=== PATIENT | female | born 1950 | race Caucasian/White ===

== ENCOUNTER → 2023-05-31 13:42 | Outpatient (REF) | payer MEDICARE, OTHER, SELFPAY ==
[2023-05-31 14:02] LABS: % Basophils 0.4 % (0-2); % Eosinophils 3.9 % (0-6); % Immature Granulocytes 0.4 % (0-0.5); % Lymphocytes 4.5 % (20.5-51.1); % Monocytes 12.6 % (1.7-9.3); % Neutrophils 78.2 % (42.2-75.2); Absolute Eosinophils 0.2 10^3/uL (0-0.7); Absolute Lymphocytes 0.2 10^3/uL (1.2-3.4); Absolute Monocytes 0.6 10^3/uL (0.1-0.6); Absolute Neutrophils 3.8 10^3/uL (1.4-6.5); Hematocrit 27.6 % (37.0-47.0); Mean Corp Hgb Conc. 32.6 g/dL (33.0-37.0); Mean Corpuscular Hgb 34.6 pg (27.0-31.0); Mean Corpuscular Volume 106.2 fL (81.0-99.0); Mean Platelet Volume 8.9 fL (7.4-10.4); Nucleated Red Blood Cells % 0 %; Platelet Count 140 10^3/uL (130-400); Red Cell Dist. Width 17.6 % (11.5-14.5); White Blood Cell Count 4.9 10^3/uL (4.8-10.8)
[2023-05-31 14:38] LABS: ALT (SGPT) 21 U/L (0-35); AST (SGOT) 30 U/L (14-36); Albumin 3.8 g/dl (3.5-5.0); Alkaline Phosphatase 79 U/L (38-126); Blood Urea Nitrogen 32 mg/dl (7-17); Calcium 8.9 mg/dl (8.4-10.2); Carbon Dioxide 21 mmol/L (22-30); Chloride 106 mmol/L (98-107); Glucose 125 mg/dl (70-99); Potassium 3.6 mmol/L (3.5-5.1); Sodium 135 mmol/L (135-145); Total Bilirubin 0.7 mg/dl (0.2-1.3); Total Protein 6.5 g/dl (6.3-8.2); eGFR > 60.00
[2023-05-31 15:02] LABS: Erythrocyte Sed Rate 84 mm/hour (0-20)
== END ==
LOC: REG 13:42
PROVIDERS: ATTENDING PHYSICIAN Physician Assistant Surgical; FAMILY PHYSICIAN Internal Medicine
DX: Z47.89 Encounter for other orthopedic aftercare (principal); E46 Unspecified protein-calorie malnutrition
CPT/HCPCS: 36415; 80053; 85025; 85652; 86140

== ENCOUNTER 2023-09-07 05:57 | Inpatient (IN) | payer MEDICARE, OTHER, SELFPAY ==
[2023-09-07] VITALS (15 sets, daily range): BP systolic 70–132; BP diastolic 65–88; BMI 18.9
--- NOTE | 2023-09-07 01:56 | ED.GENMED ---
History of Present Illness
General
Chief Complaint: Musculo-Skeletal Complaint
Source: patient and family (Daughter)
Exam Limitations: none
Time Seen by Provider: 09/07/23 01:06
Travel History
Have you had any contact with someone who has COVID-19?: No
Do you have any symptoms of coronavirus? Fever > 100 degrees, chills, cough, shortness of breath, sore throat, loss of taste or smell, muscle aches, or headache?: No
History of Present Illness
History of Present Illness:
This is a 73 year old female that is brought in by her daughter with multiple complaints. Patient daughter states that the patient had her right hip replaced in May 15. States that she left for [place] in May. States that about 4 weeks
ago she fell and dislocated the right hip. States that this was reduced and since that time she has had pain. States that she had 2 X-rays of the right hip and she was told that they were normal. Patient has not been eating or drinking. States that
she was walking with a walker but as of a week ago she is unable to walk. States that they drove up from [place] today and left there at 6:30am and came here. States that she feels she is dehydrated. State that the patient had a fever on Saturday and
diarrhea last week. Denies any chills, chest pain, SOB, abd pain, nausea, vomiting, headache, dizziness, urinary burning.
Past History
Past History
ED Past Medical History: Asthma, Cancer (Ovarian with mets to Lung) and Other (Neuropathy)
ED Past Surgical History: Appendectomy, Gynecological (Hysterectomy) and Orthopedic (Right total knee replacement, Right total hip replacement)
Social History
Tobacco: Non-smoker
Alcohol: Occasional
Drug: None
Personal:
Living: with family
Review of Systems
Review of Systems
All Other Systems: ROS reviewed and negative except as documented in HPI and ROS
Constitutional: Reports no symptoms; Denies fever (Had a fever on Saturday but not since) or chills
EENT: Reports no symptoms
Respiratory: Reports no symptoms; Denies cough or trouble breathing
Cardiac: Reports no symptoms; Denies chest pain
ABD/GI: Denies abdominal pain, nausea, vomiting or diarrhea (Diarrhea last week)
: Reports no symptoms; Denies dysuria, frequency or urgency
Musculoskeletal: Reports joint pain (Right hip pain)
Skin: Reports no symptoms
Neurological: Reports no symptoms; Denies dizzy or headache
Psychiatric: Reports no symptoms
Phy Exam
General Physical Exam
General Presentation: no apparent distress
General age: appears older than age
General Skin: warm and dry
General Habitus: debilitated and failure to thrive
General Mental: alert
General Hydration: dry mucous membranes
ENT Exam
ENT Exam: TM's normal, pharynx normal and neck supple
Eye Exam
Eye Exam: EOMI
Cardiovascular Exam
Cardiovascular Exam: regular rate/rhythm and normal peripheral pulses
Pulmonary Exam
Pulmonary Exam: lungs clear, no respiratory distress, no rales, chest non tender, no crackles, no rhonchi, no wheezing and no cough
Gastrointestinal Exam
Gastrointestinal Exam: normal bowel sounds, non tender, soft, no organomegaly, no pulsatile mass and non distended
Musculoskeletal Exam
Musculoskeletal Exam: edema (Right >Left. Pitting +2 ) and other (Right hip tenderness with palpation. Unable to bend knee or move leg due to pain)
Skin Exam
Skin Exam: normal color, warm/dry, no rash and no petechia
Psychiatric Exam
Psychiatric Exam: normal mood/affect
Course
Orders/Labs/Results
Orders:
Orders
09/07/23 01:39
CT Lower Ext W/o Iv Cont Rt Urgent
Comment: 2 X-rays negative.
Reason For Exam: Right hip pain. Unable to walk
09/07/23 01:46
Complete Blood Count/With Diff Urgent
Comprehensive Metabolic Panel Urgent
09/07/23 01:55
0.9% Sodium Chloride 1000 ml [Nss] 1,000 ml IV BOLUS
09/07/23 02:57
Urinalysis Reflex To Culture Urgent
Date Specimen was Collected: 09/07/23
Time Specimen was Collected: 03:04
Abnormal Lab Results
09/07/23
01:46
WBC 15.7 H 10^3/uL
(4.8-10.8)
RBC 3.15 L 10^6/uL
(4.20-5.40)
Hgb 9.1 L g/dL
(12.0-16.0)
Hct 27.4 L %
(37.0-47.0)
RDW 25.4 H %
(11.5-14.5)
Abs Immat Gran (auto) 0.2 H 10^3/uL
(0-0.05)
Absolute Neuts (auto) 13.8 H 10^3/uL
(1.4-6.5)
Absolute Lymphs (auto) 0.1 L 10^3/uL
(1.2-3.4)
Absolute Monos (auto) 1.5 H 10^3/uL
(0.1-0.6)
Immature Gran % 1.4 H %
(0-0.5)
Neutrophils % 87.7 H %
(42.2-75.2)
Lymphocytes % 0.7 L %
(20.5-51.1)
Monocytes % 9.8 H %
(1.7-9.3)
Sodium 128 L mmol/L
(135-145)
BUN 32 H mg/dl
(7-17)
Glucose 118 H mg/dl
(70-99)
AST 38 H U/L
(14-36)
Alkaline Phosphatase 147 H U/L
(38-126)
Total Protein 5.4 L g/dl
(6.3-8.2)
Albumin 2.7 L g/dl
(3.5-5.0)
09/07/23 01:46
09/07/23 01:46
Leukocytosis, H/H low but consistent with prior labs, Hyponatremia, Glucose nonfasting. AST very slightly elevated. Alk phos elevation. Total protein low. Albumin low.
Vital Signs
Initial and Last Documented VS:
Initial Vital Signs
Pulse Resp BP Pulse Ox
124 24 132/88 96
09/07/23 00:08 09/07/23 00:08 09/07/23 00:08 09/07/23 00:08
Last Documented Vital Signs
Temp Pulse Resp BP Pulse Ox
98.2 F 95 19 112/70 97
09/07/23 02:09 09/07/23 03:00 09/07/23 03:00 09/07/23 03:00 09/07/23 03:00
MDM/Problems Addressed
Differential Diagnosis Includes:
Hip dislocation. Pelvic Fracture,
MDM/Problems Addressed:
This is a 73 year old female that is brought in by daughter with c/o dehydrated and hip pain. Daughter states that she fell a month ago and dislocated her right hip. Patient had the hip replaced on April. States that this was put back into place
and at first was able to use a walker but in the past week is unable to walk. Patient is also not eating or drinking.
Will check labs, give IV fluids and get CT of hip.
Back into see patient and daughter. Explained that her blood work shows dehydration. Patient is unable to walk and CT was pending. Will admit patient.
Hospitalist given CT report. Explained that no antibiotics were ordered as this may need to be aspirated so can be treated with appropriate antibiotics if needed.
Chronic conditions affecting care: Cancer
Acute Exacerbation and/or Progression of Chronic Illness:
NA
*Radiology
Radiology exam reviewed: radiology read reviewed (Right hip night hawk- Approximately 11.5 X 8.9 X 17.6cm right thigh loculated fluid collecion witih internal foci of gas along the posteriolateral aspect of the proximal right femur and hip. This may
represent a Postoperative Seroma, hematoma, or abscess. cannot Exclude a metal-on metal pseudotumor,), all reviewed NAD by ED Provider (CT cont- although there are no definite erosions visualized consider further evaluation with fluid sampling.
Otherwise, intact right total hip arthropolasty. No acute fracture or malalignment. Partially visualized mildly distended gallbladder and gallbladder wall thickening, which is nonspecific.) and other (CT cont- Correlate with any signs of
Cholecystitis. NO acute intrapelvic abnormalities. Moderate anasarca. )
*Pulse Oximetry
Patient hypoxic: no
*EKG
Interpreted by ED Provider?: NA
Rate: EKG- N/A
*[place] T[place] Line Interpretation
Rate: tachycardiac
Heart Rate: 102
*Critical Care Note
Total Time (30-74mins, 75-104mins- exclusive of procedures): Not Applicable
ED Attending Note
-
Portions of this chart may have been created with voice recognition software.� Occasional wrong word or��sound alike� substitutions may have occurred due to the inherent limitations of voice recognition software.
Discharge Plan
Departure
Patient Disposition: Admit
Date of Disposition: 09/07/23
Time of Disposition: 03:54
Admit to: Med/Surg
Presentation/result/management discussed w/ accepting MD/DO: Hospitalist
Patient with high blood pressure during this ER visit?: No
Condition: Good
Covid-19: Not Applicable
Discharge Problem:
Acute dehydration, Acute pain of right hip, Ambulatory dysfunction
Prescriptions:
No Action
albuterol sulfate 1 PUFF HFA aerosol inhaler
2 puff inhalation R Q4HPRN PRN (Reason: SOB)
cholecalciferol (vitamin D3) [Vitamin D3] 25 mcg (1,000 unit) Tablet
25 mcg PO DAILY
mupirocin 2 % ointment
1 applic topical BID Qty: 1 0RF
Patient Comments:
started treatment on saturday05/11/23 and wa staking BID, last took at home 05/14/23 in am
aspirin 325 mg tablet
325 mg PO DAILY Qty: 1 0RF
Rx Instructions:
Take with food
cefadroxil 500 mg capsule
500 mg PO BID Qty: 14 0RF
Rx Instructions:
*Take w/ food
*Take w/ probiotic
*POST-OP USE
docusate sodium [Colace] 100 mg capsule
100 mg PO BID Qty: 1 0RF
famotidine 20 mg tablet
20 mg PO HS Qty: 30 0RF
Rx Instructions:
post-op
Saccharomyces boulardii [Florastor] 250 mg capsule
250 mg PO BID Qty: 1 0RF
magnesium hydroxide [Milk of Magnesia] 400 mg/5 mL suspension
30 ml PO HS PRN (Reason: Constipation) Qty: 1 0RF
sennosides [Senokot] 8.6 mg tablet
17.2 mg PO BID Qty: 2 0RF
meloxicam 15 mg tablet
15 mg PO DAILY Qty: 14 0RF
Rx Instructions:
take with food
post-op
oxycodone 5 mg tablet
5 - 10 mg PO Q6HPRN PRN (Reason: 1 tab moderate-2 tabs severe pain) Qty: 30 0RF
Rx Instructions:
Dx surgery
ongoing therapy
Post-op use
acetaminophen [Tylenol] 325 mg capsule
650 mg PO QID Qty: 2 0RF
prednisone 10 mg tablet
40 mg PO TAPER Qty: 20 0RF
Rx Instructions:
4 TABS X 2 DAYS, 3 TABS X 2 DAYS, 2 TABS X 2 DAYS, 1 TAB X 2 DAYS, THEN STOP
cyanocobalamin (vitamin B-12) [Vitamin B-12] 1,000 mcg Tablet
1,000 mcg PO DAILY
ascorbic acid (vitamin C) [Vitamin C] 500 mg Tablet
500 mg PO DAILY
gabapentin 300 mg capsule
600 mg PO DAILY
Referrals:
William Ochoa DO [Family Provider] -
Interventions
Interventions:
*Risk Screen - Suicide Last Done: 09/07/23 00:08
*General Assessment Last Done: 09/07/23 01:50
*Neglect/Abuse Screening Last Done: 09/07/23 00:08
ED- Fall Risk Assessment Last Done: 09/07/23 01:50
*ED COVID-19 Vaccine History Last Done: 09/07/23 02:13
ED-Musculoskeletal Assessment Last Done: 09/07/23 01:50
Discharge Date and Time
Print Language: WOLOF
[2023-09-07 02:00] LABS: % Basophils 0.4 % (0-2); % Immature Granulocytes 1.4 % (0-0.5); % Lymphocytes 0.7 % (20.5-51.1); % Monocytes 9.8 % (1.7-9.3); % Neutrophils 87.7 % (42.2-75.2); Absolute Basophils 0.1 10^3/uL (0-0.2); Absolute Immature Granulocytes 0.2 10^3/uL (0-0.05); Absolute Lymphocytes 0.1 10^3/uL (1.2-3.4); Absolute Monocytes 1.5 10^3/uL (0.1-0.6); Absolute Neutrophils 13.8 10^3/uL (1.4-6.5); Hematocrit 27.4 % (37.0-47.0); Hemoglobin 9.1 g/dL (12.0-16.0); Mean Corp Hgb Conc. 33.2 g/dL (33.0-37.0); Mean Corpuscular Hgb 28.9 pg (27.0-31.0); Mean Platelet Volume 9.6 fL (7.4-10.4); Nucleated Red Blood Cells % 0.3 %; Platelet Count 180 10^3/uL (130-400); Red Blood Cell Count 3.15 10^6/uL (4.20-5.40); Red Cell Dist. Width 25.4 % (11.5-14.5); White Blood Cell Count 15.7 10^3/uL (4.8-10.8)
[2023-09-07] MEDS: NSS 1000 IV ×2 (02:03→12:27)
[2023-09-07 02:19] LABS: ALT (SGPT) 16 U/L (0-35); AST (SGOT) 38 U/L (14-36); Albumin 2.7 g/dl (3.5-5.0); Alkaline Phosphatase 147 U/L (38-126); Blood Urea Nitrogen 32 mg/dl (7-17); Calcium 8.4 mg/dl (8.4-10.2); Carbon Dioxide 22 mmol/L (22-30); Chloride 100 mmol/L (98-107); Estimated Creatinine Clearance 44 ml/min; Glucose 118 mg/dl (70-99); Potassium 4.2 mmol/L (3.5-5.1); Sodium 128 mmol/L (135-145); Total Bilirubin 0.8 mg/dl (0.2-1.3); Total Protein 5.4 g/dl (6.3-8.2); eGFR > 60.00
[2023-09-07 02:51] LABS: Anisocytosis 2+; Normal RBC Morphology No
[2023-09-07 02:54] LABS: Polychromasia Occasional; Target Cells Occasional
[2023-09-07 02:55] LABS: Basophilic Stippling Occasional; Ovalocytes Occasional; Tear Drop Red Blood Cells Occasional
[2023-09-07 04:24] LABS: Urine Albumin Trace (Neg - Trace); Urine Bilirubin 1+ (Negative); Urine Character Slightly Cloudy (Clear); Urine Color Amber; Urine Glucose Negative (Negative); Urine Ketone Trace (Negative); Urine Leukocyte Trace (Negative); Urine Nitrite Negative (Negative); Urine Occult Blood Negative (Negative); Urine Specific Gravity 1.025 (<1.030); Urine Urobilinogen 2+ (Neg - 1+)
--- NOTE | 2023-09-07 04:43 | HPS.HSE ---
Family Physician
-
Family Physician: William Ochoa
Chief Complaint
-
Right hip pain mobility dysfunction
History of Present Illness
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
malnutrition, presenting to ED following progressive worsening of right hip pain with family dysfunction.
Patient had total hip arthroplasty in April. About a month ago she suffered a dislocation of the right femur and had a reduction. Since that reduction with the patient has had continued pain and is now unable to walk. She was a child walking
independently obtained with a cane and then ultimately with a walker. I have over the last few days she has not been able to walk. She stated that in the last month she had 1 or 2 days of subjective fevers but not persistent. She denied any
erythema. Patient has a chronic swelling of the right lower extremity and she is unable to tell whether it is worse than baseline. She denied any recent falls. She denies any numbness or tingling. Patient denies any new urinary or fecal
incontinence. She continues to endorse decreased appetite and limited po intake. No nausea, vomiting or diarrhea.
In the ED she was afebrile, she was hemodynamically stable with a blood pressure of 118/75, normal pulse rate of 88. She was satting at 95% on room air. She had leukocytosis of 15,000, hemoglobin 9.1 and platelet of 180. Chemistries are notable
for sodium of 128 but otherwise no change from prior. Albumin was 2.7. LFTs unremarkable. UA is pending. She had a CT of the pelvis without contrast showing a 11.5 x 8.9 x 17.6 centimeter loculated fluid collection in the right thigh with
internal foci of gas along the posterolateral aspect of the proximal right femoral and hip. This may represent postoperative seroma or hematoma or an abscess. There was no dislocation. There was no fracture. Incidental note is made of a
partially visualized mildly distended gallbladder and gallbladder wall thickening.
Medical History
Past Medical History
Past Medical History: Reports Asthma and Cancer
Additional Past Medical History:
h/o ovarian cancer s/p resection and chemotherapy.
Past Surgical History: Reports Gynocological
Additional Past Surgical History:
Right FREDIS
Social History
Tobacco: Non-smoker
Alcohol: None
Drug: None
Personal:
Living: With Family
Employment: Retired
Family History
Family History: Not pertinent
Allergies / Home Medications
Allergies reflects when Allergies were last updated in [facility].
Home Medications with original date entered in [facility]
Allergy/Medication List:
Allergies
Allergy/AdvReac Type Severity Reaction Status Date / Time
No Known Allergies Allergy Verified 09/07/23 00:11
Home Medications
albuterol sulfate 90 mcg/actuation aerosol inhaler 2 puff inhalation R Q4HPRN PRN SOB 06/02/19
cholecalciferol (vitamin D3) 25 mcg (1,000 unit) tablet (Vitamin D3) 25 mcg PO DAILY Supplement 06/02/19
ascorbic acid (vitamin C) 500 mg tablet (Vitamin C) 500 mg PO DAILY Supplement 04/08/23
cyanocobalamin (vitamin B-12) 1,000 mcg tablet (Vitamin B-12) 1,000 mcg PO DAILY Supplement 04/08/23
gabapentin 300 mg capsule 600 mg PO DAILY Pain 04/08/23
mupirocin 2 % topical ointment 1 applic topical BID infection prevention #1 tube 04/26/23
Saccharomyces boulardii 250 mg capsule (Florastor) 250 mg PO BID #1 cap 05/16/23
acetaminophen 325 mg capsule (Tylenol) 650 mg (2 x 325 mg) PO QID #2 caps 05/16/23
aspirin 325 mg tablet 325 mg PO DAILY blood clot prevention #1 tab 05/16/23
cefadroxil 500 mg capsule 500 mg PO BID infection prevention #14 caps 05/16/23
docusate sodium 100 mg capsule (Colace) 100 mg PO BID stool softner #1 cap 05/16/23
famotidine 20 mg tablet 20 mg PO HS GI prophylaxis #30 tabs 05/16/23
magnesium hydroxide 400 mg/5 mL oral suspension (Milk of Magnesia) 30 ml PO HS PRN Constipation #1 mL 05/16/23
meloxicam 15 mg tablet 15 mg PO DAILY anti-inflammatory #14 tabs 05/16/23
oxycodone 5 mg tablet 5 - 10 mg (1 - 2 x 5 mg) PO Q6HPRN PRN 1 tab moderate-2 tabs severe pain #30 tabs 05/16/23
prednisone 10 mg tablet 40 mg (4 x 10 mg) PO TAPER inflammation #20 tabs 05/16/23
sennosides 8.6 mg tablet (Senokot) 17.2 mg (2 x 8.6 mg) PO BID laxative #2 tabs 05/16/23
Review of Systems
-
History Source: Patient
Constitutional: Reports No Symptoms
EENT: Reports No Symptoms
Respiratory: Reports No Symptoms
Cardiac: Reports No Symptoms
Abdomen/GI: Reports No Symptoms
: Reports No Symptoms
Musculoskeletal: Reports Joint Pain and Edema
Skin: Reports No Symptoms
Neurological: Reports No Symptoms
Endocrine: Reports No Symptoms
Hematologic/Lymphatic: Reports No Symptoms
Psych: Reports No Symptoms
Physical Exam
Vital Signs
Vital Signs
Temp Pulse Resp BP Pulse Ox
98.2 F 88 14 118/73 95
09/07/23 02:09 09/07/23 04:00 09/07/23 04:00 09/07/23 04:00 09/07/23 04:00
Physical Exam
General: Appears in Distress, Poor Appetite and Appears Chronically Ill
HEENT: NormoCephalic, Anicteric, Moist mucous membranes, Atraumatic and PERRLA
Respiratory: Clear
Cardiac: S1/S2 and Regular Rhythm
Breast: Deferred by me
GI: Soft, Non Tender, Non Distended and Normal Bowel Sounds
Rectal: Deferred by Provider
Genito-urinary: Deferred by me
Musculoskeletal: No Clubbing, No Cyanosis and Edema, Right Lower Extremity
Skin: Warm
Neuro: AO x 3
Hematologic/Lymphatic: No Lymphadenopathy
Psych: Calm
Laboratory Results
-
09/07/23 01:46
09/07/23 01:46
Laboratory Results
Total Bilirubin 0.8 mg/dl (0.2-1.3) 09/07/23:46
AST 38 U/L (14-36) H 09/07/23:46
ALT 16 U/L (0-35) 09/07/23:46
Alkaline Phosphatase 147 U/L (38-126) H 09/07/23:46
Data Reviewed
-
CT Scan: Report Reviewed by me
Lab Data: Labs Reviewed by me
Old Records: Reviewed
Impression/Plan
-
IMPRESSION:
PLAN:
1. Right Hip pain - Right hip pain s/p R FREDIS in april complicated by dislocation 1 month ago s/p reduction. Patient with persistent pain and ambulatory dysfunction since. She is non-toxic appearing and right hip with edema to the legs but no
erythema or warmth. Tender to palpation. Leukocytosis noted. CT of the pelvis with a loculated fluid collection iwth internal foic of gas along the posterolateral aspect of the proximal right femur and hip representing possible seroma, hematoma
or abscess.
- admit to med/surg
- surgery consult (patient of Dr. Hill), likely needs drainage and fluid analysis
- holding abx for now, start abx if febrile
- pain control
- PT evaluation
2. Right leg edema - Appears chronic with some degree of anasarca. Patient reports long standing swelling in that leg. Anasarca may be secondary to malnutrition and hypoalbuminemia. Given surgery possibly swelling due to lymphatic compromise
- check R LE DVT study
3. Hyponatremia - Na 128, appears to be hypovolemic.
- gentle hydration with NS at 75 ml/hr for now
- check urine lytes and osmolality
4. Asthma - No acute symptoms
- continue nebs prn
DVT PPX - lovenox sq
Code Status - DNR
[2023-09-07 05:27] LABS: Urine Amorphous Seen; Urine Mucus Moderate; Urine Squamous Cell >30 /LPF (Few); Urine Urothelial Cell >30 /LPF (FEW)
[2023-09-07 05:28] LABS: Urine Bacteria Many (Negative)
[2023-09-07 05:29] LABS: Urine White Cell 70-80 /HPF (0-5)
--- NOTE | 2023-09-07 08:05 | W.PN.UPDATE ---
Addendum entered and electronically signed by Gianfranco Lizarraga MD 09/07/23 10:29:
Notified by IR the patient has acute nonocclusive thrombus of the right femoral, popliteal, and posterior tibial veins.
Patient for drainage of right hip fluid collection by IR, and also surgery on Saturday. Unable to anticoagulate at this point.
Can consider therapeutic Lovenox after drainage.
Original Note:
Update Note
Progress Note Update
Patient seen and examined.
73 yo female who has a history of ovarian cancer receiving treatments underwent R THR in April.
Right lower extremity CT shows large complex loculated fluid, which may be a seroma, hematoma, or abscess.
Appreciate orthopedic surgery input, IR consulted for drainage, follow-up on right hip ultrasound, ESR, CRP, blood cultures.
Likely would start antibiotics after drainage.
Start Tylenol 1 g 3 times daily, continue oxycodone and IV Dilaudid as needed.
Sodium 128, likely from excess ADH release from pain.
Start fluid restriction, trend sodium, check TSH/free T4, a.m. cortisol.
Patient constipated, start aggressive bowel regimen.
--- NOTE | 2023-09-07 08:28 | W.PN.UPDATE ---
Addendum entered and electronically signed by Colin Augustin MD 09/07/23 09:11:
Recommend no antibiotics until aspiration.
Original Note:
Update Note
Progress Note Update
Full consult dictated. 73 yo female who has a history of ovarian cancer receiving treatments underwent R THR in April. Patient states that she was doing well intially following surgery and left with her to [place] at the beginning of
May. She reports being placed on antibiotics in May for bronchitis but has not been on any antibiotics for the past few months. She reports falling and sustaining a hip dislocation in early June and was reduced in an ER in [place]. She
went back to using a walker and notes progressive pain since her dislocation. She has been unable to WB over the last week. Her daughter drove her mother home from [place] over 18 hours and brought her to [facility]. She reports a possible fever but
undocumented. Notes not to have fevers or chills. PE: Answers questions appropriately. Thin and cachetic. VSS. Pulm: nonlabored. RLE swollen compared to the left. Left leg with healing wounds. Right hip incision clean, dry and intact.
Swelling laterally with tenderness. Able to flex knee to 60 degrees with tenderness. Able to log roll with tenderness. Able to actively dorsiflex and plantarflex ankle. Labs: WBC 15,700. Hgb 9.1. CT scan reveals loculated fluid collection
laterally about the hip. Impression: Immunocompromised patient s/p right THR with history of hip dislocation 2 months ago and worsening pain over the past 1-2 weeks. Recommend: Right hip xrays, ESR, CRP, blood cultures and urine culture. Will
review CT scan with radiology and consider IR aspiration of collection. NPO after MN. Have discussed treatment with the patient and have also left a voicemail for the patient's daughter.
[2023-09-07] MEDS: ProAIR HFA INHALER 2 PUFF INH (09:15)
--- NOTE | 2023-09-07 09:57 | W.PN.UPDATE ---
Update Note
Progress Note Update
Have discussed case with interventional radiology and Dr. Hill. Dr. Waters consulted for infectious disease input. Large collection noted on CT scan concerning for abscess. IR to aspirate. Start antibiotics after aspirate. Have spoken to the
patient regarding current plan. Patient has been posted for surgery with Dr. Hill for I&D and revision for Saturday. Medical optimization in the interim.
[2023-09-07 11:30] LABS: Erythrocyte Sed Rate 81 mm/hour (0-20)
[2023-09-07] MEDS: NEURONTIN 600 MG PO (12:25)
[2023-09-07] MEDS: DULCOLAX 10 MG RECTAL (12:26)
[2023-09-07] MEDS: VITAMIN B-12 1000 MCG PO (12:26)
[2023-09-07] MEDS: TYLENOL 1000 MG PO ×3 (12:26→21:43)
--- NOTE | 2023-09-07 13:01 | CON.ID ---
Consultation
-
Date/Time Consultation Requested: 09/07/2023 1005
Date/Time Consultation Performed: 09/07/2023 1300
Requesting Provider: Dr. Augustin
Performing Provider: Dr. Waters
Reason for Consultation: Suspected right hip PJI
Chief Complaint / Past History
History of Present Illness
Katiuska Mckeon is a 73-year-old female being evaluated for possible right hip septic arthritis. History is obtained from chart review, along with patient interview.
The patient has a significant past medical history of metastatic ovarian cancer (to lungs) s/p resection and ongoing chemotherapy. She also has a history of right hip arthroplasty, performed on 05/15/2023 here at [facility]. She reports
that she did well in the postop period, and went to [place] in May. She reports that she still had some pain in the area of the right hip at that time. In mid July she sustained a fall (described as a slip off of her bed), that resulted in a
dislocation. She was taken to the hospital, where the dislocation was reduced. She reports being in the hospital for approximately 2 days. Following that she has had ongoing edema and pain in the leg. Yesterday she arrived back in the area from
[place], and her daughter brought her right to the hospital.
She admits to occasional fevers, but she also attributes intermittent chills that she has to being on chemo, which she receives 2 weeks on, 1 week off. She is under the care of [facility].
She reports ongoing swelling in the right leg, and notes tenderness in the right hip area. In the ER she was found to have an elevated white count. CT of the right hip area has revealed loculated collection. IR has been consulted for aspiration.
Past History
Additional Past Medical History:
Ovarian cancer (Hx surgical resection/ on chemotherapy)
Arthritis
Asthma
Chronic hyponatremia
Additional Past Surgical History:
Right FREDIS (April 2023)
Right knee replacement
Allergy History:
No Known Allergies Allergy (Verified 09/07/23 00:11)
Medications Reviewed: Yes
Current Antibiotics:
None
Social History
Tobacco: Non-Smoker
Alcohol: None
Drug: None
Living: With Family
Employment: Retired
Family History
Family History: Not Pertinent
Review of Systems
Vital Signs
Temp Pulse Resp BP Pulse Ox
97.9 F 93 14 124/80 98
09/07/23 10:49 09/07/23 10:49 09/07/23 10:49 09/07/23 10:49 09/07/23 10:49
Physical Exam
Physical Exam
Constitutional: No Acute Distress, Comfortable, Chronically Ill, Non-toxic and Cachetic
Eyes: Pupils Equal, Pupils Round, No Conjunctival Hemorrhage and Sclera Anicteric
Oral: No Thrush and No Ulcers
Cardiovascular: S1/S2; Negative S3/S4 or Murmur
Pulmonary: Non Labored
Gastrointestinal: Soft, Non Tender, Non Distended and Normal Bowel Sounds
Extremities: Edema (Right hip area; right leg), Erythema (Right hip area) and Pulses
Musculoskeletal: Joint Swelling (right hip)
Neurological: Awake and Alert
Psychological: Calm
Lab / Diagnostic Study Results
09/07/23 01:46
09/07/23 01:46
Abs Immat Gran (auto) 0.2 10^3/uL (0-0.05) H 09/07/23 01:46
Absolute Neuts (auto) 13.8 10^3/uL (1.4-6.5) H 09/07/23 01:46
Absolute Lymphs (auto) 0.1 10^3/uL (1.2-3.4) L 09/07/23 01:46
Absolute Monos (auto) 1.5 10^3/uL (0.1-0.6) H 09/07/23 01:46
Absolute Basos (auto) 0.1 10^3/uL (0-0.2) 09/07/23 01:46
Immature Gran % 1.4 % (0-0.5) H 09/07/23 01:46
Neutrophils % 87.7 % (42.2-75.2) H 09/07/23 01:46
Lymphocytes % 0.7 % (20.5-51.1) L 09/07/23 01:46
Monocytes % 9.8 % (1.7-9.3) H 09/07/23 01:46
Eosinophils % 0.0 % (0-6) 09/07/23 01:46
Basophils % 0.4 % (0-2) 09/07/23 01:46
ESR 81 mm/hour (0-20) H 09/07/23 08:31
C-Reactive Protein 226.90 mg/L (0.0-10.00) H 09/07/23 08:31
Ur Squamous Epith Cells >30 /LPF (Few) 09/07/23 03:47
Microbiology Results
Micro:
09/07/23 12:33 MRSA Screen - Pending
Nose
09/07/23 08:31 Blood Culture - Pending
Blood/Venous
09/07/23 03:47 Urine Culture - Pending
Urine
Imaging:
09/07/2023 CT right lower extremity: Large complex loculated fluid collection in the right posterolateral hip soft tissues, which may represent a postoperative seroma, hematoma, or abscess.
Assessment / Plan
Suspected right hip PJI
Right hip collection (abscess vs seroma vs hematoma)
Ovarian cancer (Hx surgical resection/chemotherapy)
Arthritis
Asthma
Chronic hyponatremia
Recommendations:
Patient for aspiration of the area via Interventional Radiology
--> Please send samples for both aerobic and anaerobic cultures.
Once appropriate samples collected for culture, will begin empiric antibiotics with vancomycin and Zosyn.
Await culture data to guide further antimicrobial selection and de-escalation.
Monitor white count and temperature curve.
--- NOTE | 2023-09-07 14:09 | W.PN.UPDATE ---
Update Note
Progress Note Update
- 10F drain placed to large R hip collection
- 500 mL purulent fluid aspirated. Samples sent.
- Pt tolerated well.
[2023-09-07] MEDS: DILAUDID 0.5 MG IV (15:25)
[2023-09-07] MEDS: FLUSH (NSS) 2 FLUSH IV (15:25)
[2023-09-07] MEDS: MYCOSTATIN ORAL SUSPENSION 5 ML PO ×3 (15:29→21:44)
[2023-09-07 15:43] LABS: Body Fluid Mononuclear 67.1 %; Body Fluid Polymorphonuclear 32.9 %; Body Fluid WBC 240400 /CUMM
[2023-09-07 15:46] LABS: Body Fluid Second Tech JKH
[2023-09-07] MEDS: LOVENOX 40 MG SC (17:17)
[2023-09-07] MEDS: SENOKOT-S 2 TABLET PO (20:00)
[2023-09-07] MEDS: MIRALAX PO (20:00)
[2023-09-07] MEDS: PEPCID 20 MG PO (21:44)
[2023-09-08 01:28] LABS: Osmolality Urine 362 mOsm/kg (300-900)
[2023-09-08 01:34] LABS: Urine Sodium 28 mmol/L (30-90)
[2023-09-08] MEDS: NSS 1000 IV ×2 (01:35→14:55)
[2023-09-08 07:10] VITALS: BP 117/77
[2023-09-08] MEDS: NEURONTIN 600 MG PO (08:31)
[2023-09-08] MEDS: MYCOSTATIN ORAL SUSPENSION 5 ML PO ×3 (08:31→21:24)
[2023-09-08] MEDS: SENOKOT-S 2 TABLET PO (08:32)
[2023-09-08] MEDS: VITAMIN B-12 1000 MCG PO (08:32)
[2023-09-08] MEDS: TYLENOL 1000 MG PO ×3 (08:32→21:24)
[2023-09-08] MEDS: MIRALAX PO ×2 (08:33→19:25)
--- NOTE | 2023-09-08 09:04 | W.PN.HOSP.TC ---
Today's Communication/Plan
-
see bold
Assessment / Plan
Assessment / Plan
1. Right Hip pain - Right hip pain s/p R FREDIS in april complicated by dislocation 1 month ago s/p reduction
Appreciate orthopedic surgery, ID, IR input
Status post drainage on 09/06, plan for I&D with possible implant exchange on
Continue IV antibiotics as per ID, follow-up on cultures
Trend fever and white count
2. Acute right lower extremity DVT
Treat with therapeutic Lovenox, last dose will be Saturday night for her surgery on
3. Acute hyponatremia
Likely from excess ADH release from pain
Sodium 130 today, improved from 128 upon admission
TSH/a.m. cortisol normal, continue fluid restriction, trend sodium
4. Asthma - No acute symptoms
- continue nebs prn
5. Chronic normocytic anemia, likely from chronic disease
Monitor hemoglobin
DVT PPX -therapeutic Lovenox for DVT
Code Status - DNR
Updated daughter on phone 09/07
Total time spent to see the patient on the floor, examine the patient, review data and lab results, discuss treatment plan with patient, nursing staff around 50 minutes.
Physical Exam
General: Thin, frail, appears debilitated, no acute distress
HEENT: Normocephalic, Atraumatic, EOMI, MMM
Respiratory: Clear to Auscultation bilaterally
Cardiac: Normal S1/S2, Regular Rate and Rhythm
GI: Soft, Nontender, Nondistended, Normal Bowel Sounds
Extremities: No Clubbing, Cyanosis
Right lower extremity edema noted
Musculoskeletal: Right hip dressed
Anticipated Discharge: > 48 hours
Subjective/Interval History
-
Date of Service: September 08, 2023
Patient reports her pain is 3 out of 10 in intensity. No chest pain, no shortness of breath. No bowel movement yet. No fever, no vomiting.
Objective Data
-
Labs:
Laboratory Results
09/08/23
06:00
WBC Pending
Hgb Pending
Hct Pending
Plt Count Pending
Sodium Pending
Potassium Pending
Chloride Pending
Carbon Dioxide Pending
BUN Pending
Creatinine Pending
Glucose Pending
Calcium Pending
Vital Signs:
Vital Signs
Temp Pulse Resp BP Pulse Ox
97.4 F 81 12 117/77 97
09/08/23 07:10 09/08/23 07:10 09/08/23 07:10 09/08/23 07:10 09/08/23 07:10
I&O
09/07/23 09/08/23 09/09/23
06:59 06:59 06:59
Intake Total 2640 / 2640
Output Total 170 / 170
Balance 2470 / 2470
[2023-09-08] MEDS: LOVENOX 50 MG SC ×2 (10:31→21:24)
--- NOTE | 2023-09-08 10:46 | W.PN.UPDATE ---
Update Note
Progress Note Update
Patient seen and evaluated with friend at bedside. IR drainage yesterday. US with nonocclusive DVT RLE.
VSS. Pulm: nonlabored. CV: regular. RLE: drain in place right hip with small amount of bloody purulent drainage. NVI distally. Less swollen over lateral hip with mild tenderness. Calf soft.
WBC pending today. Elevated ESR and CRP. Cultures from aspirate suggest E. coli. Blood cultures negative thus far.
Appreciate hospitalists assistance as well as infectous disease input. Patient scheduled for I&D with possible implant exchange for . Patient aware of the plan. Stop Lovenox Saturday.
[2023-09-08 11:51] LABS: Hematocrit 26.4 % (37.0-47.0); Hemoglobin 8.2 g/dL (12.0-16.0); Mean Corp Hgb Conc. 31.1 g/dL (33.0-37.0); Mean Corpuscular Hgb 28.5 pg (27.0-31.0); Mean Corpuscular Volume 91.7 fL (81.0-99.0); Mean Platelet Volume 9.5 fL (7.4-10.4); Platelet Count 180 10^3/uL (130-400); Red Blood Cell Count 2.88 10^6/uL (4.20-5.40); White Blood Cell Count 11.1 10^3/uL (4.8-10.8)
[2023-09-08 12:04] LABS: Blood Urea Nitrogen 27 mg/dl (7-17); Calcium 7.8 mg/dl (8.4-10.2); Carbon Dioxide 21 mmol/L (22-30); Chloride 106 mmol/L (98-107); Estimated Creatinine Clearance 66 ml/min; Glucose 101 mg/dl (70-99); Potassium 3.9 mmol/L (3.5-5.1); Sodium 130 mmol/L (135-145); eGFR > 60.00
--- NOTE | 2023-09-08 13:03 | W.PN.ID1 ---
Date of Service
Date of Service: September 08, 2023
Today's Communication
Continue antibiotics.
Assessment / Plan
Suspected right hip PJI
Right hip collection (abscess vs seroma vs hematoma)
- s/p IR drainage of ~500 cc purulent fluid.
Ovarian cancer (Hx surgical resection/chemotherapy)
Arthritis
Asthma
Chronic hyponatremia
Recommendations:
Aspirate reveals presence of E. coli.
Will broaden to cefepime 2 g IV every 12 hours. Await final culture sensitivities.
Monitor white count and temperature curve.
Per reviewed notes, patient for tentative I&D and implant exchange later this week.
����������������������������������������������������������
Subjective / Review of Systems
Review of Systems: No Fever
Vital Signs / Physical Exam
Vital Signs
Vital Signs
Temp Pulse Resp BP Pulse Ox
97.4 F 81 12 117/77 97
09/08/23 07:10 09/08/23 07:10 09/08/23 07:10 09/08/23 07:10 09/08/23 08:00
Physical Exam
Constitutional: Comfortable, Chronically Ill, Non-toxic and Cachetic
Cardiovascular: S1/S2; Negative S3/S4
Pulmonary: Non Labored
Gastrointestinal: Soft and Non Distended
Musculoskeletal: Other (CAROL in place right hip.)
Skin: Negative Rash or Jaundice
Psychological: Calm
Objective Data
Lab Data
Lab Results
09/08/23 11:34
09/08/23 11:34
ESR 81 mm/hour (0-20) H 09/07/23 08:31
Estimated Creat Clear 66 ml/min 09/08/23 11:34
Total Bilirubin 0.8 mg/dl (0.2-1.3) 09/07/23 01:46
AST 38 U/L (14-36) H 09/07/23 01:46
ALT 16 U/L (0-35) 09/07/23 01:46
Alkaline Phosphatase 147 U/L (38-126) H 09/07/23 01:46
C-Reactive Protein 226.90 mg/L (0.0-10.00) H 09/07/23 08:31
Most recent labs reviewed.
Micro Results:
09/07/23 03:47 Urine Culture - Preliminary
Urine
09/07/23 14:03 Body Fluid Culture - Preliminary
Joint Fluid Escherichia coli
Gram Stain - Preliminary
09/07/23 08:31 Blood Culture - Preliminary
Blood/Venous No Growth in 24 hours- Final report to follow
09/08/23 00:40 Urine Culture - Pending
Urine
09/07/23 12:33 MRSA Screen - Pending
Nose
Imaging:
09/07/2023 CT right lower extremity: Large complex loculated fluid collection in the right posterolateral hip soft tissues, which may represent a postoperative seroma, hematoma, or abscess.
[2023-09-08] MEDS: MYCOSTATIN ORAL SUSPENSION PO (13:15)
[2023-09-08 14:07] LABS: Cortisol, Random 39.2 ug/dl; TSH Reflex To Free T4 4.52 uIU/ml (0.47-4.68)
[2023-09-08] MEDS: MAXIPIME 2000 MG IV (14:56)
[2023-09-08] MEDS: STERILE WATER FOR INJECTION 10 ML IV (14:56)
[2023-09-08] MEDS: FLUSH (NSS) 2 FLUSH IV (14:58)
[2023-09-08 15:05] VITALS: BP 122/74
--- NOTE | 2023-09-08 15:39 | CM ---
Reviewed the chart notes. Patient resides with spouse in a one story home with one step to enter. The patient has a rolling walker and cane. The patient has had [facility] in the past. CM continues to be available to patient/family and is monitoring
medical plan for needs at discharge.
Plan: Discharge plans will depend on the patient's progress.
[2023-09-08] MEDS: ProAIR HFA INHALER 2 PUFF INH (16:18)
[2023-09-08] MEDS: SENOKOT-S PO (19:25)
[2023-09-08] MEDS: PEPCID 20 MG PO (21:24)
[2023-09-08 23:00] VITALS: BP 138/84
[2023-09-09] MEDS: MAXIPIME 2000 MG IV ×2 (02:02→13:53)
[2023-09-09] MEDS: STERILE WATER FOR INJECTION 10 ML IV ×2 (02:03→13:53)
[2023-09-09 06:26] LABS: Hematocrit 25.5 % (37.0-47.0); Mean Corp Hgb Conc. 31.4 g/dL (33.0-37.0); Mean Corpuscular Hgb 28.7 pg (27.0-31.0); Mean Corpuscular Volume 91.4 fL (81.0-99.0); Mean Platelet Volume 9.8 fL (7.4-10.4); Platelet Count 222 10^3/uL (130-400); Red Blood Cell Count 2.79 10^6/uL (4.20-5.40); Red Cell Dist. Width 24.9 % (11.5-14.5); White Blood Cell Count 9.6 10^3/uL (4.8-10.8)
[2023-09-09 06:44] LABS: Blood Urea Nitrogen 23 mg/dl (7-17); Calcium 7.8 mg/dl (8.4-10.2); Carbon Dioxide 21 mmol/L (22-30); Chloride 107 mmol/L (98-107); Estimated Creatinine Clearance 66 ml/min; Glucose 86 mg/dl (70-99); Potassium 3.8 mmol/L (3.5-5.1); Sodium 134 mmol/L (135-145); eGFR > 60.00
--- NOTE | 2023-09-09 07:29 | W.PN.HOSP.TC ---
Today's Communication/Plan
-
Continue to monitor chemistries and H&H
ID following and now on cefepime for E. coli
Plan for Ortho intervention and implant exchange on
Hold Lovenox Saturday
Assessment / Plan
Assessment / Plan
1. Right Hip pain - Right hip pain s/p R FREDIS in april complicated by dislocation 1 month ago s/p reduction
Appreciate orthopedic surgery, ID, IR input
Status post drainage on 09/06, plan for I&D with possible implant exchange on
Continue IV antibiotics as per ID(cefepime), follow-up on cultures
Trend fever and white count
2. Acute right lower extremity DVT
Treat with therapeutic Lovenox, last dose will be Saturday for her surgery on
3. Acute hyponatremia
Likely from excess ADH release from pain
Sodium 130 today, improved from 128 upon admission and now 134
TSH/a.m abnormal limits. cortisol normal, continue fluid restriction, trend sodium
4. Asthma - No acute symptoms
- continue nebs prn
5. Chronic normocytic anemia, likely from chronic disease
Monitor hemoglobin
DVT PPX -therapeutic Lovenox for DVT
Code Status - DNR
Updated daughter on phone 09/07
Total time spent to see the patient on the floor, examine the patient, review data and lab results, discuss treatment plan with patient, nursing staff around 50 minutes.
Physical Exam
General: Thin, frail, appears debilitated, no acute distress
HEENT: Normocephalic, Atraumatic, EOMI, MMM
Respiratory: Clear to Auscultation bilaterally
Cardiac: Normal S1/S2, Regular Rate and Rhythm
GI: Soft, Nontender, Nondistended, Normal Bowel Sounds
Extremities: No Clubbing, Cyanosis
Right lower extremity edema noted
Musculoskeletal: Right hip dressed
Anticipated Discharge: 24 - 48 hours
Subjective/Interval History
-
Date of Service: September 09, 2023
Had a of restless leg because of her restless legs and states that she usually takes her gabapentin at night not during the day as she has been given here/minimal drainage from the right CAROL drain of her hip
Objective Data
-
Labs:
Laboratory Results
09/09/23
05:58
WBC 9.6
Hgb 8.0 L
Hct 25.5 L
Plt Count 222 D
Sodium 134 L
Potassium 3.8
Chloride 107
Carbon Dioxide 21 L
BUN 23 H
Creatinine 0.6
Glucose 86
Calcium 7.8 L
Vital Signs:
Vital Signs
Temp Pulse Resp BP Pulse Ox
97.6 F 79 16 138/84 98
09/08/23 23:00 09/08/23 23:00 09/08/23 23:00 09/08/23 23:00 09/08/23 23:33
I&O
09/08/23 09/09/23 09/10/23
06:59 06:59 06:59
Intake Total 2640 / 2640 1673 / 1673
Output Total 170 / 170 50 / 50
Balance 2470 / 2470 1623 / 1623
Review of Systems
-
History Source: Patient
EENT: Reports No Symptoms Reported
Musculoskeletal: Reports Joint Pain and Joint Swelling
Physical Exam
-
General: Well Developed
HEENT: Normocephalic
Respiratory: Clear to Auscultation
Cardiac: Regular Rhythm
GI: Soft and Nontender
Skin: Warm
Neuro: Awake
Psych: Calm
Data Reviewed
-
Total Time Spent with Patient (in minutes): 45
Labs: Labs Reviewed by me (Hemoglobin 8.0 trending down/sodium 134 improved BUN 23 creatinine 0.6)
[2023-09-09 08:37] VITALS: BP 153/87
[2023-09-09] MEDS: LOVENOX 50 MG SC ×2 (09:10→21:04)
[2023-09-09] MEDS: VITAMIN B-12 1000 MCG PO (09:11)
[2023-09-09] MEDS: ROXICODONE 5 MG PO ×3 (09:11→18:10)
[2023-09-09] MEDS: SENOKOT-S 2 TABLET PO (09:11)
[2023-09-09] MEDS: TYLENOL 1000 MG PO ×3 (09:12→21:05)
[2023-09-09] MEDS: MIRALAX PO ×2 (09:12→20:03)
[2023-09-09] MEDS: NSS 1000 IV (09:13)
[2023-09-09] MEDS: MYCOSTATIN ORAL SUSPENSION 5 ML PO ×4 (09:14→21:05)
--- NOTE | 2023-09-09 09:41 | W.PN.UPDATE ---
Update Note
Progress Note Update
Patient resting comfortably in bed. Minimal serous output in CAROL. Fluid Cx right hip suggests E-coli. Appreciate ID. Continue IV ABX. Patient is tentatively scheduled for revision right FREDIS on Saturday, [address] Hill. surgical and
blood consents have been signed and placed on the patient's chart. Patient will be NPO pMN on Sat AM. Updated T&S requested for Saturday. Crossed for 2 units- will be hazard mitigation officer to OR Saturday. Spoke to Concepcion Corona in pharmacy. Orders have been
placed for 12 vials 1 g Vanco powder and 12 vials of 1.2 g Tobra powder- to be agitated prior to the OR. Also 12L of iodine irrigation and 2 bags of TXA irrigation will be prepared. APPRECIATE Dr. Lizarraag holding Lovenox after Saturday's PM dose
(order has already been placed). Will follow
--- NOTE | 2023-09-09 14:29 | W.PN.ID1 ---
Date of Service
Date of Service: September 09, 2023
Today's Communication
Continue antibiotics.
Assessment / Plan
Right hip PJI
Right hip collection (abscess vs seroma vs hematoma)
- s/p IR drainage of ~500 cc purulent fluid.
Ovarian cancer (Hx surgical resection/chemotherapy)
Arthritis
Asthma
Chronic hyponatremia
Recommendations:
Aspirate reveals presence of E. coli.
Cultures with pansensitive E. coli.
Transition back to cefazolin.
Await tentative hardware explantation later this week.
Monitor white count and temperature curve.
����������������������������������������������������������
Chief Complaint
-: Other (right hip infection)
Subjective / Review of Systems
Patient seen and examined. Reports no significant issues at present.
Vital Signs / Physical Exam
Vital Signs
Vital Signs
Temp Pulse Resp BP Pulse Ox
98.7 F 83 18 153/87 98
09/09/23 08:37 09/09/23 08:37 09/09/23 08:37 09/09/23 08:37 09/09/23 11:03
Physical Exam
Constitutional: No Acute Distress, Chronically Ill and Non-toxic
Eyes: Sclera Anicteric
Pulmonary: Non Labored
Extremities: Edema and Erythema (right hip)
Skin: Warm and Dry; Negative Rash or Jaundice
Neurological: Awake and Alert
Psychological: Calm
Objective Data
Lab Data
Lab Results
09/09/23 05:58
09/09/23 05:58
ESR 81 mm/hour (0-20) H 09/07/23 08:31
Estimated Creat Clear 66 ml/min 09/09/23 05:58
Total Bilirubin 0.8 mg/dl (0.2-1.3) 09/07/23 01:46
AST 38 U/L (14-36) H 09/07/23 01:46
ALT 16 U/L (0-35) 09/07/23 01:46
Alkaline Phosphatase 147 U/L (38-126) H 09/07/23 01:46
C-Reactive Protein 226.90 mg/L (0.0-10.00) H 09/07/23 08:31
Most recent labs reviewed.
Micro Results:
09/07/23 03:47 Urine Culture - Preliminary
Urine Enterococcus species
Lactobacillus species
09/08/23 00:40 Urine Culture - Final
Urine
09/07/23 08:31 Blood Culture - Preliminary
Blood/Venous No Growth in 48 hours- Final report to follow
09/07/23 14:03 Body Fluid Culture - Final
Joint Fluid Escherichia coli
Gram Stain - Final
09/07/23 12:33 MRSA Screen - Final
Nose No Methicillin Resistant Staphylococcus aureus isolated.
Imaging:
09/07/2023 CT right lower extremity: Large complex loculated fluid collection in the right posterolateral hip soft tissues, which may represent a postoperative seroma, hematoma, or abscess.
--- NOTE | 2023-09-09 14:55 | CM ---
S/P drainage of R hip fluid on 09/06. Plan I&D with possible implant exchange. IV/AB. Will need therapy evaluation to determine discharge plan of care. Will follow medical and surgical progression.
[2023-09-09 16:16] VITALS: BMI 18.9
[2023-09-09 16:32] LABS: Lyme Antibody Screen, EIA Negative (Negative)
[2023-09-09 16:38] VITALS: BP 132/86
[2023-09-09] MEDS: ANCEF 10 IV ×2 (17:32→23:54)
[2023-09-09] MEDS: SENOKOT-S PO (20:03)
[2023-09-09] MEDS: PEPCID 20 MG PO (21:05)
[2023-09-09] MEDS: NEURONTIN 600 MG PO (21:05)
[2023-09-09 23:19] VITALS: BP 114/65
[2023-09-10] MEDS: ProAIR HFA INHALER 2 PUFF INH ×2 (00:11→22:22)
[2023-09-10 04:50] LABS: Hematocrit 24.6 % (37.0-47.0); Hemoglobin 7.8 g/dL (12.0-16.0); Mean Corp Hgb Conc. 31.7 g/dL (33.0-37.0); Mean Corpuscular Hgb 28.7 pg (27.0-31.0); Mean Corpuscular Volume 90.4 fL (81.0-99.0); Mean Platelet Volume 9.6 fL (7.4-10.4); Platelet Count 250 10^3/uL (130-400); Red Blood Cell Count 2.72 10^6/uL (4.20-5.40); Red Cell Dist. Width 25.6 % (11.5-14.5); White Blood Cell Count 8.2 10^3/uL (4.8-10.8)
[2023-09-10 05:19] LABS: Blood Urea Nitrogen 20 mg/dl (7-17); Calcium 7.8 mg/dl (8.4-10.2); Carbon Dioxide 19 mmol/L (22-30); Chloride 108 mmol/L (98-107); Estimated Creatinine Clearance 66 ml/min; Glucose 80 mg/dl (70-99); Potassium 3.8 mmol/L (3.5-5.1); Sodium 135 mmol/L (135-145); eGFR > 60.00
--- NOTE | 2023-09-10 06:51 | W.PN.UPDATE ---
Update Note
Progress Note Update
Patient on schedule for revision right total hip arthroplasty September 11, [address] Hill. Surgical location marked and consent for surgery/blood signed. NPO after midnight. Vancomycin and tobramycin powder ordered along with TXA/antibiotic
irrigation which will be sent to the OR. Please hold Lovenox prior to surgery.
[2023-09-10 07:10] VITALS: BP 130/72
--- NOTE | 2023-09-10 07:20 | W.PN.HOSP.TC ---
Today's Communication/Plan
-
No medical contraindication for scheduled right total hip arthroplasty September 10
Lovenox dosing will be held after today will need clearance for DVT management minus orthopedic surgery.
Assessment / Plan
Assessment / Plan
1. Right Hip pain - Right hip pain s/p R FREDIS in april complicated by dislocation 1 month ago s/p reduction
Appreciate orthopedic surgery, ID, IR input
Status post drainage on 09/06, plan for I&D with possible implant exchange on
Continue IV antibiotics as per ID(cefazolin), follow-up on cultures/pansensitive E. coli
Trend fever and white count
2. Acute right lower extremity DVT
Treat with therapeutic Lovenox, last dose will be Saturday night for her surgery on
3. Acute hyponatremia
Likely from excess ADH release from pain
Sodium 130 today, improved from 128 upon admission and now 134
TSH/a.m abnormal limits. cortisol normal, continue fluid restriction, trend sodium
4. Asthma - No acute symptoms
- continue nebs prn
5. Chronic normocytic anemia, likely from chronic disease
Monitor hemoglobin
DVT PPX -therapeutic Lovenox for DVT
Code Status - DNR
Updated daughter on phone 09/07
Total time spent to see the patient on the floor, examine the patient, review data and lab results, discuss treatment plan with patient, nursing staff around 50 minutes.
Physical Exam
General: Thin, frail, appears debilitated, no acute distress
HEENT: Normocephalic, Atraumatic, EOMI, MMM
Respiratory: Clear to Auscultation bilaterally
Cardiac: Normal S1/S2, Regular Rate and Rhythm
GI: Soft, Nontender, Nondistended, Normal Bowel Sounds
Extremities: No Clubbing, Cyanosis
Right lower extremity edema noted
Musculoskeletal: Right hip dressed
Anticipated Discharge: 24 - 48 hours
Subjective/Interval History
-
Date of Service: September 10, 2023
No new complaints doing well no issues overnight
Objective Data
-
Labs:
Laboratory Results
09/10/23
04:36
WBC 8.2
Hgb 7.8 L
Hct 24.6 L
Plt Count 250
Sodium 135
Potassium 3.8
Chloride 108 H
Carbon Dioxide 19 L
BUN 20 H
Creatinine 0.6
Glucose 80
Calcium 7.8 L
Vital Signs:
Vital Signs
Temp Pulse Resp BP Pulse Ox
98.3 F 75 16 114/65 96
09/09/23 23:19 09/10/23 00:16 09/10/23 00:16 09/09/23 23:19 09/10/23 00:16
I&O
09/09/23 09/10/23 09/11/23
06:59 06:59 06:59
Intake Total 1673 / 1673 950 / 950
Output Total 50 / 50 29 / 29
Balance 1623 / 1623 921 / 921
Review of Systems
-
All other systems: Not reviewed unless documented
Physical Exam
-
General: Well Developed
HEENT: Normocephalic
Respiratory: Clear to Auscultation
Cardiac: Regular Rhythm
GI: Soft
Musculoskeletal: Edema, Right Lower Extrem (CAROL drain with serous)
Neuro: Awake, Alert, Oriented and AO x 3
Psych: Calm
Data Reviewed
-
Total Time Spent with Patient (in minutes): 56
Labs: Labs Reviewed by me (Hemoglobin 7.8/white count 8.2/chemistries and electrolytes stable)
[2023-09-10] MEDS: VITAMIN B-12 1000 MCG PO (08:47)
[2023-09-10] MEDS: ANCEF 10 IV ×3 (08:47→23:41)
[2023-09-10] MEDS: MIRALAX PO ×2 (08:47→19:54)
[2023-09-10] MEDS: TYLENOL 1000 MG PO ×3 (08:47→21:07)
[2023-09-10] MEDS: SENOKOT-S PO ×3 (08:47→19:54)
[2023-09-10] MEDS: MYCOSTATIN ORAL SUSPENSION 5 ML PO ×3 (08:47→21:06)
[2023-09-10] MEDS: LOVENOX 50 MG SC (08:52)
[2023-09-10] MEDS: MYCOSTATIN ORAL SUSPENSION PO (13:49)
[2023-09-10] MEDS: ZOFRAN 4 MG IV ×2 (14:24→20:53)
--- NOTE | 2023-09-10 14:32 | W.PN.ID1 ---
Date of Service
Date of Service: September 10, 2023
Today's Communication
Continue antibiotics.
Assessment / Plan
Right hip PJI
Right hip abscess
- s/p IR drainage of ~500 cc purulent fluid.
Ovarian cancer (Hx surgical resection/chemotherapy)
Arthritis
Asthma
Chronic hyponatremia
Recommendations:
Cultures with pansensitive E. coli.
Continue with cefazolin.
Await tentative hardware explantation tomorrow.
Monitor white count and temperature curve.
����������������������������������������������������������
Chief Complaint
-: Other (right hip prosthetic joint infection)
Subjective / Review of Systems
Review of Systems: No Fever and No Chills
Vital Signs / Physical Exam
Vital Signs
Vital Signs
Temp Pulse Resp BP Pulse Ox
97.6 F 70 18 130/72 96
09/10/23 07:10 09/10/23 07:10 09/10/23 07:10 09/10/23 07:10 09/10/23 10:45
Physical Exam
Constitutional: No Acute Distress, Comfortable and Non-toxic
Eyes: Sclera Anicteric
Cardiovascular: S1/S2
Pulmonary: Non Labored
Neurological: Awake and Alert
Psychological: Calm
Objective Data
Lab Data
Lab Results
09/10/23 04:36
09/10/23 04:36
ESR 81 mm/hour (0-20) H 09/07/23 08:31
Estimated Creat Clear 66 ml/min 09/10/23 04:36
Total Bilirubin 0.8 mg/dl (0.2-1.3) 09/07/23 01:46
AST 38 U/L (14-36) H 09/07/23 01:46
ALT 16 U/L (0-35) 09/07/23 01:46
Alkaline Phosphatase 147 U/L (38-126) H 09/07/23 01:46
C-Reactive Protein 226.90 mg/L (0.0-10.00) H 09/07/23 08:31
Most recent labs reviewed.
Micro Results:
09/07/23 03:47 Urine Culture - Final
Urine Enterococcus faecalis
Lactobacillus species
09/07/23 08:31 Blood Culture - Preliminary
Blood/Venous No Growth in 72 hours- Final report to follow
09/08/23 00:40 Urine Culture - Final
Urine
09/07/23 14:03 Body Fluid Culture - Final
Joint Fluid Escherichia coli
Gram Stain - Final
09/07/23 12:33 MRSA Screen - Final
Nose No Methicillin Resistant Staphylococcus aureus isolated.
Imaging:
09/07/2023 CT right lower extremity: Large complex loculated fluid collection in the right posterolateral hip soft tissues, which may represent a postoperative seroma, hematoma, or abscess.
[2023-09-10 15:05] VITALS: BP 126/71
--- NOTE | 2023-09-10 15:43 | CM ---
IV/AB for positive blood cultures. Anticipate hardware explantation on 09/11/23. Discharge Plan of Care TBD after therapy evaluations and recommendations.
--- NOTE | 2023-09-10 16:14 | PN.CDI ---
CDI
- -
CDI:
Physician Documentation Request
Admit Date: 09/07/23 05:57
Dear Doctor Katy,
Clinical Indicators:
Height: 5 ft 4 inches
Weight: 110
BMI: 18.9
If possible, please provide an associated diagnosis related to the abnormal BMI, such as:
BMI < or = to 19
Underweight
Weight Loss
Cachectic
Anorexia
- BMI is not significant
- Other
Use of terms such as suspected, likely, concern for, or probable (associated with a specific diagnosis that is being evaluated, monitored, or treated as if it exists) are acceptable and can be coded in the inpatient setting, when documented at the
time of discharge.
Thank you,
Obdulia Cartagena RN, BSN
CDI Specialist
tiger text
Please use your independent medical judgment in providing your response.
--- NOTE | 2023-09-10 17:19 | PTCARENOTE ---
pt verbalized nausea this afternoon for this nurse. prn zofran was given through the R SQ port. pt noted that nausea was relieved after medication administration. See MAR for proper documentation
--- NOTE | 2023-09-10 20:44 | W.PN.UPDATE ---
Update Note
Progress Note Update
It looks like there;'s still misunderstanding on surgery time.
Surgery is TOMORROW, not .
I put in an order to DC lovenox now. No dose should be given tonight.
[2023-09-10] MEDS: NEURONTIN 600 MG PO (21:07)
[2023-09-10] MEDS: PEPCID 20 MG PO (21:07)
[2023-09-10 23:05] VITALS: BP 113/60
[2023-09-10] MEDS: ROXICODONE 5 MG PO (23:51)
[2023-09-11] VITALS (15 sets, daily range): BP systolic 0–113; BP diastolic 52–87
--- NOTE | 2023-09-11 03:15 | DOWNTIME ---
There was a [employer] Downtime on 09/10/2023 from 0100 to 09/11/2023 at 0300. Downtime documentation of patient's care, including medication administrations, has been reconciled in the electronic record per guidelines. Refer to the
patient's paper chart under the miscellaneous tab to see printed paper medication records and downtime forms.
[2023-09-11 06:03] LABS: Hematocrit 25.2 % (37.0-47.0); Hemoglobin 7.8 g/dL (12.0-16.0); Mean Corpuscular Hgb 28.6 pg (27.0-31.0); Mean Corpuscular Volume 92.3 fL (81.0-99.0); Mean Platelet Volume 9.6 fL (7.4-10.4); Platelet Count 294 10^3/uL (130-400); Red Blood Cell Count 2.73 10^6/uL (4.20-5.40); Red Cell Dist. Width 25.7 % (11.5-14.5); White Blood Cell Count 7.7 10^3/uL (4.8-10.8)
[2023-09-11 06:22] LABS: Blood Urea Nitrogen 18 mg/dl (7-17); Calcium 8.2 mg/dl (8.4-10.2); Carbon Dioxide 20 mmol/L (22-30); Chloride 109 mmol/L (98-107); Estimated Creatinine Clearance 66 ml/min; Glucose 81 mg/dl (70-99); Potassium 3.9 mmol/L (3.5-5.1); Sodium 135 mmol/L (135-145); eGFR > 60.00
--- NOTE | 2023-09-11 07:00 | W.PN.HOSP.TC ---
Addendum entered and electronically signed by Uzair Burns MD 09/11/23 11:58:
BMI 19 consistent with underweight
Original Note:
Today's Communication/Plan
-
For right total hip arthroplasty today/hardware explantation
Monitor H&H closely as already anemic/type and screen in place
Will need to monitor right leg and DVT status in the postop setting and clearance by orthopedics for therapeutic management of DVT
Continue on cefazolin ID following
Assessment / Plan
Assessment / Plan
1. Right Hip pain - Right hip pain s/p R FREDIS in april complicated by dislocation 1 month ago s/p reduction
Appreciate orthopedic surgery, ID, IR input
Status post drainage on 09/06, plan for I&D with possible implant exchange September 10
Continue IV antibiotics as per ID(cefazolin), follow-up on cultures/pansensitive E. coli
Trend fever and white count
2. Acute right lower extremity DVT
Treat with therapeutic Lovenox, last dose will be Saturday AM for her surgery on Saturday
-Will need to address DVT management in the postop setting after clearance by orthopedic surgery
-May have had nonocclusive DVT for some time but not treated after evaluated in [facility] in June
3. Acute hyponatremia
Likely from excess ADH release from pain
Sodium 130 today, improved from 128 upon admission and now 134
TSH/a.m abnormal limits. cortisol normal, continue fluid restriction, trend sodium
4. Asthma - No acute symptoms
- continue nebs prn
5. Chronic normocytic anemia, likely from chronic disease
Monitor hemoglobin
DVT PPX -therapeutic Lovenox for DVT
Code Status - DNR
Updated daughter on phone 09/07
Total time spent to see the patient on the floor, examine the patient, review data and lab results, discuss treatment plan with patient, nursing staff around 50 minutes.
Physical Exam
General: Thin, frail, appears debilitated, no acute distress
HEENT: Normocephalic, Atraumatic, EOMI, MMM
Respiratory: Clear to Auscultation bilaterally
Cardiac: Normal S1/S2, Regular Rate and Rhythm
GI: Soft, Nontender, Nondistended, Normal Bowel Sounds
Extremities: No Clubbing, Cyanosis
Right lower extremity edema noted
Musculoskeletal: Right hip dressed
Anticipated Discharge: 24 - 48 hours
Subjective/Interval History
-
Date of Service: September 11, 2023
. She was to proceed with surgery later today
Objective Data
-
Labs:
Laboratory Results
09/11/23
05:30
WBC 7.7
Hgb 7.8 L
Hct 25.2 L
Plt Count 294
Sodium 135
Potassium 3.9
Chloride 109 H
Carbon Dioxide 20 L
BUN 18 H
Creatinine 0.6
Glucose 81
Calcium 8.2 L
Vital Signs:
Vital Signs
Temp Pulse Resp BP Pulse Ox
98.0 F 84 16 113/60 94
09/10/23 23:05 09/10/23 23:05 09/10/23 23:05 09/10/23 23:05 09/10/23 23:05
I&O
09/10/23 09/11/23 09/12/23
06:59 06:59 06:59
Intake Total 950 / 950 1320 / 1320
Output Total 29 / 29
Balance 921 / 921 1320 / 1320
Review of Systems
-
History Source: Patient
EENT: Reports No Symptoms Reported
Respiratory: Reports No Symptoms
Cardiac: Reports No Symptoms
Musculoskeletal: Reports Joint Swelling
Physical Exam
-
General: Well Developed
HEENT: Normocephalic
Respiratory: Clear to Auscultation
Cardiac: Regular Rhythm
Musculoskeletal: Edema, Right Lower Extrem (With CAROL drain for right hip)
Neuro: Awake
Psych: Calm
Data Reviewed
-
Total Time Spent with Patient (in minutes): 56
Labs: Labs Reviewed by me (Hemoglobin 7.8 preop)
--- NOTE | 2023-09-11 07:36 | W.PN.UPDATE ---
Update Note
Progress Note Update
OR today for revision right total hip arthroplasty September 11, [address] Hill.
Surgical location marked and consent for surgery/blood signed.
Hgb 7.8; type and screen on file. Monitor closely postop
NPO
Vancomycin and tobramycin powder ordered along with TXA/antibiotic irrigation which will be sent to the OR.
[facility] on hold.
[2023-09-11] MEDS: ANCEF 10 IV ×2 (08:18→23:19)
[2023-09-11] MEDS: MYCOSTATIN ORAL SUSPENSION 5 ML PO ×2 (08:19→21:13)
[2023-09-11] MEDS: TYLENOL 1000 MG PO ×2 (08:19→21:13)
[2023-09-11] MEDS: VITAMIN B-12 1000 MCG PO (08:19)
[2023-09-11] MEDS: SENOKOT-S PO ×3 (08:19→20:37)
[2023-09-11] MEDS: MIRALAX PO ×2 (08:20→20:37)
[2023-09-11] MEDS: FLUSH (NSS) 2 FLUSH IV (08:28)
--- NOTE | 2023-09-11 11:31 | W.PN.ID1 ---
Date of Service
Date of Service: September 11, 2023
Today's Communication
Continue antibiotics.
Assessment / Plan
Right hip PJI
Right hip abscess
- s/p IR drainage of ~500 cc purulent fluid.
Ovarian cancer (Hx surgical resection/chemotherapy)
Arthritis
Asthma
Chronic hyponatremia
Recommendations:
Cultures with pansensitive E. coli.
Continue with cefazolin.
Await tentative hardware explantation today.
Monitor white count and temperature curve.
����������������������������������������������������������
Chief Complaint
-: Other (right hip prosthetic joint infection)
Subjective / Review of Systems
Review of Systems: No Fever and No Chills
Vital Signs / Physical Exam
Vital Signs
Vital Signs
Temp Pulse Resp BP Pulse Ox
97.8 F 77 16 107/58 96
09/11/23 07:10 09/11/23 07:10 09/11/23 07:10 09/11/23 07:10 09/11/23 07:10
Physical Exam
Physical Exam:
Constitutional: No Acute Distress, Comfortable and Non-toxic
Eyes: Sclera Anicteric
Cardiovascular: S1/S2
Pulmonary: Non Labored. No wheeze
Neurological: Awake and Alert
Psychological: Calm
Objective Data
Lab Data
Lab Results
09/11/23 05:30
09/11/23 05:30
ESR 81 mm/hour (0-20) H 09/07/23 08:31
Estimated Creat Clear 66 ml/min 09/11/23 05:30
Total Bilirubin 0.8 mg/dl (0.2-1.3) 09/07/23 01:46
AST 38 U/L (14-36) H 09/07/23 01:46
ALT 16 U/L (0-35) 09/07/23 01:46
Alkaline Phosphatase 147 U/L (38-126) H 09/07/23 01:46
C-Reactive Protein 226.90 mg/L (0.0-10.00) H 09/07/23 08:31
Most recent labs reviewed.
Micro Results:
09/07/23 08:31 Blood Culture - Preliminary
Blood/Venous No Growth in 4 days- Final report to follow
09/07/23 03:47 Urine Culture - Final
Urine Enterococcus faecalis
Lactobacillus species
09/08/23 00:40 Urine Culture - Final
Urine
09/07/23 14:03 Body Fluid Culture - Final
Joint Fluid Escherichia coli
Gram Stain - Final
09/07/23 12:33 MRSA Screen - Final
Nose No Methicillin Resistant Staphylococcus aureus isolated.
Fluid Cult/not urine Final 09/09/23-834
Many Escherichia coli
Organism 1 Escherichia coli
1. Escherichia coli
M.I.C. RX
--------- ---
Amoxicillin/Potas. Clavulanate <=8/4 S
Ampicillin <=8 S
Ampicillin/Sulbactam <=8/4 S
Cefazolin <=2 S
Ertapenem <=0.5 S
Ciprofloxacin <=0.25 S
Gentamicin <=4 S
Levofloxacin <=0.5 S
Meropenem <=1 S
Piperacillin/Tazobactam <=16 S
Tobramycin <=4 S
Trimethoprim/Sulfamethoxazole <=2/38 S
Imaging:
09/07/2023 CT right lower extremity: Large complex loculated fluid collection in the right posterolateral hip soft tissues, which may represent a postoperative seroma, hematoma, or abscess.
--- NOTE | 2023-09-11 12:09 | PTCARENOTE ---
pt transferred to OR for Right hip revision.
[2023-09-11] MEDS: ANCEF IV (12:51)
--- NOTE | 2023-09-11 14:21 | CM ---
OR today for revision R total hip arthroplasty. On IV/AB. Discharge Plan of Care: TBD after therapy evaluation and recommendations. Will need to determine if home IV/AB.
[2023-09-11] MEDS: DILAUDID 0.5 MG IV ×3 (14:45→21:38)
[2023-09-11] MEDS: MYCOSTATIN ORAL SUSPENSION PO ×2 (15:06→18:24)
--- NOTE | 2023-09-11 15:41 | PTCARENOTE ---
pt going to @ [facility] after surgery, report given to 2 [facility] nurse.
[2023-09-11] MEDS: TYLENOL PO (16:00)
--- NOTE | 2023-09-11 17:12 | PTCARENOTE ---
1645: Patient arrived to 2S. Full head to toe assessment completed. B/L LE neurovascular check completed. Wound vac to R hip. Call cortez within reach and bed in lowest position. Family at bedside.
[2023-09-11] MEDS: TOBRAMYCIN 1.2 GM 14.4000000000000004 GRAMS TOPICAL (17:15)
[2023-09-11] MEDS: VANCOCIN 12000 MG TOPICAL (17:15)
[2023-09-11] MEDS: ASPIRIN 325 MG PO (18:23)
[2023-09-11] MEDS: ROXICODONE 5 MG PO (18:23)
--- NOTE | 2023-09-11 20:44 | W.PN.UPDATE ---
Update Note
Progress Note Update
fernandez component hip revision performed by me today.
new acetabular and femoral components placed w. high dose abx cement securing acetabular component, containing tobra and vanco. (more tobra than vanco)
Soft tissues of the lateral hip were in more condition given pt's malnourishment so I placed an incisional wound vac to try to keep it from forming a sinus tract, a recurrent abcess and to bring blood flow to the area.
i highly recommended to her she focus on protein intake. She describes anorexia, perhaps marinol or other appetite stimulant would be helpful?
[2023-09-11] MEDS: PEPCID 20 MG PO (21:13)
[2023-09-11] MEDS: NEURONTIN 600 MG PO (21:13)
[2023-09-11] MEDS: BACTROBAN 2% OINTMENT 1 APPLIC NASAL (21:13)
[2023-09-12] VITALS (7 sets, daily range): BP systolic 92–129; BP diastolic 60–78; PULSE 88; O2SAT 96
[2023-09-12 06:20] LABS: Hematocrit 25.5 % (37.0-47.0); Hemoglobin 8.4 g/dL (12.0-16.0); Mean Corp Hgb Conc. 32.9 g/dL (33.0-37.0); Mean Corpuscular Volume 91.1 fL (81.0-99.0); Mean Platelet Volume 9.7 fL (7.4-10.4); Platelet Count 290 10^3/uL (130-400); Red Cell Dist. Width 22.8 % (11.5-14.5); White Blood Cell Count 12.7 10^3/uL (4.8-10.8)
[2023-09-12 06:55] LABS: Blood Urea Nitrogen 28 mg/dl (7-17); Carbon Dioxide 19 mmol/L (22-30); Chloride 107 mmol/L (98-107); Estimated Creatinine Clearance 44 ml/min; Glucose 130 mg/dl (70-99); Potassium 4.5 mmol/L (3.5-5.1); Sodium 135 mmol/L (135-145); eGFR > 60.00
[2023-09-12 07:08] LABS: Calcium 7.8 mg/dl (8.4-10.2)
--- NOTE | 2023-09-12 07:33 | W.PN.ORTHO ---
Today's Communication / Plan
-
PT/OT
Weightbearing as tolerated
Aspirin/mechanical devices for DVT prophylaxis
Wound VAC
Antibiotics per ID (cefazolin)
Skin clip removal 2 weeks postop
Assessment
.
Distal Motor Intact: Yes
Dressing:
Clean, dry and intact.
Plan
.
Surgery / Date: Explant/revision R FREDIS 09/10 Sergio
DVT Prophylaxis: Aspirin
Activity:
Out of bed.
PT/OT
Subjective
.
.:
Patient resting comfortably.
Vital Signs and Labs
.
Vital Signs and Labs:
Lab Results
09/12/23 05:50
09/12/23 05:50
Temp Pulse Resp BP Pulse Ox
97.4 F 83 16 103/60 95
09/12/23 03:40 09/12/23 03:40 09/12/23 03:40 09/12/23 03:40 09/12/23 03:40
--- NOTE | 2023-09-12 07:49 | W.PN.UPDATE ---
Update Note
Progress Note Update
Pt has an incisional wound vac. Her wound is closed but soft tissue quality was poor and I am slightly worried about dehiscence. I again encouraged protein intake.
The vac can be maintained for a week or two till during a change of the vac the wound shows healing (i.e. approximation, no drainage, no dehiscence) at which point it can be d/c
Given her immunosupressed state from cancer, malnutrition and propensity to possibly have bacteremia from recurrent UTI I would consider lifelong supression abx.
--- NOTE | 2023-09-12 08:37 | W.PN.HOSP.TC ---
Addendum entered and electronically signed by Uzair Burns MD 09/12/23 17:06:
Sepsis present on admission
Asymptomatic bacteriuria
Addendum entered and electronically signed by Uzair Burns MD 09/12/23 15:57:
Orthopedics got back to me and feel that the patient can be placed on full anticoagulation which in this case will be starting her on apixaban 5 mg twice a day by Saturday and at that time we will withhold any further aspirin therapy I have also
reviewed the infectious disease input and plan is for a course of cefazolin for the next 6 weeks and a prescription has been placed in the chart in that regard she will require a acute rehab course and case management will start to pursue that
soonest she could be discharge would be sometime this weekend after starting her anticoagulant therapy wound VAC as per the orthopedic service
Original Note:
Today's Communication/Plan
-
Will need to clarify what DVT treatment should be as she was placed on DVT prophylaxis with aspirin by orthopedics to be on therapeutic anticoagulation given her DVT
Strategies to increase appetite/
Wound VAC as per orthopedics/awaiting intraoperative tissue cultures ID following continues on cefazolin
Assessment / Plan
Assessment / Plan
1. Right Hip pain - Right hip pain s/p R FREDIS in april complicated by dislocation 1 month ago s/p reduction
Appreciate orthopedic surgery, ID, IR input
Status post drainage on 09/06, plan for I&D with possible implant exchange September 10
Now with wound VAC/intraoperative tissue cultures obtained September 10 pending
Continue IV antibiotics as per ID(cefazolin), follow-up on cultures/pansensitive E. coli
Trend fever and white count/12.7 white count postop
2. Acute right lower extremity DVT
Treat with therapeutic Lovenox, last dose will be Saturday AM for her surgery on Saturday
-Will need to address DVT management in the postop setting after clearance by orthopedic surgery
-May have had nonocclusive DVT for some time but not treated after evaluated in [facility] in June
-Will await clearance by orthopedic surgery for resumption of anticoagulation which it this point would favor apixaban was placed on full dose aspirin by orthopedics
3. Acute hyponatremia
Likely from excess ADH release from pain
Sodium 130 today, improved from 128 upon admission and now 130
TSH/a.m abnormal limits. cortisol normal, continue fluid restriction, trend sodium
4. Asthma - No acute symptoms
- continue nebs prn
5. Chronic normocytic anemia, likely from chronic disease
Monitor hemoglobin
History of myelosuppression after chemotherapy last of which was taken in February 2023
6. History of ovarian cancer with/postchemotherapy
7. Low BMI/looks cachectic
-Admits to poor appetite over years/'never had much of an appetite'
DVT PPX -therapeutic Lovenox for DVT
Code Status - DNR
Updated daughter on phone 09/07
Total time spent to see the patient on the floor, examine the patient, review data and lab results, discuss treatment plan with patient, nursing staff around 50 minutes.
Physical Exam
General: Thin, frail, appears debilitated, no acute distress
HEENT: Normocephalic, Atraumatic, EOMI, MMM
Respiratory: Clear to Auscultation bilaterally
Cardiac: Normal S1/S2, Regular Rate and Rhythm
GI: Soft, Nontender, Nondistended, Normal Bowel Sounds
Extremities: No Clubbing, Cyanosis
Right lower extremity edema noted
Musculoskeletal: Right hip dressed
Anticipated Discharge: 24 - 48 hours
Subjective/Interval History
-
Date of Service: September 12, 2023
Complaint of left-sided abdominal discomfort not had bowel movement in 2 days which may not be unusual for her she did get some relief from her pain and presentation with a Dulcolax suppository earlier.
Objective Data
-
Labs:
Laboratory Results
09/12/23
05:50
WBC 12.7 H
Hgb 8.4 L
Hct 25.5 L
Plt Count 290
Sodium 135
Potassium 4.5
Chloride 107
Carbon Dioxide 19 L
BUN 28 H
Creatinine 0.9
Glucose 130 H
Calcium 7.8 L
Vital Signs:
Vital Signs
Temp Pulse Resp BP Pulse Ox
98.1 F 80 17 106/63 97
09/12/23 07:50 09/12/23 07:50 09/12/23 07:50 09/12/23 07:50 09/12/23 07:50
I&O
09/11/23 09/12/23 09/13/23
06:59 06:59 06:59
Intake Total 1320 / 1320 250 / 250
Output Total 175 / 175
Balance 1320 / 1320 75 / 75
Review of Systems
-
History Source: Patient
Constitutional: Reports No Symptoms
EENT: Reports No Symptoms Reported
Respiratory: Reports No Symptoms
Abdomen/GI: Reports Abdominal Pain and Constipated
Physical Exam
-
General: Cachectic
HEENT: Normocephalic
Respiratory: Clear to Auscultation
Cardiac: Regular Rhythm
GI: Soft, Nondistended and Tender (Left lower quadrant tenderness/active bowel sounds heard minor distention)
Musculoskeletal: Edema, Right Lower Extrem (Wound VAC to right hip)
Neuro: Awake and Alert
Psych: Calm
Data Reviewed
-
Total Time Spent with Patient (in minutes): 56
Labs: Labs Reviewed by me
[2023-09-12] MEDS: VITAMIN B-12 1000 MCG PO (09:57)
[2023-09-12] MEDS: TYLENOL 1000 MG PO ×3 (09:57→21:43)
[2023-09-12] MEDS: SENOKOT-S 2 TABLET PO (09:57)
[2023-09-12] MEDS: ASPIRIN 325 MG PO (09:57)
[2023-09-12] MEDS: ROXICODONE 5 MG PO ×2 (09:58→21:44)
[2023-09-12] MEDS: BACTROBAN 2% OINTMENT 1 APPLIC NASAL ×2 (09:59→20:35)
[2023-09-12] MEDS: MIRALAX 17 GRAMS PO (09:59)
[2023-09-12] MEDS: MYCOSTATIN ORAL SUSPENSION 5 ML PO ×4 (09:59→21:43)
--- NOTE | 2023-09-12 10:09 | W.PN.ID1 ---
Date of Service
Date of Service: September 12, 2023
Today's Communication
Continue antibiotics. See below�
Assessment / Plan
Right hip PJI 2* E. coli
Right hip abscess
- s/p IR drainage of ~500 cc purulent fluid.
Ovarian cancer (Hx surgical resection/chemotherapy)
Arthritis
Asthma
Chronic hyponatremia
Recommendations:
Cultures with pansensitive E. coli.
Continue with cefazolin for a 6 week course.
Prescription for home infusion placed on paper chart.
Will follow-up in office in 2 weeks.
����������������������������������������������������������
Chief Complaint
-: Other (right hip prosthetic joint infection)
Subjective / Review of Systems
Review of Systems: No Fever and No Chills
Vital Signs / Physical Exam
Vital Signs
Vital Signs
Temp Pulse Resp BP Pulse Ox
98.1 F 80 17 106/63 97
09/12/23 07:50 09/12/23 07:50 09/12/23 07:50 09/12/23 07:50 09/12/23 07:50
Physical Exam
Constitutional: Comfortable, Chronically Ill and Non-toxic
Eyes: No Conjunctival Hemorrhage and Sclera Anicteric
Cardiovascular: S1/S2; Negative S3/S4
Pulmonary: Clear; Negative Wheezes, Rales or Rhonchi
Gastrointestinal: Soft, Non Tender and Non Distended
Skin: Negative Rash or Jaundice
Wound: Other (Right hip wound VAC in place.)
Neurological: Awake and Alert
Psychological: Calm
Objective Data
Lab Data
Lab Results
09/12/23 05:50
09/12/23 05:50
ESR 81 mm/hour (0-20) H 09/07/23 08:31
Estimated Creat Clear 44 ml/min 09/12/23 05:50
Total Bilirubin 0.8 mg/dl (0.2-1.3) 09/07/23 01:46
AST 38 U/L (14-36) H 09/07/23 01:46
ALT 16 U/L (0-35) 09/07/23 01:46
Alkaline Phosphatase 147 U/L (38-126) H 09/07/23 01:46
C-Reactive Protein 226.90 mg/L (0.0-10.00) H 09/07/23 08:31
Most recent labs reviewed.
Micro Results:
09/07/23 08:31 Blood Culture - Final
Blood/Venous No Growth - Final Report
09/11/23 13:32 Tissue Culture - Pending
Hip - Right Gram Stain - Preliminary
09/11/23 13:32 Tissue Culture - Pending
Hip - Right Gram Stain - Preliminary
09/11/23 13:32 Tissue Culture - Pending
Hip - Right Gram Stain - Preliminary
09/07/23 03:47 Urine Culture - Final
Urine Enterococcus faecalis
Lactobacillus species
09/08/23 00:40 Urine Culture - Final
Urine
09/07/23 14:03 Body Fluid Culture - Final
Joint Fluid Escherichia coli
Gram Stain - Final
09/07/23 12:33 MRSA Screen - Final
Nose No Methicillin Resistant Staphylococcus aureus isolated.
Fluid Cult/not urine Final 09/09/23-834
Many Escherichia coli
Organism 1 Escherichia coli
1. Escherichia coli
M.I.C. RX
--------- ---
Amoxicillin/Potas. Clavulanate <=8/4 S
Ampicillin <=8 S
Ampicillin/Sulbactam <=8/4 S
Cefazolin <=2 S
Ertapenem <=0.5 S
Ciprofloxacin <=0.25 S
Gentamicin <=4 S
Levofloxacin <=0.5 S
Meropenem <=1 S
Piperacillin/Tazobactam <=16 S
Tobramycin <=4 S
Trimethoprim/Sulfamethoxazole <=2/38 S
Imaging:
09/07/2023 CT right lower extremity: Large complex loculated fluid collection in the right posterolateral hip soft tissues, which may represent a postoperative seroma, hematoma, or abscess.
[2023-09-12] MEDS: ANCEF 10 IV ×3 (10:13→23:33)
--- NOTE | 2023-09-12 12:30 | WOUNDNOTE ---
[facility] RN note: Marty texted Ortho PA Evelia Washington to confirm if wound care nurse to change patient's hip incisional vac M-W-F's and if adaptic with black foam can be used. Evelia conferred with Dr. Wilkinson and that wound care nurse to change R hip
incisional vac MWF, can use adaptic with black foam. Ortho stated plan is incisional vac for 1-2 weeks. Notified ortho PA incisional vac is not covered in the home care setting.
--- NOTE | 2023-09-12 12:39 | CM ---
Met with patient at bedside; surgery yesterday
PT/OT evaluations pending; will continue to follow for Disposition planning
--- NOTE | 2023-09-12 14:20 | PN.CDI ---
CDI
- -
CDI:
Physician Documentation Request
Admit Date: 09/07/23 05:57
Dear Doctor Katy,
Patient underwent revision of right hip arthroplasty for right hip prosthetic joint infection.
09/06 urine culture positive for Enterococcus faecalis, lactobacillus species.
UA results:
Laboratory Tests
09/07/23
03:47
Urine Color Stella
Urine Clarity Slightly cloudy
Urine Nitrite (Reflex) Negative
Leukocyte Esterase Rfl Trace A
Urine WBC (Reflex) 70-80 A
Urine Bacteria (Reflex) Many A
Could you please provide a diagnosis that supports the above lab abnormalities and additional evaluation, monitoring and/or treatment rendered:
UTI
Asymptomatic bacteriuria
Other
Use of terms such as suspected, likely, concern for, or probable (associated with a specific diagnosis that is being evaluated, monitored, or treated as if it exists) are acceptable and can be coded in the inpatient setting, when documented at the
time of discharge.
Thank you,
Obdulia Cartagena RN, BSN
CDI Specialist
tiger text
Please use your independent medical judgment in providing your response.
--- NOTE | 2023-09-12 14:29 | PN.CDI ---
CDI
- -
CDI:
Physician Documentation Request
Admit Date: 09/07/23 05:57
Dear Doctor Katy,
09/10 patient underwent revision of right total hip arthroplasty for Right hip prosthetic joint infection.
Patient has remained afebrile per documented vital signs
09/06 patient's wbc 15.7
Presenting heart rate 101-124
Presenting respiratory rate 24
Please clarify which of the following most accurately describes the status of the patient's infection:
Sepsis
- Systemic manifestations of infection, with 2 or more SIRS criteria which include:
- Fever >100.4 degrees F or hypothermia < 96.8 degrees F
- Leukocytosis - WBC > 12,000 or leukopenia - WBC < 4,000 or > 10% bands
- Tachycardia > 90 beats per minute
- Tachypnea - RR > 20 breaths per minute or PaCO2 , 32mmHg
Source: Merck Manual 2013
Localized Infection Only, Without Systemic Illness
Other
Use of terms such as suspected, likely, concern for, or probable (associated with a specific diagnosis that is being evaluated, monitored, or treated as if it exists) are acceptable and can be coded in the inpatient setting, when documented at the
time of discharge.
Thank you,
Obdulia Cartagena RN, BSN
CDI Specialist
tiger text
Please use your independent medical judgment in providing your response.
[2023-09-12] MEDS: DULCOLAX 10 MG RECTAL (20:35)
[2023-09-12] MEDS: SENOKOT-S PO (20:36)
[2023-09-12] MEDS: MIRALAX PO (20:36)
[2023-09-12] MEDS: NEURONTIN 600 MG PO (21:43)
[2023-09-12] MEDS: PEPCID 20 MG PO (21:43)
--- NOTE | 2023-09-13 07:29 | W.PN.HOSP.TC ---
Addendum entered and electronically signed by Uzair Burns MD 09/13/23 07:46:
Tried to place consult for [facility] they are not available for consult today and through the weekend /will need to confer with case management was our options are
Original Note:
Today's Communication/Plan
-
Will start apixaban in a.m./at that time hold off any further full dose aspirin
Need to confer with case management see if candidate for [facility]
Will need 6-week course of cefazolin IV
Assessment / Plan
Assessment / Plan
1. Right Hip pain - Right hip pain s/p R FREDIS in april complicated by dislocation 1 month ago s/p reduction
Appreciate orthopedic surgery, ID, IR input
Status post drainage on 09/06, plan for I&D with possible implant exchange September 10
Now with wound VAC/intraoperative tissue cultures obtained September 10 /again as in preop cultures growing E. coli pansensitive
Continue IV antibiotics as per ID(cefazolin), follow-up on cultures/pansensitive E. coli/6-week course/written prescription in chart per ID
Trend fever and white count/12.7 white count postop
2. Acute right lower extremity DVT
Treat with therapeutic Lovenox, last dose will be Saturday AM for her surgery on Saturday
-Will need to address DVT management in the postop setting after clearance by orthopedic surgery
-May have had nonocclusive DVT for some time but not treated after evaluated in [facility] in June
-Spoke to orthopedics will discontinue full dose aspirin as of Saturday and started on apixaban 5 mg twice a day on that date
3. Acute hyponatremia
Likely from excess ADH release from pain
Sodium 130 today, improved from 128 upon admission and now 130
TSH/a.m abnormal limits. cortisol normal, continue fluid restriction, trend sodium
4. Asthma - No acute symptoms
- continue nebs prn
5. Chronic normocytic anemia, likely from chronic disease
Monitor hemoglobin
History of myelosuppression after chemotherapy last of which was taken in February 2023
6. History of ovarian cancer with/postchemotherapy
7. Low BMI/looks cachectic
-Admits to poor appetite over years/'never had much of an appetite'
DVT PPX -therapeutic Lovenox for DVT
Code Status - DNR
Updated daughter on phone 09/07
Total time spent to see the patient on the floor, examine the patient, review data and lab results, discuss treatment plan with patient, nursing staff around 50 minutes.
Physical Exam
General: Thin, frail, appears debilitated, no acute distress
HEENT: Normocephalic, Atraumatic, EOMI, MMM
Respiratory: Clear to Auscultation bilaterally
Cardiac: Normal S1/S2, Regular Rate and Rhythm
GI: Soft, Nontender, Nondistended, Normal Bowel Sounds
Extremities: No Clubbing, Cyanosis
Right lower extremity edema noted
Musculoskeletal: Right hip dressed/wound VAC
Anticipated Discharge: 24 - 48 hours
Subjective/Interval History
-
Date of Service: September 13, 2023
Her left-sided abdominal pain is gone today she had a small bowel movement yesterday/reviewed plan of continue course of antibiotics for 6 weeks as per infectious disease and continuation of wound VAC
Objective Data
-
Labs:
Laboratory Results
09/13/23
06:00
WBC Pending
Hgb Pending
Hct Pending
Plt Count Pending
Sodium Pending
Potassium Pending
Chloride Pending
Carbon Dioxide Pending
BUN Pending
Creatinine Pending
Glucose Pending
Calcium Pending
Vital Signs:
Vital Signs
Temp Pulse Resp BP Pulse Ox
98 F 82 16 123/66 95
09/12/23 23:40 09/12/23 23:40 09/12/23 23:40 09/12/23 23:40 09/12/23 23:40
I&O
09/12/23 09/13/23 09/14/23
06:59 06:59 06:59
Intake Total 250 / 250 155 / 155
Output Total 175 / 175 225 / 225
Balance 75 / 75 -70 / -70
Review of Systems
-
History Source: Patient
Constitutional: Reports No Symptoms
EENT: Reports No Symptoms Reported
Respiratory: Reports No Symptoms
Cardiac: Reports No Symptoms
Abdomen/GI: Denies Abdominal Pain (Resolved)
Physical Exam
-
General: Cachectic
HEENT: Normocephalic
Respiratory: Clear to Auscultation
Cardiac: Regular Rhythm
GI: Soft and Nontender
Musculoskeletal: Edema, Right Lower Extrem (Right hip wound VAC)
Neuro: Awake
Psych: Calm
Data Reviewed
-
Total Time Spent with Patient (in minutes): 56
Labs: Labs Reviewed by me (Today's labs pending)
--- NOTE | 2023-09-13 07:36 | W.PN.ORTHO ---
Today's Communication / Plan
-
PT/OT
Weightbearing as tolerated
Aspirin/mechanical devices for DVT prophylaxis
Wound VAC
Antibiotics per ID (cefazolin)
Skin clip removal 2 weeks postop
Assessment
.
Distal Motor Intact: Yes
Dressing:
Clean, dry and intact.
Plan
.
Surgery / Date: Explant/revision R FREDIS 09/10 Sergio
Activity:
Out of bed.
PT/OT
Subjective
.
.:
Patient resting comfortably.
Vital Signs and Labs
.
Vital Signs and Labs:
Temp Pulse Resp BP Pulse Ox
98 F 82 16 123/66 95
09/12/23 23:40 09/12/23 23:40 09/12/23 23:40 09/12/23 23:40 09/12/23 23:40
--- NOTE | 2023-09-13 07:46 | VATNOTE ---
Pt labs drawn from port. Noted that pt has ancef due at 0800, port not heparin locked at this time due to proximity of IV antibiotic administration. PCN notified.
[2023-09-13 07:50] VITALS: BP 107/65
[2023-09-13 08:07] LABS: Hematocrit 22.1 % (37.0-47.0); Mean Corp Hgb Conc. 31.7 g/dL (33.0-37.0); Mean Corpuscular Volume 91.7 fL (81.0-99.0); Mean Platelet Volume 9.2 fL (7.4-10.4); Platelet Count 288 10^3/uL (130-400); Red Blood Cell Count 2.41 10^6/uL (4.20-5.40); Red Cell Dist. Width 23.2 % (11.5-14.5); White Blood Cell Count 11.7 10^3/uL (4.8-10.8)
[2023-09-13 09:05] LABS: Blood Urea Nitrogen 32 mg/dl (7-17); Calcium 7.9 mg/dl (8.4-10.2); Carbon Dioxide 21 mmol/L (22-30); Chloride 107 mmol/L (98-107); Estimated Creatinine Clearance 49 ml/min; Glucose 84 mg/dl (70-99); Potassium 3.6 mmol/L (3.5-5.1); Sodium 133 mmol/L (135-145); eGFR > 60.00
[2023-09-13] MEDS: ANCEF 10 IV ×2 (09:26→18:35)
[2023-09-13] MEDS: TYLENOL 1000 MG PO ×3 (09:26→22:34)
[2023-09-13] MEDS: ELIQUIS 5 MG PO ×2 (09:27→20:51)
[2023-09-13] MEDS: ASPIRIN 325 MG PO (09:27)
[2023-09-13] MEDS: VITAMIN B-12 1000 MCG PO (09:27)
[2023-09-13] MEDS: MIRALAX 17 GRAMS PO (09:28)
[2023-09-13] MEDS: MYCOSTATIN ORAL SUSPENSION 5 ML PO ×4 (09:28→22:34)
[2023-09-13] MEDS: SENOKOT-S PO (09:32)
[2023-09-13 10:39] VITALS: BP 111/70; PULSE 108
[2023-09-13] MEDS: ROXICODONE 5 MG PO ×3 (10:46→20:55)
--- NOTE | 2023-09-13 11:07 | CM ---
Reviewed the chart notes. Referral sent to [facility] via [facility]. Clinicals faxed to [facility] to check coverage for after [facility] for IV abx.
[2023-09-13] MEDS: DILAUDID 0.5 MG IV (13:37)
[2023-09-13 13:56] VITALS: BP 102/61; BP 94/65; PULSE 112
[2023-09-13] MEDS: ZOFRAN 4 MG IV (14:20)
--- NOTE | 2023-09-13 15:37 | CON.MD ---
Consultation - Medical
-
Referring Provider: Dr. Uzair Burns
Chief Complaint: Hip infection
History of Present Illness: 73-year-old female with PMH (as below) presented to [facility] on 09/07/2023 with concern for right hip septic arthritis. On 09/06 she had a drain placed into the right hip collection with 500 mL of purulent fluid
aspirated and sample sent. Found to have an acute right lower extremity DVT and placed on apixaban. On 09/11/2023 she had a revision of the right total hip arthroplasty with entire femoral and entire acetabular component replacement with antibiotic
cement and incisional wound VAC placement by Dr. Lemuel Hill. Is weightbearing as tolerated with hip precautions.
Patient has not been feeling well the past few weeks. Has not been eating much, did not eat for 4 to 5 days prior to coming in the hospital. Has been having problems with thrush and taking nystatin. Has not been able to taste foods away she has
in the past. Also not feeling well and with pain further causing problems with appetite. Also getting chemotherapy.
Past Medical History: Ovarian cancer with surgical resection and chemotherapy, arthritis, asthma, chronic hyponatremia
Procedure History: Right total hip arthroplasty April 2023, right knee replacement, ovarian cancer resection
Family History: None pertinent
Social History:
Functional Level Premorbidly: Independent with all activities
Functional Level Currently:�� Supervision for transfers and ambulating 40 feet x 2 with rolling walker. Min assist toileting and lower extremity self-care.
Tobacco: Denies
Alcohol: Denies
Drug use: Denies
Lives with: Family
24-hour assistance available: No
Number of floors: 1
# steps to enter: 1
Driving: Yes
Occupation: Retired
Allergies:
Allergy/AdvReac Type Severity Reaction Status Date / Time
No Known Allergies Allergy Verified 09/07/23 00:11
Review of Systems:
Constitutional: (x) abNormal _fatigue, weight loss
Eye: (x) Normal _
Ear/Nose/Throat: (x) Normal _
Respiratory: (x) Normal _
Cardiovascular: (x) Normal _
Gastrointestinal: (x) abNormal _loss of appetite, recent thrush
Genitourinary: (x) Normal _
Musculoskeletal: (x) abNormal _hip infection with replacement
Integumentary: (x) abNormal _hip surgery
Neurologic: (x) Normal _
Psychiatric: (x) abNormal _overwhelmed with everything going on, has been sick.
Endocrine: (x) Normal _
Hematologic/Lymphatic: (x) Normal _
Allergic/Immunologic: (x) Normal _
Medications:
Active Current Visit Medication List
Category Date Time Status
Acetaminophen [Tylenol] Med 09/07/23 09:55 Active
1,000 mg PO TID
Albuterol [ProAIR HFA INHALER] Med 09/11/23 16:56 Active
2 puff INH R Q4HPRN PRN
Apixaban [Eliquis] Med 09/13/23 08:00 Active
5 mg PO BID
Aspirin Med 09/11/23 18:00 Active
325 mg PO DAILY
Bisacodyl [Dulcolax] Med 09/07/23 09:05 Active
10 mg RECTAL [id number] PRN
CeFAZolin 2 GRAM [Ancef] Med 09/09/23 16:00 Active
2 grams in 10 ml IV Q8H
Cyanocobalamin [Vitamin B-12] Med 09/07/23 09:05 Active
1,000 mcg PO DAILY
Docusate W/Senna [Senokot-S] Med 09/07/23 09:52 Active
2 tablet PO BID
Famotidine [Pepcid] Med 09/07/23 22:00 Active
20 mg PO HS
Flush (0.9% Sodium Chloride) [Flush (Nss)] Med 09/07/23 07:00 Active
See Dose Instructions IV PER PROTOCOL
Gabapentin [Neurontin] Med 09/09/23 22:00 Active
600 mg PO HS
HYDROmorphone [Dilaudid] Med 09/07/23 09:05 Active
0.5 mg IV Q4HPRN PRN
Heparin Pf [Heparin Lock Flush] Med 09/07/23 13:12 Active
500 unit IV PRN PRN
Mirtazapine [Remeron] Med 09/13/23 22:00 Active
7.5 mg PO HS
Nystatin Suspension [Mycostatin Oral Suspension] Med 09/07/23 13:00 Active
5 ml PO QID
Ondansetron Injectable [Zofran] Med 09/07/23 09:05 Active
4 mg IV Q6HPRN PRN
Oxycodone [Roxicodone] Med 09/07/23 09:05 Active
5 mg PO Q4HPRN PRN
Polyethylene Glycol Powder [Miralax] Med 09/07/23 09:52 Active
17 grams PO BID
Polyethylene Glycol Powder [Miralax] Med 09/12/23 10:00 Active
17 grams PO DAILY
Vitals:
Temp Pulse Resp BP Pulse Ox
97.7 F 87 17 107/65 95
09/13/23 07:50 09/13/23 07:50 09/13/23 07:50 09/13/23 07:50 09/13/23 07:50
Height 5 ft 4 in
Actual Weight 50 kg
Body Mass Index (BMI) 18.9
Physical Exam:
General Appearance/Observation: Cachectic appearing female with general atrophy in no apparent distress.
Pain/Comfort Assessment: Mild hip pain
Mood/Affect: Appropriate
Eyes: Conjunctiva/Lids: normal ��� Pupils: pupils equal round
Ears/Nose/Throat: oral mucosa moist,� throat clear.��No signs of thrush���������� lips/Teeth/Gums: normal
Cardiovascular: Heart: regular, no murmur
Pulses: dorsalis pedis 2+ bilaterally
Respiratory: Respiratory Effort/Chest Expansion: normal ������ Auscultation: Clear to auscultation bilaterally
Gastrointestinal: abdomen not tender, no distension, normal abdominal bowel sounds
Genitourinary: No Coelho
Extremities: Edema: Right leg nonpitting edema cyanosis: None Trophic changes: None
Neurology Exam:
Orientation: Alert, Oriented to self, Time, Place
Memory: Intact
Comprehension: Intact
Two step command: Intact
Cranial Nerves:
�� CNII: Pupillary light reflex: Intact���
�� CN VII: Facial movement: Symmetric
�� CN VIII: Hearing: Normal
�� CN IX/X: Speech & swallow: Normal, Position of Uvula: Midline
�� CN XII: Tongue protrusion: Midline
Sensory:
�� Light touch: Intact in bilateral upper and lower extremities
Reflexes:
�� Biceps: 2+ bilaterally
�� Brachioradialis: 2+ bilaterally
�� Triceps: 2+ bilaterally
�� Patellar: 0 bilaterally
�� Achilles: 0 bilaterally
�� Babinski: Down going bilaterally
�� Clonus: None
�� Josephine: Negative bilaterally
Musculoskeletal:Motor: (Manual muscle scale 0-5)
Muscle SA EF WE EE FF FA HF KE DF EHL PF
Right� 4 5 5 5 5 4 3+ 5 5 5
Left 4 5 5 5 5 4 1 3 5 5
Tone: Normal in all extremities
Range of Motion: Passively within normal limits in all extremities
Lab Results
Laboratory Data
09/13/23 07:44
09/13/23 07:44
Total Bilirubin 0.8 mg/dl (0.2-1.3) 09/07/23 01:46
AST 38 U/L (14-36) H 09/07/23 01:46
ALT 16 U/L (0-35) 09/07/23 01:46
Alkaline Phosphatase 147 U/L (38-126) H 09/07/23 01:46
Total Protein 5.4 g/dl (6.3-8.2) L 09/07/23 01:46
Albumin 2.7 g/dl (3.5-5.0) L 09/07/23 01:46
Diagnostic Results: as per HPI
Assessment
73-year-old female PMH (Ovarian cancer with surgical resection and chemotherapy, arthritis, asthma, chronic hyponatremia) with 09/07/2023 right hip septic arthritis S/P 09/11/2023 total hip replacement with antibiotic cement and incisional wound VAC
placement by Dr. Lemuel Hill with weightbearing as tolerated and hip precautions as well as a right lower extremity DVT��with ADL and ambulatory dysfunction.
Plan
PM&R PT/OT to increase independence with ADLs, improve balance, coordination, endurance, strength, mobility, community reintegration, decreased burden of care on others and family education.
Status post right hip revision secondary to septic arthritis: Has wound VAC
-6 weeks of cefazolin per ID
-Has leukocytosis
-Weightbearing as tolerated with hip precautions
Acute right lower extremity DVT: Apixaban
Anemia: Likely postoperative.� Hemoglobin at 7, monitor closely as may require transfusion if levels drop.
Cachexia/lack of appetite: Likely multifactorial
-Nutrition consult
-Consider stopping nystatin with no active thrush
-Hopefully will improve after pain improving from hip and infection being treated
-Getting chemotherapy
-Loss of taste: Trial different types of foods, needs to increase protein intake, discussed ways of doing this via bars or drinks or packets if necessary. Reviewed strategies such as small sips and small bites.
-Bring food from outside if necessary
-Taking Remeron
FEN: Regular. Is underweight and needs to increase protein intake. Taking Remeron.
Psych: Monitor mood, adjust Remeron as needed.
Skin: monitor for pressure sores/rashes/lesions.
Pain: acetaminophen or oxycodone as needed. On gabapentin. Dilaudid IV as needed as well. Will need to be controlled on oral medications prior to discharge.
Bowel: Colace and Senna, MiraLAX. PRN bisacodyl.
Bladder: Monitor urine output
DVT Prophylaxis: Mechanical and Eliquis.
Pulmonary: Incentive spirometry
Safety: Continue to reinforce assistance with all transfers.
Code Status:� DNR per chart
Dispo (date/plan/equipment needs): Home with family care.
Functional and Medical Goals: Modified Independent with ADL�s, ambulation, transfers
Discharge Destination: shelter facility after extensive discussion with patient. Reviewed pros and cons of different types of rehab and need for assistance at home.
A total of 60 minutes were spent with the patient preparing for the evaluation, obtaining history, performing examination and evaluation, counseling, data review, case management, care coordination, computerized mill mill recorder, and EMR documentation.
Summary of recommendations:
- Discharge Destination: shelter facility
Status post right hip revision secondary to septic arthritis: Has wound VAC
-6 weeks of cefazolin per ID
-Has leukocytosis
-Weightbearing as tolerated with hip precautions
Acute right lower extremity DVT: Apixaban
Anemia: Likely postoperative.� Hemoglobin at 7, monitor closely as may require transfusion if levels drop.
Cachexia/lack of appetite:
-Nutrition consult
-Consider stopping nystatin with no active thrush
-Loss of taste: Trial different types of foods, needs to increase protein intake, discussed ways of doing this via bars or drinks or packets if necessary. Reviewed strategies such as small sips and small bites.
-Bring food from outside if necessary
-Taking Remeron
Thank you for allowing me to care for your patient. Please contact me with any questions or concerns.
--- NOTE | 2023-09-13 16:12 | WOUNDNOTE ---
WON RN NOTE: R HIP wound vac dressing changed, sutures intact moderate drainage. Plan is discharge to SNF when bed available. [facility] asking for confirmation if wound vac covered in a SNF for incisional wound vac. Attempted to call [facility] rep,
no response, gave rep's phone number and [facility]/ general number to confirm.
--- NOTE | 2023-09-13 16:14 | WOUNDNOTE ---
LUIS RN NOTE ADDENDUM: Assessed Sacrum when assisting nurse getting patient back to bed before vac dressing change. Patient's sacrum is blanchable red, patient's Coccyx bony, applied silicone foam.
--- NOTE | 2023-09-13 16:18 | CM ---
RENAE spoke with [facility]missions Liaison with [facility]. Per [facility], patient does not qualify for [facility], doing to well. Discussed with the patient and spouse regarding SNF/rehabs in the area. Would agree to a referral to [facility]. Referral with [facility]
sent.
Plan: Discharge to SNF/rehab once bed found and medically stable.
[2023-09-13 16:30] VITALS: BP 112/61
[2023-09-13] MEDS: SENOKOT-S 2 TABLET PO (20:51)
[2023-09-13] MEDS: MIRALAX PO (20:52)
[2023-09-13] MEDS: NEURONTIN 600 MG PO (22:34)
[2023-09-13] MEDS: PEPCID 20 MG PO (22:34)
[2023-09-13 23:42] VITALS: BP 99/62
[2023-09-14] VITALS (7 sets, daily range): BP systolic 105–132; BP diastolic 64–83; PULSE 93
[2023-09-14] MEDS: ANCEF 10 IV ×3 (00:26→15:57)
[2023-09-14] MEDS: ROXICODONE 5 MG PO ×4 (03:02→20:27)
[2023-09-14 05:57] LABS: Erythrocyte Sed Rate 103 mm/hour (0-20)
--- NOTE | 2023-09-14 07:23 | W.PN.HOSP.TC ---
Today's Communication/Plan
-
Will transfuse 1 unit today
Change from full dose aspirin to anticoagulation to treat DVT with Eliquis today 5 mg twice a day
Not a candidate for [facility] rehab
Case management to pursue outside rehab facility hopefully early next week
Will need 6-week course of cefazolin and continued wound VAC
Assessment / Plan
Assessment / Plan
1. Right Hip pain - Right hip pain s/p R FREDIS in april complicated by dislocation 1 month ago s/p reduction
Appreciate orthopedic surgery, ID, IR input
Status post drainage on 09/06, plan for I&D with possible implant exchange September 10
Now with wound VAC/intraoperative tissue cultures obtained September 10 /again as in preop cultures growing E. coli pansensitive
Continue IV antibiotics as per ID(cefazolin), follow-up on cultures/pansensitive E. coli/6-week course/written prescription in chart per ID
Trend fever and white count/12.7 white count postop trending down daily
-PT/OT
Weightbearing as tolerated
Aspirin/mechanical devices for DVT prophylaxis will be changed to Eliquis for full anticoagulation regarding DVT in right leg
Wound VAC
Antibiotics per ID (cefazolin) as above
Skin clip removal 2 weeks postop
-She has been assessed by physiatry and not a candidate for acute rehab at [facility]/so we will start looking for a outside rehab facility
2. Acute right lower extremity DVT
Treat with therapeutic Lovenox, last dose will be Saturday AM for her surgery on Saturday
-Will need to address DVT management in the postop setting after clearance by orthopedic surgery
-May have had nonocclusive DVT for some time but not treated after evaluated in [facility] in June
-Spoke to orthopedics will discontinue full dose aspirin as of SaturdaySeptember 13 and started on apixaban 5 mg twice a day on that date
3. Acute hyponatremia
Likely from excess ADH release from pain
Sodium 130 today, improved from 128 upon admission and now 130
TSH/a.m abnormal limits. cortisol normal, continue fluid restriction, trend sodium
4. Asthma - No acute symptoms
- continue nebs prn
5. Chronic normocytic anemia, likely from chronic disease
Monitor hemoglobin
History of myelosuppression after chemotherapy last of which was taken in February 2023
6. History of ovarian cancer with/postchemotherapy
7. Low BMI/looks cachectic
-Admits to poor appetite over years/'never had much of an appetite'
DVT PPX -therapeutic Lovenox for DVT
Code Status - DNR
Updated daughter on phone 09/07
Total time spent to see the patient on the floor, examine the patient, review data and lab results, discuss treatment plan with patient, nursing staff around 50 minutes.
Physical Exam
General: Thin, frail, appears debilitated, no acute distress
HEENT: Normocephalic, Atraumatic, EOMI, MMM
Respiratory: Clear to Auscultation bilaterally
Cardiac: Normal S1/S2, Regular Rate and Rhythm
GI: Soft, Nontender, Nondistended, Normal Bowel Sounds
Extremities: No Clubbing, Cyanosis
Right lower extremity edema noted
Musculoskeletal: Right hip dressed/wound VAC
Anticipated Discharge: 24 - 48 hours
Subjective/Interval History
-
Date of Service: September 14, 2023
In good spirits in no distress denies any dizziness shortness of breath chest pain. BP a little low today.
Objective Data
-
Vital Signs:
Vital Signs
Temp Pulse Resp BP Pulse Ox
97.9 F 85 16 99/62 98
09/13/23 23:42 09/13/23 23:42 09/13/23 23:42 09/13/23 23:42 09/13/23 23:42
I&O
09/13/23 09/14/23 09/15/23
06:59 06:59 06:59
Intake Total 155 / 155 1070 / 1069
Output Total 225 / 225
Balance -70 / -70 1069 / 1069
Review of Systems
-
History Source: Patient
Constitutional: Reports Weight Loss, Fatigue and Other (Appetite she believes is improving)
Physical Exam
-
General: Cachectic
HEENT: Normocephalic
Respiratory: Clear to Auscultation
Cardiac: Regular Rhythm
Musculoskeletal: Edema, Right Lower Extrem (Wound VAC right hip)
Skin: Warm
Psych: Calm
Data Reviewed
-
Total Time Spent with Patient (in minutes): 56
Labs: Labs Reviewed by me (Hemoglobin down to 7.0/WBC 11.7)
[2023-09-14] MEDS: MIRALAX PO ×2 (08:24→20:27)
[2023-09-14] MEDS: VITAMIN B-12 1000 MCG PO (08:25)
[2023-09-14] MEDS: ELIQUIS 5 MG PO ×2 (08:25→20:28)
[2023-09-14] MEDS: TYLENOL 1000 MG PO ×3 (08:25→22:08)
[2023-09-14] MEDS: SENOKOT-S 2 TABLET PO ×2 (08:25→20:27)
[2023-09-14] MEDS: MYCOSTATIN ORAL SUSPENSION 5 ML PO ×2 (08:25→22:12)
[2023-09-14] MEDS: MYCOSTATIN ORAL SUSPENSION PO ×2 (13:38→17:50)
--- NOTE | 2023-09-14 13:54 | W.PN.ID1 ---
Date of Service
Date of Service: September 14, 2023
Today's Communication
Continue with cefazolin for a 6 week course.
Assessment / Plan
Right hip PJI 2* E. coli
Right hip abscess
- s/p IR drainage of ~500 cc purulent fluid.
Ovarian cancer (Hx surgical resection/chemotherapy)
Arthritis
Asthma
Chronic hyponatremia
Recommendations:
Cultures with pansensitive E. coli.
Continue with cefazolin for a 6 week course.
Has port - accessed
Prescription for home infusion placed on paper chart.
Will follow-up in office in 2 weeks.
����������������������������������������������������������
Chief Complaint
-: Other (right hip prosthetic joint infection)
Subjective / Review of Systems
afebrile
bp stable
inflammatory markers remain elevated
Vital Signs / Physical Exam
Vital Signs
Vital Signs
Temp Pulse Resp BP Pulse Ox
97.9 F 78 16 114/71 100
09/14/23 13:30 09/14/23 13:30 09/14/23 13:30 09/14/23 13:30 09/14/23 13:30
Physical Exam
Constitutional: No Acute Distress
Cardiovascular: Regular Rate and S1/S2; Negative Murmur or Rub
Pulmonary: Clear and Symmetric; Negative Wheezes or Rales
Gastrointestinal: Soft, Non Tender, Non Distended and Normal Bowel Sounds
Skin: Warm and Dry; Negative Rash or Jaundice
Lines: Port (accessed)
Objective Data
Lab Data
Lab Results
09/13/23 07:44
09/13/23 07:44
ESR 103 mm/hour (0-20) H 09/14/23 05:38
Estimated Creat Clear 49 ml/min 09/13/23 07:44
Total Bilirubin 0.8 mg/dl (0.2-1.3) 09/07/23 01:46
AST 38 U/L (14-36) H 09/07/23 01:46
ALT 16 U/L (0-35) 09/07/23 01:46
Alkaline Phosphatase 147 U/L (38-126) H 09/07/23 01:46
C-Reactive Protein 62.50 mg/L (0.0-10.00) H 09/14/23 05:38
Most recent labs reviewed.
Micro Results:
09/11/23 13:32 Tissue Culture - Final
Hip - Right Escherichia coli
Gram Stain - Final
09/11/23 13:32 Tissue Culture - Final
Hip - Right Escherichia coli
Gram Stain - Final
09/11/23 13:32 Tissue Culture - Final
Hip - Right Escherichia coli
Gram Stain - Final
09/07/23 14:03 Body Fluid Culture - Final
Joint Fluid Escherichia coli
Gram Stain - Final
09/07/23 08:31 Blood Culture - Final
Blood/Venous No Growth - Final Report
09/07/23 03:47 Urine Culture - Final
Urine Enterococcus faecalis
Lactobacillus species
09/08/23 00:40 Urine Culture - Final
Urine
09/07/23 12:33 MRSA Screen - Final
Nose No Methicillin Resistant Staphylococcus aureus isolated.
Fluid Cult/not urine Final 09/09/23-834
Many Escherichia coli
Organism 1 Escherichia coli
1. Escherichia coli
M.I.C. RX
--------- ---
Amoxicillin/Potas. Clavulanate <=8/4 S
Ampicillin <=8 S
Ampicillin/Sulbactam <=8/4 S
Cefazolin <=2 S
Ertapenem <=0.5 S
Ciprofloxacin <=0.25 S
Gentamicin <=4 S
Levofloxacin <=0.5 S
Meropenem <=1 S
Piperacillin/Tazobactam <=16 S
Tobramycin <=4 S
Trimethoprim/Sulfamethoxazole <=2/38 S
Imaging:
09/07/2023 CT right lower extremity: Large complex loculated fluid collection in the right posterolateral hip soft tissues, which may represent a postoperative seroma, hematoma, or abscess.
--- NOTE | 2023-09-14 14:57 | W.PN.ORTHO ---
Today's Communication / Plan
-
73-year-old female POD #3 revision of right total hip arthroplasty, entire femoral and entire acetabular component for a right hip PJI performed on 09/11/2023 under the direction of Dr. Hill.
- PT/OT
- Weightbearing as tolerated
- Patient currently on Eliquis 5 mg twice daily for DVT per medical team.
- Hgb this AM 7.0. S/p 1 unit PRBC today.
- ESR: 81 (09/06) to 103 (09/13). CRP: 226.90 (09/06) to 62.50 (09/13).
- Wound VAC. The VAC can be maintained for a week or two until during a change of the VAC the wound shows healing (i.e. approximation, no drainage, no dehiscence) at which point it can be D/C.
- Antibiotics per ID (cefazolin for a 6 week course).
- Skin clip removal 2 weeks post-op.
- Discharge planning per CM. Case management to pursue outside rehab facility hopefully early next week.
- Orthopedic surgery will continue to follow along.
Assessment
.
Distal Motor Intact: Yes
Dressing:
Clean, dry and intact.
Assessment:
Explant/revision R FREDIS 09/10 Sergio
Plan
.
Surgery / Date: Explant/revision R FREDIS 09/10 Kristin
DVT Prophylaxis: Other
Activity:
Out of bed.
PT/OT
Discharge Plan: SNF
Subjective
.
.:
Patient resting comfortably.
Vital Signs and Labs
.
Vital Signs and Labs:
Lab Results
09/13/23 07:44
09/13/23 07:44
Temp Pulse Resp BP Pulse Ox
97.9 F 78 16 114/71 100
09/14/23 13:30 09/14/23 13:30 09/14/23 13:30 09/14/23 13:30 09/14/23 13:30
[2023-09-14] MEDS: NEURONTIN 600 MG PO (22:08)
[2023-09-14] MEDS: PEPCID PO (22:16)
[2023-09-15] MEDS: ANCEF 10 IV ×4 (00:34→23:19)
[2023-09-15] MEDS: ROXICODONE 5 MG PO ×4 (00:34→20:15)
[2023-09-15] MEDS: TYLENOL 1000 MG PO ×3 (07:02→22:45)
--- NOTE | 2023-09-15 07:05 | W.PN.HOSP.TC ---
Today's Communication/Plan
-
Await repeat H&H
Continue to trend resolving leukocytosis
Will need SNF rehab early next week as available with continued need for completion of course of IV cefazolin and wound VAC care
Need to further try and optimize her nutritional status and appetite
Assessment / Plan
Assessment / Plan
1. Right Hip pain - Right hip pain s/p R FREDIS in april complicated by dislocation 1 month ago s/p reduction
Appreciate orthopedic surgery, ID, IR input
Status post drainage on 09/06, plan for I&D with possible implant exchange September 10
Now with wound VAC/intraoperative tissue cultures obtained September 10 /again as in preop cultures growing E. coli pansensitive
Continue IV antibiotics as per ID(cefazolin), follow-up on cultures/pansensitive E. coli/6-week course/written prescription in chart per ID
Trend fever and white count/12.7 white count postop trending down daily
-PT/OT
Weightbearing as tolerated
Aspirin/mechanical devices for DVT prophylaxis will be changed to Eliquis for full anticoagulation regarding DVT in right leg
Wound VAC
Antibiotics per ID (cefazolin) as above
Skin clip removal 2 weeks postop
-She has been assessed by physiatry and not a candidate for acute rehab at [facility]/so we will start looking for a outside rehab facility
2. Acute right lower extremity DVT
-Will need to address DVT management in the postop setting after clearance by orthopedic surgery
-May have had nonocclusive DVT for some time but not treated after evaluated in [facility] in June
-Spoke to orthopedics will discontinue full dose aspirin as of SaturdaySeptember 13 and started on apixaban 5 mg twice a day on that date
3. Acute hyponatremia/improved
Likely from excess ADH release from pain
Sodium 130 , improved from 128 upon admission and now 135
TSH/a.m abnormal limits. cortisol normal, continue fluid restriction, trend sodium
4. Asthma - No acute symptoms
- continue nebs prn
5. Chronic normocytic anemia, likely from chronic disease
Monitor hemoglobin
-Transfuse 1 unit of packed red blood cells September 13 for hemoglobin of 7.0
History of myelosuppression after chemotherapy last of which was taken in February 2023
6. History of ovarian cancer with/postchemotherapy
7. Low BMI/looks cachectic
-Admits to poor appetite over years/'never had much of an appetite
-Placed on Remeron'
DVT PPX -therapeutic Lovenox for DVT
Code Status - DNR
Updated daughter via voicemail September 11/did not qualify for [facility] after consultation with physiatry/will try for SNF rehab early next week
Total time spent to see the patient on the floor, examine the patient, review data and lab results, discuss treatment plan with patient, nursing staff around 50 minutes.
Physical Exam
General: Thin, frail, appears debilitated, no acute distress
HEENT: Normocephalic, Atraumatic, EOMI, MMM
Respiratory: Clear to Auscultation bilaterally
Cardiac: Normal S1/S2, Regular Rate and Rhythm
GI: Soft, Nontender, Nondistended, Normal Bowel Sounds
Extremities: No Clubbing, Cyanosis
Right lower extremity edema noted
Musculoskeletal: Right hip dressed/wound VAC
Anticipated Discharge: 24 - 48 hours
Subjective/Interval History
-
Date of Service: September 15, 2023
Slept well overnight no issues with transfusion yesterday.
Objective Data
-
Labs:
Laboratory Results
09/15/23
07:05
Hgb Pending
Hct Pending
Vital Signs:
Vital Signs
Temp Pulse Resp BP Pulse Ox
97.8 F 93 18 112/69 95
09/14/23 23:30 09/14/23 23:30 09/14/23 23:30 09/14/23 23:30 09/14/23 23:30
I&O
09/14/23 09/15/23 09/16/23
06:59 06:59 06:59
Intake Total 1070 / 1070 1410 / 1410
Balance 1070 / 1070 1410 / 1410
Review of Systems
-
History Source: Patient and Family
Constitutional: Denies Fever
Abdomen/GI: Reports No Symptoms
Musculoskeletal: Reports Edema
Physical Exam
-
General: Cachectic
HEENT: Normocephalic
Respiratory: Clear to Auscultation
Cardiac: Regular Rhythm
Musculoskeletal: Edema, Right Lower Extrem (Wound VAC)
Skin: IV Access / Catheter Site
Neuro: Awake
Data Reviewed
-
Total Time Spent with Patient (in minutes): 56
Labs: Labs Reviewed by me (H&H pending post transfusion)
[2023-09-15] MEDS: SENOKOT-S 2 TABLET PO ×2 (07:47→20:03)
[2023-09-15] MEDS: VITAMIN B-12 1000 MCG PO (07:48)
[2023-09-15] MEDS: MYCOSTATIN ORAL SUSPENSION 5 ML PO (07:48)
[2023-09-15] MEDS: ELIQUIS 5 MG PO ×2 (07:48→20:03)
[2023-09-15] MEDS: MIRALAX PO ×2 (07:49→20:00)
[2023-09-15 07:50] VITALS: BP 106/65
--- NOTE | 2023-09-15 08:02 | W.PN.ORTHO ---
Today's Communication / Plan
-
73-year-old female POD #4 revision of right total hip arthroplasty, entire femoral and entire acetabular component for a right hip PJI performed on 09/11/2023 under the direction of Dr. Hill.
- PT/OT
- Weightbearing as tolerated with use of walker for assistance.
- Patient currently on Eliquis 5 mg twice daily for DVT in RLE per medical team.
- Hgb 7.0 09/13/2023. S/p 1 unit PRBC 09/14/2023. Hgb 09/15/2023 8.8. Continue to monitor.
- ESR: 81 (09/06) to 103 (09/13). CRP: 226.90 (09/06) to 62.50 (09/13).
- Wound VAC. The VAC can be maintained for a week or two until during a change of the VAC the wound shows healing (i.e. approximation, no drainage, no dehiscence) at which point it can be D/C.
- Antibiotics per ID (cefazolin for a 6 week course).
- Skin clip removal 2 weeks post-op.
- Discharge planning per CM. Case management to pursue outside rehab facility hopefully early next week.
- Orthopedic surgery will continue to follow along.
Assessment
.
Distal Motor Intact: Yes
Dressing:
Clean, dry and intact.
Assessment:
Explant/revision R FREDIS 09/10 Sergio
Plan
.
Surgery / Date: Explant/revision R FREDIS 09/10 Sergio
DVT Prophylaxis: Other
Activity:
Out of bed.
PT/OT
Discharge Plan: SNF
Subjective
.
.:
Patient resting comfortably.
Vital Signs and Labs
.
Vital Signs and Labs:
Lab Results
09/13/23 07:44
Temp Pulse Resp BP Pulse Ox
97.8 F 93 18 112/69 95
09/14/23 23:30 09/14/23 23:30 09/14/23 23:30 09/14/23 23:30 09/14/23 23:30
[2023-09-15 08:20] LABS: Hematocrit 26.6 % (37.0-47.0)
[2023-09-15 08:23] LABS: Hemoglobin 8.8 g/dL (12.0-16.0)
[2023-09-15 09:12] VITALS: BP 106/66; BP 113/74; PULSE 99
[2023-09-15] MEDS: MYCOSTATIN ORAL SUSPENSION PO ×4 (12:17→22:45)
[2023-09-15 15:50] VITALS: BP 117/69
[2023-09-15 20:00] VITALS: BP 109/69
[2023-09-15] MEDS: PEPCID 20 MG PO (22:45)
[2023-09-15] MEDS: NEURONTIN 600 MG PO (22:45)
[2023-09-15] MEDS: FLUSH (NSS) 1 FLUSH IV ×2 (23:18→23:20)
[2023-09-15 23:45] VITALS: BP 109/69
[2023-09-16 06:06] LABS: Hematocrit 24.7 % (37.0-47.0); Hemoglobin 8.2 g/dL (12.0-16.0); Mean Corp Hgb Conc. 33.2 g/dL (33.0-37.0); Mean Corpuscular Hgb 30.6 pg (27.0-31.0); Mean Corpuscular Volume 92.2 fL (81.0-99.0); Mean Platelet Volume 8.9 fL (7.4-10.4); Platelet Count 350 10^3/uL (130-400); Red Blood Cell Count 2.68 10^6/uL (4.20-5.40); Red Cell Dist. Width 22.6 % (11.5-14.5); White Blood Cell Count 7.5 10^3/uL (4.8-10.8)
[2023-09-16 06:36] LABS: Blood Urea Nitrogen 26 mg/dl (7-17); Calcium 8.2 mg/dl (8.4-10.2); Carbon Dioxide 23 mmol/L (22-30); Chloride 104 mmol/L (98-107); Estimated Creatinine Clearance 66 ml/min; Glucose 80 mg/dl (70-99); Sodium 132 mmol/L (135-145); eGFR > 60.00
[2023-09-16 07:50] VITALS: BP 106/64
--- NOTE | 2023-09-16 08:04 | W.PN.UPDATE ---
Update Note
Progress Note Update
Ms. Mckeon is POD4 following her right revision total hip arthroplasty for PJI performed by Dr. Hill. She is resting comfortably in bed this morning, and reports she is doing well overall. She denies any pain in her hip at present, and has been
able to work with physical therapy without significant difficulty.
Directed exam of the right hip reveals dressing clean, dry and intact. Wound vac functioning appropriately at 125 mmHg with scant bloody drainage. Mild tenderness to palpation about the lateral hip. Thigh soft and compressible. Calf soft and
nontender. Patient able to wiggle fingers, plantar and dorsiflex ankle. Neurovascularly intact distally.
Hgb 8.2 this AM.
73-year-old female POD #5 revision of right total hip arthroplasty, entire femoral and entire acetabular component for a right hip PJI performed on 09/11/2023 under the direction of Dr. Hill.
- Weightbearing as tolerated with use of walker for assistance. We appreciate the assistance of PT/OT. THPs.
- Patient currently on Eliquis 5 mg twice daily for DVT in RLE per medical team.
- Hgb 8.2 this AM. Continue to monitor.
-The VAC can be maintained for a week or two until during a change of the VAC the wound shows healing (i.e. approximation, no drainage, no dehiscence) at which point it can be D/C.
- Intra-operative wound cultures growing E.Coli. Antibiotics per ID (cefazolin for a 6 week course).
- Discharge planning per CM. Case management to pursue outside rehab facility hopefully early next week.
- Orthopedic surgery will continue to follow along.
[2023-09-16 08:41] LABS: Total Iron Binding Capacity 167 ug/dl (265-497)
[2023-09-16] MEDS: ANCEF 10 IV ×3 (09:09→23:56)
[2023-09-16] MEDS: MIRALAX 17 GRAMS PO (09:10)
[2023-09-16] MEDS: ELIQUIS 5 MG PO ×2 (09:10→19:44)
[2023-09-16] MEDS: VITAMIN B-12 1000 MCG PO (09:10)
[2023-09-16] MEDS: SENOKOT-S 2 TABLET PO ×2 (09:10→19:44)
[2023-09-16] MEDS: TYLENOL 1000 MG PO ×3 (09:10→21:32)
[2023-09-16] MEDS: MYCOSTATIN ORAL SUSPENSION PO ×4 (09:11→17:08)
[2023-09-16] MEDS: FLUSH (NSS) 1 FLUSH IV (09:18)
[2023-09-16 09:23] LABS: Vitamin B12 946 pg/ml (239-931)
[2023-09-16 09:57] LABS: Iron 21 ug/dl (37-170); Percent Saturation 12 % (20-50)
--- NOTE | 2023-09-16 10:33 | W.PN.HOSP.TC ---
Addendum entered and electronically signed by Bahman Dickson MD 09/16/23 11:50:
Spoke to at [facility]. Pt has Ovarian C diagnosed little less than 5 years ago.
Has been on Multiple chemo regimen, now on Gemcitabine and last chemo was in early August 2023
Patient has known lung metastasis. He is okay with thoracentesis if needed.
Reviewed about PJI
He agrees that chemo may need to be delayed until infection is cleared
Original Note:
Today's Communication/Plan
-
Needs Rehab
USS chest
ECHO
Serum Osm
Left message for at [facility]
Assessment / Plan
Assessment / Plan
CVS: S1-S2 normal
Chest: CTA B/L
Abdomen: Soft, NT / Bowel sounds present
Extremities: right hip wound vac
#Right Hip pain - Right hip pain s/p R FREDIS in April complicated by dislocation in june 2023 , s/p reduction
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
Status post drainage on 09/06
Revision of right total hip arthroplasty, entire femoral and entire acetabular component and Placement of incisional wound VAC 09/11/23
Intraoperative tissue cultures obtained September 10 again as in preop cultures growing E. coli pansensitive
Continue IV antibiotics as per ID(cefazolin), follow-up on cultures/pansensitive E. coli/6-week course/written prescription in chart per ID
PT/OT
Weightbearing as tolerated with use of walker for assistance
Aspirin and mechanical devices for DVT prophylaxis changed to Eliquis for full anticoagulation regarding DVT in right leg
Antibiotics cefazolin as above
Skin clip removal 2 weeks postop
She has been assessed by physiatry and not a candidate for acute rehab at [facility]/so we will start looking for a outside rehab facility
#Moderate right pleural effusion on CXR- Check USS and ECHO
With malignancy and mets, check an USS
# Acute right lower extremity DVT
-May have had nonocclusive DVT for some time but not treated after evaluated in [place] area in June
-Discontinued full dose aspirin as of SaturdaySeptember 13 and started on apixaban 5 mg twice a day on that date
# Acute hyponatremia
Likely from excess ADH release from pain
Check Serum Osm
One dose of Lasix
Sodium 132 , improved from 128 upon admission
TSH normal limits. cortisol normal, Add fluid restriction
# Asthma - No acute symptoms
Continue nebs prn
# Elevated ferritin likely acute phase reactant-repeat as outpatient in 6 weeks.
# Chronic normocytic anemia, likely from chronic disease
Transfused 1 unit of packed red blood cells September 13 for hemoglobin of 7.0
History of myelosuppression after chemotherapy last of which was taken in February 2023
Iron studies and B 12 levels noted
# History of ovarian cancer with mets to lung on chemotherapy
Original cancer 2020 started chemo then, a year ago she had mets to Lungs
Follows with [facility] and Dr.Steven Hensley [facility] when she comes to [place]
Last chemo was 08/28/23 ( Daughter thinks)
# Low BMI/looks cachectic
Admits to poor appetite over years/'never had much of an appetite'
Placed on Remeron
# DVT PPX -therapeutic Eliquis for DVT
# Code Status - DNR
Spoke to patient's daughter. Patient goes back and forth from [place] and has been coordinating chemotherapy with [facility] and [facility]. I called Dr. Hensley's office and left a message for call back regarding this patient.
time spent 52 min
Anticipated Discharge: Within 24 hours
Subjective/Interval History
-
Date of Service: September 16, 2023
Objective Data
-
Labs:
Laboratory Results
09/16/23
05:47
WBC 7.5
Hgb 8.2 L
Hct 24.7 L
Plt Count 350 D
Sodium 132 L
Potassium 4.0
Chloride 104
Carbon Dioxide 23
BUN 26 H
Creatinine 0.6
Glucose 80
Calcium 8.2 L
Vital Signs:
Vital Signs
Temp Pulse Resp BP Pulse Ox
98.6 F 84 20 106/64 94
09/16/23 07:50 09/16/23 07:50 09/16/23 07:50 09/16/23 07:50 09/16/23 07:50
I&O
09/15/23 09/16/23 09/17/23
06:59 06:59 06:59
Intake Total 1410 / 1410 780 / 780
Output Total 500 / 500
Balance 1410 / 1410 280 / 280
--- NOTE | 2023-09-16 11:00 | WOUNDNOTE ---
WON RN NOTE: For wound vac change today, waiting for bed availability at [facility]. Drainage from R hip suture line appears to have slowed considerably. Sutures intact, no dehiscence noted, applied dry gauze dressing secured with Medipore tape. Will
follow up this afternoon to see if wound vac needs to be re applied. Ortho FAUSTO Flores made aware and will confirm with Dr. Hill to leave wound vac off if no drainage. Nurse Ruby aware.
--- NOTE | 2023-09-16 11:10 | WOUNDNOTE ---
R HIP SUTURE LINE AND PROXIMAL HIP
[2023-09-16 11:21] LABS: Osmolality Serum 275 mOsm/kg (275-300)
[2023-09-16] MEDS: LASIX 20 MG PO (11:25)
[2023-09-16 11:42] LABS: Vitamin D, 25-OH*** < 12.8 ng/mL (30-80)
[2023-09-16 11:58] VITALS: BP 104/66; PULSE 120
--- NOTE | 2023-09-16 13:53 | W.PN.ID1 ---
Date of Service
Date of Service: September 16, 2023
Today's Communication
Continue cefazolin.
Assessment / Plan
Right hip PJI 2* E. coli
Right hip abscess
- s/p IR drainage of ~500 cc purulent fluid.
Ovarian cancer with lung mets (Hx surgical resection; currently on chemotherapy)
Arthritis
Asthma
Chronic hyponatremia
Recommendations:
Cultures with pansensitive E. coli.
Continue with cefazolin for a 6 week course.
Has port - accessed
Prescription for home infusion placed on paper chart.
Will follow-up with Dr. Waters in 2 weeks.
����������������������������������������������������������
Chief Complaint
-: Other (right hip prosthetic joint infection)
Subjective / Review of Systems
Getting bedside TTE. No new issues.
Vital Signs / Physical Exam
Vital Signs
Vital Signs
Temp Pulse Resp BP Pulse Ox
98.6 F 84 20 106/64 94
09/16/23 07:50 09/16/23 07:50 09/16/23 07:50 09/16/23 07:50 09/16/23 07:50
Physical Exam
Constitutional: Cachetic
Objective Data
Lab Data
Lab Results
09/16/23 05:47
09/16/23 05:47
ESR 103 mm/hour (0-20) H 09/14/23 05:38
Estimated Creat Clear 66 ml/min 09/16/23 05:47
Total Bilirubin 0.8 mg/dl (0.2-1.3) 09/07/23 01:46
AST 38 U/L (14-36) H 09/07/23 01:46
ALT 16 U/L (0-35) 09/07/23 01:46
Alkaline Phosphatase 147 U/L (38-126) H 09/07/23 01:46
C-Reactive Protein 62.50 mg/L (0.0-10.00) H 09/14/23 05:38
Most recent labs reviewed.
Micro Results:
09/11/23 13:32 Tissue Culture - Final
Hip - Right Escherichia coli
Gram Stain - Final
09/11/23 13:32 Tissue Culture - Final
Hip - Right Escherichia coli
Gram Stain - Final
09/11/23 13:32 Tissue Culture - Final
Hip - Right Escherichia coli
Gram Stain - Final
09/07/23 14:03 Body Fluid Culture - Final
Joint Fluid Escherichia coli
Gram Stain - Final
09/07/23 08:31 Blood Culture - Final
Blood/Venous No Growth - Final Report
09/07/23 03:47 Urine Culture - Final
Urine Enterococcus faecalis
Lactobacillus species
09/08/23 00:40 Urine Culture - Final
Urine
09/07/23 12:33 MRSA Screen - Final
Nose No Methicillin Resistant Staphylococcus aureus isolated.
Fluid Cult/not urine Final 09/09/23-834
Many Escherichia coli
Organism 1 Escherichia coli
1. Escherichia coli
M.I.C. RX
--------- ---
Amoxicillin/Potas. Clavulanate <=8/4 S
Ampicillin <=8 S
Ampicillin/Sulbactam <=8/4 S
Cefazolin <=2 S
Ertapenem <=0.5 S
Ciprofloxacin <=0.25 S
Gentamicin <=4 S
Levofloxacin <=0.5 S
Meropenem <=1 S
Piperacillin/Tazobactam <=16 S
Tobramycin <=4 S
Trimethoprim/Sulfamethoxazole <=2/38 S
Imaging:
09/07/2023 CT right lower extremity: Large complex loculated fluid collection in the right posterolateral hip soft tissues, which may represent a postoperative seroma, hematoma, or abscess.
[2023-09-16] MEDS: ROXICODONE 5 MG PO ×3 (14:32→23:59)
--- NOTE | 2023-09-16 15:00 | WOUNDNOTE ---
WON RN NOTE ADDENDUM: R hip dressing with large amt of serosanguineous drainage. Applied wound vac dressing again. RENAE Guzman made aware that wound vac back on and will need to continue at SNF. For possible discharge tomorrow. Upon discharge
remove vac dressing, apply dry dressing for transfer to SNF until facility can start their own wound vac.
--- NOTE | 2023-09-16 15:07 | CM ---
Addendum entered by Nelda Guzman RN 09/16/23 15:57:
IMM on chart. Wound Vac reapplied.
Original Note:
Reviewed the chart nots and spoke with the patient at the bedside. IMM signed and placed on chart. [facility] no beds. Referral sent to [facility]. They are able to accept tomorrow. Patient in agreement. CM continues to be available to
patient/family and is monitoring medical plan for needs at discharge.
Plan: Discharge to [facility] tomorrow.
[2023-09-16 15:45] VITALS: BP 96/62
[2023-09-16] MEDS: DRISDOL (VITAMIN D2) 50000 UNITS PO (18:22)
[2023-09-16 19:25] VITALS: BP 106/56
[2023-09-16] MEDS: DULCOLAX 10 MG RECTAL (19:44)
[2023-09-16] MEDS: MIRALAX PO (21:16)
[2023-09-16] MEDS: PEPCID 20 MG PO (21:32)
[2023-09-16] MEDS: MYCOSTATIN ORAL SUSPENSION 5 ML PO (21:32)
[2023-09-16] MEDS: NEURONTIN 600 MG PO (21:32)
[2023-09-17] VITALS: BP 103/63
--- NOTE | 2023-09-17 07:11 | W.PN.UPDATE ---
Update Note
Progress Note Update
Ms. Mckeon is POD6 following her right revision total hip arthroplasty for PJI performed by Dr. Hill. She is resting comfortably in bed this morning, and reports she is doing well overall. She reports that her pain is manageable. She has no pain
at rest and some pain with walking. She has been able to work with PT. She states that the wound vac was removed yesterday, however she was having some drainage, therefore it was replaced. She reports that she will be going to [facility] today.
Directed exam of the right hip reveals dressing clean, dry and intact. Wound vac functioning appropriately at 125 mmHg with scant bloody drainage. Mild tenderness to palpation about the lateral hip. Thigh soft and compressible. Calf soft and
nontender. Patient able to wiggle fingers, plantar and dorsiflex ankle. Neurovascularly intact distally.
73-year-old female POD #6 revision of right total hip arthroplasty, entire femoral and entire acetabular component for a right hip PJI performed on 09/11/2023 under the direction of Dr. Hill.
- Weightbearing as tolerated with use of walker for assistance. We appreciate the assistance of PT/OT. THPs.
- Patient currently on Eliquis 5 mg twice daily for DVT in E per medical team.
- The VAC can be maintained for a week or two until during a change of the VAC the wound shows healing (i.e. approximation, no drainage, no dehiscence) at which point it can be D/C. Can be discharged with vac.
- Intra-operative wound cultures growing E.Coli. Antibiotics per ID (cefazolin for a 6 week course).
- Discharge planning per CM. Patient reports going to [facility]
- Remove loyda two weeks postop
- Follow up outpatient in 2-4 weeks
- Orthopedic surgery will continue to follow along
[2023-09-17 08:00] VITALS: BP 114/69
[2023-09-17] MEDS: ANCEF 10 IV (09:02)
[2023-09-17] MEDS: TYLENOL 1000 MG PO (09:03)
[2023-09-17] MEDS: ELIQUIS 5 MG PO (09:03)
[2023-09-17] MEDS: VITAMIN D3 (cholecalciferol) 50 MCG PO (09:03)
[2023-09-17] MEDS: VITAMIN B-12 1000 MCG PO (09:03)
[2023-09-17] MEDS: MYCOSTATIN ORAL SUSPENSION PO ×2 (09:04→13:37)
[2023-09-17] MEDS: MIRALAX PO (09:05)
[2023-09-17] MEDS: FLUSH (NSS) 1 FLUSH IV (09:10)
[2023-09-17] MEDS: SENOKOT-S 2 TABLET PO (09:30)
--- NOTE | 2023-09-17 09:48 | CM ---
Addendum entered by Nelda Guzman RN 09/17/23 12:54:
Received message to contact the patient's daughter. Voice message left for daughter.
Original Note:
Plan: Discharge to [facility] today.
Call report to:
Fax report to:
Medical necessity and transport forms on chart.
--- NOTE | 2023-09-17 10:09 | W.PN.HOSP.TC ---
Addendum entered and electronically signed by Bahman Dickson MD 09/17/23 10:50:
Discussed with infectious disease. End date of antibiotics 10/23/2023. Weekly CBC, CMP and CRP and follow-up with Dr. Waters in 2 weeks
Okay for discharge
Discharge coordination time 36 minutes
Original Note:
Today's Communication/Plan
-
Discharge to rehab today if okay with ID
will discuss last day of AB
Assessment / Plan
Assessment / Plan
CVS: S1-S2 normal
Chest: CTA B/L, decreased right base.
Abdomen: Soft, NT / Bowel sounds present
Extremities: right hip wound vac
#Right Hip pain - Right hip pain s/p R FREDIS in April complicated by dislocation in june 2023 , s/p reduction
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
Status post drainage on 09/06
Revision of right total hip arthroplasty, entire femoral and entire acetabular component and Placement of incisional wound VAC 09/11/23
Intraoperative tissue cultures obtained September 10 again as in preop cultures growing E. coli pansensitive
Continue IV antibiotics as per ID(cefazolin), follow-up on cultures/pansensitive E. coli/6-week course/written prescription in chart per ID
PT/OT
Weightbearing as tolerated with use of walker for assistance
Aspirin and mechanical devices for DVT prophylaxis changed to Eliquis for full anticoagulation regarding DVT in right leg
Antibiotics cefazolin as above
Skin clip removal 2 weeks postop
She has been assessed by physiatry and not a candidate for acute rehab at [facility]/so we will start looking for a outside rehab facility
#Moderate right pleural effusion on CXR- Check USS and ECHO
With malignancy and mets, check an USS
# Acute right lower extremity DVT
-May have had nonocclusive DVT for some time but not treated after evaluated in [facility] in June
-Discontinued full dose aspirin as of SaturdaySeptember 13 and started on apixaban 5 mg twice a day on that date
# Acute hyponatremia
Likely from excess ADH release from pain
Check Serum Osm
One dose of Lasix
Sodium 132 , improved from 128 upon admission
TSH normal limits. cortisol normal, Added fluid restriction
# Asthma - No acute symptoms
Continue nebs prn
# Elevated ferritin likely acute phase reactant-repeat as outpatient in 6 weeks.
# Chronic normocytic anemia, likely from chronic disease
Transfused 1 unit of packed red blood cells September 13 for hemoglobin of 7.0
History of myelosuppression after chemotherapy last of which was taken in February 2023
Iron studies and B 12 levels noted
# History of ovarian cancer with mets to lung on chemotherapy
Original cancer 2020 started chemo then, a year ago she had mets to Lungs
Follows with [facility] and Dr.Steven Hensley [facility] when she comes to [place]
Last chemo was 08/28/23 ( Daughter thinks)
# Low BMI/looks cachectic
Admits to poor appetite over years/'never had much of an appetite'
Placed on Remeron
# DVT PPX -therapeutic Eliquis for DVT
# Code Status - DNR
Case discussed with patient's oncologist Dr. Hensley at [facility] yesterday. I also discussed with the patient today. She does not want to get a thoracentesis or an ultrasound done. She wants to wait. Her saturations normal being on
room air, I will hold off on ultrasound per patient's request. She is aware that if the pleural effusion gets worse she may get short of breath and this may need to get it drained at that time.
She is looking forward to going to rehab today.
D/W Daughter and made her aware about above
D/W Case management, daughter requested a call from case management-made aware
D/W RN at bed side
Discussed with infectious disease
Anticipated Discharge: Today
Subjective/Interval History
-
Date of Service: September 17, 2023
Objective Data
-
Vital Signs:
Vital Signs
Temp Pulse Resp BP Pulse Ox
98.2 F 70 16 114/69 97
09/17/23 08:00 09/17/23 08:00 09/17/23 08:00 09/17/23 08:00 09/17/23 08:00
I&O
09/16/23 09/17/23 09/18/23
06:59 06:59 06:59
Intake Total 780 / 780 660 / 660
Output Total 500 / 500
Balance 280 / 280 660 / 660
--- NOTE | 2023-09-17 10:51 | W.DS.TRANS ---
Addendum entered and electronically signed by Bahman Dickson MD 09/17/23 16:21:
Dictation- [id number]
Original Note:
DC Summary - Collar Starcher
-
Discharge Instructions:
Discharge Diagnosis/Procedures Right hip prosthetic joint infection, moderate
right pleural effusion, DVT right lower
extremity, hyponatremia, asthma, anemia, ovarian
cancer on chemotherapy, Vitamin D Defeciency
Diet Restrict fluids to 64 oz,As tolerated
Activity With assistance,With Walker
Additional Activity Weightbearing as tolerated with use of walker
for assistance.
Driving Restrictions No driving
Blood Work Ferritin levels in 6 weeks weekly CBC, CMP and
CRP with results to Dr. Waters.
Others Tests chest X ray 4 weeks
Other Services PT,OT
Instructions:
Stand-Alone Forms:
Changes to Home Medications: Yes
Discharge Medications:
DC Medications w/original date entered in [facility]
albuterol sulfate 90 mcg/actuation aerosol inhaler 2 puff inhalation R Q4HPRN PRN SOB 06/02/19
cholecalciferol (vitamin D3) 25 mcg (1,000 unit) tablet (Vitamin D3) 25 mcg PO DAILY Supplement 06/02/19
ascorbic acid (vitamin C) 500 mg tablet (Vitamin C) 500 mg PO DAILY Supplement 04/08/23
cyanocobalamin (vitamin B-12) 1,000 mcg tablet (Vitamin B-12) 1,000 mcg PO DAILY Supplement 04/08/23
docusate sodium 100 mg capsule (Colace) 100 mg PO BID stool softner #1 cap 05/16/23
famotidine 20 mg tablet 20 mg PO HS GI prophylaxis #30 tabs 05/16/23
magnesium hydroxide 400 mg/5 mL oral suspension (Milk of Magnesia) 30 ml PO HS PRN Constipation #1 mL 05/16/23
sennosides 8.6 mg tablet (Senokot) 17.2 mg (2 x 8.6 mg) PO BID laxative #2 tabs 05/16/23
acetaminophen 500 mg tablet (Tylenol Extra Strength) 1,000 mg (2 x 500 mg) PO TID Pain #0 tabs 09/16/23
apixaban 5 mg tablet (Eliquis) 5 mg PO BID Blood clot prevention/tx #0 tabs 09/16/23
gabapentin 300 mg capsule 600 mg (2 x 300 mg) PO HS Pain #0 caps 09/16/23
mirtazapine 7.5 mg tablet 7.5 mg PO HS Sleep #0 tabs 09/16/23
nystatin 100,000 unit/mL oral suspension 5 ml PO QID thrush #0 mL 09/16/23
oxycodone 5 mg tablet 5 mg PO Q4HPRN PRN moderate pain #10 tabs 09/16/23
polyethylene glycol 3350 17 gram oral powder packet (HealthyLax) 17 g PO BID Constipation #0 ea 09/16/23
cefazolin 10 gram solution for injection 2 g IV Q8H Infection #0 ea 09/17/23
Home Medication Changes
Ancef, MiraLAX, oxycodone, nystatin, Eliquis, Remeron are new
Pending Results: No
[2023-09-17] MEDS: ROXICODONE 5 MG PO (14:45)
[2023-09-17 16:33] VITALS: BP 118/74
--- NOTE | 2023-09-18 07:21 | WOUNDNOTE ---
WOC RN note: [employer] notified via [employer] of stop rental bill date for hospital rental vac ulta vac pump as of 09/17/23 and to supervisor picking crew vac pump (work order #[id number]).
== END 2023-09-17 15:30 | DRG 466 ==
LOC: 2 SOUTH 05:57
PROVIDERS: Clinical Nurse Specialist Family Health; Family Medicine; Internal Medicine; Orthopaedic Surgery; Physician Assistant Surgical; Radiology Diagnostic Radiology; Student in an Organized Health Care Education/Training Program; ADMITTING PHYSICIAN Internal Medicine; ATTENDING PHYSICIAN Hospitalist; CONSULT PHYSICIAN Internal Medicine Infectious Disease; CONSULT PHYSICIAN Orthopaedic Surgery; CONSULT PHYSICIAN Physical Medicine & Rehabilitation; EMERGENCY PHYSICIAN Emergency Medicine; FAMILY PHYSICIAN Family Medicine
PROC: 0S9930Z Drainage of Right Hip Joint with Drainage Device, Percutaneous Approach (ICD-10-PCS; 2023-09-07)
PROC: 0SR9049 Replacement of Right Hip Joint with Ceramic on Polyethylene Synthetic Substitute, Cemented, Open Approach (ICD-10-PCS; 2023-09-11)
PROC: 0SP90JZ Removal of Synthetic Substitute from Right Hip Joint, Open Approach (ICD-10-PCS; 2023-09-11)
DX: T84.51XA Infection and inflammatory reaction due to internal right hip prosthesis, initial encounter (principal); A41.51 Sepsis due to Escherichia coli [E. coli]; I82.411 Acute embolism and thrombosis of right femoral vein; I82.431 Acute embolism and thrombosis of right popliteal vein; I82.441 Acute embolism and thrombosis of right tibial vein; J90 Pleural effusion, not elsewhere classified; E87.1 Hypo-osmolality and hyponatremia; C56.9 Malignant neoplasm of unspecified ovary; L02.415 Cutaneous abscess of right lower limb; R64 Cachexia; Z68.1 Body mass index [BMI] 19.9 or less, adult; C78.00 Secondary malignant neoplasm of unspecified lung; J45.909 Unspecified asthma, uncomplicated; D64.9 Anemia, unspecified; E55.9 Vitamin D deficiency, unspecified; Y83.1 Surgical operation with implant of artificial internal device as the cause of abnormal reaction of the patient, or of later complication, without mention of misadventure at the time of the procedure
CPT/HCPCS: 10030; 73502; 73700; 74022; 80048; 80053; 81003; 81015; 82306; 82533; 82607; 82728; 83540; 83550; 83930; 83935; 84300; 84443; 85014; 85018; 85025; 85027; 85652; 86140; 86618; 86850; 86900; 86901; 86920; 87015; 87040; 87070; 87071; 87077; 87086; 87176; 87186; 87205; 89051; 89060; 93306; 93971; 94640; 96360; 97110; 97116; 97163; 97167; 97535; 99285; C1713; C1729; C1769; C1776; P9016

== ENCOUNTER 2024-01-02 08:49 | Inpatient (IN) | payer MEDICARE, OTHER, SELFPAY ==
[2024-01-01] VITALS (16 sets, daily range): BP systolic 93–127; BP diastolic 60–82; BMI 19.1; BMI 17.4
--- NOTE | 2024-01-01 10:53 | ED.GENMED ---
History of Present Illness
General
Chief Complaint: Breathing Problem
Source: patient
Exam Limitations: none
Time Seen by Provider: 01/01/24 10:40
Nursing documentation reviewed up to this point in time: agreed with
History of Present Illness
History of Present Illness:
73-year-old female with a history of asthma, stage IV ovarian cancer with mets to the lung not anticoagulated, remote history of a DVT, chronic O2 dependent 5 L baseline presents for acute worsening of her shortness of breath since yesterday.
Patient says she has not previously seen a field director but has an appointment at [place] tomorrow. She says she became feeling worse yesterday with increased short of breath and some right-sided back pain. Patient says her back pain is not
pleuritic or positional. She feels like she cannot catch her breath. She is on Xopenex and albuterol and has not had relief, usually this helps her
she is not chronically on steroids
she has had a dry cough, no mucus, no blood
eliquis is listed as a previous med but she is not takin git any more
she chronically has L sided lower leg swelling from previous DVt
pt had a prosthetic hip infection in august and was hospitalized with revision surgery and iv abx and is still on oral abx
Past History
Past History
ED Past Medical History: Asthma, Cancer (Ovarian with mets to Lung) and Other (Neuropathy)
ED Past Surgical History: Appendectomy, Gynecological (Hysterectomy) and Orthopedic (Right total knee replacement, Right total hip replacement)
Social History
Tobacco: Non-smoker
Alcohol: Occasional
Drug: None
Personal:
Living: with family
Review of Systems
Review of Systems
Allergies reviewed?: Yes
All Other Systems: Not applicable
Phy Exam
Physical Exam
Physical Exam:
GENERAL: Alert , tachypneic
EYE: pupils equal and reactive
NECK: Supple
ENT: o/p clr, mmm.
CARDIAC: Tachycardia 120s
LUNGS: Clear breath sounds bilaterally, no acute respiratory distress, no wheezes/rales/rhonchi
ABDOMEN: Soft, without focal tenderness, no r/g, no cvat, normal bowel sounds
NEUROLOGICAL: Alert and oriented, no focal neuro deficits
SKIN: Warm and dry, skin intact.
MUSCULOSKELETAL: No edema, well perfused. neg lit's sign
PSYCH: Normal and appropriate interaction.
Scores
Heart Failure Risk
Heart Failure Risk Score: Not Applicable
Course
Orders/Labs/Results
Orders:
Orders
01/01/24 10:52
Cardiac Monitoring- Treatment ONCE
01/01/24 10:53
Electrocardiogram (*1) Stat
Reason for Study: Other
Other Reason for Exam: pneumonia
CT Chest Pe Study Urgent
Comment:
Reason For Exam: lung ca, hypoxic, tachy
EKG- Treatment ONCE
CR Chest Portable - 1 View Urgent
Comment:
Reason For Exam: hypoxic
Reason Study Needs to be Portable: Patient Unstable
01/01/24 11:15
COVID-19 Antigen Urgent
Source: Nasal Swab
Complete Blood Count/With Diff Urgent
Comprehensive Metabolic Panel Urgent
Lactic Acid Q4H
Comment: CANCEL 2nd LACTIC ACID IF 1st LACTIC ACID IS LESS THAN 2
NT-proBNP Urgent
PTT Urgent
Prothrombin Time Urgent
Troponin I Urgent
01/01/24 14:14
Consult Interventional Radiology [IRAD CONSULT] Urgent
Consulting Provider: Randy Boone
Was physician already notified: Yes
Reason for Consult/Procedure: chest tube
Acknowledgement that appropriate orders are entered: Yes
01/01/24 14:49
LDH Routine
Comment: post procedure, add on to morning labs if already drawn
Total Protein Routine
Comment: post procedure, add on to morning labs if already drawn
01/01/24 15:04
Admit/Transfer Patient As Directed
Co-Sign Provider:
Level of Care: Observation services
Assign to:: Telemetry
Physician / Group: Hospitalist
Diagnosis: Large Right Pleural Effusion
Reason for Telemetry: Pulmonary Edema
Date to Stop Telemetry: 01/04/24
Time to Stop Telemetry: 11:00
Reason for Hospitalization: Large Right Pleural effusion, IR consult for therapeutic thoracentesis
Expected length of stay greater than two midnights?: No
I certify the patient meets the requirements for IP care: Yes
PRN Pain Medication Management As Directed
May give lesser potent ordered pain med per pt: Yes
preference::
Protocol:: Medication orders for pain may be administered in a
manner that supports deferring to patient preference
when the pt is:
- Requesting an ordered lesser potent pain medication.
Least to most potent pain medications are defined
as: acetaminophen < NSAID < tramadol < opioids
(morphine, oxycodone, hydromorphone).
- Requesting a lesser dose of the same medication IF
ORDERED.
- Requesting a less intrusive route of administration
if both routes are prescribed by the provider (PO <
IV).
01/01/24 15:28
Fentanyl Citrate/Pf [Sublimaze] 100 mcg .ROUTE .STK-MED ONE
Midazolam HCl [Versed] 2 mg .ROUTE .STK-MED ONE
01/01/24 16:35
Body Fluid Cell Count Routine
What is the Body Fluid: pleural fluid
Date Specimen was Collected: 01/01/24
Time Specimen was Collected: 16:10
Comment: Right chest tube placement
Body Fluid Glucose Routine
Fluid Source: Pleural
Date Specimen was Collected: 01/01/24
Time Specimen was Collected: 16:10
Comment: Right chest tube placement
Body Fluid LDH Routine
Fluid Source: Pleural
Date Specimen was Collected: 01/01/24
Time Specimen was Collected: 16:10
Comment: Right chest tube placement
Body Fluid Protein Routine
Fluid Source: Pleural
Date Specimen was Collected: 01/01/24
Time Specimen was Collected: 16:10
Comment: Right chest tube placement
Body Fluid pH Routine
Fluid Source: Pleural
Date Specimen was Collected: 01/01/24
Time Specimen was Collected: 16:10
Comment: Right chest tube placement
Fluid Culture with Gram Stain Routine
SAVANNA Source: Pleural Fluid
Specimen Description:
Date Specimen was Collected: 01/01/24
Time Specimen was Collected: 16:10
Comment: Right chest tube placement
01/01/24 17:39
Albuterol [ProAIR HFA INHALER] 2 puff INH R Q4HPRN PRN
01/01/24 17:39
DX Deep Vein Thrombosis Video Routine
01/01/24 18:00
Enoxaparin Sodium [Lovenox] 40 mg SC QPM
01/01/24 22:00
Gabapentin [Neurontin] 600 mg PO HS
01/02/24 08:00
Gabapentin [Neurontin] 300 mg PO DAILY
01/04/24 11:00
DC Protocol for Telemetry ONCE
Abnormal Lab Results
01/01/24
11:15
RBC 2.81 L 10^6/uL
(4.20-5.40)
Hgb 8.2 L g/dL
(12.0-16.0)
Hct 24.6 L %
(37.0-47.0)
RDW 15.6 H %
(11.5-14.5)
Absolute Lymphs (auto) 0.3 L 10^3/uL
(1.2-3.4)
Absolute Monos (auto) 0.7 H 10^3/uL
(0.1-0.6)
Neutrophils % 80.2 H %
(42.2-75.2)
Lymphocytes % 5.8 L %
(20.5-51.1)
Monocytes % 12.9 H %
(1.7-9.3)
APTT 42.8 H Sec
(23.4-35.0)
BUN 22 H mg/dl
(7-17)
Troponin I 0.094 H* ng/ml
Total Protein 5.4 L g/dl
(6.3-8.2)
Albumin 2.9 L g/dl
(3.5-5.0)
01/01/24 11:15
01/01/24 11:15
Vital Signs
Initial and Last Documented VS:
Initial Vital Signs
BP Pulse Ox
127/82 96
01/01/24 10:39 01/01/24 10:39
Last Documented Vital Signs
Temp Pulse Resp BP Pulse Ox
97.8 F 104 22 100/71 100
01/01/24 16:25 01/01/24 17:30 01/01/24 17:30 01/01/24 17:00 01/01/24 18:28
MDM/Problems Addressed
Differential Diagnosis Includes:
Pleural effusion, pneumothorax, pneumonia, PE
MDM/Problems Addressed:
73-year-old female with metastatic ovarian cancer with mets to the left lung with a recurrent pleural effusion, has only had thoracentesis twice previously and 1 time at [place] with complication of a pneumothorax postprocedure presents for acute
worsening of her baseline shortness of breath since yesterday. Patient tried her neb treatments and inhaler without relief. She was hypoxic this morning with air hunger for EMS. They gave her DuoNeb en route and she feels slightly improved. She
has had a chronic baseline tachycardia over the last several weeks to months. She is not anticoagulated despite a previous DVT in her right lower extremity remotely. She has not had any fevers or chills. On exam the patient is tachypneic, with
very diminished breath sounds in the right lung, moderate edema in the right lower extremity
Portable chest x-ray independently reviewed by me shows a severe total whiteout of her right lung with pleural effusion worsening from her previous x-ray from August where she had a moderate size effusion. Given the fact that the patient also has leg
edema with a history of cancer I will proceed with a CT PE study but I did discuss this with the radiologist and he does not believe that there is a pneumothorax. Patient actually does look improved on her 5 L of oxygen currently. She is not
wheezing. Plan to admit her for thoracentesis, I reached out to the interventional radiologist who is aware
We discussed possibility of transfer to [place] where she has received her oncologic care but she does prefer to stay here currently.
*Critical Care Note
Total Time (30-74mins, 75-104mins- exclusive of procedures): Not Applicable
ED Attending Note
-
Portions of this chart may have been created with voice recognition software.� Occasional wrong word or��sound alike� substitutions may have occurred due to the inherent limitations of voice recognition software.
Discharge Plan
Departure
Patient Disposition: Admit
Date of Disposition: 01/01/24
Time of Disposition: 12:43
Admit to: IMU
Presentation/result/management discussed w/ accepting MD/DO: Hospitalist
Condition: Fair
Covid-19: Not Applicable
Discharge Problem:
Pleural effusion
Interventions
Interventions:
*Risk Screen - Suicide Last Done: 01/01/24 10:39
*General Assessment Last Done: 01/01/24 10:39
*Neglect/Abuse Screening Last Done: 01/01/24 10:39
ED- Fall Risk Assessment Last Done: 01/01/24 17:37
*ED COVID-19 Vaccine History Last Done: 01/01/24 10:39
*Nursing Disposition Last Done: 01/01/24 17:37
ED- Cardiac Assessment Last Done: 01/01/24 12:00
ED- Pulmonary Assessment Last Done: 01/01/24 12:00
Discharge Date and Time
Discharge Date/Time: 01/01/24 17:37
[2024-01-01 11:33] LABS: % Basophils 0.5 % (0-2); % Eosinophils 0.3 % (0-6); % Immature Granulocytes 0.3 % (0-0.5); % Lymphocytes 5.8 % (20.5-51.1); % Monocytes 12.9 % (1.7-9.3); % Neutrophils 80.2 % (42.2-75.2); Absolute Lymphocytes 0.3 10^3/uL (1.2-3.4); Absolute Monocytes 0.7 10^3/uL (0.1-0.6); Absolute Neutrophils 4.6 10^3/uL (1.4-6.5); Hematocrit 24.6 % (37.0-47.0); Hemoglobin 8.2 g/dL (12.0-16.0); Mean Corp Hgb Conc. 33.3 g/dL (33.0-37.0); Mean Corpuscular Hgb 29.2 pg (27.0-31.0); Mean Corpuscular Volume 87.5 fL (81.0-99.0); Mean Platelet Volume 8.8 fL (7.4-10.4); Nucleated Red Blood Cells % 0 %; Platelet Count 283 10^3/uL (130-400); Red Blood Cell Count 2.81 10^6/uL (4.20-5.40); Red Cell Dist. Width 15.6 % (11.5-14.5); White Blood Cell Count 5.7 10^3/uL (4.8-10.8)
[2024-01-01 11:39] LABS: COVID-19 Antigen Negative (Negative); INR 1.08
[2024-01-01 11:40] LABS: APTT 42.8 Sec (23.4-35.0)
[2024-01-01 11:41] LABS: ALT (SGPT) < 10 U/L (0-35); AST (SGOT) 21 U/L (14-36); Albumin 2.9 g/dl (3.5-5.0); Alkaline Phosphatase 80 U/L (38-126); Blood Urea Nitrogen 22 mg/dl (7-17); Calcium 8.5 mg/dl (8.4-10.2); Carbon Dioxide 23 mmol/L (22-30); Chloride 99 mmol/L (98-107); Glucose 95 mg/dl (70-99); Potassium 4.3 mmol/L (3.5-5.1); Sodium 136 mmol/L (135-145); Total Bilirubin 0.7 mg/dl (0.2-1.3); Total Protein 5.4 g/dl (6.3-8.2); eGFR > 60.00
[2024-01-01 11:53] LABS: NT-proBNP 1470 pg/ml; Troponin I 0.094 ng/ml
[2024-01-01 12:11] LABS: Lactic Acid 1.1 mmol/L (0.7-2.0)
--- NOTE | 2024-01-01 13:46 | HPS.HSE ---
Family Physician
-
Family Physician: William Ochoa
Chief Complaint
-
Shortness of Breath, Right sided Back pain
History of Present Illness
Pending IR intervention for large pleural effusion. Will continue home meds & monitor breathing. Obs status w/ potential discharge if stable after IR procedure.
Medical History
Past Medical History
Past Medical History: Reports Asthma
Additional Past Medical History:
Stage IV Ovarian Carcinoma (2019, s/p several rounds of chemo) w/ Lung Mets, DVT, not on OAC
Past Surgical History: Reports Appendectomy, Gynocological (Hysterectomy w/ BL SPO/ tumor resection) and Orthopedic (R Hip replacement, R Knee replacement)
Social History
Tobacco: Non-smoker
Alcohol: None
Drug: None
Family History
Family History: Not pertinent
Allergies / Home Medications
Allergies reflects when Allergies were last updated in [facility].
Home Medications with original date entered in [facility]
Allergy/Medication List:
NKDA
Review of Systems
-
History Source: Patient and Family
A 12 point ROS was completed and negative except as noted: Yes
Constitutional: Reports Weight Loss and Fatigue
EENT: Reports No Symptoms
Respiratory: Reports Trouble Breathing
Cardiac: Reports No Symptoms
Abdomen/GI: Reports No Symptoms
: Reports No Symptoms
Musculoskeletal: Reports No Symptoms
Skin: Reports No Symptoms
Neurological: Reports No Symptoms
Endocrine: Reports No Symptoms
Hematologic/Lymphatic: Reports No Symptoms
Psych: Reports Calm
Physical Exam
Vital Signs
Vital Signs
Temp Pulse Resp BP Pulse Ox
97.5 F 110 15 104/63 100
01/01/24 10:47 01/01/24 12:30 01/01/24 12:30 01/01/24 12:12 01/01/24 12:30
Physical Exam
General: No Apparent Distress, Appears Chronically Ill and Cachectic
HEENT: NormoCephalic, Anicteric, Moist mucous membranes, Atraumatic, PERRLA and [place] Conjunctivae
Respiratory: Other (Absent breath sounds in the R Lung yanez, Clear to auscultation in the L)
Cardiac: S1/S2, Regular Rhythm and Tachycardia
Breast: Deferred by me
GI: Soft, Non Tender and Non Distended
Genito-urinary: Deferred by me
Musculoskeletal: No Clubbing, No Cyanosis and Edema, Right Lower Extremity (1+ pitting edema to the tibial tuberosity )
Skin: Lesions (Small superficial lesions on the BL LE )
Neuro: Awake (Tired, but arousable ), Alert and Oriented
Psych: Calm
Laboratory Results
-
01/01/24 11:15
01/01/24 11:15
Laboratory Results
PT 14.0 Sec (11.4-14.6) 01/01/24 11:15
INR 1.08 01/01/24 11:15
APTT 42.8 Sec (23.4-35.0) H 01/01/24 11:15
Lactic Acid 1.1 mmol/L (0.7-2.0) 01/01/24 11:15
Total Bilirubin 0.7 mg/dl (0.2-1.3) 01/01/24 11:15
AST 21 U/L (14-36) 01/01/24 11:15
ALT < 10 U/L (0-35) 01/01/24 11:15
Alkaline Phosphatase 80 U/L (38-126) 01/01/24 11:15
Troponin I 0.094 ng/ml H* 01/01/24 11:15
Impression/Plan
-
Assessment & Plan
#Large Right Sided Pleural Effusion
- History of 2 prior pleural effusions treated with thoracentesis at outpatient oncologist
- IR to see; possible chest tube placement
- Pleural fluid to be sent for analysis
#Acute on Chronic hypoxic respiratory failure w/ home oxygen dependence
- uses 5L O2 at home
- Required >5L en route to hospital, s/p DuoNeb treatment in ED
- Stable on 5L NC
- C/w QID DuoNeb treatments, Symbicort inhaler
#Stage IV Ovarian cancer w/ Mets to the Lung
#Chronic cancer pain with opioid dependence
- Chemotherapy with [facility] q3 weeks
- Is not interested in Hospice at this time. Discussed code status with the patient who desires Full Code. Will revisit at a later date.
- C/w Oxycodone 7.5mg Q4h prn
#History of Septic Prosthetic Joint
- Continue on life-long prophylactic Keflex 500mg BID
#Peripheral Neuropathic Pain
- Stable; c/w home dose gabapentin 600mg QHS
#Dispo:
Med/Surg
DVT PPx: Lovenox SC
Diet: Regular
Code: Full Code
[2024-01-01 17:11] LABS: Body Fluid pH 7.34
[2024-01-01 17:15] LABS: Body Fluid Mononuclear 15.1 %; Body Fluid Polymorphonuclear 84.9 %; Body Fluid WBC 2616 /CUMM
[2024-01-01 17:16] LABS: Body Fluid Glucose 50 mg/dl; Body Fluid LDH 316 U/L; Body Fluid Protein 3.2 g/dl
[2024-01-01 17:21] LABS: Body Fluid Second Tech RLT
[2024-01-01] MEDS: SYMBICORT 160/4.5 MCG INHALER 2 PUFF INH (20:05)
[2024-01-01] MEDS: DUONEB 3 ML INH (20:05)
[2024-01-01] MEDS: KEFLEX 500 MG PO (20:43)
[2024-01-01] MEDS: NEURONTIN 600 MG PO (20:43)
[2024-01-01] MEDS: ROXICODONE 7.5 MG PO (20:43)
[2024-01-01 21:06] LABS: LDH 169 U/L (120-246); Total Protein 5.1 g/dl (6.3-8.2)
[2024-01-01] MEDS: LOVENOX 40 MG SC (21:43)
--- NOTE | 2024-01-01 22:30 | PTCARENOTE ---
Pt with a 11 beat run of Vtach. Pt asymptomatic BP 95/60, HR 120, temp 98.6 Resp 16 SPO2 96 on 5LO2. BMP, CBC, Troponin, Mag ordered. EKG done. No further orders.
--- NOTE | 2024-01-01 22:30 | PTCARENOTE ---
Pt with a 11 beat run of Vtach, pt sustaining HR 117-120. Pt asymptomatic BP 95/60, HR 120, temp 98.6 Resp 16 SPO2 96 on 5LO2. BMP, CBC, Troponin, Mag ordered. EKG done. No further orders.
[2024-01-01 23:07] LABS: Hematocrit 22.9 % (37.0-47.0); Hemoglobin 7.6 g/dL (12.0-16.0); Mean Corp Hgb Conc. 33.2 g/dL (33.0-37.0); Mean Corpuscular Hgb 29.9 pg (27.0-31.0); Mean Corpuscular Volume 90.2 fL (81.0-99.0); Mean Platelet Volume 8.9 fL (7.4-10.4); Platelet Count 258 10^3/uL (130-400); Red Blood Cell Count 2.54 10^6/uL (4.20-5.40); Red Cell Dist. Width 15.7 % (11.5-14.5); White Blood Cell Count 5.2 10^3/uL (4.8-10.8)
[2024-01-01 23:34] LABS: Blood Urea Nitrogen 22 mg/dl (7-17); Calcium 8.2 mg/dl (8.4-10.2); Carbon Dioxide 26 mmol/L (22-30); Estimated Creatinine Clearance 60 ml/min; Glucose 128 mg/dl (70-99); Magnesium 1.3 mg/dl (1.6-2.3); eGFR > 60.00
[2024-01-01 23:46] LABS: Troponin I 0.062 ng/ml
[2024-01-02] VITALS (9 sets, daily range): BP systolic 90–105; BP diastolic 60–71
[2024-01-02 00:14] LABS: Chloride 96 mmol/L (98-107); Potassium 4.1 mmol/L (3.5-5.1); Sodium 133 mmol/L (135-145)
--- NOTE | 2024-01-02 00:31 | W.PN.UPDATE ---
Update Note
Progress Note Update
RN notified ENVIRONMENTAL CHANGE ANALYST HR sustaining 117-120, also had 11 beats run of v-tach?, Patient is asymptomatic. BP 95/60 HR 120, Resp 16 afebrile. EKG shows Sinus tachycardia at 114. Troponin 0.062. Per notes, Troponin and labs to be trended. Will order Troponin,
Mag, BMP, CBC
lab results noted, Mag 1.3, will order IV mag rider. hgb stable at 7.6 no active bleeding, ca 8.2 corrected ca 8.6.Troponin 0.062
repeat labs in AM.
[2024-01-02] MEDS: MAGNESIUM SULFATE 50 IV (01:21)
--- NOTE | 2024-01-02 03:03 | W.PN.UPDATE ---
Update Note
Progress Note Update
RN notifed patient with a 11 beat run of V-tach. HR 120's-140's, E Pt asymptomatic BP 95/60, HR 120, temp 98.6 Resp 16 SPO2 96 on 5LO2. BMP, CBC, Troponin, Mag ordered. EKG done Sinus Tachycardia 114. Troponin 0.062, Mag 1.3, Mag rider ordered. HR
came down to low 100's. Patient seen and evaluated, reports pain with deep breathing, and cough, mild shortness of breath. Lungs diminished B/L, tachypneic 22, 100% 5 L Denies any chills or fever. Right chest tube in place, dressing intact, no
bleeding noted. Will order chest xray portable r/o Pneumothorax
Chest xray done, awaiting results. labs in AM
[2024-01-02 05:17] LABS: Hematocrit 20.7 % (37.0-47.0); Mean Corp Hgb Conc. 33.8 g/dL (33.0-37.0); Mean Corpuscular Hgb 29.3 pg (27.0-31.0); Mean Corpuscular Volume 86.6 fL (81.0-99.0); Mean Platelet Volume 9.9 fL (7.4-10.4); Platelet Count 219 10^3/uL (130-400); Red Blood Cell Count 2.39 10^6/uL (4.20-5.40); Red Cell Dist. Width 15.5 % (11.5-14.5); White Blood Cell Count 4.3 10^3/uL (4.8-10.8)
[2024-01-02 05:22] LABS: Blood Urea Nitrogen 21 mg/dl (7-17); Calcium 8.2 mg/dl (8.4-10.2); Carbon Dioxide 26 mmol/L (22-30); Chloride 99 mmol/L (98-107); Estimated Creatinine Clearance 60 ml/min; Glucose 94 mg/dl (70-99); Magnesium 2.1 mg/dl (1.6-2.3); Potassium 4.2 mmol/L (3.5-5.1); Sodium 134 mmol/L (135-145); eGFR > 60.00
[2024-01-02 05:30] LABS: Troponin I 0.046 ng/ml
--- NOTE | 2024-01-02 05:49 | W.PN.UPDATE ---
Update Note
Progress Note Update
hgb 7.0/20.7, patient asymptomatic. has hx of chronic normocytic anemia, received Lovenox at 2200, will hold. 1u PRBC's ordered.
[2024-01-02] MEDS: DUONEB 3 ML INH ×4 (08:07→19:16)
[2024-01-02] MEDS: SYMBICORT 160/4.5 MCG INHALER 2 PUFF INH ×2 (08:07→19:16)
[2024-01-02] MEDS: SENOKOT 17.2 MG PO (09:01)
[2024-01-02] MEDS: NEURONTIN 300 MG PO (09:01)
[2024-01-02] MEDS: KEFLEX 500 MG PO ×2 (09:02→20:14)
--- NOTE | 2024-01-02 11:10 | CM ---
Addendum entered by Lorraine Jett 01/02/24 11:23:
Plan: home with [facility]/ [facility]

Original Note:
Patient seen bedside with daughter.
Patient with Chest tube.
IA prior to admission.
Patient ambulates with a RW, but also has a cane and WC in the home.
Patient on oxygen 5 liters at home, [facility] is the provider.
Patient current with [facility] Palliative care.
Patient interested in home therapy and RN, will send referral [facility].
PT/OT requested for patient.
Plan Home with VN, daughter will transport.
PCP; Dr Hurd (admission notified to update)
Pharmacy: [facility] ([phone])
Plan: home with VN
--- NOTE | 2024-01-02 13:52 | W.PN.HOSP.TC ---
Today's Communication/Plan
-
C/w duonebs/O2. Clamp trial in the AM w/ repeat CXR and possible tube removal by IR.
Assessment / Plan
Assessment / Plan
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
#Large Right Sided Pleural Effusion
- History of 2 prior pleural effusions treated with thoracentesis at outpatient oncologist
- Chest tube placed, so far drained over 2000ccs of serosanguineous fluid.
- Pleural fluid to be sent for analysis
- Will clamp chest tub tomorrow at 6AM, with repeat CXR at 9AM. If unchanged, IR will removed drain. Possible discharge tomorrow.
#Acute on Chronic hypoxic respiratory failure w/ home oxygen dependence
- Required >5L en route to hospital, s/p DuoNeb treatment in ED
- Curerntly stable on 5L NC
- C/w QID DuoNeb treatments, Symbicort inhaler
#Stage IV Ovarian cancer w/ Mets to the Lung
#Chronic cancer pain with opioid dependence
- Chemotherapy with [facility] q3 weeks
- Is not interested in Hospice at this time. Discussed code status with the patient who desires Full Code. Will revisit at a later date.
- C/w Oxycodone 7.5mg Q4h prn
#History of Septic Prosthetic Joint
- Continue on life-long prophylactic Keflex 500mg BID
#Peripheral Neuropathic Pain
- Stable; c/w home dose gabapentin 600mg QHS
#Dispo:
Med/Surg
DVT PPx: Lovenox SC
Diet: Regular
Code: Full Code
Anticipated Discharge: Within 24 hours
Subjective/Interval History
-
Seen in the AM. Much more responsive and awake than on admission. She says she is breathing better, and has some pain in her chest when coughing. Overnight she had an episode of Ventricular Tachycardia (during which time she was asymptomatic) with
HR in the 120s-140s. Magnesium level was 1.3 and so was given mag. riders.
Her chest tube put out roughly 1900mls of fluid overnight with approx. 100mls more since change of shift in the AM.
Objective Data
-
Labs:
Laboratory Results
01/02/24
04:15
WBC 4.3 L
Hgb 7.0 L
Hct 20.7 L*
Plt Count 219
Sodium 134 L
Potassium 4.2
Chloride 99
Carbon Dioxide 26
BUN 21 H
Creatinine 0.6
Glucose 94
Calcium 8.2 L
Vital Signs:
Vital Signs
Temp Pulse Resp BP Pulse Ox
98.2 F 109 18 90/60 98
01/02/24 11:51 01/02/24 11:51 01/02/24 11:51 01/02/24 11:51 01/02/24 11:30
I&O
01/01/24 01/02/24 01/03/24
06:59 06:59 06:59
Intake Total 50 / 50 0 / 0
Output Total 800 / 800
Balance 50 / 50 -800 / -800
Review of Systems
-
History Source: Patient
All other systems: Reviewed and negative
Constitutional: Reports No Symptoms
EENT: Reports No Symptoms Reported
Respiratory: Reports Trouble Breathing
Cardiac: Reports No Symptoms
Abdomen/GI: Reports No Symptoms
Breast: Reports No Symptoms
Genitourinary: Reports No Symptoms
Musculoskeletal: Reports No Symptoms
Skin: Reports No Symptoms
Neuro: Reports No Symptoms
Endocrine: Reports No Symptoms
Physical Exam
-
General: Comfortable, Appears Chronically Ill and Cachectic
HEENT: Normocephalic, Atraumatic, Moist Mucous Membranes, Anicteric, [place] Conjunctivae and PERRLA
Respiratory: Clear to Auscultation (In the L Lung yanez. ) and Decreased Breath Sounds (In the R lung yanez, with inspiratory crackles)
Cardiac: S1/S2 and Tachycardic
Breast: Deferred by me
GI: Soft, Nontender, Nondistended and Normal Bowel Sounds
Musculoskeletal: No Clubbing, No Cyanosis and Edema, Right Lower Extrem (1-2+ pitting edema in the lower leg, unchanged from prior exam.)
Skin: Warm, Dry and Decubitus Ulcers (Stage 2 ulcer in the mid R buttock. Clean dressing placed, minimal serous fluid on gauze. No drainage or gross blood.)
Neuro: Awake, Alert and Oriented
[2024-01-02 18:45] LABS: Hepatitis C Antibody Negative (Negative)
[2024-01-02] MEDS: NEURONTIN 600 MG PO (20:14)
[2024-01-02] MEDS: ROXICODONE 7.5 MG PO (21:33)
[2024-01-03 03:15] VITALS: BP 99/68
--- NOTE | 2024-01-03 06:05 | PTCARENOTE ---
Pt chest tube clamped 0600 as per ordered. Pt with 550 output overnight- dressing dry/ intact.
[2024-01-03] MEDS: ROXICODONE 7.5 MG PO ×3 (06:19→22:37)
[2024-01-03 07:05] LABS: % Basophils 1.1 % (0-2); % Eosinophils 1.6 % (0-6); % Immature Granulocytes 0.8 % (0-0.5); % Lymphocytes 7.5 % (20.5-51.1); % Monocytes 15.3 % (1.7-9.3); % Neutrophils 73.7 % (42.2-75.2); Absolute Eosinophils 0.1 10^3/uL (0-0.7); Absolute Lymphocytes 0.3 10^3/uL (1.2-3.4); Absolute Monocytes 0.6 10^3/uL (0.1-0.6); Absolute Neutrophils 2.7 10^3/uL (1.4-6.5); Hematocrit 27.3 % (37.0-47.0); Hemoglobin 9.1 g/dL (12.0-16.0); Mean Corp Hgb Conc. 33.3 g/dL (33.0-37.0); Mean Corpuscular Hgb 29.5 pg (27.0-31.0); Mean Corpuscular Volume 88.6 fL (81.0-99.0); Mean Platelet Volume 8.9 fL (7.4-10.4); Nucleated Red Blood Cells % 0 %; Platelet Count 289 10^3/uL (130-400); Red Blood Cell Count 3.08 10^6/uL (4.20-5.40); Red Cell Dist. Width 15.6 % (11.5-14.5); White Blood Cell Count 3.7 10^3/uL (4.8-10.8)
--- NOTE | 2024-01-03 07:16 | W.PN.HOSP.TC ---
Today's Communication/Plan
-
C/w duoneb treatments & pain management w/ PO Oxy prn. Monitor chest tube output. If <100cc/24 hours, can remove. Will re-evaluate in the AM.
Assessment / Plan
Assessment / Plan
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
#Large Right Sided Pleural Effusion
- History of 2 prior pleural effusions treated with thoracentesis at outpatient oncologist
- Chest tube placed, so far drained over 2800ccs of serosanguineous fluid.
- Pleural fluid to be sent for analysis; (+) Light's criteria, likely exudative fluid. Pending Cytology & Gram-stain
- IR to remove drain when output is <100cc/24hours.
- Continue to observe Chest Tube output & monitor symptoms
#Acute on Chronic hypoxic respiratory failure w/ home oxygen dependence
- Required >5L en route to hospital, s/p DuoNeb treatment in ED
- Currently stable on 5L NC
- C/w QID DuoNeb treatments, Symbicort inhaler
#Stage IV Ovarian cancer w/ Mets to the Lung
#Chronic cancer pain with opioid dependence
- Chemotherapy with [facility] q3 weeks
- Is not interested in Hospice at this time. Discussed code status with the patient who desires Full Code. Will revisit at a later date.
- C/w Oxycodone 7.5mg Q4h prn. Pain sx controlled on this dose
#History of Septic Prosthetic Joint
- Continue on life-long prophylactic Keflex 500mg BID
#Peripheral Neuropathic Pain
- Stable; c/w home dose gabapentin 600mg QHS
#Dispo:
Med/Surg
DVT PPx: Lovenox SC
Diet: Regular
Code: Full Code
Anticipated Discharge: 24 - 48 hours
Subjective/Interval History
-
Overnight the patient had pain in her chest/back that was relieved with Oxycodone. The pain was not associated with exertion/palpitations. She feels her breathing has improved since yesterday. No other acute complaints.
Objective Data
-
Labs:
Laboratory Results
01/03/24
06:24
WBC 3.7 L
Hgb 9.1 L D
Hct 27.3 L
Plt Count 289 D
Sodium Pending
Potassium Pending
Chloride Pending
Carbon Dioxide Pending
BUN Pending
Creatinine Pending
Glucose Pending
Calcium Pending
Vital Signs:
Vital Signs
Temp Pulse Resp BP Pulse Ox
98.2 F 94 20 99/68 99
01/03/24 03:15 01/03/24 03:15 01/03/24 03:15 01/03/24 03:15 01/03/24 03:15
I&O
01/02/24 01/03/24 01/04/24
06:59 06:59 06:59
Intake Total 50 / 50 250 / 250
Output Total 1650 / 1650
Balance 50 / 50 -1400 / -1400
Review of Systems
-
History Source: Patient
All other systems: Reviewed and negative
Constitutional: Reports No Symptoms
EENT: Reports No Symptoms Reported
Respiratory: Reports Trouble Breathing (improved from yesterday)
Cardiac: Reports Chest Pain (Across the chest/upper back)
Abdomen/GI: Reports No Symptoms
Breast: Reports No Symptoms
Genitourinary: Reports No Symptoms
Musculoskeletal: Reports No Symptoms
Skin: Reports No Symptoms
Neuro: Reports No Symptoms
Endocrine: Reports No Symptoms
Hematologic / Lymphatic: Reports No Symptoms
Physical Exam
-
General: No Apparent Distress, Appears Chronically Ill and Cachectic
HEENT: Normocephalic, Atraumatic, Moist Mucous Membranes, Anicteric, [place] Conjunctivae and PERRLA
Respiratory: Rales, Crackles and Decreased Breath Sounds (L >R, but overall improving from yesterday)
Cardiac: Regular Rhythm and S1/S2
Breast: N/A
GI: Soft, Nontender, Nondistended and Normal Bowel Sounds
Musculoskeletal: No Clubbing, No Cyanosis and Edema, Right Lower Extrem (1-2+ pitting edema, unchanged from prior.)
Neuro: Awake, Alert and Oriented
Psych: Calm
[2024-01-03 07:25] VITALS: BP 98/66
[2024-01-03] MEDS: SYMBICORT 160/4.5 MCG INHALER 2 PUFF INH ×2 (07:41→19:30)
[2024-01-03] MEDS: DUONEB 3 ML INH ×4 (07:41→19:30)
[2024-01-03 07:52] LABS: Blood Urea Nitrogen 19 mg/dl (7-17); Calcium 8.4 mg/dl (8.4-10.2); Carbon Dioxide 28 mmol/L (22-30); Chloride 99 mmol/L (98-107); Estimated Creatinine Clearance 60 ml/min; Glucose 89 mg/dl (70-99); Magnesium 1.7 mg/dl (1.6-2.3); Potassium 4.3 mmol/L (3.5-5.1); Sodium 135 mmol/L (135-145); eGFR > 60.00
[2024-01-03] MEDS: SENOKOT 8.6 MG PO ×2 (09:47→19:50)
[2024-01-03] MEDS: KEFLEX 500 MG PO ×2 (09:47→19:50)
[2024-01-03] MEDS: NEURONTIN 300 MG PO (09:47)
[2024-01-03 11:23] VITALS: BP 95/65
[2024-01-03] MEDS: MAGNESIUM SULFATE 100 IV (12:09)
[2024-01-03] MEDS: OCEAN, SALINE MIST 50 SPRAYS NASAL (12:11)
[2024-01-03 15:19] VITALS: BP 98/70
[2024-01-03] MEDS: ZOFRAN 4 MG IV (19:45)
[2024-01-03] MEDS: NEURONTIN 600 MG PO (19:50)
[2024-01-03 20:01] VITALS: BP 97/67
[2024-01-03 23:43] VITALS: BP 98/65
[2024-01-04 03:51] VITALS: BP 93/59
[2024-01-04] MEDS: ROXICODONE 7.5 MG PO ×4 (04:56→22:19)
[2024-01-04 06:06] LABS: % Basophils 0.9 % (0-2); % Eosinophils 2.8 % (0-6); % Immature Granulocytes 0.6 % (0-0.5); % Lymphocytes 8.2 % (20.5-51.1); % Monocytes 16.1 % (1.7-9.3); % Neutrophils 71.4 % (42.2-75.2); Absolute Eosinophils 0.1 10^3/uL (0-0.7); Absolute Lymphocytes 0.3 10^3/uL (1.2-3.4); Absolute Monocytes 0.5 10^3/uL (0.1-0.6); Absolute Neutrophils 2.3 10^3/uL (1.4-6.5); Hematocrit 26.6 % (37.0-47.0); Hemoglobin 8.7 g/dL (12.0-16.0); Mean Corp Hgb Conc. 32.7 g/dL (33.0-37.0); Mean Corpuscular Hgb 29.8 pg (27.0-31.0); Mean Corpuscular Volume 91.1 fL (81.0-99.0); Mean Platelet Volume 8.7 fL (7.4-10.4); Nucleated Red Blood Cells % 0 %; Platelet Count 284 10^3/uL (130-400); Red Blood Cell Count 2.92 10^6/uL (4.20-5.40); Red Cell Dist. Width 15.4 % (11.5-14.5); White Blood Cell Count 3.2 10^3/uL (4.8-10.8)
[2024-01-04 06:26] LABS: ALT (SGPT) < 10 U/L (0-35); AST (SGOT) 20 U/L (14-36); Albumin 2.4 g/dl (3.5-5.0); Alkaline Phosphatase 73 U/L (38-126); Blood Urea Nitrogen 18 mg/dl (7-17); Calcium 8.4 mg/dl (8.4-10.2); Carbon Dioxide 30 mmol/L (22-30); Chloride 98 mmol/L (98-107); Estimated Creatinine Clearance 60 ml/min; Glucose 84 mg/dl (70-99); Potassium 4.1 mmol/L (3.5-5.1); Sodium 135 mmol/L (135-145); Total Bilirubin 0.4 mg/dl (0.2-1.3); Total Protein 4.8 g/dl (6.3-8.2); eGFR > 60.00
[2024-01-04 07:00] VITALS: BP 113/69
[2024-01-04] MEDS: DUONEB 3 ML INH ×4 (07:46→19:42)
[2024-01-04] MEDS: SYMBICORT 160/4.5 MCG INHALER 2 PUFF INH ×2 (07:46→19:42)
[2024-01-04] MEDS: SENOKOT 8.6 MG PO (10:12)
[2024-01-04] MEDS: KEFLEX 500 MG PO ×2 (10:12→20:21)
[2024-01-04] MEDS: NEURONTIN 300 MG PO (10:12)
[2024-01-04 11:00] VITALS: BP 100/63
--- NOTE | 2024-01-04 11:59 | W.PN.HOSP.TC ---
Addendum entered and electronically signed by Barrera Fuller DO 01/04/24 12:03:
#Anemia s/p 2 unit PRBC
-Likely related to anemia of chronic disease, chemotherapy regimen
-Has received 2 units PRBC, hemoglobin was 7 on arrival
-Most recent hemoglobin 8.7, no obvious signs of bleeding
-Will continue to trend CBC
Original Note:
Today's Communication/Plan
-
Monitor chest tube output, goal <100 mL/day
Assessment / Plan
Assessment / Plan
#Large right-sided exudative pleural effusion
-Suspect in the context of her known lung malignancy, previous exudative malignant effusion
-Status post chest tube, >3 L of fluid drained thus far, 450 mL over the last day
-She remains hemodynamically stable, on baseline O2 of 5 L
-Planning for chest tube removal once daily output <100 mL
-Interventional radiology is following peripherally
#Acute on chronic hypoxemic respiratory failure
-Currently wears 5 L oxygen chronically, secondary to large lung metastasis
-Upon arrival she briefly required higher levels of oxygen though this improved after CT placed
-Home medications include Symbicort, DuoNebs 4 times daily
-Remains on 5 L comfortably
-Will provide pulmonology referral at discharge
#Stage IV ovarian cancer with lung metastasis
-This follows with oncology at [facility], chemotherapy every 3 weeks currently
-Unclear histopathology of her primary ovarian cancer
-On oxycodone regimen for chronic pain associated with her cancer
-Remains full code, not interested in hospice or comfort measures
#Peripheral neuropathy
-Home medications include gabapentin 600 mg nightly
-Suspect this is secondary to her chemotherapeutic regimen
#H/O septic prosthetic joint
-Remains on Keflex 500 mg twice daily for lifelong therapy
DVT prophylaxis: Lovenox
Diet: Regular
CODE STATUS: Full code
Anticipated Discharge: 24 - 48 hours
Subjective/Interval History
-
Date of Service: January 04, 2024
Seen and examined at bedside. No acute events overnight.
As of this morning AFVSS, remains on 5 L oxygen baseline. 450 mL of fluid output from chest tube yesterday.
She states she feels well and denies any acute complaints. Denies chest pain, shortness of breath, fevers or chills, GI or urinary issues, abnormal bleeding or bruising, paresthesias or weakness
Objective Data
-
Labs:
Laboratory Results
01/04/24
05:36
WBC 3.2 L
Hgb 8.7 L
Hct 26.6 L
Plt Count 284
Sodium 135
Potassium 4.1
Chloride 98
Carbon Dioxide 30
BUN 18 H
Creatinine 0.6
Glucose 84
Calcium 8.4
Total Bilirubin 0.4
AST 20
ALT < 10
Alkaline Phosphatase 73
Vital Signs:
Vital Signs
Temp Pulse Resp BP Pulse Ox
97.8 F 91 18 100/63 97
01/04/24 11:00 01/04/24 11:21 01/04/24 11:21 01/04/24 11:00 01/04/24 11:21
I&O
01/03/24 01/04/24 01/05/24
06:59 06:59 06:59
Intake Total 250 / 250 480 / 480
Output Total 1650 / 1650 550 / 550
Balance -1400 / -1400 -70 / -70
Review of Systems
-
History Source: Patient
All other systems: Reviewed and negative
Physical Exam
-
General: No Apparent Distress, Comfortable and Cachectic; Negative Respiratory Distress
HEENT: Normocephalic, Atraumatic and Moist Mucous Membranes
Respiratory: Clear to Auscultation, Non Labored Respirations and Decreased Breath Sounds (Slight, right base); Negative Wheezes, Rales or Rhonchi
Cardiac: Regular Rhythm, S1/S2 and Tachycardic; Negative Murmur, Rub or Gallop
GI: Soft, Nontender, Nondistended and Normal Bowel Sounds
Musculoskeletal: No Clubbing, No Cyanosis and No Edema
Skin: Warm and Dry; Negative Rash or Jaundice
Neuro: AO x 3, Nonfocal/Grossly Intact and Central Nerve's Intact
Data Reviewed
-
Labs: Labs Reviewed by me and Discussed with Patient
[2024-01-04] MEDS: OCEAN, SALINE MIST 2 SPRAYS NASAL (12:00)
[2024-01-04 15:00] VITALS: BP 110/71
[2024-01-04 19:48] VITALS: BP 98/65
[2024-01-04] MEDS: NEURONTIN 600 MG PO (20:21)
[2024-01-04] MEDS: SENOKOT PO (20:23)
[2024-01-04 23:29] VITALS: BP 91/57
[2024-01-05] VITALS (7 sets, daily range): BP systolic 98–114; BP diastolic 63–80; PULSE 120
[2024-01-05] MEDS: ROXICODONE 7.5 MG PO ×5 (03:05→22:46)
[2024-01-05 04:24] LABS: % Basophils 0.9 % (0-2); % Eosinophils 2.5 % (0-6); % Immature Granulocytes 0.3 % (0-0.5); % Monocytes 15.7 % (1.7-9.3); % Neutrophils 72.6 % (42.2-75.2); Absolute Eosinophils 0.1 10^3/uL (0-0.7); Absolute Lymphocytes 0.3 10^3/uL (1.2-3.4); Absolute Monocytes 0.5 10^3/uL (0.1-0.6); Absolute Neutrophils 2.4 10^3/uL (1.4-6.5); Hemoglobin 8.4 g/dL (12.0-16.0); Mean Corp Hgb Conc. 32.3 g/dL (33.0-37.0); Mean Corpuscular Hgb 28.7 pg (27.0-31.0); Mean Corpuscular Volume 88.7 fL (81.0-99.0); Mean Platelet Volume 8.8 fL (7.4-10.4); Nucleated Red Blood Cells % 0 %; Platelet Count 309 10^3/uL (130-400); Red Blood Cell Count 2.93 10^6/uL (4.20-5.40); Red Cell Dist. Width 15.4 % (11.5-14.5); White Blood Cell Count 3.2 10^3/uL (4.8-10.8)
[2024-01-05] MEDS: DUONEB 3 ML INH ×4 (07:40→20:07)
[2024-01-05] MEDS: SYMBICORT 160/4.5 MCG INHALER 2 PUFF INH ×2 (07:40→20:07)
[2024-01-05] MEDS: SENOKOT 8.6 MG PO ×2 (08:26→20:27)
[2024-01-05] MEDS: NEURONTIN 300 MG PO (08:26)
[2024-01-05] MEDS: KEFLEX 500 MG PO ×2 (08:26→20:27)
--- NOTE | 2024-01-05 12:01 | W.PN.HOSP.TC ---
Addendum entered and electronically signed by Barrera Fuller DO 01/05/24 12:09:
#Normocytic anemia s/p 2 unit PRBC
-Hemoglobin has been stable on last 2 labs draw
-Slightly blood-tinged fluid output from chest tube
-No signs of major bleeding, will continue to trend CBC
Original Note:
Today's Communication/Plan
-
Continue with chest tube to wall suction today
Continue to monitor output
Plan for removal when <100 mL/day of output from chest tube
Supportive medications for pain and nausea
Assessment / Plan
Assessment / Plan
#Large right-sided exudative pleural effusion
-Suspect in the context of her known lung malignancy, previous exudative malignant effusion
-Status post chest tube, >3 L of fluid drained thus far, 200 mL over the last day
-She remains hemodynamically stable, on baseline O2 of 5 L
-Planning for chest tube removal once daily output <100 mL
-Interventional radiology is following peripherally
#Acute on chronic hypoxemic respiratory failure
-Currently wears 5 L oxygen chronically, secondary to large lung metastasis
-Upon arrival she briefly required higher levels of oxygen though this improved after CT placed
-Home medications include Symbicort, DuoNebs 4 times daily
-Remains on 5 L comfortably
-Will provide pulmonology referral at discharge
#Stage IV ovarian cancer with lung metastasis
-This follows with oncology at [facility], chemotherapy every 3 weeks currently
-Unclear histopathology of her primary ovarian cancer
-On oxycodone regimen for chronic pain associated with her cancer
-Remains full code, not interested in hospice or comfort measures
#Peripheral neuropathy
-Home medications include gabapentin 600 mg nightly
-Suspect this is secondary to her chemotherapeutic regimen
#H/O septic prosthetic joint
-Remains on Keflex 500 mg twice daily for lifelong therapy
#Intermittent nausea
-Has had morning and nighttime episodes of nausea without vomiting
-Has responded well to Zofran, no other infectious symptoms
-Will continue with Zofran for now, monitor CBC and clinically
#Mid back pain
-Suspect it is related to positioning in bed
-Reproducible tenderness
-Started Tylenol as needed
DVT prophylaxis: Lovenox
Diet: Regular
CODE STATUS: Full code
Anticipated Discharge: 24 - 48 hours
Subjective/Interval History
-
Date of Service: January 05, 2024
Seen and examined at bedside. No acute events reported overnight. AFVSS this morning, remains comfortable on 5 L oxygen baseline
Overnight she does continue to have some mild back pain is most likely positional. Does have occasional episodes of nausea which is responding to Zofran. She denies fevers or chills, chest pain, shortness of breath, diarrhea or constipation,
urinary issues, abnormal bleeding or bruising, paresthesias or weakness.
Prior chest tube output continues to improve. 450 mL output 2 days ago, only 200 mL output over the course of yesterday. Suspect she may be able to have chest tube removed tomorrow.
Objective Data
-
Labs:
Laboratory Results
01/05/24
04:00
WBC 3.2 L
Hgb 8.4 L
Hct 26.0 L
Plt Count 309
Vital Signs:
Vital Signs
Temp Pulse Resp BP Pulse Ox
98.0 F 108 16 107/77 98
01/05/24 11:15 01/05/24 11:22 01/05/24 11:22 01/05/24 11:15 01/05/24 11:22
I&O
01/04/24 01/05/24 01/06/24
06:59 06:59 06:59
Intake Total 480 / 480 420 / 420
Output Total 550 / 550 560 / 560
Balance -70 / -70 -140 / -140
Review of Systems
-
History Source: Patient
All other systems: Reviewed and negative
Physical Exam
-
General: No Apparent Distress, Comfortable and Cachectic; Negative Respiratory Distress
HEENT: Normocephalic, Atraumatic and Moist Mucous Membranes
Respiratory: Non Labored Respirations and Decreased Breath Sounds (Right lung base); Negative Wheezes, Rales, Rhonchi or Accessory Resp Muscle Use
Cardiac: Regular Rhythm, S1/S2 and Tachycardic; Negative Murmur, Rub, JVD or Gallop
GI: Soft, Nontender, Nondistended and Normal Bowel Sounds
Musculoskeletal: No Clubbing, No Cyanosis and No Edema
Skin: Warm and Dry; Negative Rash
Neuro: AO x 3, Nonfocal/Grossly Intact and Central Nerve's Intact
Data Reviewed
-
Labs: Labs Reviewed by me and Discussed with Patient
--- NOTE | 2024-01-05 12:50 | CON.PUL ---
Consultation
Consultation Request
Date/Time Consultation Requested: 01/05/2024 - 1201
Date/Time Consultation Performed: 01/05/2024 - 1231
Requesting Provider: Dr. Fuller
Performing Provider: Dr. Cage
Reason for Consultation: Chest tube
Medical History
-
Chief Complaint: SOB, right-sided back pain
History of Present Illness:
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
right-sided back pain x 3 days. Patient took her Xopenex + albuterol at home which did not improve her symptoms. She also has a dry cough. In the ER she was afebrile to 97.5 �F, tachycardic to 121, breathing at 24 breaths/min, BP 127/82 and
saturating 96% on 5 L/min nasal cannula. Labs showed anemia to 8.2, troponin elevated at 0.094, proBNP elevated at 1470, and COVID-19 antigen negative. CXR showed massive right pleural effusion + REMBERTO lesion. CT chest confirmed large right pleural
effusion as well as small�moderate size left pleural effusion. IR was consulted and placed a right-sided pigtail catheter into the basilar pleural space. Pleural studies showed PMN predominant exudative fluid with low glucose. Pleural fluid
culture grew MSSA on 01/05/2024. Most recent CXR on 01/03/2024 shows residual loculated right apical pleural fluid with small right basilar pleural effusion with adjacent atelectasis/consolidation, and a small left pleural effusion. She continues to
be on her home dose of oxygen however she is on midflow nasal cannula. Pulmonary service now consulted for additional management/recommendations.
When I saw the patient, she was laying in bed with daughter, Bernie, at bedside. All questions were answered. Patient follows with oncology at [facility] with Dr. Hensley. She says that she has a known metastatic lesion in her left upper lobe. She has
had pleural effusions before and they have been drained twice this past August + September. She had a right hip replacement this past August at [facility], and thoracentesis was done and it was complicated by lung puncture. She uses Advair (as needed only) at
home for history of asthma. Her asthmatic triggers include hay, grass and humidity. 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 She is on chronic Keflex for a history of a hip infection. When she first came into the hospital currently, her shortness of
breath was so bad that she could not do any activity without feeling SOB. She denies nocturnal awakening with shortness of breath. She also denies chest pain, JANE, abdominal pain, fevers or chills. Right-sided chest tube was evaluated by me, and
there is no airleak seen. There is strands of foreign bodies seen in the pleural fluid seen in the Pleur-evac container.
PMHx: Osteoarthritis involving multiple joints, history of RA, stage IV ovarian cancer with metastasis to lung, colonic polyps, chronic hypoxic respiratory failure on 5 L/min nasal cannula
PSHx: Right TKA, facial surgery, left 5th digit surgery, appendectomy, hysterectomy
Past Medical History
Past Medical History: Other (Above as per HPI)
Past Surgical History: Other (Above as per HPI)
Social History
Tobacco: Former Smoker (Remote Hx of light tobacco use when she was in college (smoked 2 cigarettes/day for ~1 year))
Alcohol: Occasional
Drug: None
Family History
Family History: Hypertension (Mother) and Other (Father: Stroke)
Allergies / Home Medications
Allergies
Allergy/AdvReac Type Severity Reaction Status Date / Time
No Known Allergies Allergy Verified 01/01/24 10:47
Home Medications
�Medication �Instructions �Recorded �Confirmed �Last Taken �Type
albuterol sulfate 90 mcg/actuation 2 puff inhalation R Q4HPRN PRN SOB 06/02/19 01/01/24 05/15/23 07:00 History
aerosol inhaler
gabapentin 300 mg capsule 600 mg (2 x 300 mg) PO HS Pain #0 09/16/23 01/01/24 12/31/23 Rx
caps
budesonide-formoterol HFA 160 2 inh inhalation R BID 01/01/24 01/01/24 12/31/23 History
mcg-4.5 mcg/actuation aerosol Lung/Breathing Issues
inhaler (Symbicort)
cephalexin 500 mg capsule 500 mg PO BID SNF 01/01/24 01/01/24 12/31/23 History
gabapentin 300 mg capsule 300 mg PO DAILY Neurological 01/01/24 01/01/24 12/31/23 History
Condition
ipratropium 0.5 mg-albuterol 3 mg 3 ml inhalation R QID 01/01/24 01/01/24 01/01/24 History
(2.5 mg base)/3 mL nebulization Lung/Breathing Issues
soln
oxycodone 5 mg tablet 7.5 mg PO Q4HPRN PRN moderate pain 01/01/24 01/01/24 Unknown History
sennosides 8.6 mg tablet (Senokot) 17.2 mg PO BIDPRN PRN CONSTIPATION 01/01/24 01/01/24 Unknown History
Review of Systems
-
History Source: Patient
All other systems: Negative unless noted
Vitals / Labs / Diagnostic Testing
Vital Signs
Temp Pulse Resp BP Pulse Ox
98.2 F 112 24 105/80 100
01/05/24 15:30 01/05/24 15:30 01/05/24 15:30 01/05/24 15:30 01/05/24 15:30
Lab Data
01/05/24 04:00
01/04/24 05:36
Microbiology
01/01/24 16:35 Pleural Fluid Body Fluid Culture - Final
S aureus-Methicillin Sensitive
01/01/24 16:35 Pleural Fluid Gram Stain - Final
01/01/24 23:41 Nose MRSA Screen - Final
No Methicillin Resistant Staphylococcus aureus isolated.
Diagnostic Testing:
Physical Exam
-
HEENT: Normocephalic and Anicteric
Cardiovascular: S1/S2 and Peripheral Edema (+1 lower extremity bilaterally)
Respiratory: Wheeze (negative), Rales ([place] in the RUL + left midlung region), Rhonchi (negative), Accessory Resp Muscle Use (with exertion) and Other (Grossly diminished breath sounds in the right hemithorax)
GI: Soft, Non Distended, Non Tender and Normal Bowel Sounds
Neurology: AO x 3 and Tremors (negative)
Skin: Warm and Dry
General: Respiratory Distress (negative), Comfortable, Chills (negative), Sweats (negative) and Other (Cachectic appearing)
Assessment
-
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
+ right-sided back pain x 3 days. Patient took her Xopenex + albuterol at home which did not improve her symptoms. She also has a dry cough. In the ER she was afebrile to 97.5 �F, tachycardic to 121, breathing at 24 breaths/min, BP 127/82 and
saturating 96% on 5 L/min nasal cannula. Labs showed anemia to 8.2, troponin elevated at 0.094, proBNP elevated at 1470, and COVID-19 antigen negative. CXR showed massive right pleural effusion + REMBERTO lesion. CT chest confirmed large right pleural
effusion as well as small�moderate size left pleural effusion. IR was consulted and placed a right-sided pigtail catheter into the basilar pleural space. Pleural studies showed PMN predominant exudative fluid with low glucose. Pleural fluid
culture grew MSSA on 01/05/2024. Most recent CXR on 01/03/2024 shows residual loculated right apical pleural fluid with small right basilar pleural effusion with adjacent atelectasis/consolidation, and a small left pleural effusion. She continues to
be on her home dose of oxygen however she is on midflow nasal cannula. Pulmonary service now consulted for additional management/recommendations.
Chronic conditions [employer]: Osteoarthritis involving multiple joints, history of RA, stage IV ovarian cancer with metastasis to lung, colonic polyps, chronic hypoxic respiratory failure on 5 L/min nasal cannula
Impression:
#Large right pleural effusion + small�moderate left-sided pleural effusion, likely due to known ovarian malignancy with metastasis to lung; differential also includes ADHF
#Left upper lobe cavitary lesion � currently measures 2.8 x 2.1 x 3 cm (previously measured 3.4 x 2.0 cm in March 2023)
#Chronic anemia (baseline Hb 7.5�9 g/dL)
#Elevated troponin � peaked at 0.094 on 01/01/24
#Elevated proBNP (1470 on 01/01/24)
Plan:
- Continue with negative suction of her right-sided chest tube considering output is still a considerable amount (560cc last 24 hrs)
- Considering her right pleural fluid is infected with MSSA, would warn against putting in a long-term indwelling pleural catheter until this infection has been adequately treated
- Recommend ID consult for continued outpatient follow up
- Suspect she will need at least 3-4 weeks of ABx
- Considering that she is on Keflex chronically and may have resistance, I will change her to Rocephin while she remains inpatient
- If possible, we should send off pleural fluid for cytopathology
- Repeat CXR tomorrow AM
- Maintain SpO2 >90-94% with supplemental O2 as needed
- Although this is likely a malignant effusion, her proBNP was elevated, she has +1 lower extremity pitting edema, and there could be a component of acute decompensated heart failure; she also has low albumin which is likely contributing to third
spacing
- Of note, Taxol can cause edema has an adverse reaction (per up-to-date)
- Check TTE
- Fluid/sodium restricted diet is recommended
- Continue with Symbicort + DuoNebs QID
- prn nebulized bronchodilators - pt not currently bronchospastic
- Incentive spirometer encouraged
- Replete electrolytes with K>4, Mg>2
- Maintain euglycemia with goal BG >100 and <180
- DVT ppx: start LMWH
Code status: Full code --> recommend DNR given her cachectic appearance and co-morbidities. This will be an ongoing discussion.
Pulmonary service will continue to follow along, and I will arrange for outpatient office follow-up for full PFTs and continued management of her asthma and pleural effusions.
Data:
CTA chest 01/01/24:
1. No evidence of pulmonary embolism.
2. Large right pleural effusion with complete collapse of the right lung and associated mild leftward mediastinal shift.. There is additional small left pleural effusion with left basilar atelectasis.
3. The known centrally cavitating left upper lobe lesion measures 2.8 x 2.1 x 3.0 cm, slightly decreased in size from prior.
4. There is a new sclerotic lesion within the right aspect of the T12 vertebral body extending into the pedicle, although this can be seen as sequelae of treatment response.
Total time spent today was 75 minutes for this encounter. Time includes reviewing laboratory test/imaging results, reviewing pertinent medical records, obtaining and reviewing medical history, performing an appropriate exam, ordering medications,
tests and procedures. Time also includes documentation of this encounter, coordinating patient care and communicating with other healthcare professionals. Total time does not include separately billed tests performed on this date of service.
--- NOTE | 2024-01-05 13:20 | CM ---
Patient continues with Chest tube. Oxygen via NC.
Plan: home with VN when stable. family will transport.
[facility]
[2024-01-05] MEDS: NEURONTIN 600 MG PO (20:27)
[2024-01-05] MEDS: LOVENOX 30 MG SC (22:24)
[2024-01-05] MEDS: ROCEPHIN 1000 MG IV (22:24)
[2024-01-05] MEDS: STERILE WATER FOR INJECTION 10 ML IV (22:24)
[2024-01-06 05:37] LABS: % Basophils 1.6 % (0-2); % Eosinophils 3.2 % (0-6); % Immature Granulocytes 0.3 % (0-0.5); % Lymphocytes 9.8 % (20.5-51.1); % Monocytes 16.4 % (1.7-9.3); % Neutrophils 68.7 % (42.2-75.2); Absolute Basophils 0.1 10^3/uL (0-0.2); Absolute Eosinophils 0.1 10^3/uL (0-0.7); Absolute Lymphocytes 0.3 10^3/uL (1.2-3.4); Absolute Monocytes 0.5 10^3/uL (0.1-0.6); Absolute Neutrophils 2.2 10^3/uL (1.4-6.5); Hematocrit 27.2 % (37.0-47.0); Hemoglobin 8.8 g/dL (12.0-16.0); Mean Corp Hgb Conc. 32.4 g/dL (33.0-37.0); Mean Corpuscular Hgb 28.9 pg (27.0-31.0); Mean Corpuscular Volume 89.2 fL (81.0-99.0); Mean Platelet Volume 8.5 fL (7.4-10.4); Nucleated Red Blood Cells % 0 %; Platelet Count 302 10^3/uL (130-400); Red Blood Cell Count 3.05 10^6/uL (4.20-5.40); Red Cell Dist. Width 15.6 % (11.5-14.5); White Blood Cell Count 3.2 10^3/uL (4.8-10.8)
[2024-01-06] MEDS: DUONEB 3 ML INH ×2 (07:29→20:24)
[2024-01-06] MEDS: SYMBICORT 160/4.5 MCG INHALER 2 PUFF INH ×2 (07:30→20:24)
[2024-01-06 07:34] VITALS: BP 89/59
[2024-01-06] MEDS: SENOKOT 8.6 MG PO ×2 (08:09→21:43)
[2024-01-06] MEDS: ROXICODONE 5 MG PO ×3 (08:09→19:01)
[2024-01-06] MEDS: NEURONTIN 300 MG PO (08:09)
--- NOTE | 2024-01-06 09:30 | W.PN.PUL.V3 ---
Today's Communication / Plan
-
Monitor chest x-ray with small pneumothorax-likely trapped lung
Dr. Philip reviewed with interventional radiology-no need for upsizing chest tube or repositioning yet
Follow chest x-ray
Consider left thoracentesis if pleural effusion increases in size
Check cytology of right pleural fluid drainage
Assessment
-
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
+ right-sided back pain x 3 days. Patient took her Xopenex + albuterol at home which did not improve her symptoms. She also has a dry cough. In the ER she was afebrile to 97.5 �F, tachycardic to 121, breathing at 24 breaths/min, BP 127/82 and
saturating 96% on 5 L/min nasal cannula. Labs showed anemia to 8.2, troponin elevated at 0.094, proBNP elevated at 1470, and COVID-19 antigen negative. CXR showed massive right pleural effusion + REMBERTO lesion. CT chest confirmed large right pleural
effusion as well as small�moderate size left pleural effusion. IR was consulted and placed a right-sided pigtail catheter into the basilar pleural space. Pleural studies showed PMN predominant exudative fluid with low glucose. Pleural fluid
culture grew MSSA on 01/05/2024. Most recent CXR on 01/03/2024 shows residual loculated right apical pleural fluid with small right basilar pleural effusion with adjacent atelectasis/consolidation, and a small left pleural effusion. She continues to
be on her home dose of oxygen however she is on midflow nasal cannula. Pulmonary service now consulted for additional management/recommendations.
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
Impression:
#Large right pleural effusion + small�moderate left-sided pleural effusion, likely due to known ovarian malignancy with metastasis to lung; differential also includes ADHF
#Left upper lobe cavitary lesion � currently measures 2.8 x 2.1 x 3 cm (previously measured 3.4 x 2.0 cm in March 2023)
#Chronic anemia (baseline Hb 7.5�9 g/dL)
#Elevated troponin � peaked at 0.094 on 01/01/24
#Elevated proBNP (1470 on 01/01/24)
Plan:
Respiratory status relatively stable
Supplemental oxygen as needed
Aspiration precautions
DuoNebs 4 times daily continue
Symbicort continues
Chest x-ray 01/06/2024-new small right pneumothorax 20% of lung volume inferior aspect of the right pleural space, large amount opacification likely atelectasis and moderate-sized left pleural effusion
Check cultures
Empiric antibiotics continue
Consider infectious disease consultation-will likely need an additional 3-4 weeks of antibiotics-she was chronically on Keflex and may have resistance
Chest tube per pulmonary and interventional radiology
Dr. Philip reviewed x-rays 01/06/2024 with interventional radiology-no need for upsizing or repositioning as a likely trapped lung
Keep right chest tube on wall suction--20 cm-no need for increased wall suction at this point, not waterseal candidate at this time
Follow chest x-ray
Monitor right chest tube output--595 mL / 24 hours
If left pleural effusion increases in size consider draining this
If additional fluid available would send off for cytology
Although this is likely a malignant effusion, her proBNP was elevated, she has +1 lower extremity pitting edema, and there could be a component of acute decompensated heart failure; she also has low albumin which is likely contributing to third
spacing
- Of note, Taxol can cause edema has an adverse reaction (per up-to-date)
- Echocardiogram 01/06/2024-pending
- Fluid/sodium restricted diet is recommended
Replete electrolytes
Monitor blood sugar
Insulin supplementation as needed
DVT prophylaxis-on Lovenox
Nutrition
Early mobilization
Code status: Full code --> recommend DNR given her cachectic appearance and co-morbidities. This will be an ongoing discussion.
Outpatient pulmonary follow-up including PFTs and monitoring of her pleural effusions
Data:
CTA chest 01/01/24:
1. No evidence of pulmonary embolism.
2. Large right pleural effusion with complete collapse of the right lung and associated mild leftward mediastinal shift.. There is additional small left pleural effusion with left basilar atelectasis.
3. The known centrally cavitating left upper lobe lesion measures 2.8 x 2.1 x 3.0 cm, slightly decreased in size from prior.
4. There is a new sclerotic lesion within the right aspect of the T12 vertebral body extending into the pedicle, although this can be seen as sequelae of treatment response.
Subjective Data
-
Date of Service:
Date of Service: January 06, 2024
Chief Complaint: Pulmonary Follow Up and Dyspnea Follow Up
Subjective:
No complaints of worsening shortness of breath, has significant dyspnea with minimal exertion, no chest pain, productive cough, abdominal pain
Review of Systems
General: Other (Per HPI)
Objective Data
Data Reviewed
Vital Signs / I&O:
Vital Signs
Temp Pulse Resp BP Pulse Ox
98 F 89 18 89/59 100
01/06/24 07:34 01/06/24 07:34 01/06/24 07:34 01/06/24 07:34 01/06/24 07:34
Intake and Output
01/05/24 01/06/24 01/07/24
06:59 06:59 06:59
Intake Total 420 / 420 800 / 800
Output Total 560 / 560 595 / 595
Balance -140 / -140 205 / 205
SaO2: 100
Nasal Cannula flow liters per minute: 5
Physical Exam
General: Respiratory Distress (n) and Comfortable
HEENT: Normocephalic, Anicteric, Moist Mucous Membranes and Other (Temporal wasting and cachexia)
Cardiovascular: Regular Rhythm and Murmur
Respiratory: Clear (Diminished breath sounds at the right base), Crackles (Few left basilar), Non-Labored Respirations, Accessory Resp Muscle Use (n) and Other (Diminished breath sounds and prolonged expiratory time)
GI: Soft, Non Distended and Non Tender
Neurology: Awake, Alert and No Motor Deficits
Skin: Warm, Good Color, Cyanosis (n), Jaundice (n) and Rash (n)
Labs/Micro/Reports
Lab Data
01/06/24 05:08
01/04/24 05:36
Microbiology
01/01/24 16:35 Pleural Fluid Body Fluid Culture - Final
S aureus-Methicillin Sensitive
01/01/24 16:35 Pleural Fluid Gram Stain - Final
01/01/24 23:41 Nose MRSA Screen - Final
No Methicillin Resistant Staphylococcus aureus isolated.
[2024-01-06] MEDS: DUONEB INH ×2 (11:15→15:17)
--- NOTE | 2024-01-06 14:56 | CM ---
Patient seen bedside.
Patient with right chest tube to wall sx.
PT/OT recommending home with home care.
Patient current with [facility] has private care givers 4 days per week.
Continue Oxygen via NC.
Plan: home with VN when stable. family will transport.
[facility]
[2024-01-06 15:53] VITALS: BP 132/74
--- NOTE | 2024-01-06 17:06 | W.PN.UPDATE ---
Update Note
Progress Note Update
73-year-old female with ovarian cancer diagnosed in 2019,She follows up with Dr. Hensley at [facility]. She had chemotherapy 2 weeks ago. Taxol-based.
Patient was seen earlier. Late documentation.
Was sitting in a chair. Denied shortness of breath chest pain
Cardiovascular system S1-S2 appreciated
Chest decreased breath sounds at bases
Abdomen soft and nontender
Right lower extremity edema echo 01/06/2024-mildly reduced LV systolic function. EF 45%. Stage I diastolic dysfunction. Normal RV size and function. Mild to moderate TR. Pulmonary artery pressure 44 mmHg.
Chest x-ray-small right pneumothorax 20% reviewed by me
# Large right-sided pleural effusion-exudate
Cultures growing Staph aureus-MSSA
This qualifies as empyema
Acute hypoxic respiratory failure on chronic hypoxic respiratory failure
Likely secondary to malignancy
Continue drainage
Wean oxygen as tolerated
Pulmonary and interventional radiology following
Chest x-ray noted-intervention radiology-does not plan on any changes today. Likely trapped lung
ID evaluation
Continue ceftriaxone
# Stage IV ovarian cancer with lung metastasis
Original cancer 2020 started chemo then, a year ago she had mets to Lungs
Follows with [facility] and Dr.Steven Hensley [facility] when she comes to [place]
Patient states that she is on the last line of chemotherapy Taxol
Pain control for malignancy related pain with oxycodone
She is on palliative care as outpatient
Not interested in hospice at this point
# Anemia-likely secondary to malignancy
# Nonischemic myocardial injury- Trop
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
Continue gabapentin
# Right hip pain s/p R FREDIS in April complicated by dislocation in june 2023 , s/p reduction
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
Revision of right total hip arthroplasty, entire femoral and entire acetabular component and Placement of incisional wound VAC 09/11/23
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
# Intermittent nausea-as needed Zofran
# Right lower extremity DVT-patient was discharged on Eliquis in September. Unclear why she is not on that now. Will repeat USS.
# Mid back pain-watch on pain medicines
# Asthma-Symbicort
# Hypoalbuminemia
# DVT prophylaxis-Lovenox
# CODE STATUS-full code
Discussed with nursing
Called daughter - went to message
[2024-01-06] MEDS: LOVENOX 30 MG SC (17:20)
--- NOTE | 2024-01-06 17:49 | W.PN.HOSP.TC ---
Today's Communication/Plan
-
C/w Antibiotics & chest tube suction. Monitor for clinical improvement of O2 requirements.
Assessment / Plan
Assessment / Plan
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
#Large Right Sided Pleural Effusion
- History of 2 prior pleural effusions treated with thoracentesis at outpatient oncologist
- Chest tube placed, still draining serosanguineous fluid.
- Pleural fluid to be sent for analysis; (+) Light's criteria, likely exudative fluid. Culture (+) for MSSA. Began Ceftriaxone IV.
- ID Consult placed for pulmonary empyema
- CXR in the AM (+) new small right pneumothorax. Intervention not indicated at this time as likely trapped lung
- IR to remove drain when output is <100cc/24hours.
- Continue to observe Chest Tube output & monitor symptoms.
#Acute on Chronic hypoxic respiratory failure w/ home oxygen dependence
- Required >5L en route to hospital, continuing with duoneb treatments
- Currently stable on 5L NC
- C/w QID DuoNeb treatments, Symbicort inhaler
- Requiring nasal mist for sinus dryness due to NC flow
#Stage IV Ovarian cancer w/ Mets to the Lung
#Chronic cancer pain with opioid dependence
- Chemotherapy with [facility] q3 weeks
- Is not interested in Hospice at this time. Discussed code status with the patient who desires Full Code.
- C/w Oxycodone 7.5mg Q4h prn. Pain sx controlled on this dose
#History of Septic Prosthetic Joint
- Continue on life-long prophylactic Keflex 500mg BID
#Peripheral Neuropathic Pain
- Stable; c/w home dose gabapentin 600mg QHS
#Dispo:
Med/Surg
DVT PPx: Lovenox SC
Diet: Regular
Code: Full Code
Anticipated Discharge: 24 - 48 hours
Subjective/Interval History
-
Patient was stable and feeling well in the morning. She had no acute complaints and was not experiencing any new pain or shortness of breath. No new fevers or chest pain overnight.
Objective Data
-
Vital Signs:
Vital Signs
Temp Pulse Resp BP Pulse Ox
98.1 F 94 18 132/74 100
01/06/24 15:53 01/06/24 15:53 01/06/24 15:53 01/06/24 15:53 01/06/24 15:53
I&O
01/05/24 01/06/24 01/07/24
06:59 06:59 06:59
Intake Total 420 / 420 800 / 800
Output Total 560 / 560 595 / 595
Balance -140 / -140 205 / 205
Review of Systems
-
History Source: Patient
All other systems: Reviewed and negative
Constitutional: Reports No Symptoms
EENT: Reports No Symptoms Reported
Respiratory: Reports Trouble Breathing (improved from yesterday)
Cardiac: Reports No Symptoms
Abdomen/GI: Reports No Symptoms
Breast: Reports No Symptoms
Genitourinary: Reports No Symptoms
Musculoskeletal: Reports No Symptoms
Skin: Reports No Symptoms
Neuro: Reports No Symptoms
Endocrine: Reports No Symptoms
Physical Exam
-
General: Cachectic
HEENT: Normocephalic, Atraumatic, Moist Mucous Membranes, Anicteric and PERRLA
Respiratory: Wheezes, Rales and Decreased Breath Sounds
Cardiac: Regular Rhythm and S1/S2
Breast: Deferred by me
GI: Soft, Nontender, Nondistended and Normal Bowel Sounds
Musculoskeletal: No Clubbing, No Cyanosis and Edema, Right Lower Extrem (chronic; stable)
Neuro: Awake, Alert, Oriented, No Motor Deficits and No Sensory Deficits
Psych: Calm
[2024-01-06 19:30] VITALS: BP 95/57
[2024-01-06] MEDS: NEURONTIN 600 MG PO (21:42)
[2024-01-06] MEDS: STERILE WATER FOR INJECTION IV (21:45)
[2024-01-06] MEDS: ANCEF 5 IV (21:50)
[2024-01-06 23:05] VITALS: BP 83/52
[2024-01-06 23:24] VITALS: BP 95/60
[2024-01-07 03:00] VITALS: BP 104/69
[2024-01-07] MEDS: ANCEF 5 IV ×2 (04:54→12:12)
[2024-01-07 07:00] VITALS: BP 95/61
[2024-01-07] MEDS: DUONEB 3 ML INH ×4 (07:31→19:24)
[2024-01-07] MEDS: SYMBICORT 160/4.5 MCG INHALER 2 PUFF INH ×2 (07:31→19:24)
[2024-01-07] MEDS: SENOKOT 17.2 MG PO ×2 (09:38→20:42)
[2024-01-07] MEDS: MIRALAX 17 GRAMS PO (09:38)
[2024-01-07] MEDS: NEURONTIN 300 MG PO (09:38)
--- NOTE | 2024-01-07 09:38 | W.PN.PUL.V3 ---
Today's Communication / Plan
-
Monitor chest tube output-decreasing
Pleural fluid cytology pending
Nutrition and PT
Assessment
-
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
+ right-sided back pain x 3 days. Patient took her Xopenex + albuterol at home which did not improve her symptoms. She also has a dry cough. In the ER she was afebrile to 97.5 �F, tachycardic to 121, breathing at 24 breaths/min, BP 127/82 and
saturating 96% on 5 L/min nasal cannula. Labs showed anemia to 8.2, troponin elevated at 0.094, proBNP elevated at 1470, and COVID-19 antigen negative. CXR showed massive right pleural effusion + REMBERTO lesion. CT chest confirmed large right pleural
effusion as well as small�moderate size left pleural effusion. IR was consulted and placed a right-sided pigtail catheter into the basilar pleural space. Pleural studies showed PMN predominant exudative fluid with low glucose. Pleural fluid
culture grew MSSA on 01/05/2024. Most recent CXR on 01/03/2024 shows residual loculated right apical pleural fluid with small right basilar pleural effusion with adjacent atelectasis/consolidation, and a small left pleural effusion. She continues to
be on her home dose of oxygen however she is on midflow nasal cannula. Pulmonary service now consulted for additional management/recommendations.
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
Impression:
#Large right pleural effusion + small�moderate left-sided pleural effusion, likely due to known ovarian malignancy with metastasis to lung; differential also includes ADHF
#Left upper lobe cavitary lesion � currently measures 2.8 x 2.1 x 3 cm (previously measured 3.4 x 2.0 cm in March 2023)
#Chronic anemia (baseline Hb 7.5�9 g/dL)
#Elevated troponin � peaked at 0.094 on 01/01/24
#Elevated proBNP (1470 on 01/01/24)
Plan:
Respiratory status relatively stable
Continue supplemental oxygen as needed
Aspiration precautions
DuoNebs 4 times daily continue
Symbicort continues
Chest x-ray 01/06/2024-new small right pneumothorax 20% of lung volume inferior aspect of the right pleural space, large amount opacification likely atelectasis and moderate-sized left pleural effusion
Chest x-ray 01/07/2024-to my eye, official report pending, no increase in pneumothorax size, no increase in left pleural effusion
Check cultures
Empiric antibiotics continue
Consider infectious disease consultation-will likely need an additional 3-4 weeks of antibiotics-she was chronically on Keflex and may have resistance
Chest tube per pulmonary and interventional radiology
Dr. Philip reviewed x-rays 01/06/2024 with interventional radiology-no need for upsizing or repositioning as a likely trapped lung
Keep right chest tube on wall suction--20 cm-no need for increased wall suction at this point, not waterseal candidate at this time
Follow chest x-ray
Monitor right chest tube output--595 mL /previous 24 hours and now -220 mL / 24 hours
If left pleural effusion increases in size consider draining this-has not increased and would hold off for now
Chest tube fluid sent for cytology 01/06/2024
Although this is likely a malignant effusion, her proBNP was elevated, she has +1 lower extremity pitting edema, and there could be a component of acute decompensated heart failure; she also has low albumin which is likely contributing to third
spacing
- Of note, Taxol can cause edema has an adverse reaction (per up-to-date)
- Echocardiogram 01/06/2024-pending
- Fluid/sodium restricted diet is recommended
Continue to replete electrolytes
Monitor blood sugar
Insulin supplementation as needed
DVT prophylaxis-on Lovenox
Nutrition
Early mobilization
Patient would like eventual records sent to [place]
Code status: Full code --> we would recommend DNR given her cachectic appearance and [id number] will be an ongoing discussion.
Primary team has discussed hospice with her and she is not interested and desires full CODE STATUS
Outpatient pulmonary follow-up including PFTs and monitoring of her pleural effusions
Data:
CTA chest 01/01/24:
1. No evidence of pulmonary embolism.
2. Large right pleural effusion with complete collapse of the right lung and associated mild leftward mediastinal shift.. There is additional small left pleural effusion with left basilar atelectasis.
3. The known centrally cavitating left upper lobe lesion measures 2.8 x 2.1 x 3.0 cm, slightly decreased in size from prior.
4. There is a new sclerotic lesion within the right aspect of the T12 vertebral body extending into the pedicle, although this can be seen as sequelae of treatment response.
Subjective Data
-
Date of Service:
Date of Service: January 07, 2024
Chief Complaint: Pulmonary Follow Up and Dyspnea Follow Up
Subjective:
No complaints of worsening shortness of breath, no chest pain, productive cough, abdominal pain, has persistent dyspnea with minimal exertion
Review of Systems
General: Other (Per HPI)
Objective Data
Data Reviewed
Vital Signs / I&O:
Vital Signs
Temp Pulse Resp BP Pulse Ox
97.8 F 72 16 95/61 100
01/07/24 07:00 01/07/24 07:31 01/07/24 07:31 01/07/24 07:00 01/07/24 07:31
Intake and Output
01/06/24 01/07/24 01/08/24
06:59 06:59 06:59
Intake Total 800 / 800 480 / 480
Output Total 595 / 595 220 / 220
Balance 205 / 205 260 / 260
SaO2: 100
Nasal Cannula flow liters per minute: 5
Physical Exam
General: Respiratory Distress (n) and Comfortable
HEENT: Normocephalic, Anicteric, Moist Mucous Membranes and Other (Temporal wasting and cachexia)
Cardiovascular: Regular Rhythm and Murmur
Respiratory: Clear (Diminished breath sounds at the right base), Crackles (Few left basilar), Non-Labored Respirations, Accessory Resp Muscle Use (n) and Other (Diminished breath sounds and prolonged expiratory time)
GI: Soft, Non Distended and Non Tender
Neurology: Awake, Alert and No Motor Deficits
Skin: Warm, Good Color, Cyanosis (n), Jaundice (n) and Rash (n)
Labs/Micro/Reports
Lab Data
01/06/24 05:08
01/04/24 05:36
Microbiology
01/01/24 16:35 Pleural Fluid Body Fluid Culture - Final
S aureus-Methicillin Sensitive
01/01/24 16:35 Pleural Fluid Gram Stain - Final
[2024-01-07] MEDS: SENOKOT PO (09:55)
[2024-01-07 10:45] LABS: Hematocrit 29.5 % (37.0-47.0); Hemoglobin 9.6 g/dL (12.0-16.0); Mean Corp Hgb Conc. 32.5 g/dL (33.0-37.0); Mean Corpuscular Hgb 29.3 pg (27.0-31.0); Mean Corpuscular Volume 89.9 fL (81.0-99.0); Mean Platelet Volume 8.5 fL (7.4-10.4); Platelet Count 352 10^3/uL (130-400); Red Blood Cell Count 3.28 10^6/uL (4.20-5.40); Red Cell Dist. Width 15.5 % (11.5-14.5); White Blood Cell Count 4.1 10^3/uL (4.8-10.8)
[2024-01-07 11:36] LABS: Blood Urea Nitrogen 20 mg/dl (7-17); Calcium 8.7 mg/dl (8.4-10.2); Carbon Dioxide 30 mmol/L (22-30); Chloride 98 mmol/L (98-107); Estimated Creatinine Clearance 60 ml/min; Glucose 134 mg/dl (70-99); Potassium 4.3 mmol/L (3.5-5.1); Sodium 136 mmol/L (135-145); eGFR > 60.00
--- NOTE | 2024-01-07 12:34 | CON.ID ---
Consultation
-
Date/Time Consultation Requested: 01/06/24 18:49
Date/Time Consultation Performed: 01/06/24 12:34
Requesting Provider: Dr Carrizales
Performing Provider: Dr Hernandez
Reason for Consultation: empyema
Chief Complaint / Past History
Chief Complaint
shortness of breath
History of Present Illness
Ms Mckeon is a 73 year old female with history of stage IV ovarian cancer (metastasis to lung, recurrent pleural effusions on active chemotherapy last dose 1.5 weeks [employer] taxol based), asthma/chronic hypoxemic respiratory failure (5 L O2 at home),
H/O DVT (not on AC), PJI of right knee (suppressive Keflex) who presented here 12/31 for worsening shortness of breath. Dyspnea began 12/30 along with pleuritic R sided back pain. She's had two previous thoracenteses on the right for recurrent
effusions at [facility]. No wounds or recent skin infections [employer].
On arrival here she was afebrile, bp stable, with sinus tachycardia HR 110, sating 95% SpO2 on baseline oxygen.� Labs: wbc 5.7, hgb 8.2, plt 283, L shift noted, cr 0.7, albumin 2.9, troponin 0.094 at its peak, bnp 1470.� COVID ag negative. CXR:
complete opacification of the right hemithorax with slight left deviation of the trachea consistent with large right pleural effusionl small left pleural effusion also noted.� CTA chest did not show any signs of pulmonary embolism, + large right
pleural effusion with complete collapse of the right lung, remonstrated known centrally cavitating REMBERTO lesion that slightly decreased in size and new sclerotic lesion at T12. Patient had chest tube placement later the same day with right pigtail
catheter, pH 7.3, wbc 2000, 84% PMNs, glucose 50, protein 3.2, LDH 316, culture MSSA on 12/31, blood cultures have not been done thus far (ordered by me today), echo 01/05: ef 45%, mild TR, no vegetations reported, US with nonocclusive thrombus in
multiple rle veins, CXR today: 'Small to moderate right hydropneumothorax as described, radiographically stable.' without full reexpansion of the lung, also known small right pneumothorax. Reports a new small wound on the sacrum without surrounding
erythema, warmth, tenderness or drainage.
Past History
Additional Past Medical History:
Stage IV Ovarian Carcinoma (2019, s/p several rounds of chemo) w/ Lung Mets, DVT, not on OAC
Additional Past Surgical History:
Appendectomy, Gynocological (Hysterectomy w/ BL SPO/ tumor resection) and Orthopedic (R Hip replacement, R Knee replacement), port placement
Allergy History:
No Known Allergies Allergy (Verified 01/01/24 10:47)
Medications Reviewed: Yes
Social History
Tobacco: Non-Smoker
Alcohol: None
Drug: None
Family History
Family History: Not Pertinent
Review of Systems
Review of Systems
General: Negative Fever or Chills
All systems: All other systems were reviewed and were negative
Vital Signs
Temp Pulse Resp BP Pulse Ox
97.8 F 80 16 95/61 100
01/07/24 07:00 01/07/24 11:09 01/07/24 11:09 01/07/24 07:00 01/07/24 09:38
I&Os:
01/01 output 1.1L...01/05: 245 ccs, 01/06 output 120 ccs thus far
Physical Exam
Physical Exam
Constitutional: No Acute Distress and Cachetic
Cardiovascular: Regular Rate and S1/S2; Negative Murmur or Rub
Pulmonary: Clear and Symmetric; Negative Wheezes, Rales or Rhonchi
Gastrointestinal: Soft, Non Tender, Non Distended and Normal Bowel Sounds
Skin: Warm and Dry; Negative Rash or Jaundice
Wound: Other (few mm wound on the sacrum - no erythema warmth, swelling or tenderness)
Neurological: Awake
Lines: Port (accessed, functional, no: erythema, warmth, tenderness or drainage)
Lab / Diagnostic Study Results
01/07/24 10:33
01/07/24 10:32
Abs Immat Gran (auto) 0.0 10^3/uL (0-0.05) 01/06/24 05:08
Absolute Neuts (auto) 2.2 10^3/uL (1.4-6.5) 01/06/24 05:08
Absolute Lymphs (auto) 0.3 10^3/uL (1.2-3.4) L 01/06/24 05:08
Absolute Monos (auto) 0.5 10^3/uL (0.1-0.6) 01/06/24 05:08
Absolute Basos (auto) 0.1 10^3/uL (0-0.2) 01/06/24 05:08
Immature Gran % 0.3 % (0-0.5) 01/06/24 05:08
Neutrophils % 68.7 % (42.2-75.2) 01/06/24 05:08
Lymphocytes % 9.8 % (20.5-51.1) L 01/06/24 05:08
Monocytes % 16.4 % (1.7-9.3) H 01/06/24 05:08
Eosinophils % 3.2 % (0-6) 01/06/24 05:08
Basophils % 1.6 % (0-2) 01/06/24 05:08
PT 14.0 Sec (11.4-14.6) 01/01/24 11:15
INR 1.08 01/01/24 11:15
Lactic Acid Cancelled 01/01/24 15:00
Microbiology Results
Micro:
01/01/24 16:35 Body Fluid Culture - Final
Pleural Fluid S aureus-Methicillin Sensitive
Gram Stain - Final
01/01/24 23:41 MRSA Screen - Final
Nose No Methicillin Resistant Staphylococcus aureus isolated.
Assessment / Plan
Empyema due to MSSA
Stage IV ovarian cancer on chemotherapy (last line by report)
Port
H/o of R hip PJI due to E coli on suppressive keflex [employer]
- pleural fluid MSSA
- send blood cultures x2
- TTE without evidence of vegetations
- would maximize drainage as feasible
- given ongoing chemotherapy, aggressive pathogen, frail patient, would plan a longer course of IV cefazolin - likely 6 weeks 01/05-02/15
- has a port will plan to use this for the duration of therapy
- increased cefazolin dose to 2 gm IV q8 hrs
- while on cefazolin can hold [employer] keflex; resume keflex on completion of IV cefazolin
--- NOTE | 2024-01-07 13:02 | PN.IRAD.UPD ---
Update Note - IRAD
- -
Cleaned right sided chest tube with chloraprep and removed bedside. Site dressed with vaseline gauze and a optifoam dressing.
Shan Moffett RT(R)()
--- NOTE | 2024-01-07 13:09 | W.PN.HOSP.TC ---
Addendum entered and electronically signed by Aniceto Carrizales MD, Resident 01/07/24 18:11:
Patient has a LLE DVT which explains unilateral pitting edema. She has a malignant pleural effusion/empyema of the R lung. She is not being treated for Acute Heart Failure exacerbation on this admission.
Addendum entered and electronically signed by Bahman Dickson MD 01/07/24 15:07:
73-year-old female with ovarian cancer diagnosed in 2019,She follows up with Dr. Hensley at [facility]. She had chemotherapy 2 weeks ago. Taxol-based.
I personally performed a history and physical exam of the patient and discussed management with the resident. I reviewed the resident's note and agree with the documented findings and plan of care HPI/CC except changes in documentation.
Cardiovascular system S1-S2 appreciated
Chest decreased breath sounds at bases
Abdomen soft and nontender
Right lower extremity edema
Echo 01/06/2024-mildly reduced LV systolic function. EF 45%. Stage I diastolic dysfunction. Normal RV size and function. Mild to moderate TR. Pulmonary artery pressure 44 mmHg.
# Large right-sided pleural effusion-exudate
Cultures growing Staph aureus-MSSA
This qualifies as empyema
Acute hypoxic respiratory failure on chronic hypoxic respiratory failure
Likely secondary to malignancy
Continue drainage
Wean oxygen as tolerated
Pulmonary and interventional radiology following
Chest x-ray noted-intervention radiology-does not plan on any changes today. Likely trapped lung
ID evaluation
Continue Ancef
# Right lower extremity DVT-patient was discharged on Eliquis in September. Unclear why she is not on that now. Repeat USS with extensive DVT. Will start heparin gtt and watch the pleural fluid ( Blood tinged now). Pt stopped taking it per daughter on
her own.
# Stage IV ovarian cancer with lung metastasis
Original cancer 2020 started chemo then, a year ago she had mets to Lungs
Follows with [facility] and Dr.Steven Hensley [facility] when she comes to [place]
Patient states that she is on the last line of chemotherapy Taxol
Pain control for malignancy related pain with oxycodone
She is on palliative care as outpatient
Not interested in hospice at this point
# Right hip pain s/p R FREDIS in April complicated by dislocation in june 2023 , s/p reduction
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
Revision of right total hip arthroplasty, entire femoral and entire acetabular component and Placement of incisional wound VAC 09/11/23
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
# Anemia-likely secondary to malignancy
# Nonischemic myocardial injury- Trop
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
# Intermittent nausea-as needed Zofran
# Mid back pain-watch on pain medicines
# Asthma-Symbicort
# Hypoalbuminemia
# DVT prophylaxis-Lovenox
# CODE STATUS-Full code
Discussed with nursing
D/W Radiology
D/W IR and Pulm
Time spent over 50 min
Original Note:
Today's Communication/Plan
-
C/w duonebs, IV Abx for empyema. Monitor for BM post mag citrate and observe chest tube drainage. Pending LE Venous US/doppler.
Assessment / Plan
Assessment / Plan
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
##Large Right Sided Pleural Effusion
#Empyema
- History of 2 prior pleural effusions treated with thoracentesis at outpatient oncologist
- Chest tube placed, still draining serosanguineous fluid.
- Pleural fluid to be sent for analysis; (+) Light's criteria, likely exudative fluid. Culture (+) for MSSA. Abx narrowed to Cefazolin 2g Q8 per ID
- CXR (+) new small right pneumothorax. Intervention not indicated at this time as likely trapped lung
- IR to remove drain when output is <100cc/24hours.
- Continue to observe Chest Tube output & monitor symptoms.
#Hx of DVT LLE
- Patient does not remember whether or not she had taken her full course of Eliquis post discharge for LE DVT
- Will obtain LE Venous Doppler to evaluate for new DVT & call cancer doctor to confirm medication adherence
- Currently on Lovenox for DVT PPx as below
#Acute on Chronic hypoxic respiratory failure w/ home oxygen dependence
- Required >5L en route to hospital, Currently stable on 5L NC
- C/w QID DuoNeb treatments, Symbicort inhaler
- Requiring nasal mist for sinus dryness due to NC flow; improved
#Acute on Chronic constipation
- likely multifactorial from opioid pain medication and lack of ambulation
- Bowel regimen of Senokot/Miralax not working, has not had BM in 4 days. Will give one time dose of 300mg Mag Citrate and observe for BM.
#Stage IV Ovarian cancer w/ Mets to the Lung
#Chronic cancer pain with opioid dependence
- Chemotherapy with [facility] q3 weeks
- Is not interested in Hospice at this time. Discussed code status with the patient who desires Full Code.
- C/w Oxycodone 7.5mg Q4h prn. Pain sx controlled on this dose
#History of Septic Prosthetic Joint
- Continue on life-long prophylactic Keflex 500mg BID
#Peripheral Neuropathic Pain
- Stable; c/w home dose gabapentin 600mg QHS
#Dispo:
Med/Surg
DVT PPx: Lovenox SC
Diet: Regular
Code: Full Code
Anticipated Discharge: 24 - 48 hours
Subjective/Interval History
-
Seen in the AM. patient had no acute events overnight and has no acute complaints this morning. Chest tube drained roughly 240ccs of serosanguineous fluid overnight.
Objective Data
-
Labs:
Laboratory Results
01/07/24 01/07/24
10:32 10:33
WBC 4.1 L
Hgb 9.6 L
Hct 29.5 L
Plt Count 352
Sodium 136
Potassium 4.3
Chloride 98
Carbon Dioxide 30
BUN 20 H
Creatinine 0.6
Glucose 134 H
Calcium 8.7
Vital Signs:
Vital Signs
Temp Pulse Resp BP Pulse Ox
97.8 F 80 16 95/61 100
01/07/24 07:00 01/07/24 11:09 01/07/24 11:09 01/07/24 07:00 01/07/24 09:38
I&O
01/06/24 01/07/24 01/08/24
06:59 06:59 06:59
Intake Total 800 / 800 480 / 480
Output Total 595 / 595 220 / 220
Balance 205 / 205 260 / 260
Review of Systems
-
History Source: Patient
Constitutional: Reports No Symptoms
EENT: Reports No Symptoms Reported
Respiratory: Reports No Symptoms
Cardiac: Reports No Symptoms
Abdomen/GI: Reports No Symptoms
Breast: Reports No Symptoms
Genitourinary: Reports No Symptoms
Musculoskeletal: Reports No Symptoms
Skin: Reports No Symptoms
Neuro: Reports No Symptoms
Endocrine: Reports No Symptoms
Physical Exam
-
General: No Apparent Distress, Comfortable and Cachectic
HEENT: Normocephalic, Atraumatic, Moist Mucous Membranes, Anicteric, [place] Conjunctivae, PERRLA and Oxygen (5L NC)
Respiratory: Crackles
Cardiac: Regular Rhythm and S1/S2
Breast: Deferred by me
GI: Soft, Nontender, Nondistended and Normal Bowel Sounds
Musculoskeletal: No Clubbing, No Cyanosis and Edema, Left Lower Extrem (Chronic; stable)
Skin: Warm, Dry and IV Access / Catheter Site (Chest tube, R side)
Neuro: Awake, Alert, Oriented, No Motor Deficits and No Sensory Deficits
Psych: Calm
--- NOTE | 2024-01-07 13:46 | PN.CDI ---
CDI
- -
CDI:
Physician Documentation Request
Admit Date: 01/02/24 08:49
Dear Doctor Sofie,
01/05 pulmonary progress note states 'Although this is likely a malignant effusion, her proBNP was elevated, she has +1 lower extremity pitting edema, and there could be a component of acute decompensated heart failure.she also has low albumin which
is likely contributing to third spacing -Of note, Taxol can cause edema has an adverse reaction (per up-to-date)'
12/31 bnp 1470
Patient does note appear to have a history of heart failure or take diuretic as out patient.
01/05 Echo conclusion 'EF 45%, stage I diastolic dysfunction suggestive of abnormal relaxation. Compared with 09/16/23: LVEF has declined from 50-55% to 45%. PASP has increased from 33 mmHg to 44 mmHg.'
Please clarify the following:
____ - Heart failure is/was present - Please indicate type and acuity
____ - Heart failure was ruled out
____ - Heart failure is still a likely, suspected, probable diagnosis-Please indicate type and acuity
____ - Other
Use of terms such as suspected, likely, concern for, or probable (associated with a specific diagnosis that is being evaluated, monitored, or treated as if it exists) are acceptable and can be coded in the inpatient setting, when documented at the
time of discharge.
Thank you,
Obdulia Cartagena RN, BSN
CDI Specialist
tiger text
Please use your independent medical judgment in providing your response.
[2024-01-07] MEDS: CITROMA 300 ML PO (15:06)
[2024-01-07] MEDS: ROXICODONE 5 MG PO ×2 (15:30→20:42)
[2024-01-07 15:33] VITALS: BP 105/76
[2024-01-07] MEDS: NSS 1000 IV (15:45)
[2024-01-07] MEDS: HEPARIN 25000 UNITS/250 ML IV (16:24)
--- NOTE | 2024-01-07 16:36 | CM ---
CM following for discharge planning. Katiuska will go home with resumption of [facility] services at discharge. Discussed with Taylor Elam, [facility] liaison. Referral sent in [facility] on 01/06/2024.
Plan: Discharge to home with [facility] services.
FAX: [phone]. TAYLOR C: [phone]
--- NOTE | 2024-01-07 16:38 | PTCARENOTE ---
Pt given Miralax and sennacot as ordered this am. Mag citrate 1 bottle given as well. Pt had a small formed BM on the bedside commode.
[2024-01-07 17:00] LABS: Hematocrit 28.7 % (37.0-47.0); Hemoglobin 9.4 g/dL (12.0-16.0); Mean Corp Hgb Conc. 32.8 g/dL (33.0-37.0); Mean Corpuscular Hgb 29.1 pg (27.0-31.0); Mean Corpuscular Volume 88.9 fL (81.0-99.0); Mean Platelet Volume 8.5 fL (7.4-10.4); Platelet Count 362 10^3/uL (130-400); Red Blood Cell Count 3.23 10^6/uL (4.20-5.40); Red Cell Dist. Width 15.4 % (11.5-14.5); White Blood Cell Count 4.4 10^3/uL (4.8-10.8)
[2024-01-07 17:20] LABS: APTT 32.3 Sec (23.4-35.0)
[2024-01-07] MEDS: NEURONTIN 600 MG PO (20:41)
[2024-01-07] MEDS: ANCEF 10 IV (20:43)
[2024-01-07] MEDS: STERILE WATER FOR INJECTION IV (21:52)
[2024-01-07 23:30] VITALS: BP 100/70
[2024-01-08] MEDS: HEPARIN 1800 UNITS IV (00:10)
[2024-01-08] MEDS: ANCEF 10 IV ×3 (03:09→21:00)
[2024-01-08 06:34] LABS: Hematocrit 24.6 % (37.0-47.0); Hemoglobin 8.2 g/dL (12.0-16.0); Mean Corp Hgb Conc. 33.3 g/dL (33.0-37.0); Mean Corpuscular Hgb 30.5 pg (27.0-31.0); Mean Corpuscular Volume 91.4 fL (81.0-99.0); Platelet Count 325 10^3/uL (130-400); Red Blood Cell Count 2.69 10^6/uL (4.20-5.40); Red Cell Dist. Width 15.6 % (11.5-14.5); White Blood Cell Count 3.6 10^3/uL (4.8-10.8)
[2024-01-08 06:51] LABS: APTT 175.5 Sec (23.4-35.0)
[2024-01-08 07:07] LABS: ALT (SGPT) < 10 U/L (0-35); AST (SGOT) 20 U/L (14-36); Albumin 2.4 g/dl (3.5-5.0); Alkaline Phosphatase 71 U/L (38-126); Blood Urea Nitrogen 21 mg/dl (7-17); Calcium 8.3 mg/dl (8.4-10.2); Carbon Dioxide 30 mmol/L (22-30); Chloride 99 mmol/L (98-107); Estimated Creatinine Clearance 60 ml/min; Glucose 80 mg/dl (70-99); Potassium 4.2 mmol/L (3.5-5.1); Sodium 138 mmol/L (135-145); Total Bilirubin 0.2 mg/dl (0.2-1.3); Total Protein 4.7 g/dl (6.3-8.2); eGFR > 60.00
[2024-01-08 07:22] VITALS: BP 100/68
[2024-01-08] MEDS: DUONEB 3 ML INH ×4 (07:50→19:46)
[2024-01-08] MEDS: SYMBICORT 160/4.5 MCG INHALER 2 PUFF INH ×2 (07:50→19:46)
[2024-01-08] MEDS: SENOKOT 17.2 MG PO ×2 (08:18→20:58)
[2024-01-08] MEDS: NEURONTIN 300 MG PO (08:18)
--- NOTE | 2024-01-08 09:20 | W.PN.PUL.V3 ---
Today's Communication / Plan
-
Chest tube removed yesterday after complete fluid evacuation and decreased drainage
Uncomplicated parapneumonic effusion-pH 7.37 noted-MSSA
Antibiotics per infectious disease
Repeat chest x-ray with increased shortness of breath-if pneumothorax increased in size might require repeat chest tube
Await pleural fluid cytology
Assessment
-
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
+ right-sided back pain x 3 days. Patient took her Xopenex + albuterol at home which did not improve her symptoms. She also has a dry cough. In the ER she was afebrile to 97.5 �F, tachycardic to 121, breathing at 24 breaths/min, BP 127/82 and
saturating 96% on 5 L/min nasal cannula. Labs showed anemia to 8.2, troponin elevated at 0.094, proBNP elevated at 1470, and COVID-19 antigen negative. CXR showed massive right pleural effusion + REMBERTO lesion. CT chest confirmed large right pleural
effusion as well as small�moderate size left pleural effusion. IR was consulted and placed a right-sided pigtail catheter into the basilar pleural space. Pleural studies showed PMN predominant exudative fluid with low glucose. Pleural fluid
culture grew MSSA on 01/05/2024. Most recent CXR on 01/03/2024 shows residual loculated right apical pleural fluid with small right basilar pleural effusion with adjacent atelectasis/consolidation, and a small left pleural effusion. She continues to
be on her home dose of oxygen however she is on midflow nasal cannula. Pulmonary service now consulted for additional management/recommendations.
Chronic conditions [employer]: Osteoarthritis involving multiple joints, history of RA, stage IV ovarian cancer with metastasis to lung, colonic polyps, chronic hypoxic respiratory failure on 5 L/min nasal cannula
Impression:
#Large right pleural effusion + small�moderate left-sided pleural effusion, likely due to known ovarian malignancy with metastasis to lung; differential also includes ADHF
# Right parapneumonic effusion-WBC 2616, exudate, pH 7.34, cultures with MSSA
#Left upper lobe cavitary lesion � currently measures 2.8 x 2.1 x 3 cm (previously measured 3.4 x 2.0 cm in March 2023)
#Chronic anemia (baseline Hb 7.5�9 g/dL)
#Elevated troponin � peaked at 0.094 on 01/01/24
#Elevated proBNP (1470 on 01/01/24)
Plan:
Respiratory status slightly declined since chest tube removed
Continue supplemental oxygen as needed
Aspiration precautions
DuoNebs 4 times daily continue
Symbicort continues
Chest x-ray 01/06/2024-new small right pneumothorax 20% of lung volume inferior aspect of the right pleural space, large amount opacification likely atelectasis and moderate-sized left pleural effusion
Chest x-ray 01/07/2024-to my eye, official report pending, no increase in pneumothorax size, no increase in left pleural effusion
Repeat chest x-ray 01/08/2024 with slight increased shortness of breath-? Increasing pneumothorax-explained to patient if pneumothorax enlarged may require repeat chest tube
Cultures reviewed
Empiric antibiotics continue-Ancef
Infectious disease consultation obtained 01/07/2024-correspondence reviewed
Chest tube removed 01/07/2024-suspect uncomplicated parapneumonic effusion-pH 7.34, some WBCs and grew MSSA-chest tube removed after almost complete fluid evacuation
Follow chest x-ray
If left pleural effusion increases in size consider draining this-has not increased and would hold off for now
Chest tube fluid sent for cytology 01/06/2024
Although this is likely a malignant effusion, her proBNP was elevated, she has +1 lower extremity pitting edema, and there could be a component of acute decompensated heart failure; she also has low albumin which is likely contributing to third
spacing
- Of note, Taxol can cause edema has an adverse reaction (per up-to-date)
- Echocardiogram 01/06/2024-pending
- Fluid/sodium restricted diet is recommended
Continue to replete electrolytes
Monitor blood sugar
Insulin supplementation as needed
DVT prophylaxis-on Lovenox
Nutrition
Early mobilization
Patient would like eventual records sent to [facility]
Reviewed with primary team
Code status: Full code --> we would recommend DNR given her cachectic appearance and [id number] will be an ongoing discussion.
Primary team has discussed hospice with her and she is not interested and desires full CODE STATUS
Outpatient pulmonary follow-up including PFTs and monitoring of her pleural effusions
Data:
CTA chest 01/01/24:
1. No evidence of pulmonary embolism.
2. Large right pleural effusion with complete collapse of the right lung and associated mild leftward mediastinal shift.. There is additional small left pleural effusion with left basilar atelectasis.
3. The known centrally cavitating left upper lobe lesion measures 2.8 x 2.1 x 3.0 cm, slightly decreased in size from prior.
4. There is a new sclerotic lesion within the right aspect of the T12 vertebral body extending into the pedicle, although this can be seen as sequelae of treatment response.
Subjective Data
-
Date of Service:
Date of Service: January 08, 2024
Chief Complaint: Pulmonary Follow Up and Dyspnea Follow Up
Subjective:
Complains of some shortness of breath-slightly more since chest tube removed, no chest pain, abdominal pain, has some leg swelling
Review of Systems
General: Other (Per HPI)
Objective Data
Data Reviewed
Vital Signs / I&O:
Vital Signs
Temp Pulse Resp BP Pulse Ox
97.5 F 76 18 100/68 100
01/08/24 07:22 01/08/24 07:22 01/08/24 07:22 01/08/24 07:22 01/08/24 07:22
Intake and Output
01/07/24 01/08/24 01/09/24
06:59 06:59 06:59
Intake Total 480 / 480 1045 / 1045
Output Total 220 / 220
Balance 260 / 260 1044 / 1044
SaO2: 100
Nasal Cannula flow liters per minute: 5
Physical Exam
General: Respiratory Distress (n) and Comfortable
HEENT: Normocephalic, Anicteric, Moist Mucous Membranes and Other (Temporal wasting and cachexia)
Cardiovascular: Regular Rhythm and Murmur
Respiratory: Clear (Diminished breath sounds at the right base), Crackles (Few left basilar), Non-Labored Respirations, Accessory Resp Muscle Use (n) and Other (Diminished breath sounds and prolonged expiratory time)
GI: Soft, Non Distended and Non Tender
Neurology: Awake, Alert and No Motor Deficits
Skin: Warm, Good Color, Cyanosis (n), Jaundice (n) and Rash (n)
Labs/Micro/Reports
Lab Data
01/08/24 05:49
01/08/24 05:49
Laboratory Results
01/07/24 01/07/24 01/07/24
16:20 22:13 22:42
APTT 32.3 Cancelled 70.0 H
01/08/24
05:49
APTT 175.5 H*
Microbiology
01/01/24 16:35 Pleural Fluid Body Fluid Culture - Final
S aureus-Methicillin Sensitive
01/01/24 16:35 Pleural Fluid Gram Stain - Final
[2024-01-08 11:15] VITALS: O2SAT 94
[2024-01-08 11:52] VITALS: BP 91/65; PULSE 116; PULSE 91; O2SAT 99
--- NOTE | 2024-01-08 12:59 | W.PN.HOSP.TC ---
Addendum entered and electronically signed by Bahman Dickson MD 01/08/24 16:29:
I personally performed a history and physical exam of the patient and discussed management with the resident. I reviewed the resident's note and agree with the documented findings and plan of care HPI/CC.
Patient denies shortness of breath or chest pain
Chest tube was removed
Continue antibiotics-total of 6 weeks per ID recommendations
May need to arrange for a PICC line and antibiotics
Repeat chest x-ray tomorrow
Original Note:
Today's Communication/Plan
-
C/w Abx and switch to SC Lovenox for DVT.
Assessment / Plan
Assessment / Plan
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
##Large Right Sided Pleural Effusion
#Empyema
- History of 2 prior pleural effusions treated with thoracentesis at outpatient oncologist
- Chest tube placed, still draining serosanguineous fluid.
- Pleural fluid to be sent for analysis; (+) Light's criteria, likely exudative fluid. Culture (+) for MSSA. Abx narrowed to Cefazolin 2g Q8 per ID
- CXR (+) new small right pneumothorax. Intervention not indicated at this time as likely trapped lung
- Chest tube removed. Repeat CXR shows inferior right hemithorax pneumothorax increased slightly in size, status post chest tube removal.
- Pulmonology still following; will monitor symptoms and ptx size, may need to repeat chest tube
- C/w Cefazolin
#Acute on Chronic DVT LLE, previously untreated
- Patient did not take her Eliquis post discharge for LE DVT, has not been on OAC since her August admission
- LE Venous Doppler (+) extensive DVT, increased from prior ultrasound; began on heparin ggt
- Hgb this morning is 8.2 from 9.4.
- Continue with Heparin for now, will continue to monitor Hgb. APTT at 5am 175.5. Will repeat at 2pm today and titrate accordingly.
#Acute on Chronic hypoxic respiratory failure w/ home oxygen dependence
- Required >5L en route to hospital, Currently stable on 5L NC
- C/w QID DuoNeb treatments, Symbicort inhaler
- Requiring nasal mist for sinus dryness due to NC flow; improved
- Stable on 5L NC
#Acute on Chronic constipation
- likely multifactorial from opioid pain medication and lack of ambulation
- Required one dose of mag Citrate, had BM on 01/06 after 4 days of no BM
- C/w bowel regimen of Senokot/Miralax w/ Magnesium Citrate if constipation persists for >3 days
#Stage IV Ovarian cancer w/ Mets to the Lung
#Chronic cancer pain with opioid dependence
- Palliative chemotherapy (Taxol) with [facility] q3 weeks
- Is not interested in Hospice at this time. Discussed code status with the patient who desires Full Code. Spoke with
- C/w Oxycodone 7.5mg Q4h prn. Pain sx controlled on this dose
#History of Septic Prosthetic Joint
- Continue on life-long prophylactic Keflex 500mg BID
#Peripheral Neuropathic Pain
- Stable; c/w home dose gabapentin 600mg QHS
#Dispo:
Med/Surg
DVT PPx: Lovenox SC
Diet: Regular
Code: Full Code
Anticipated Discharge: > 48 hours
Subjective/Interval History
-
Patient seen in the morning. She has a mild increase in her shortness of breath that comes and goes. She has no chest pain, no pain on inspiration. The swelling in her LLE has not changed, nor has it gotten worse. She has no new complaints of
fevers, chills, nausea or vomiting. There were no acute overnight events.
Objective Data
-
Labs:
Laboratory Results
01/08/24 01/08/24
05:49 14:00
WBC 3.6 L
Hgb 8.2 L
Hct 24.6 L
Plt Count 325
APTT 175.5 H* Pending
Sodium 138
Potassium 4.2
Chloride 99
Carbon Dioxide 30
BUN 21 H
Creatinine 0.6
Glucose 80
Calcium 8.3 L
Total Bilirubin 0.2
AST 20
ALT < 10
Alkaline Phosphatase 71
Vital Signs:
Vital Signs
Temp Pulse Resp BP Pulse Ox
97.5 F 76 18 100/68 100
01/08/24 07:22 01/08/24 07:22 01/08/24 07:22 01/08/24 07:22 01/08/24 09:20
I&O
01/07/24 01/08/24 01/09/24
06:59 06:59 06:59
Intake Total 480 / 480 1045 / 1045
Output Total 220 / 220
Balance 260 / 260 1045 / 1045
Review of Systems
-
History Source: Patient
All other systems: Reviewed and negative
Constitutional: Reports No Symptoms
EENT: Reports No Symptoms Reported
Respiratory: Reports Trouble Breathing
Cardiac: Reports No Symptoms
Abdomen/GI: Reports No Symptoms
Breast: Reports No Symptoms
Genitourinary: Reports No Symptoms
Musculoskeletal: Reports No Symptoms
Skin: Reports No Symptoms
Neuro: Reports No Symptoms
Endocrine: Reports No Symptoms
Hematologic / Lymphatic: Reports Blood Clots
Physical Exam
-
General: No Apparent Distress, Comfortable and Cachectic
HEENT: Normocephalic, Atraumatic, Moist Mucous Membranes, Anicteric, [place] Conjunctivae, PERRLA and Neck Non Tender
Respiratory: Crackles (RLL crackles on inspiration)
Cardiac: Regular Rhythm and S1/S2
Breast: Deferred by me
GI: Soft, Nontender, Nondistended and Normal Bowel Sounds
Musculoskeletal: No Clubbing, No Cyanosis and Edema, Right Lower Extrem (1-2+ pitting edema just above the ankle.)
Skin: Warm, Dry and IV Access / Catheter Site (R sided chemo port)
Neuro: Awake, Alert and Oriented
Psych: Calm
[2024-01-08 14:22] LABS: APTT 66.5 Sec (23.4-35.0)
--- NOTE | 2024-01-08 14:41 | W.PN.ID1 ---
Date of Service
Date of Service: January 08, 2024
Today's Communication
- follow blood cultures to 48 hours
Assessment / Plan
Empyema due to MSSA
Stage IV ovarian cancer on chemotherapy (last line by report)
Port
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
- pleural fluid MSSA
- follow blood cultures to 48 hours
- TTE without evidence of vegetations
- chest tube removed
- given ongoing chemotherapy, aggressive pathogen, frail patient, would plan a longer course of IV cefazolin - likely 6 weeks 01/05-02/15
- has a port will plan to use this for the duration of therapy
- increased cefazolin dose to 2 gm IV q8 hrs
- while on cefazolin can hold OYSTER CULLER keflex; resume keflex on completion of IV cefazolin
Chief Complaint
-: Other (empyema)
Subjective / Review of Systems
afebrile
spoke at length with friend visiting who reports she is considering hospice and her was just admitted
Vital Signs / Physical Exam
Vital Signs
Vital Signs
Temp Pulse Resp BP Pulse Ox
97.5 F 76 18 100/68 100
01/08/24 07:22 01/08/24 07:22 01/08/24 07:22 01/08/24 07:22 01/08/24 09:20
Physical Exam
Constitutional: No Acute Distress
Cardiovascular: Regular Rate
Pulmonary: Symmetric and Non Labored
Skin: Dry; Negative Rash
Neurological: Negative Awake
Objective Data
Lab Data
Lab Results
01/08/24 05:49
01/08/24 05:49
PT 14.0 Sec (11.4-14.6) 01/01/24 11:15
INR 1.08 01/01/24 11:15
APTT 66.5 Sec (23.4-35.0) H 01/08/24 13:59
Estimated Creat Clear 60 ml/min 01/08/24 05:49
Lactic Acid Cancelled 01/01/24 15:00
Total Bilirubin 0.2 mg/dl (0.2-1.3) 01/08/24 05:49
AST 20 U/L (14-36) 01/08/24 05:49
ALT < 10 U/L (0-35) 01/08/24 05:49
Alkaline Phosphatase 71 U/L (38-126) 01/08/24 05:49
Most recent labs reviewed.
Micro Results:
01/07/24 13:20 Blood Culture - Preliminary
Blood/Venous No Growth in 24 hours- Final report to follow
01/07/24 16:20 Blood Culture - Pending
Blood/Venous
01/01/24 16:35 Body Fluid Culture - Final
Pleural Fluid S aureus-Methicillin Sensitive
Gram Stain - Final
01/01/24 23:41 MRSA Screen - Final
Nose No Methicillin Resistant Staphylococcus aureus isolated.
--- NOTE | 2024-01-08 14:57 | CM ---
Addendum entered by Lorraine Jett 01/08/24 16:07:
TC from [facility]- test claim for OOP costs.
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
total of $140 + $16.51= $156.51 per week.
Addendum entered by Lorraine Jett 01/08/24 15:53:
Referral/script faxed to [facility], await costs.
TC to [place] from [facility] [phone], they are contracted with [facility]. [facility] updated and script faxed to [phone].
Per patient she will learn to do infusion and daughter lives next door and will also learn.
Original Note:
Patient seen bedside.
Script for IV anbx received.
Discussed options for home with IV anbx.
Patient lives alone.
Cm explained nursing cannot come out 3 x/day for anbx.
Patient has a port for infusions.
CM offered skilled rehab.
TC to [facility] to see if they would be able to accommodate.
Plan: home with IV anbx once arranged.
[2024-01-08 15:30] VITALS: BP 91/58
[2024-01-08] MEDS: NSS 1000 IV (15:58)
[2024-01-08] MEDS: LOVENOX 40 MG SC (17:13)
[2024-01-08] MEDS: NEURONTIN 600 MG PO (21:00)
[2024-01-08] MEDS: ROXICODONE 5 MG PO (21:01)
[2024-01-08 23:28] VITALS: BP 102/68
[2024-01-09] MEDS: ANCEF 10 IV ×3 (03:12→21:11)
[2024-01-09] MEDS: LOVENOX 40 MG SC (05:11)
[2024-01-09] MEDS: OCEAN, SALINE MIST 2 SPRAYS NASAL (05:17)
[2024-01-09 07:00] VITALS: BP 102/58
[2024-01-09] MEDS: DUONEB 3 ML INH ×4 (07:29→20:01)
[2024-01-09] MEDS: SYMBICORT 160/4.5 MCG INHALER 2 PUFF INH ×2 (07:29→20:02)
[2024-01-09 08:45] LABS: Hematocrit 27.1 % (37.0-47.0); Hemoglobin 8.8 g/dL (12.0-16.0); Mean Corp Hgb Conc. 32.5 g/dL (33.0-37.0); Mean Corpuscular Hgb 28.9 pg (27.0-31.0); Mean Corpuscular Volume 89.1 fL (81.0-99.0); Mean Platelet Volume 8.7 fL (7.4-10.4); Platelet Count 387 10^3/uL (130-400); Red Blood Cell Count 3.04 10^6/uL (4.20-5.40); Red Cell Dist. Width 15.9 % (11.5-14.5); White Blood Cell Count 4.7 10^3/uL (4.8-10.8)
[2024-01-09 09:04] LABS: Blood Urea Nitrogen 21 mg/dl (7-17); Calcium 8.6 mg/dl (8.4-10.2); Carbon Dioxide 31 mmol/L (22-30); Chloride 99 mmol/L (98-107); Estimated Creatinine Clearance 60 ml/min; Glucose 85 mg/dl (70-99); Potassium 4.2 mmol/L (3.5-5.1); Sodium 136 mmol/L (135-145); eGFR > 60.00
--- NOTE | 2024-01-09 09:11 | W.PN.PUL3 ---
Today's Communication / Plan
-
CXR reviewed showing rapid reaccumulation
Cyto still pending, presumed malignant, but MSSA being treated as well
We discussed pleurex placement and she is agreeable
Discussed case with team and ID via TT, likely can place by Saturday to give more time on IV abx
Can follow up final path as well
Will need to sparingly perform therapeutic thora if needed through the weekend
Assessment
-
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
right-sided back pain x 3 days. Patient took her Xopenex + albuterol at home which did not improve her symptoms. She also has a dry cough. In the ER she was afebrile to 97.5 �F, tachycardic to 121, breathing at 24 breaths/min, BP 127/82 and
saturating 96% on 5 L/min nasal cannula. Labs showed anemia to 8.2, troponin elevated at 0.094, proBNP elevated at 1470, and COVID-19 antigen negative. CXR showed massive right pleural effusion + REMBERTO lesion. CT chest confirmed large right pleural
effusion as well as small�moderate size left pleural effusion. IR was consulted and placed a right-sided pigtail catheter into the basilar pleural space. Pleural studies showed PMN predominant exudative fluid with low glucose. Pleural fluid
culture grew MSSA on 01/05/2024. Most recent CXR on 01/03/2024 shows residual loculated right apical pleural fluid with small right basilar pleural effusion with adjacent atelectasis/consolidation, and a small left pleural effusion. She continues to
be on her home dose of oxygen however she is on midflow nasal cannula. Pulmonary service now consulted for additional management/recommendations.
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
Impression:
#Large right pleural effusion + small�moderate left-sided pleural effusion, likely due to known ovarian malignancy with metastasis to lung; differential also includes ADHF
# Right parapneumonic effusion-WBC 2616, exudate, pH 7.34, cultures with MSSA
#Left upper lobe cavitary lesion � currently measures 2.8 x 2.1 x 3 cm (previously measured 3.4 x 2.0 cm in March 2023)
#Chronic anemia (baseline Hb 7.5�9 g/dL)
#Elevated troponin � peaked at 0.094 on 01/01/24
#Elevated proBNP (1470 on 01/01/24)
Plan:
Respiratory status slightly declined since chest tube removed--repeat CXR showing reaccumulation
Continue supplemental oxygen as needed
Aspiration precautions
DuoNebs 4 times daily continue
Symbicort continues
Chest x-ray 01/06/2024-new small right pneumothorax 20% of lung volume inferior aspect of the right pleural space, large amount opacification likely atelectasis and moderate-sized left pleural effusion
Chest x-ray 01/07/2024-to my eye, official report pending, no increase in pneumothorax size, no increase in left pleural effusion
Repeat chest x-ray 01/08/2024 with slight increased shortness of breath-? Increasing pneumothorax-explained to patient if pneumothorax enlarged may require repeat chest tube
Repeat CXR this AM showing reaccumulation
We discussed pleurex and she was agreeable- will clarify timing with ID given abx tx
Cultures reviewed
Empiric antibiotics continue-Ancef
Infectious disease consultation obtained 01/07/2024-correspondence reviewed
Chest tube removed 01/07/2024-suspect uncomplicated parapneumonic effusion
pH 7.34, some WBCs and grew MSSA-chest tube removed after almost complete fluid evacuation
Follow chest x-ray
If left pleural effusion increases in size consider draining this-has not increased and would hold off for now
Chest tube fluid sent for cytology 01/06/2024--still pending
Although this is likely a malignant effusion, her proBNP was elevated, she has +1 lower extremity pitting edema, and there could be a component of acute decompensated heart failure; she also has low albumin which is likely contributing to third
spacing
- Of note, Taxol can cause edema has an adverse reaction (per up-to-date)
- Echocardiogram 01/06/2024-pending
- Fluid/sodium restricted diet is recommended
DVT prophylaxis-on Lovenox
Nutrition
Early mobilization
Patient would like eventual records sent to [place]
Reviewed with primary team
Code status: Full code --> we would recommend DNR given her cachectic appearance and [id number] will be an ongoing discussion.
Primary team has discussed hospice with her and she is not interested and desires full CODE STATUS
Outpatient pulmonary follow-up including PFTs and monitoring of her pleural effusions
Data:
CTA chest 01/01/24:
1. No evidence of pulmonary embolism.
2. Large right pleural effusion with complete collapse of the right lung and associated mild leftward mediastinal shift.. There is additional small left pleural effusion with left basilar atelectasis.
3. The known centrally cavitating left upper lobe lesion measures 2.8 x 2.1 x 3.0 cm, slightly decreased in size from prior.
4. There is a new sclerotic lesion within the right aspect of the T12 vertebral body extending into the pedicle, although this can be seen as sequelae of treatment response.
Subjective Data
-
Date of Service:
Date of Service: January 09, 2024
Chief Complaint: Pulmonary Follow Up and Dyspnea Follow Up
Subjective:
No new events ON, remains on o2
Chest tube has been discontinued, she has reaccumulation within 48 hours
SOB with ambulation
Objective Data
Data Reviewed
Vital Signs / I&O / Oxygen:
Vital Signs
Temp Pulse Resp BP Pulse Ox
98.3 F 79 16 102/58 98
01/09/24 07:00 01/09/24 07:33 01/09/24 07:33 01/09/24 07:00 01/09/24 07:33
Intake and Output
01/08/24 01/09/24 01/10/24
06:59 06:59 06:59
Intake Total 1045 / 1045 1000 / 1000
Balance 1045 / 1045 1000 / 1000
SaO2 98
Nasal Cannula flow liters per 4
minute
Physical Exam
General: Respiratory Distress (n) and Comfortable
HEENT: Normocephalic, Anicteric, Moist Mucous Membranes and Other (Temporal wasting and cachexia)
Cardiovascular: Regular Rhythm and Murmur
Respiratory: Clear (Diminished breath sounds at bibasilar bases, R>L), Crackles (Few left basilar), Non-Labored Respirations, Accessory Resp Muscle Use (n) and Other (Diminished breath sounds and prolonged expiratory time)
GI: Soft, Non Distended and Non Tender
Neurology: Awake, Alert and No Motor Deficits
Skin: Warm, Good Color, Cyanosis (n), Jaundice (n) and Rash (n)
Labs/Micro/Reports
Lab Data
01/09/24 08:34
01/09/24 08:34
Laboratory Results
01/08/24
13:59
APTT 66.5 H
Microbiology
01/07/24 16:20 Blood/Venous Blood Culture - Preliminary
No Growth in 24 hours- Final report to follow
01/07/24 13:20 Blood/Venous Blood Culture - Preliminary
No Growth in 24 hours- Final report to follow
[2024-01-09] MEDS: NEURONTIN 300 MG PO (09:17)
[2024-01-09] MEDS: SENOKOT 17.2 MG PO (09:17)
--- NOTE | 2024-01-09 11:41 | CM ---
Addendum entered by Lorraine Jett 01/09/24 13:51:
Spoke with patient and daughters bedside.
Per patient drain to be inserted tomorrow and d/c may be on hold until Saturday.
Will await MD notes and update [facility] tomorrow.
Original Note:
Spoke with liaison from [facility], they are contracted with [facility].
[facility] liaison will come out tomorrow and do teaching between 1-2 pm.
Patient will need to receive her afternoon dose of medication here at the hospital and [facility] will deliver the PM dose to patients home.
Patient updated re time so daughter will also be able to be here.
[facility]
Patients daughter will transport home.
Patient on chronic oxygen, daughter will bring oxygen.
Plan: home with [facility]

[facility]
--- NOTE | 2024-01-09 13:24 | W.PN.ID1 ---
Date of Service
Date of Service: January 09, 2024
Today's Communication
- discussed timing of pleurex with pulm and I have suggested saturday so that patient has a week of cefazolin therapy prior to placement
- given ongoing chemotherapy, aggressive pathogen, frail patient, would plan a longer course of IV cefazolin - likely 6 weeks 01/05-02/15
- has a port will plan to use this for the duration of therapy
- c/w cefazolin dose to 2 gm IV q8 hrs
Assessment / Plan
Empyema due to MSSA
Stage IV ovarian cancer on chemotherapy (last line by report)
Port
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
Cachexia
- pleural fluid MSSA
- follow blood cultures to 48 hours
- TTE without evidence of vegetations
- discussed timing of pleurex with pulm and I have suggested saturday so that patient has a week of cefazolin therapy prior to placement
- given ongoing chemotherapy, aggressive pathogen, frail patient, would plan a longer course of IV cefazolin - likely 6 weeks 01/05-02/15
- has a port will plan to use this for the duration of therapy
- c/w cefazolin dose to 2 gm IV q8 hrs
- while on cefazolin can hold [facility] keflex; resume keflex on completion of IV cefazolin
Chief Complaint
-: Other (empyema)
Subjective / Review of Systems
afebrile
had bm
insists her treatment is curative, will attempt to clarify with her oncologist
Vital Signs / Physical Exam
Vital Signs
Vital Signs
Temp Pulse Resp BP Pulse Ox
98.3 F 100 16 102/58 97
01/09/24 07:00 01/09/24 11:29 01/09/24 11:29 01/09/24 07:00 01/09/24 11:29
Physical Exam
Constitutional: No Acute Distress
Cardiovascular: Regular Rate and S1/S2; Negative Murmur or Rub
Pulmonary: Clear and Symmetric; Negative Wheezes or Rales
Gastrointestinal: Soft, Non Tender, Non Distended and Normal Bowel Sounds
Skin: Warm and Dry; Negative Rash or Jaundice
Objective Data
Lab Data
Lab Results
01/09/24 08:34
01/09/24 08:34
PT 14.0 Sec (11.4-14.6) 01/01/24 11:15
INR 1.08 01/01/24 11:15
APTT 66.5 Sec (23.4-35.0) H 01/08/24 13:59
Estimated Creat Clear 60 ml/min 01/09/24 08:34
Lactic Acid Cancelled 01/01/24 15:00
Total Bilirubin 0.2 mg/dl (0.2-1.3) 01/08/24 05:49
AST 20 U/L (14-36) 01/08/24 05:49
ALT < 10 U/L (0-35) 01/08/24 05:49
Alkaline Phosphatase 71 U/L (38-126) 01/08/24 05:49
Most recent labs reviewed.
Micro Results:
01/07/24 16:20 Blood Culture - Preliminary
Blood/Venous No Growth in 24 hours- Final report to follow
01/07/24 13:20 Blood Culture - Preliminary
Blood/Venous No Growth in 24 hours- Final report to follow
01/01/24 16:35 Body Fluid Culture - Final
Pleural Fluid S aureus-Methicillin Sensitive
Gram Stain - Final
01/01/24 23:41 MRSA Screen - Final
Nose No Methicillin Resistant Staphylococcus aureus isolated.
Care Review
Plan reviewed with: Physician (Dr Nika christy)
[2024-01-09] MEDS: ROXICODONE 5 MG PO ×2 (13:52→18:59)
[2024-01-09 15:14] VITALS: BP 107/62
--- NOTE | 2024-01-09 15:19 | W.PN.UPDATE ---
Update Note
Progress Note Update
73-year-old female with ovarian cancer diagnosed in 2019,She follows up with Dr. Hensley at [facility]. She had chemotherapy 2 weeks ago.
I personally performed a history and physical exam of the patient and discussed management with the resident. I reviewed the resident's note and agree with the documented findings and plan of care HPI/CC except changes in documentation.
Cardiovascular system S1-S2 appreciated
Chest decreased breath sounds at bases
Abdomen soft and nontender
Right lower extremity edema
Echo 01/06/2024-mildly reduced LV systolic function. EF 45%. Stage I diastolic dysfunction. Normal RV size and function. Mild to moderate TR. Pulmonary artery pressure 44 mmHg.
# Large right-sided pleural effusion-exudate
Cultures growing Staph aureus-MSSA
This qualifies as empyema
Acute hypoxic respiratory failure on chronic hypoxic respiratory failure
Likely secondary to malignancy and also infection
Chest tube was removed
Wean oxygen as tolerated-uses 5 L at home
Pulmonary infectious disease following
Chest x-ray noted-increasing effusion. Plan is for Pleurx catheter Saturday after 1 week of antibiotics
ID evaluation appreciated
Continue Ancef-6 weeks needed per infectious disease
# Right lower extremity DVT-patient was discharged on Eliquis in September. Repeat USS with extensive DVT. Pt stopped taking on her own as OP. Restarted anticoagulation initially with heparin drip changed to Lovenox , will change to Eliquis. OK for
Eliquis to continue while Pleurx .
# Stage IV ovarian cancer with lung metastasis
Original cancer 2020 started chemo then, a year ago she had mets to Lungs
Follows with [facility] and Dr.Steven Hensley [facility] when she comes to [place]
Patient states that she is on the last line of chemotherapy Taxol
Pain control for malignancy related pain with oxycodone
She is on palliative care as outpatient
Not interested in hospice at this point
# Right hip pain s/p R FREDIS in April complicated by dislocation in june 2023 , s/p reduction
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
Revision of right total hip arthroplasty, entire femoral and entire acetabular component and Placement of incisional wound VAC 09/11/23
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
# Anemia-likely secondary to malignancy
# Nonischemic myocardial injury- Trop
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
# Intermittent nausea-as needed Zofran
# Asthma-Symbicort
# Hypoalbuminemia
# DVT prophylaxis-Eliquis
# CODE STATUS-Full code
Discussed with case management
Discussed with pulmonary and ID
Patient does not want to go to rehab she wants to go home with home infusion. and patient's daughter who lives next-door will help her
Called [facility] and left a message for to call back.
Time more than 50 min
--- NOTE | 2024-01-09 16:30 | W.PN.HOSP.TC ---
Today's Communication/Plan
-
C/w Abx and Eliquis. Will d/c tomorrow for john VN to continue Abx
Assessment / Plan
Assessment / Plan
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
##Large Right Sided Pleural Effusion
#Empyema
- History of 2 prior pleural effusions treated with thoracentesis at outpatient oncologist
- Chest tube placed, still draining serosanguineous fluid.
- Pleural fluid to be sent for analysis; (+) Light's criteria, likely exudative fluid. Culture (+) for MSSA. Abx narrowed to Cefazolin per ID
- CXR (+) new small right pneumothorax. Intervention not indicated at this time as likely trapped lung
- Chest tube removed. Repeat CXR shows inferior right hemithorax pneumothorax increased slightly in size, status post chest tube removal.
- Pulmonology still following; will monitor symptoms and ptx size, may need to repeat chest tube
- C/w Cefazolin x6 weeks per ID. Can continue at home with VN. Will D/c tomorrow
#Acute on Chronic DVT LLE, previously untreated
- Patient did not take her Eliquis post discharge for LE DVT, has not been on OAC since her August admission
- LE Venous Doppler (+) extensive DVT, increased from prior ultrasound
- transition from heparin to Eliquis 10mg BID x7d then 5mg BID. Will need lifelong OAC due to ongoing cancer
#Acute on Chronic hypoxic respiratory failure w/ home oxygen dependence
- Required >5L en route to hospital, Currently stable on 5L NC
- C/w QID DuoNeb treatments, Symbicort inhaler
- Requiring nasal mist for sinus dryness due to NC flow; improved
- Stable on 5L NC
#Acute on Chronic constipation
- likely multifactorial from opioid pain medication and lack of ambulation
- Required one dose of mag Citrate, had BM on 01/06 after 4 days of no BM
- C/w bowel regimen of Senokot/Miralax w/ Magnesium Citrate if constipation persists for >3 days
#Stage IV Ovarian cancer w/ Mets to the Lung
#Chronic cancer pain with opioid dependence
- Palliative chemotherapy (Taxol) with [facility] q3 weeks
- Is not interested in Hospice at this time. Discussed code status with the patient who desires Full Code. Spoke with
- C/w Oxycodone 7.5mg Q4h prn. Pain sx controlled on this dose
#History of Septic Prosthetic Joint
- Holding ppx Keflex 500mg BID. OK to resume outpatient after completion of Cefazolin per ID
#Peripheral Neuropathic Pain
- Stable; c/w home dose gabapentin 600mg QHS
#Dispo:
Med/Surg
DVT PPx: Eliquis
Diet: Regular
Code: Full Code
Anticipated Discharge: Within 24 hours
Subjective/Interval History
-
No acute events overnight. She has no acute complaints this morning.
Objective Data
-
Labs:
Laboratory Results
01/09/24
08:34
WBC 4.7 L
Hgb 8.8 L
Hct 27.1 L
Plt Count 387
Sodium 136
Potassium 4.2
Chloride 99
Carbon Dioxide 31 H
BUN 21 H
Creatinine 0.6
Glucose 85
Calcium 8.6
Vital Signs:
Vital Signs
Temp Pulse Resp BP Pulse Ox
98 F 80 16 107/62 97
01/09/24 15:14 01/09/24 15:30 01/09/24 15:30 01/09/24 15:14 01/09/24 15:14
I&O
01/08/24 01/09/24 01/10/24
06:59 06:59 06:59
Intake Total 1045 / 1045 1000 / 1000
Balance 1044 / 1044 999 / 999
Review of Systems
-
History Source: Patient
All other systems: Reviewed and negative
Constitutional: Reports No Symptoms
EENT: Reports No Symptoms Reported
Respiratory: Reports No Symptoms
Cardiac: Reports No Symptoms
Abdomen/GI: Reports No Symptoms
Breast: Reports No Symptoms
Genitourinary: Reports No Symptoms
Musculoskeletal: Reports No Symptoms
Skin: Reports No Symptoms
Neuro: Reports No Symptoms
Hematologic / Lymphatic: Reports Blood Clots
Physical Exam
-
General: Cachectic
HEENT: Normocephalic, Atraumatic, Moist Mucous Membranes, Anicteric, [place] Conjunctivae and PERRLA
Respiratory: Crackles and Decreased Breath Sounds (R>L)
Cardiac: Regular Rhythm and S1/S2
Breast: Deferred by me
GI: Soft, Nontender, Nondistended and Normal Bowel Sounds
Musculoskeletal: No Clubbing, No Cyanosis and No Edema
Skin: IV Access / Catheter Site (R chemo port)
Neuro: Awake, Alert, Oriented, No Motor Deficits and Nonfocal/Grossly Intact
Psych: Calm
[2024-01-09] MEDS: SENOKOT PO (20:59)
[2024-01-09] MEDS: ELIQUIS 10 MG PO (21:11)
[2024-01-09] MEDS: NSS 1000 IV (21:12)
[2024-01-09] MEDS: NEURONTIN 600 MG PO (21:12)
[2024-01-09 22:46] VITALS: BP 101/65
[2024-01-10] MEDS: ANCEF 10 IV ×3 (03:25→20:37)
[2024-01-10] MEDS: ROXICODONE 5 MG PO ×4 (03:32→22:19)
[2024-01-10 07:00] VITALS: BP 105/69
[2024-01-10] MEDS: SYMBICORT 160/4.5 MCG INHALER 2 PUFF INH ×2 (07:14→19:01)
[2024-01-10] MEDS: DUONEB 3 ML INH ×4 (07:14→19:01)
--- NOTE | 2024-01-10 07:15 | W.PN.HOSP.TC ---
Today's Communication/Plan
-
C/w IV Cefazolin for empyema, Eliquis for DVT, breathing treatments/o2 requirements until PleurX catheter placement on Saturday.
Assessment / Plan
Assessment / Plan
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
##Large Right Sided Pleural Effusion
#Empyema
- History of 2 prior pleural effusions treated with thoracentesis at outpatient oncologist
- Pleural fluid to be sent for analysis; (+) Light's criteria, likely exudative fluid. Culture (+) for MSSA. Abx narrowed to Cefazolin per ID
- CXR suggestive of trapped lung, likely chronic due to scarring.
- C/w Cefazolin x6 weeks per ID. Can continue at home with VN until February 15.
- Repeat chest Xray demonstrate increasing fluid accumulation. Patient to receive PleurX catheter placement on Saturday, after which she can be discharged home
#Acute on Chronic DVT LLE, previously untreated
- Patient did not take her Eliquis post discharge for LE DVT, has not been on OAC since her August 2023 admission
- LE Venous Doppler on this admission (+) extensive DVT, increased from prior ultrasound
- transition from heparin to Eliquis 10mg BID x7d then 5mg BID. Will need lifelong OAC due to ongoing cancer/thrombophilia
#Acute on Chronic hypoxic respiratory failure w/ home oxygen dependence (resolved)
- Required >5L en route to hospital, currently stable on 5L NC
- C/w QID DuoNeb treatments, Symbicort inhaler
- Required nasal mist for sinus dryness due to NC flow; improved
- Continue on 5L NC
#Acute on Chronic constipation (resolved)
- likely multifactorial from opioid pain medication and lack of ambulation
- Required one dose of mag Citrate, had BM on 01/06 after 4 days of no BM
- C/w bowel regimen of Senokot/Miralax, adding Magnesium Citrate if constipation persists for >3 days
#Stage IV Ovarian cancer w/ Mets to the Lung
#Chronic cancer pain with opioid dependence
- Palliative chemotherapy (Taxol) with [facility] q3 weeks
- Is not interested in Hospice at this time. Discussed code status with the patient who desires Full Code.
- C/w Oxycodone 7.5mg Q4h prn. Pain sx controlled on this dose
- Dr. Hensley (Oncologist) aware of current hospitalization. Chemo postponed while on Antibiotics. Patient may discuss resuming palliative chemo after 6 week abx course
#History of Septic Prosthetic Joint
- Holding ppx Keflex 500mg BID. OK to resume outpatient after completion of Cefazolin per ID
#Peripheral Neuropathic Pain
- Stable; c/w home dose gabapentin 600mg QHS
#Dispo:
Med/Surg
DVT PPx: Eliquis
Diet: Regular
Code: Full Code
Anticipated Discharge: 24 - 48 hours
Subjective/Interval History
-
She had no acute events overnight and had no complaints this morning.
Objective Data
-
Vital Signs:
Vital Signs
Temp Pulse Resp BP Pulse Ox
98.3 F 104 16 101/65 98
01/09/24 22:46 01/09/24 22:46 01/09/24 22:46 01/09/24 22:46 01/09/24 22:46
I&O
01/09/24 01/10/24 01/11/24
06:59 06:59 06:59
Intake Total 1000 / 1000 660 / 660
Balance 1000 / 1000 660 / 660
Review of Systems
-
History Source: Patient
All other systems: Reviewed and negative
Respiratory: Reports Trouble Breathing (Stable; unchanged from yesterday)
Physical Exam
-
General: Appears Chronically Ill and Cachectic
HEENT: Normocephalic, Atraumatic, Moist Mucous Membranes, [place] Conjunctivae, PERRLA and Oxygen (5L NC)
Respiratory: Rales and Decreased Breath Sounds
Cardiac: Regular Rhythm and S1/S2
Breast: Deferred by me
GI: Soft, Nontender, Nondistended and Normal Bowel Sounds
Musculoskeletal: No Clubbing, No Cyanosis and Edema, Right Lower Extrem
Skin: Warm, Dry and IV Access / Catheter Site (R Chemo port)
Neuro: Awake, Alert, Oriented and Nonfocal/Grossly Intact
Psych: Calm
--- NOTE | 2024-01-10 08:59 | W.PN.PUL3 ---
Today's Communication / Plan
-
Path still pending
Can plan for pleurx Saturday, discussed with ID on timing of abx
IV abx continued
Will consult IRad for Saturday, if this is confirmed malignant
She will stay through the weekend
Can arrange repeat thora if needed for SOB
Assessment
-
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
right-sided back pain x 3 days. Patient took her Xopenex + albuterol at home which did not improve her symptoms. She also has a dry cough. In the ER she was afebrile to 97.5 �F, tachycardic to 121, breathing at 24 breaths/min, BP 127/82 and
saturating 96% on 5 L/min nasal cannula. Labs showed anemia to 8.2, troponin elevated at 0.094, proBNP elevated at 1470, and COVID-19 antigen negative. CXR showed massive right pleural effusion + REMBERTO lesion. CT chest confirmed large right pleural
effusion as well as small�moderate size left pleural effusion. IR was consulted and placed a right-sided pigtail catheter into the basilar pleural space. Pleural studies showed PMN predominant exudative fluid with low glucose. Pleural fluid
culture grew MSSA on 01/05/2024. Most recent CXR on 01/03/2024 shows residual loculated right apical pleural fluid with small right basilar pleural effusion with adjacent atelectasis/consolidation, and a small left pleural effusion. She continues to
be on her home dose of oxygen however she is on midflow nasal cannula. Pulmonary service now consulted for additional management/recommendations.
Chronic conditions COMPLAINT MANAGER: Osteoarthritis involving multiple joints, history of RA, stage IV ovarian cancer with metastasis to lung, colonic polyps, chronic hypoxic respiratory failure on 5 L/min nasal cannula
Impression:
#Large right pleural effusion + small�moderate left-sided pleural effusion, likely due to known ovarian malignancy with metastasis to lung; differential also includes ADHF
# Right parapneumonic effusion-WBC 2616, exudate, pH 7.34, cultures with MSSA
#Left upper lobe cavitary lesion � currently measures 2.8 x 2.1 x 3 cm (previously measured 3.4 x 2.0 cm in March 2023)
#Chronic anemia (baseline Hb 7.5�9 g/dL)
#Elevated troponin � peaked at 0.094 on 01/01/24
#Elevated proBNP (1470 on 01/01/24)
Plan:
Respiratory status slightly declined since chest tube removed--repeat CXR showing reaccumulation
Continue supplemental oxygen as needed
Aspiration precautions
DuoNebs 4 times daily continue
Symbicort continues
Chest x-ray 01/06/2024-new small right pneumothorax 20% of lung volume inferior aspect of the right pleural space, large amount opacification likely atelectasis and moderate-sized left pleural effusion
Chest x-ray 01/07/2024-to my eye, official report pending, no increase in pneumothorax size, no increase in left pleural effusion
Repeat chest x-ray 01/08/2024 with slight increased shortness of breath-? Increasing pneumothorax-explained to patient if pneumothorax enlarged may require repeat chest tube
Repeat CXR 01/08 showing reaccumulation
We discussed pleurex and she was agreeable- will clarify timing with ID given abx tx--approved for Saturday
Cyto still pending for confirmation of malignant fluid
Cultures reviewed
Empiric antibiotics continue-Ancef
Infectious disease consultation obtained 01/07/2024-correspondence reviewed
Chest tube removed 01/07/2024-suspect uncomplicated parapneumonic effusion
pH 7.34, some WBCs and grew MSSA-chest tube removed after almost complete fluid evacuation
Follow chest x-ray
If left pleural effusion increases in size consider draining this-has not increased and would hold off for now
Chest tube fluid sent for cytology 01/06/2024--still pending
Although this is likely a malignant effusion, her proBNP was elevated, she has +1 lower extremity pitting edema, and there could be a component of acute decompensated heart failure; she also has low albumin which is likely contributing to third
spacing
- Of note, Taxol can cause edema has an adverse reaction (per up-to-date)
- Echocardiogram 01/06/2024-pending
- Fluid/sodium restricted diet is recommended
DVT prophylaxis-on Lovenox
Nutrition
Early mobilization
Patient would like eventual records sent to [facility]
Reviewed with primary team
Code status: Full code --> we would recommend DNR given her cachectic appearance and [id number] will be an ongoing discussion.
Primary team has discussed hospice with her and she is not interested and desires full CODE STATUS
Outpatient pulmonary follow-up including PFTs and monitoring of her pleural effusions
Data:
CTA chest 01/01/24:
1. No evidence of pulmonary embolism.
2. Large right pleural effusion with complete collapse of the right lung and associated mild leftward mediastinal shift.. There is additional small left pleural effusion with left basilar atelectasis.
3. The known centrally cavitating left upper lobe lesion measures 2.8 x 2.1 x 3.0 cm, slightly decreased in size from prior.
4. There is a new sclerotic lesion within the right aspect of the T12 vertebral body extending into the pedicle, although this can be seen as sequelae of treatment response.
Subjective Data
-
Date of Service:
Date of Service: January 10, 2024
Chief Complaint: Pulmonary Follow Up and Dyspnea Follow Up
Subjective:
no new events, remains SOB but unchanged
sitting in chair
Objective Data
Data Reviewed
Vital Signs / I&O / Oxygen:
Vital Signs
Temp Pulse Resp BP Pulse Ox
97.8 F 79 16 105/69 98
01/10/24 07:00 01/10/24 07:15 01/10/24 07:15 01/10/24 07:00 01/10/24 07:15
Intake and Output
01/09/24 01/10/24 01/11/24
06:59 06:59 06:59
Intake Total 1000 / 1000 660 / 660
Balance 1000 / 1000 660 / 660
SaO2 98
Nasal Cannula flow liters per 4
minute
Physical Exam
General: Respiratory Distress (n) and Comfortable
HEENT: Normocephalic, Anicteric, Moist Mucous Membranes and Other (Temporal wasting and cachexia)
Cardiovascular: Regular Rhythm and Murmur
Respiratory: Clear (Diminished breath sounds at bibasilar bases, R>L), Crackles (Few left basilar), Non-Labored Respirations, Accessory Resp Muscle Use (n) and Other (Diminished breath sounds and prolonged expiratory time)
GI: Soft, Non Distended and Non Tender
Neurology: Awake, Alert and No Motor Deficits
Skin: Warm, Good Color, Cyanosis (n), Jaundice (n) and Rash (n)
Labs/Micro/Reports
Lab Data
01/09/24 08:34
01/09/24 08:34
Microbiology
01/07/24 16:20 Blood/Venous Blood Culture - Preliminary
No Growth in 48 hours- Final report to follow
01/07/24 13:20 Blood/Venous Blood Culture - Preliminary
No Growth in 48 hours- Final report to follow
[2024-01-10] MEDS: ELIQUIS 10 MG PO ×2 (10:03→20:36)
[2024-01-10] MEDS: NEURONTIN 300 MG PO (10:03)
[2024-01-10] MEDS: SENOKOT PO ×2 (10:07→20:41)
[2024-01-10 12:26] VITALS: BP 88/66; O2SAT 88
--- NOTE | 2024-01-10 14:10 | W.PN.ID1 ---
Date of Service
Date of Service: January 10, 2024
Today's Communication
- given ongoing chemotherapy, aggressive pathogen, frail patient, would plan a longer course of IV cefazolin - likely 6 weeks 01/05-02/15
- has a port will plan to use this for the duration of therapy
- c/w cefazolin dose to 2 gm IV q8 hrs
- while on cefazolin can hold [employer] keflex; resume keflex on completion of IV cefazolin
Assessment / Plan
Empyema due to MSSA
Stage IV ovarian cancer on chemotherapy (last line by report)
Port
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
Cachexia
- pleural fluid MSSA
- blood cultures no growth to date
- TTE without evidence of vegetations
- discussed timing of pleurex with pulm and I have suggested saturday so that patient has a week of cefazolin therapy prior to placement
- given ongoing chemotherapy, aggressive pathogen, frail patient, would plan a longer course of IV cefazolin - likely 6 weeks 01/05-02/15
- has a port will plan to use this for the duration of therapy
- c/w cefazolin dose to 2 gm IV q8 hrs
- while on cefazolin can hold [employer] keflex; resume keflex on completion of IV cefazolin
Chief Complaint
-: Other (empyema)
Subjective / Review of Systems
afebrile
bp stable
I have not heard back from Dr Hensley yet.
Vital Signs / Physical Exam
Vital Signs
Vital Signs
Temp Pulse Resp BP Pulse Ox
97.8 F 78 16 105/69 99
01/10/24 07:00 01/10/24 11:13 01/10/24 11:13 01/10/24 07:00 01/10/24 11:13
Physical Exam
Constitutional: No Acute Distress and Chronically Ill
Cardiovascular: Regular Rate and S1/S2; Negative Murmur or Rub
Pulmonary: Clear and Symmetric; Negative Wheezes or Rales
Gastrointestinal: Soft, Non Tender, Non Distended and Normal Bowel Sounds
Skin: Warm and Dry; Negative Rash or Jaundice
Objective Data
Lab Data
Lab Results
01/09/24 08:34
01/09/24 08:34
PT 14.0 Sec (11.4-14.6) 01/01/24 11:15
INR 1.08 01/01/24 11:15
APTT 66.5 Sec (23.4-35.0) H 01/08/24 13:59
Estimated Creat Clear 60 ml/min 01/09/24 08:34
Lactic Acid Cancelled 01/01/24 15:00
Total Bilirubin 0.2 mg/dl (0.2-1.3) 01/08/24 05:49
AST 20 U/L (14-36) 01/08/24 05:49
ALT < 10 U/L (0-35) 01/08/24 05:49
Alkaline Phosphatase 71 U/L (38-126) 01/08/24 05:49
Most recent labs reviewed.
Micro Results:
01/07/24 13:20 Blood Culture - Preliminary
Blood/Venous No Growth in 72 hours- Final report to follow
01/07/24 16:20 Blood Culture - Preliminary
Blood/Venous No Growth in 48 hours- Final report to follow
01/01/24 16:35 Body Fluid Culture - Final
Pleural Fluid S aureus-Methicillin Sensitive
Gram Stain - Final
01/01/24 23:41 MRSA Screen - Final
Nose No Methicillin Resistant Staphylococcus aureus isolated.
Care Review
Plan reviewed with: Physician (Dr Dickson - port placement)
--- NOTE | 2024-01-10 14:22 | W.PN.UPDATE ---
Update Note
Progress Note Update
73-year-old female with ovarian cancer diagnosed in 2019,She follows up with Dr. Hensley at [facility] [place]. She had chemotherapy 2 weeks ago.
I personally performed a history and physical exam of the patient and discussed management with the resident. I reviewed the resident's note and agree with the documented findings and plan of care HPI/CC except changes in documentation.
Cardiovascular system S1-S2 appreciated
Chest decreased breath sounds at bases
Abdomen soft and nontender
Right lower extremity edema
Echo 01/06/2024-mildly reduced LV systolic function. EF 45%. Stage I diastolic dysfunction. Normal RV size and function. Mild to moderate TR. Pulmonary artery pressure 44 mmHg.
# Large right-sided pleural effusion-exudate
Cultures growing Staph aureus-MSSA
This qualifies as empyema
Acute hypoxic respiratory failure on chronic hypoxic respiratory failure
Likely secondary to malignancy and also infection
Chest tube was removed
Wean oxygen as tolerated-uses 5 L at home
Pulmonary infectious disease following
Chest x-ray noted-increasing effusion. Plan is for Pleurx catheter Saturday after 1 week of antibiotics
ID evaluation appreciated
Continue Ancef-6 weeks needed per infectious disease
# Right lower extremity DVT-patient was discharged on Eliquis in September. Repeat USS with extensive DVT. Pt stopped taking on her own as OP. Restarted anticoagulation initially with heparin drip changed to Lovenox , will change to Eliquis. OK for
Eliquis to continue while Pleurx . will hold Saturday evening and saturday am.
# Stage IV ovarian cancer with lung metastasis
Original cancer 2020 started chemo then, a year ago she had mets to Lungs
Follows with [facility] and Dr.Steven Hensley [facility] when she comes to [place]
Patient states that she is on the last line of chemotherapy Taxol
Pain control for malignancy related pain with oxycodone
She is on palliative care as outpatient
Not interested in hospice at this point
# Right hip pain s/p R FREDIS in April complicated by dislocation in june 2023 , s/p reduction
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
Revision of right total hip arthroplasty, entire femoral and entire acetabular component and Placement of incisional wound VAC 09/11/23
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
# Anemia-likely secondary to malignancy
# Nonischemic myocardial injury- Trop
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
# Intermittent nausea-as needed Zofran
# Asthma-Symbicort
# Hypoalbuminemia
# DVT prophylaxis-Eliquis
# CODE STATUS-Full code
Discussed with case management
Discussed with pulmonary and ID
Patient does not want to go to rehab she wants to go home with home infusion. VN and patient's daughter who lives next-door will help her
Spoke to Dr. Hensley's nurse practitioner who called me back. Patient is on palliative chemo with Taxol every 3 weeks. After the last 1 there was some improvement in Ca1 25. Patient wants to keep going. They agree that her prognosis is poor. They
stated that after the last thoracentesis she did develop some pneumothorax at [facility] also. We discussed about hydropneumothorax and also empyema. Plans for 6 weeks of antibiotic was discussed. Recommended that she contact them for further
follow-up after discharge. Patient was made aware about this.
Time more than 50 min
[2024-01-10 15:00] VITALS: BP 104/73
--- NOTE | 2024-01-10 15:09 | CM ---
Patient seen bedside with daughter.
patient spoke with [facility] from [facility] this morening.
patient stated she would be here thru the weekend.
patient for Pleurex Saturday.
Plan: Pleurex catheter Saturday, then
[facility] anbx via port. (already set up)
[facility]

[facility]
[id number]
[2024-01-10] MEDS: NSS 1000 IV (18:10)
[2024-01-10] MEDS: NEURONTIN 600 MG PO (20:36)
[2024-01-10 23:48] VITALS: BP 111/66
[2024-01-11] MEDS: ANCEF 10 IV ×3 (04:05→20:36)
--- NOTE | 2024-01-11 07:08 | W.PN.HOSP.TC ---
Assessment / Plan
Assessment / Plan
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
##Large Right Sided Pleural Effusion
#Empyema
- History of 2 prior pleural effusions treated with thoracentesis at outpatient oncologist
- Pleural fluid to be sent for analysis; (+) Light's criteria, likely exudative fluid. Culture (+) for MSSA. Abx narrowed to Cefazolin per ID
- CXR suggestive of trapped lung, likely chronic due to scarring.
- C/w Cefazolin x6 weeks per ID. Can continue at home with VN until February 15.
- Repeat chest Xray demonstrate increasing fluid accumulation. Patient to receive PleurX catheter placement on Saturday, after which she can be discharged home
#Acute on Chronic DVT LLE, previously untreated
- Patient did not take her Eliquis post discharge for LE DVT, has not been on OAC since her August 2023 admission
- LE Venous Doppler on this admission (+) extensive DVT, increased from prior ultrasound
- transition from heparin to Eliquis 10mg BID x7d then 5mg BID. Will need lifelong OAC due to ongoing cancer/thrombophilia
#Acute on Chronic hypoxic respiratory failure w/ home oxygen dependence (resolved)
- Required >5L en route to hospital, currently stable on 5L NC
- C/w QID DuoNeb treatments, Symbicort inhaler
- Required nasal mist for sinus dryness due to NC flow; improved
- Continue on 5L NC
#Acute on Chronic constipation (resolved)
- likely multifactorial from opioid pain medication and lack of ambulation
- Required one dose of mag Citrate, had BM on 01/06 after 4 days of no BM
- C/w bowel regimen of Senokot/Miralax, adding Magnesium Citrate if constipation persists for >3 days
#Stage IV Ovarian cancer w/ Mets to the Lung
#Chronic cancer pain with opioid dependence
- Palliative chemotherapy (Taxol) with [facility] q3 weeks
- Is not interested in Hospice at this time. Discussed code status with the patient who desires Full Code.
- C/w Oxycodone 7.5mg Q4h prn. Pain sx controlled on this dose
- Dr. Hensley (Oncologist) aware of current hospitalization. Chemo postponed while on Antibiotics. Patient may discuss resuming palliative chemo after 6 week abx course
#History of Septic Prosthetic Joint
- Holding ppx Keflex 500mg BID. OK to resume outpatient after completion of Cefazolin per ID
#Peripheral Neuropathic Pain
- Stable; c/w home dose gabapentin 600mg QHS
#Dispo:
Med/Surg
DVT PPx: Eliquis
Diet: Regular
Code: Full Code
Subjective/Interval History
-
Date of Service: January 11, 2024
Objective Data
-
Vital Signs:
Vital Signs
Temp Pulse Resp BP Pulse Ox
98.1 F 98 18 111/66 97
01/10/24 23:48 01/10/24 23:48 01/10/24 23:48 01/10/24 23:48 01/10/24 23:48
I&O
01/10/24 01/11/24 01/12/24
06:59 06:59 06:59
Intake Total 660 / 660 1200 / 1200
Balance 660 / 660 1200 / 1200
[2024-01-11 07:30] VITALS: BP 97/60
[2024-01-11] MEDS: SYMBICORT 160/4.5 MCG INHALER 2 PUFF INH ×2 (08:08→19:38)
[2024-01-11] MEDS: DUONEB 3 ML INH ×4 (08:08→19:38)
[2024-01-11] MEDS: NEURONTIN 300 MG PO (08:50)
[2024-01-11] MEDS: ELIQUIS 10 MG PO ×2 (08:50→20:37)
[2024-01-11] MEDS: SENOKOT 17.2 MG PO (08:51)
--- NOTE | 2024-01-11 09:42 | W.PN.PUL3 ---
Today's Communication / Plan
-
Pleural fluid path still pending
Plan for pleurx Saturday, discussed with ID on timing of abx
IV abx continued
Will consult IRad for Saturday, if this is confirmed malignant
She will stay through the weekend
Can arrange repeat thora if needed for SOB
Repeat CXR tomorrow
Assessment
-
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
right-sided back pain x 3 days. Patient took her Xopenex + albuterol at home which did not improve her symptoms. She also has a dry cough. In the ER she was afebrile to 97.5 �F, tachycardic to 121, breathing at 24 breaths/min, BP 127/82 and
saturating 96% on 5 L/min nasal cannula. Labs showed anemia to 8.2, troponin elevated at 0.094, proBNP elevated at 1470, and COVID-19 antigen negative. CXR showed massive right pleural effusion + REMBERTO lesion. CT chest confirmed large right pleural
effusion as well as small�moderate size left pleural effusion. IR was consulted and placed a right-sided pigtail catheter into the basilar pleural space. Pleural studies showed PMN predominant exudative fluid with low glucose. Pleural fluid
culture grew MSSA on 01/05/2024. Most recent CXR on 01/03/2024 shows residual loculated right apical pleural fluid with small right basilar pleural effusion with adjacent atelectasis/consolidation, and a small left pleural effusion. She continues to
be on her home dose of oxygen however she is on midflow nasal cannula. Pulmonary service now consulted for additional management/recommendations.
Chronic conditions [employer]: Osteoarthritis involving multiple joints, history of RA, stage IV ovarian cancer with metastasis to lung, colonic polyps, chronic hypoxic respiratory failure on 5 L/min nasal cannula
Impression:
#Large right pleural effusion + small�moderate left-sided pleural effusion, likely due to known ovarian malignancy with metastasis to lung; differential also includes ADHF
#Right-sided complicated parapneumonic effusion-WBC 2616, exudate, pH 7.34, cultures with MSSA
#Left upper lobe cavitary lesion � currently measures 2.8 x 2.1 x 3 cm (previously measured 3.4 x 2.0 cm in March 2023)
#Chronic anemia (baseline Hb 7.5�9 g/dL)
#Elevated troponin � peaked at 0.094 on 01/01/24
#Elevated proBNP (1470 on 01/01/24)
Plan:
Respiratory status slightly declined since chest tube removed--repeat CXR showing reaccumulation with right basilar pneumothorax versus trapped lung (I suspect the latter)
Continue supplemental oxygen as needed to keep SpO2 >90-94%
Aspiration precautions
DuoNebs QID with Symbicort
Chest x-ray 01/06/2024-new small right pneumothorax 20% of lung volume inferior aspect of the right pleural space, large amount opacification likely atelectasis and moderate-sized left pleural effusion
Chest x-ray 01/07/2024-to my eye, official report pending, no increase in pneumothorax size, no increase in left pleural effusion
Repeat chest x-ray 01/08/2024 with slight increased shortness of breath-? Increasing pneumothorax-explained to patient if pneumothorax enlarged may require repeat chest tube
Repeat CXR 01/[address] Maher + Dr. Cage discussed pleurex and she was agreeable- will clarify timing with ID given abx tx--approved for Saturday
Cyto still pending for confirmation of malignant fluid
Cultures reviewed
Empiric antibiotics continue-Ancef
Infectious disease consultation obtained 01/07/2024-correspondence reviewed
Chest tube removed 01/07/2024-suspect uncomplicated parapneumonic effusion
pH 7.34, some WBCs and grew MSSA-chest tube removed after almost complete fluid evacuation
Follow chest x-ray
If left pleural effusion increases in size consider draining - this has not increased and would hold off for now
Chest tube fluid sent for cytology 01/06/2024--still pending
Although this is likely a malignant effusion, her proBNP was elevated, she has +1 lower extremity pitting edema, and there could be a component of acute decompensated heart failure; she also has low albumin which is likely contributing to third
spacing
- Of note, Taxol can cause edema has an adverse reaction (per up-to-date)
- Echocardiogram 01/06/2024-shows mildly reduced LVEF of 45% with normal RV size/function, mild�moderate TR with moderate pulmonary hypertension with PASP 44 mmHg assuming an RAP of 3 mmHg
- Fluid/sodium restricted diet is recommended
DVT prophylaxis-on eliquis
Nutrition
Early mobilization
PT/OT - PT rec'd home health
Patient would like eventual records sent to [place]
Reviewed with primary team
Code status: Full code --> we would recommend DNR given her cachectic appearance and [id number] will be an ongoing discussion.
Primary team has discussed hospice with her and she is not interested and desires full code
Outpatient pulmonary follow-up including PFTs and monitoring of her pleural effusions
Pulmonary service will continue to follow along while she remains hospitalized.
Data:
CTA chest 01/01/24:
1. No evidence of pulmonary embolism.
2. Large right pleural effusion with complete collapse of the right lung and associated mild leftward mediastinal shift.. There is additional small left pleural effusion with left basilar atelectasis.
3. The known centrally cavitating left upper lobe lesion measures 2.8 x 2.1 x 3.0 cm, slightly decreased in size from prior.
4. There is a new sclerotic lesion within the right aspect of the T12 vertebral body extending into the pedicle, although this can be seen as sequelae of treatment response.
TTE 01/06/2024:
Mildly reduced left ventricular systolic function. LV ejection fraction is 45%.
Stage I diastolic dysfunction suggestive of abnormal relaxation.
Normal right ventricular size and function.
Mild/moderate tricuspid regurgitation. Mildly elevated PASP. Estimated
pulmonary artery pressure of 44 mmHg, assuming a right atrial pressure of 3
mmHg.
Compared to 09/16/23: LVEF has declined from 50-55% to 45%. PASP has increased
from 33 mmHg to 44 mmHg.
Total time spent today was 50 minutes for this encounter. Time includes reviewing laboratory test/imaging results, reviewing pertinent medical records, obtaining and reviewing medical history, performing an appropriate exam, ordering medications,
tests and procedures. Time also includes documentation of this encounter, coordinating patient care and communicating with other healthcare professionals. Total time does not include separately billed tests performed on this date of service.
Subjective Data
-
Date of Service:
Date of Service: January 11, 2024
Chief Complaint: Pulmonary Follow Up and Dyspnea Follow Up
Subjective:
Patient was seen and evaluated today at bedside. She feels well, denying shortness of breath. Currently on 4 L/min nasal cannula. No chest pain currently. She also denies JANE, abdominal pain, nausea, fevers or chills.
Review of Systems
General: Other (Negative unless mentioned above)
Objective Data
Data Reviewed
Vital Signs / I&O / Oxygen:
Vital Signs
Temp Pulse Resp BP Pulse Ox
98.2 F 82 20 97/60 99
01/11/24 07:30 01/11/24 08:12 01/11/24 08:12 01/11/24 07:30 01/11/24 08:12
Intake and Output
01/10/24 01/11/24 01/12/24
06:59 06:59 06:59
Intake Total 660 / 660 1200 / 1200
Balance 660 / 660 1200 / 1200
SaO2 99
Nasal Cannula flow liters per 4
minute
Physical Exam
General: Respiratory Distress (n), Comfortable, Chills (negative) and Sweats (negative)
HEENT: Normocephalic, Anicteric and Other (Temporal wasting and cachexia)
Cardiovascular: S1-S2, Murmur and Other (normal rate)
Respiratory: Wheeze (negative), Crackles (Few left basilar), Rhonchi (negative), Accessory Resp Muscle Use (n), Other (Diminished breath sounds at bibasilar bases, R>L) and Other (Prolonged expiratory time; coarse breath sounds heard bilaterally)
GI: Soft, Non Distended and Non Tender
Neurology: Awake, Alert and Tremors (negative)
Skin: Warm, Dry, Cyanosis (n), Jaundice (n) and Rash (n)
Labs/Micro/Reports
Lab Data
01/09/24 08:34
01/09/24 08:34
Microbiology
01/07/24 16:20 Blood/Venous Blood Culture - Preliminary
No Growth in 72 hours- Final report to follow
01/07/24 13:20 Blood/Venous Blood Culture - Preliminary
No Growth in 72 hours- Final report to follow
--- NOTE | 2024-01-11 10:49 | W.PN.HOSP.TC ---
Addendum entered and electronically signed by Eligio Schuler MD 01/11/24 15:30:
I saw and evaluated the patient. I reviewed the resident�s note and agree with findings and plan as documented in the resident�s note.
Patient resting comfortably in chair.
Oxygen requirement stable on prophylactic through nasal cannula.
Patient has some dry cough no phlegm production. Afebrile.
1. MSSA empyema
Complex right sided effusion
Trapped lung - Right
Small left pleural effusion
-CT chest images reviewed from admission
-Patient underwent right-sided thoracentesis/pigtail tube placement
-Pleural fluid showing increased fluid WBC of 2616 with PMN 85%. Fluid culture positive for MSSA. Cytopathology report pending.
-Blood culture did not show any bacteremia. TTE did not show any vegetation.
-I recommended for patient IV Ancef for 6 weeks from 01/05 to 02/15
-Suspected some lung entrapment/pneumothorax post drainage, have reaccumulated now.
-Pulm evaluated and due to underlying metastatic lung disease this will likely be a recurrent issues. Patient will require Pleurx tube placement on Saturday
2. Small cavitary lung lesion on left lung
-This is a known ending in size is decreased in comparison to previous imaging
3. Left leg DVT
-Patient has not been taking her home dose of Eliquis for initial diagnosis of left leg DVT in September 19
-Repeat ultrasound showing increasing DVT
-Patient was resumed back on Eliquis, with known history of metastatic cancer patient would require long-term anticoagulant
4. Stage IV Ovarian cancer w/ Mets to the Lung
Chronic cancer pain with opioid dependence
- Palliative chemotherapy (Taxol) with [facility] q3 weeks
- C/w Oxycodone 7.5mg Q4h prn. Pain sx controlled on this dose
- Dr. Hensley (Oncologist) aware of current hospitalization. Chemo postponed while on Antibiotics.
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
- Dx in September 19, currently on chronic immunosuppression with cephalexin
- Resume back on oral cephalexin 500mg BID after finishing IV ancef course
Full code
-
Original Note:
Today's Communication/Plan
-
C/w duonebs, prn pain medication/ Pending Pleurx Catheter placement on saturday.
Assessment / Plan
Assessment / Plan
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
##Large Right Sided Pleural Effusion
#Empyema
- History of 2 prior pleural effusions treated with thoracentesis at outpatient oncologist
- Pleural fluid to be sent for analysis; (+) Light's criteria, likely exudative fluid. Culture (+) for MSSA. Abx narrowed to Cefazolin per ID
- CXR suggestive of trapped lung, likely chronic due to scarring.
- Will need 6 weeks of Cefazolin per ID. Can continue at home with VN until February 15.
- Repeat chest Xray demonstrate increasing fluid accumulation. Patient to receive PleurX catheter placement on Saturday, after which she can be discharged home.
#Acute on Chronic DVT LLE, previously untreated
- Patient did not take her Eliquis post discharge for LE DVT, has not been on OAC since her August 2023 admission
- LE Venous Doppler on this admission (+) extensive DVT, increased from prior ultrasound
- Now on Eliquis 10mg BID until 01/15, then 5mg BID. Will need lifelong OAC due to ongoing cancer/thrombophilia
#Acute on Chronic hypoxic respiratory failure w/ home oxygen dependence (resolved)
- Required >5L en route to hospital, currently stable on 5L NC
- C/w QID DuoNeb treatments, Symbicort inhaler
- Required nasal mist for sinus dryness due to NC flow; improved
- Continue on 5L NC
#Acute on Chronic constipation (resolved)
- likely multifactorial from opioid pain medication and lack of ambulation
- C/w bowel regimen of Senokot/Miralax, adding Magnesium Citrate if constipation persists for >3 days
#Stage IV Ovarian cancer w/ Mets to the Lung
#Chronic cancer pain with opioid dependence
- Palliative chemotherapy (Taxol) with [facility] q3 weeks
- Is not interested in Hospice at this time. Discussed code status with the patient who desires Full Code.
- C/w Oxycodone 7.5mg Q4h prn. Pain sx controlled on this dose
- Dr. Hensley (Oncologist) aware of current hospitalization. Chemo postponed while on Antibiotics. Patient may discuss resuming palliative chemo after 6 week abx course
#History of Septic Prosthetic Joint
- Holding ppx Keflex 500mg BID. OK to resume outpatient after completion of Cefazolin per ID
#Peripheral Neuropathic Pain
- Stable; c/w home dose gabapentin 600mg QHS
#Dispo:
Med/Surg
DVT PPx: Eliquis
Diet: Regular
Code: Full Code
Anticipated Discharge: 24 - 48 hours
Subjective/Interval History
-
No acute events overnight. No acute complaints this morning.
Objective Data
-
Vital Signs:
Vital Signs
Temp Pulse Resp BP Pulse Ox
98.2 F 82 20 97/60 99
01/11/24 07:30 01/11/24 08:12 01/11/24 08:12 01/11/24 07:30 01/11/24 08:12
I&O
01/10/24 01/11/24 01/12/24
06:59 06:59 06:59
Intake Total 660 / 660 1200 / 1200
Balance 660 / 660 1200 / 1200
Review of Systems
-
History Source: Patient
All other systems: Reviewed and negative
Physical Exam
-
General: Appears Chronically Ill and Cachectic
HEENT: Normocephalic, Atraumatic, Moist Mucous Membranes, Anicteric, [place] Conjunctivae and PERRLA
Respiratory: Crackles and Decreased Breath Sounds; Negative Accessory Resp Muscle Use
Cardiac: Regular Rhythm and S1/S2; Negative Murmur, Rub or Calf Tenderness
Breast: Deferred by me
GI: Soft, Nontender, Nondistended and Normal Bowel Sounds
Musculoskeletal: No Clubbing, No Cyanosis and Edema, Right Lower Extrem (slightly improved from yesterday)
Skin: Warm, Dry and IV Access / Catheter Site (R IJ chemo port )
Neuro: Awake, Alert and Oriented
[2024-01-11] MEDS: ROXICODONE 5 MG PO ×2 (13:42→20:38)
[2024-01-11 14:52] VITALS: BP 100/60; BP 88/66; O2SAT 99
[2024-01-11 15:07] VITALS: BP 99/65
[2024-01-11] MEDS: NEURONTIN 600 MG PO (20:36)
[2024-01-11] MEDS: SENOKOT PO (20:37)
[2024-01-11] MEDS: TUMS CHEWABLE TABLET 400 MG PO (21:43)
[2024-01-11 23:25] VITALS: BP 100/68
[2024-01-12] MEDS: ANCEF 10 IV ×3 (04:07→19:56)
--- NOTE | 2024-01-12 06:57 | W.PN.HOSP.TC ---
Addendum entered and electronically signed by Eligio Schuler MD 01/12/24 13:26:
I saw and evaluated the patient. I reviewed the resident�s note and agree with findings and plan as documented in the resident�s note.
1. MSSA empyema - Right
Complex right sided effusion
Trapped lung - Right
Small left pleural effusion
-CT chest images reviewed from admission
-Patient underwent right-sided thoracentesis/pigtail tube placement
-Pleural fluid showing increased fluid WBC of 2616 with PMN 85%. Fluid culture positive for MSSA. Cytopathology report pending.
-Blood culture did not show any bacteremia. TTE did not show any vegetation.
-ID recommended for patient IV Ancef for 6 weeks from 01/05 to 02/15
-Suspected some lung entrapment/pneumothorax ex vacuo post drainage, have reaccumulated on repeat imaging.
-Pulm evaluated and due to underlying metastatic lung disease this will likely be a recurrent issues. Patient will require Pleurx tube placement on Saturday
2. Small cavitary lung lesion on left lung
-This is a known ending in size is decreased in comparison to previous imaging
3. Right leg DVT
-Patient has not been taking her home dose of Eliquis for initial diagnosis of left leg DVT in September 19
-Repeat ultrasound showing increasing DVT
-Patient was resumed back on Eliquis, with known history of metastatic cancer patient would require long-term anticoagulant
4. Stage IV Ovarian cancer w/ Mets to the Lung
Chronic cancer pain with opioid dependence
- Palliative chemotherapy (Taxol) with [facility] q3 weeks
- C/w Oxycodone 7.5mg Q4h prn. Pain sx controlled on this dose
- Dr. Hensley (Oncologist) aware of current hospitalization. Chemo postponed while on Antibiotics.
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
- Dx in September 19, currently on chronic immunosuppression with cephalexin
- Resume back on oral cephalexin 500mg BID after finishing IV ancef course
Full code
Original Note:
Today's Communication/Plan
-
C/w abx, hold Eliquis for catheter placement tomorrow, pain control. Pleurx catheter placement on Saturday. May need to hold discharge until Saturday for medical supplies to arrive at home
Assessment / Plan
Assessment / Plan
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
##Large Right Sided Pleural Effusion
#Empyema
- History of 2 prior pleural effusions treated with thoracentesis at outpatient oncologist
- Pleural fluid (+) Light's criteria, exudative fluid. Culture (+) for MSSA. Abx narrowed to Cefazolin per ID
- CXR suggestive of trapped lung, likely chronic due to scarring. Known cavitating lesion on the left upper lobe
- Will need 6 weeks of Cefazolin per ID. Can continue at home with VN until February 15.
- Repeat chest Xray demonstrate increasing fluid accumulation.
- Patient to receive PleurX catheter placement on Saturday, after which she can be discharged home.
#Acute on Chronic DVT LLE, previously untreated
- Patient did not take her Eliquis post discharge for LE DVT, has not been on OAC since her August 2023 admission
- LE Venous Doppler during this admission (+) extensive DVT, increased from prior ultrasound
- Hold Eliquis today for catheter placement tomorrow.
#Acute on Chronic hypoxic respiratory failure w/ home oxygen dependence (resolved)
- Required >5L en route to hospital, currently stable on 4-5L NC
- C/w QID DuoNeb treatments, Symbicort inhaler, O2 NC as needed for saturations >88% and nasal mist
#Stage IV Ovarian cancer w/ Mets to the Lung
#Chronic cancer pain with opioid dependence
- Palliative chemotherapy (Taxol) with [facility] q3 weeks
- Is not interested in Hospice at this time. Discussed code status with the patient who desires Full Code.
- C/w Oxycodone 7.5mg Q4h prn. Pain sx controlled on this dose
- Dr. Hensley (Oncologist) aware of current hospitalization. Chemo postponed while on Antibiotics. Patient may discuss resuming palliative chemo after 6 week abx course
#Acute on Chronic constipation, multifactorial (resolved)- C/w bowel regimen of Senokot/Miralax, adding Magnesium Citrate if constipation persists for >3 days
#History of Prosthetic Joint Infection - Holding ppx Keflex. OK to resume outpatient after completion of Cefazolin per ID
#Peripheral Neuropathic Pain - Stable; c/w home dose gabapentin 600mg QHS
#Dispo:
Med/Surg
DVT PPx: Eliquis
Diet: Regular
Code: Full Code
Anticipated Discharge: 24 - 48 hours
Subjective/Interval History
-
No acute overnight events. Her shortness of breath is minimally increased upon first waking up but has since resolved. She has no other acute complaints. She says that the supplies for her home IV Abx administration may not arrive until Saturday.
Objective Data
-
Vital Signs:
Vital Signs
Temp Pulse Resp BP Pulse Ox
97.6 F 96 16 100/68 98
01/11/24 23:25 01/11/24 23:25 01/11/24 23:25 01/11/24 23:25 01/11/24 23:25
I&O
01/10/24 01/11/24 01/12/24
06:59 06:59 06:59
Intake Total 660 / 660 1200 / 1200 880 / 880
Balance 660 / 660 1200 / 1200 880 / 880
Review of Systems
-
History Source: Patient
All other systems: Reviewed and negative
Respiratory: Reports Trouble Breathing
Hematologic / Lymphatic: Reports Blood Clots
Physical Exam
-
General: Appears Chronically Ill and Cachectic
HEENT: Normocephalic, Atraumatic, Moist Mucous Membranes, Anicteric, [place] Conjunctivae and PERRLA
Respiratory: Crackles and Decreased Breath Sounds
Cardiac: Regular Rhythm and S1/S2; Negative Murmur or Calf Tenderness
Breast: Deferred by me
GI: Soft, Nontender, Nondistended and Normal Bowel Sounds
Rectal: Deferred by Provider
Genito-urinary: Deferred by me
Musculoskeletal: No Clubbing, No Cyanosis and Edema, Right Lower Extrem
Skin: Warm, Dry and IV Access / Catheter Site (R IJ Chemo port)
Neuro: Awake, Alert, Oriented, No Motor Deficits and No Sensory Deficits
Psych: Calm
[2024-01-12 07:10] VITALS: BP 98/67
[2024-01-12] MEDS: SYMBICORT 160/4.5 MCG INHALER 2 PUFF INH ×2 (07:21→19:56)
[2024-01-12] MEDS: DUONEB 3 ML INH ×4 (07:21→19:56)
[2024-01-12] MEDS: NEURONTIN 300 MG PO (09:12)
[2024-01-12] MEDS: SENOKOT 17.2 MG PO (09:12)
[2024-01-12] MEDS: ELIQUIS PO ×2 (09:12→09:58)
--- NOTE | 2024-01-12 09:36 | W.PN.PUL3 ---
Today's Communication / Plan
-
Pleural fluid path still pending
Plan for pleurx tomorrow, discussed with ID on timing of abx --> consult IR (still awaiting cytopathology to confirm malignant R-sided effusion - unclear if IR needs this to result before placing pleurX)
IV abx continued
Can arrange repeat thora if needed for SOB
Continue Symbicort + prn DuoNebs
Assessment
-
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
right-sided back pain x 3 days. Patient took her Xopenex + albuterol at home which did not improve her symptoms. She also has a dry cough. In the ER she was afebrile to 97.5 �F, tachycardic to 121, breathing at 24 breaths/min, BP 127/82 and
saturating 96% on 5 L/min nasal cannula. Labs showed anemia to 8.2, troponin elevated at 0.094, proBNP elevated at 1470, and COVID-19 antigen negative. CXR showed massive right pleural effusion + REMBERTO lesion. CT chest confirmed large right pleural
effusion as well as small�moderate size left pleural effusion. IR was consulted and placed a right-sided pigtail catheter into the basilar pleural space. Pleural studies showed PMN predominant exudative fluid with low glucose. Pleural fluid
culture grew MSSA on 01/05/2024. Most recent CXR on 01/03/2024 shows residual loculated right apical pleural fluid with small right basilar pleural effusion with adjacent atelectasis/consolidation, and a small left pleural effusion. She continues to
be on her home dose of oxygen however she is on midflow nasal cannula. Pulmonary service now consulted for additional management/recommendations.
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
Impression:
#Large right pleural effusion + small�moderate left-sided pleural effusion, likely due to known ovarian malignancy with metastasis to lung; differential also includes ADHF
#Right-sided complicated parapneumonic effusion-WBC 2616, exudate, pH 7.34, cultures with MSSA
#Left upper lobe cavitary lesion � currently measures 2.8 x 2.1 x 3 cm (previously measured 3.4 x 2.0 cm in March 2023)
#Chronic anemia (baseline Hb 7.5�9 g/dL)
#Elevated troponin � peaked at 0.094 on 01/01/24
#Elevated proBNP (1470 on 01/01/24)
Plan:
Respiratory status slightly declined since chest tube removed--repeat CXR showing reaccumulation with right basilar pneumothorax versus trapped lung (I suspect the latter)
Continue supplemental oxygen as needed to keep SpO2 >90-94%
Aspiration precautions
DuoNebs QID with Symbicort
Chest x-ray 01/06/2024-new small right pneumothorax 20% of lung volume inferior aspect of the right pleural space, large amount opacification likely atelectasis and moderate-sized left pleural effusion
Chest x-ray 01/07/2024-to my eye, official report pending, no increase in pneumothorax size, no increase in left pleural effusion
Repeat chest x-ray 01/08/2024 with slight increased shortness of breath-? Increasing pneumothorax-explained to patient if pneumothorax enlarged may require repeat chest tube
Repeat CXR 01/[address] Maher + Dr. Cage discussed pleurex and she was agreeable- will clarify timing with ID given abx tx--approved for tomorrow (01/12)
Cyto still pending for confirmation of malignant fluid
Cultures reviewed
Empiric antibiotics continue-Ancef
Infectious disease consultation obtained 01/07/2024-correspondence reviewed
Chest tube removed 01/07/2024-suspect uncomplicated parapneumonic effusion
pH 7.34, some WBCs and grew MSSA-chest tube removed after almost complete fluid evacuation
Follow chest x-ray --> repeat this AM (01/11) shows improved right basilar pneumothorax with worsened size of right-sided loculated effusion and stable left loculated pleural effusion
If left pleural effusion increases in size consider draining - this has not increased and would hold off for now
Chest tube fluid sent for cytology 01/06/2024--still pending
Although this is likely a malignant effusion, her proBNP was elevated, she has +1 lower extremity pitting edema, and there could be a component of acute decompensated heart failure; she also has low albumin which is likely contributing to third
spacing
- Of note, Taxol can cause edema has an adverse reaction (per up-to-date)
- Echocardiogram 01/06/2024-shows mildly reduced LVEF of 45% with normal RV size/function, mild�moderate TR with moderate pulmonary hypertension with PASP 44 mmHg assuming an RAP of 3 mmHg
- Fluid/sodium restricted diet is recommended
DVT prophylaxis-on eliquis
Nutrition
Early mobilization
PT/OT - PT rec'd home health
Patient would like eventual records sent to [place]
Reviewed with primary team
Code status: Full code --> we would recommend DNR given her cachectic appearance and [id number] will be an ongoing discussion.
Primary team has discussed hospice with her and she is not interested and desires full code
Outpatient pulmonary follow-up including PFTs and monitoring of her pleural effusions
Pulmonary service will continue to follow along while she remains hospitalized.
Data:
CTA chest 01/01/24:
1. No evidence of pulmonary embolism.
2. Large right pleural effusion with complete collapse of the right lung and associated mild leftward mediastinal shift.. There is additional small left pleural effusion with left basilar atelectasis.
3. The known centrally cavitating left upper lobe lesion measures 2.8 x 2.1 x 3.0 cm, slightly decreased in size from prior.
4. There is a new sclerotic lesion within the right aspect of the T12 vertebral body extending into the pedicle, although this can be seen as sequelae of treatment response.
CXR 01/12/2024:
Significantly improved right basilar pneumothorax/have lung.
Small right apical probable pneumothorax/trapped lung. Stable
Right perihilar opacification concerning for likely pleural effusion. Pneumonia, atelectasis and underlying mass not excluded.
Moderate loculated right pleural effusion. Progressed.
Moderate loculated left pleural effusion. Stable
TTE 01/06/2024:
Mildly reduced left ventricular systolic function. LV ejection fraction is 45%.
Stage I diastolic dysfunction suggestive of abnormal relaxation.
Normal right ventricular size and function.
Mild/moderate tricuspid regurgitation. Mildly elevated PASP. Estimated
pulmonary artery pressure of 44 mmHg, assuming a right atrial pressure of 3
mmHg.
Compared to 09/16/23: LVEF has declined from 50-55% to 45%. PASP has increased
from 33 mmHg to 44 mmHg.
Total time spent today was 50 minutes for this encounter. Time includes reviewing laboratory test/imaging results, reviewing pertinent medical records, obtaining and reviewing medical history, performing an appropriate exam, ordering medications,
tests and procedures. Time also includes documentation of this encounter, coordinating patient care and communicating with other healthcare professionals. Total time does not include separately billed tests performed on this date of service.
Subjective Data
-
Date of Service:
Date of Service: January 12, 2024
Chief Complaint: Pulmonary Follow Up and Dyspnea Follow Up
Subjective:
Patient seen and evaluated today at bedside. She feels well although had some phlegm production earlier this morning. Currently on 4 L/min nasal cannula. SpO2 97%. Afebrile overnight. She denies JANE, abdominal pain, nausea, fevers or chills.
Review of Systems
General: Other (Negative unless mentioned above)
Objective Data
Data Reviewed
Vital Signs / I&O / Oxygen:
Vital Signs
Temp Pulse Resp BP Pulse Ox
98.0 F 84 17 98/67 94
01/12/24 07:10 01/12/24 07:23 01/12/24 07:23 01/12/24 07:10 01/12/24 07:23
Intake and Output
01/11/24 01/12/24 01/13/24
06:59 06:59 06:59
Intake Total 1200 / 1200 880 / 880
Balance 1200 / 1200 880 / 880
SaO2 94
Nasal Cannula flow liters per 4
minute
Physical Exam
General: Respiratory Distress (n), Comfortable, Chills (negative) and Sweats (negative)
HEENT: Normocephalic, Anicteric and Other (Temporal wasting and cachexia)
Cardiovascular: S1-S2, Murmur and Other (normal rate)
Respiratory: Wheeze (negative), Crackles (Few left basilar), Rhonchi (negative), Accessory Resp Muscle Use (n), Other (Diminished breath sounds at bibasilar bases, R>L) and Other (Prolonged expiratory time; coarse breath sounds heard bilaterally)
GI: Soft, Non Distended and Non Tender
Neurology: Awake, Alert and Tremors (negative)
Skin: Warm, Dry, Cyanosis (n), Jaundice (n) and Rash (n)
Labs/Micro/Reports
Lab Data
01/09/24 08:34
01/09/24 08:34
Microbiology
01/07/24 16:20 Blood/Venous Blood Culture - Preliminary
No Growth in 4 days- Final report to follow
01/07/24 13:20 Blood/Venous Blood Culture - Preliminary
No Growth in 4 days- Final report to follow
[2024-01-12] MEDS: ROXICODONE 5 MG PO ×2 (12:26→17:56)
[2024-01-12] MEDS: ZYRTEC 10 MG PO (13:25)
[2024-01-12 15:35] VITALS: BP 98/63
[2024-01-12 15:49] VITALS: BP 98/63
[2024-01-12] MEDS: NEURONTIN 600 MG PO (19:56)
[2024-01-12] MEDS: SENOKOT PO (20:05)
[2024-01-12 23:00] VITALS: BP 95/62
[2024-01-13] VITALS (10 sets, daily range): BP systolic 88–113; BP diastolic 60–77
[2024-01-13] MEDS: ANCEF 10 IV ×3 (04:10→21:17)
[2024-01-13] MEDS: DUONEB 3 ML INH ×4 (07:08→19:30)
[2024-01-13] MEDS: SYMBICORT 160/4.5 MCG INHALER 2 PUFF INH ×2 (07:08→19:29)
[2024-01-13] MEDS: SENOKOT 17.2 MG PO (08:11)
[2024-01-13] MEDS: ZYRTEC 10 MG PO (08:12)
[2024-01-13] MEDS: NEURONTIN 300 MG PO (08:12)
--- NOTE | 2024-01-13 09:27 | W.PN.HOSP.TC ---
Addendum entered and electronically signed by Luca James MD 01/13/24 15:10:
Severe protein calorie malnutrition
Addendum entered and electronically signed by Luca James MD 01/13/24 10:31:
I saw and evaluated the patient. I reviewed the resident�s note and agree with findings and plan as documented in the resident�s note.
No new complaints.
No acute distress, awake and alert, appears chronically ill and cachectic/malnourished
Regular rate and rhythm, normal S1-S2
Decreased breath sounds in the right base, otherwise clear to auscultation bilaterally
Cranial nerves II through XII are intact, nonfocal
Large right-sided empyema:
-Had chest tube earlier during admission. Fluid studies with exudate with MSSA.
-For Pleurx catheter today
-Continue Ancef to complete 6 weeks of antibiotic therapy
Original Note:
Today's Communication/Plan
-
PleurX catheter placement today. Resume PM Eliquis and possible discharge today if medical supplies will arrive on time.
Assessment / Plan
Assessment / Plan
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
##Large Right Sided Pleural Effusion
#Empyema
- History of 2 prior pleural effusions treated with thoracentesis at outpatient oncologist
- Pleural fluid (+) Light's criteria, exudative fluid. Culture (+) for MSSA. Abx narrowed to Cefazolin per ID
- CXR suggestive of trapped lung, likely chronic due to scarring. Known cavitating lesion on the left upper lobe
- Will need 6 weeks of Cefazolin per ID. Can continue at home with VN until February 15.
- Repeat chest Xray demonstrate increasing fluid accumulation.
- Patient to receive PleurX catheter placement Today, after which she can be discharged home pending arrival of equipment for home administration of IV abx.
#Acute on Chronic DVT LLE, previously untreated
- Patient did not take her Eliquis post discharge for LE DVT, has not been on OAC since her August 2023 admission
- LE Venous Doppler during this admission (+) extensive DVT, increased from prior ultrasound
- Catheter placement today- resume Eliquis 8pm dose.
#Acute on Chronic hypoxic respiratory failure w/ home oxygen dependence (resolved)
- Required >5L en route to hospital, currently stable on 4-5L NC
- C/w QID DuoNeb treatments, Symbicort inhaler, O2 NC as needed for saturations >88% and nasal mist
#Stage IV Ovarian cancer w/ Mets to the Lung
#Chronic cancer pain with opioid dependence
- Palliative chemotherapy (Taxol) with [facility] q3 weeks
- Is not interested in Hospice at this time. Discussed code status with the patient who desires Full Code.
- C/w Oxycodone 7.5mg Q4h prn. Pain sx controlled on this dose
- Dr. Hensley (Oncologist) aware of current hospitalization. Chemo postponed while on Antibiotics. Patient may discuss resuming palliative chemo after 6 week abx course
#Acute on Chronic constipation, multifactorial (resolved)- C/w bowel regimen of Senokot/Miralax, adding Magnesium Citrate if constipation persists for >3 days
#History of Prosthetic Joint Infection - Holding ppx Keflex. OK to resume outpatient after completion of Cefazolin per ID
#Peripheral Neuropathic Pain - Stable; c/w home dose gabapentin 600mg QHS
#Dispo:
Med/Surg
DVT PPx: Eliquis
Diet: Regular
Code: Full Code
Anticipated Discharge: Today
Subjective/Interval History
-
Seen in the AM. Patient was resting comfortably and reading her lisa. No acute events over night and no acute complaints this morning. Itchy eyes have improved with Zyrtec. SOB unchanged.
Objective Data
-
Vital Signs:
Vital Signs
Temp Pulse Resp BP Pulse Ox
98 F 96 12 103/66 97
01/13/24 07:37 01/13/24 07:37 01/13/24 07:37 01/13/24 07:37 01/13/24 07:37
I&O
01/12/24 01/13/24 01/14/24
06:59 06:59 06:59
Intake Total 880 / 880 900 / 900
Output Total 50 / 50
Balance 880 / 880 850 / 850
Review of Systems
-
History Source: Patient
All other systems: Reviewed and negative
Constitutional: Reports No Symptoms
EENT: Reports No Symptoms Reported
Respiratory: Reports Trouble Breathing
Cardiac: Reports No Symptoms
Abdomen/GI: Reports No Symptoms
Breast: Reports No Symptoms
Genitourinary: Reports No Symptoms
Musculoskeletal: Reports No Symptoms
Skin: Reports No Symptoms
Neuro: Reports No Symptoms
Hematologic / Lymphatic: Reports Blood Clots
Physical Exam
-
General: Comfortable, Appears Chronically Ill and Cachectic
HEENT: Normocephalic, Atraumatic, Moist Mucous Membranes, Anicteric, Kersey Conjunctivae and PERRLA
Respiratory: Decreased Breath Sounds
Breast: Deferred by me
GI: Soft, Nontender, Nondistended and Normal Bowel Sounds
Rectal: Deferred by Provider
Genito-urinary: No Costovertebral Tender
Musculoskeletal: No Clubbing, No Cyanosis and Edema, Right Lower Extrem
Skin: Warm, Dry and IV Access / Catheter Site (R IJ Chemo port)
Neuro: AO x 3, No Motor Deficits and No Sensory Deficits
Psych: Calm
[2024-01-13] MEDS: ROXICODONE 5 MG PO ×3 (11:07→21:58)
--- NOTE | 2024-01-13 12:49 | CM ---
Addendum entered by Evelia Boyd 01/13/24 15:17:
CM received update from [facility], able to accept [facility] patient for [facility]. [facility] from [facility] present for bedside teaching. Plan for discharge tomorrow, update to Resident, [facility] from [facility]. Patient seen bedside resting, updated on plan for
discharge tomorrow. Patient reports she has transportation home.
Original Note:
CM reviewed chart, met with patient and daughter bedside. Patient for catheter placement today, awaiting to confirm from patients agency that they can accept patient with Asept Cath. CM spoke with Taylor from [facility] multiple times,
provided [facility] with name of medical company hospital uses for draining kits - [facility] ([phone]). Patient will be sent home with drainage kit. [facility] awaiting to hear from regional team if they are able to accept return of care
patient with cath. Update to [facility] at [facility]. If [facility] unable to accept patient with cath, patient will need a new agency. CM will continue to follow for all discharge planning needs.
Plan; home with [facility] and [facility] pending response if able to accept patient with cath placement.
[facility]'

[facility]
--- NOTE | 2024-01-13 13:08 | W.PN.PUL3 ---
Today's Communication / Plan
-
Continue antibiotic
For Pleurx catheter tomorrow
Assessment
-
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
right-sided back pain x 3 days. Patient took her Xopenex + albuterol at home which did not improve her symptoms. She also has a dry cough. In the ER she was afebrile to 97.5 �F, tachycardic to 121, breathing at 24 breaths/min, BP 127/82 and
saturating 96% on 5 L/min nasal cannula. Labs showed anemia to 8.2, troponin elevated at 0.094, proBNP elevated at 1470, and COVID-19 antigen negative. CXR showed massive right pleural effusion + REMBERTO lesion. CT chest confirmed large right pleural
effusion as well as small�moderate size left pleural effusion. IR was consulted and placed a right-sided pigtail catheter into the basilar pleural space. Pleural studies showed PMN predominant exudative fluid with low glucose. Pleural fluid
culture grew MSSA on 01/05/2024. Most recent CXR on 01/03/2024 shows residual loculated right apical pleural fluid with small right basilar pleural effusion with adjacent atelectasis/consolidation, and a small left pleural effusion. She continues to
be on her home dose of oxygen however she is on midflow nasal cannula. Pulmonary service now consulted for additional management/recommendations.
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
Impression:
#Large right pleural effusion + small�moderate left-sided pleural effusion, likely due to known ovarian malignancy with metastasis to lung; differential also includes ADHF
#Right-sided complicated parapneumonic effusion-WBC 2616, exudate, pH 7.34, cultures with MSSA
#Left upper lobe cavitary lesion � currently measures 2.8 x 2.1 x 3 cm (previously measured 3.4 x 2.0 cm in March 2023)
#Chronic anemia (baseline Hb 7.5�9 g/dL)
#Elevated troponin � peaked at 0.094 on 01/01/24
#Elevated proBNP (1470 on 01/01/24)
Plan:
Respiratory status slightly declined since chest tube removed--repeat CXR showing reaccumulation with right basilar pneumothorax versus trapped lung (I suspect the latter)
-
Continue current bronchodilator regimen: DuoNebs QID with Symbicort
-
Chest x-ray 01/06/2024-new small right pneumothorax 20% of lung volume inferior aspect of the right pleural space, large amount opacification likely atelectasis and moderate-sized left pleural effusion.
Chest tube removed 01/07/2024-suspect complicated parapneumonic effusion
pH 7.34, some WBCs and grew MSSA-chest tube removed after almost complete fluid evacuation
Repeat chest x-ray 01/08/2024 with slight increased shortness of breath-? Increasing pneumothorax-explained to patient if pneumothorax enlarged may require repeat chest tube
Chest x-ray 01/12/2024: Reviewed small apical pneumothorax-likely trapped lung. Moderate loculated right pleural effusion progress. Moderate loculated left pleural effusion is stable. No pneumothorax.
Dr. Maher + Dr. Cage discussed pleurex and she was agreeable--approved for 01/13/2024
Cytology from pleural fluid pending
Empyema-positive MSSA
Empiric antibiotics continue-Ancef
Infectious disease consultation obtained 01/07/2024-correspondence reviewed
Chest tube fluid sent for cytology 01/06/2024--still pending
Although this is likely a malignant effusion, her proBNP was elevated, she has +1 lower extremity pitting edema, and there could be a component of acute decompensated heart failure; she also has low albumin which is likely contributing to third
spacing
- Of note, Taxol can cause edema has an adverse reaction (per up-to-date)
- Echocardiogram 01/06/2024-shows mildly reduced LVEF of 45% with normal RV size/function, mild�moderate TR with moderate pulmonary hypertension with PASP 44 mmHg assuming an RAP of 3 mmHg
Cachectic: Continue with nutritional support.
DVT prophylaxis-on eliquis
PT/OT - PT rec'd home health
Patient would like eventual records sent to [place]
Code status: Full code --> we would recommend DNR given her cachectic appearance and [id number] will be an ongoing discussion.
Primary team has discussed hospice with her and she is not interested and desires full code
Outpatient pulmonary follow-up including PFTs and monitoring of her pleural effusions
Pulmonary service will continue to follow along while she remains hospitalized.
Follow-up with Dr. Cage after discharge
Data:
CTA chest 01/01/24:
1. No evidence of pulmonary embolism.
2. Large right pleural effusion with complete collapse of the right lung and associated mild leftward mediastinal shift.. There is additional small left pleural effusion with left basilar atelectasis.
3. The known centrally cavitating left upper lobe lesion measures 2.8 x 2.1 x 3.0 cm, slightly decreased in size from prior.
4. There is a new sclerotic lesion within the right aspect of the T12 vertebral body extending into the pedicle, although this can be seen as sequelae of treatment response.
CXR 01/12/2024:
Significantly improved right basilar pneumothorax/have lung.
Small right apical probable pneumothorax/trapped lung. Stable
Right perihilar opacification concerning for likely pleural effusion. Pneumonia, atelectasis and underlying mass not excluded.
Moderate loculated right pleural effusion. Progressed.
Moderate loculated left pleural effusion. Stable
TTE 01/06/2024:
Mildly reduced left ventricular systolic function. LV ejection fraction is 45%.
Stage I diastolic dysfunction suggestive of abnormal relaxation.
Normal right ventricular size and function.
Mild/moderate tricuspid regurgitation. Mildly elevated PASP. Estimated
pulmonary artery pressure of 44 mmHg, assuming a right atrial pressure of 3
mmHg.
Compared to 09/16/23: LVEF has declined from 50-55% to 45%. PASP has increased
from 33 mmHg to 44 mmHg.
Total time spent today was 50 minutes for this encounter. Time includes reviewing laboratory test/imaging results, reviewing pertinent medical records, obtaining and reviewing medical history, performing an appropriate exam, ordering medications,
tests and procedures. Time also includes documentation of this encounter, coordinating patient care and communicating with other healthcare professionals. Total time does not include separately billed tests performed on this date of service.
Subjective Data
-
Date of Service:
Date of Service: January 13, 2024
Chief Complaint: Pulmonary Follow Up and Dyspnea Follow Up
Subjective:
No new complaints
Normal distress at rest
Denies any chest discomfort
Denies any cough or phlegm production
Review of Systems
Cardiopulmonary: Dyspnea on Exertion
Objective Data
Data Reviewed
Vital Signs / I&O / Oxygen:
Vital Signs
Temp Pulse Resp BP Pulse Ox
98 F 90 17 103/66 98
01/13/24 07:37 01/13/24 11:19 01/13/24 11:19 01/13/24 07:37 01/13/24 11:19
Intake and Output
01/12/24 01/13/24 01/14/24
06:59 06:59 06:59
Intake Total 880 / 880 900 / 900
Output Total 50 / 50
Balance 880 / 880 850 / 850
SaO2 98
Nasal Cannula flow liters per 4
minute
Physical Exam
General: Respiratory Distress (n), Comfortable, Chills (negative) and Sweats (negative)
HEENT: Normocephalic, Anicteric and Other (Temporal wasting and cachexia)
Cardiovascular: S1-S2, Murmur and Other (normal rate)
Respiratory: Wheeze (negative), Crackles (Few left basilar), Rhonchi (negative), Accessory Resp Muscle Use (n), Other (Diminished breath sounds at bibasilar bases, R>L) and Other (Prolonged expiratory time; coarse breath sounds heard bilaterally)
GI: Soft, Non Distended and Non Tender
Neurology: Awake, Alert and Tremors (negative)
Skin: Warm, Dry, Cyanosis (n), Jaundice (n) and Rash (n)
Labs/Micro/Reports
Lab Data
01/09/24 08:34
01/09/24 08:34
Microbiology
01/07/24 16:20 Blood/Venous Blood Culture - Final
No Growth - Final Report
01/07/24 13:20 Blood/Venous Blood Culture - Final
No Growth - Final Report
--- NOTE | 2024-01-13 13:15 | W.PN.ID1 ---
Date of Service
Date of Service: January 13, 2024
Today's Communication
- c/w cefazolin 2 gm IV q8 hrs through 02/16/24
- while on cefazolin can hold CARBIDE TOOL MAKER keflex; resume keflex on completion of IV cefazolin
Assessment / Plan
Empyema due to MSSA
Stage IV ovarian cancer on chemotherapy (last line by report)
Port
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
Cachexia
- pleurex today
- given ongoing chemotherapy, aggressive pathogen, frail patient, would plan a longer course of IV cefazolin - likely 6 weeks 01/05-02/15
- has a port will plan to use this for the duration of therapy
- c/w cefazolin 2 gm IV q8 hrs through 02/16/24
- while on cefazolin can hold CARBIDE TOOL MAKER keflex; resume keflex on completion of IV cefazolin
Chief Complaint
-: Other (empyema)
Subjective / Review of Systems
afebrile
bp stable
no events overnight
Vital Signs / Physical Exam
Vital Signs
Vital Signs
Temp Pulse Resp BP Pulse Ox
98 F 90 17 103/66 98
01/13/24 07:37 01/13/24 11:19 01/13/24 11:19 01/13/24 07:37 01/13/24 11:19
Physical Exam
Constitutional: No Acute Distress, Chronically Ill and Cachetic
Cardiovascular: Regular Rate and S1/S2; Negative Murmur or Rub
Pulmonary: Clear and Symmetric; Negative Wheezes or Rales
Gastrointestinal: Soft, Non Tender, Non Distended and Normal Bowel Sounds
Skin: Warm and Dry; Negative Rash or Jaundice
Objective Data
Lab Data
Lab Results
01/09/24 08:34
01/09/24 08:34
PT 14.0 Sec (11.4-14.6) 01/01/24 11:15
INR 1.08 01/01/24 11:15
APTT 66.5 Sec (23.4-35.0) H 01/08/24 13:59
Estimated Creat Clear 60 ml/min 01/09/24 08:34
Lactic Acid Cancelled 01/01/24 15:00
Total Bilirubin 0.2 mg/dl (0.2-1.3) 01/08/24 05:49
AST 20 U/L (14-36) 01/08/24 05:49
ALT < 10 U/L (0-35) 01/08/24 05:49
Alkaline Phosphatase 71 U/L (38-126) 01/08/24 05:49
Most recent labs reviewed.
Micro Results:
01/07/24 16:20 Blood Culture - Final
Blood/Venous No Growth - Final Report
01/07/24 13:20 Blood Culture - Final
Blood/Venous No Growth - Final Report
01/01/24 16:35 Body Fluid Culture - Final
Pleural Fluid S aureus-Methicillin Sensitive
Gram Stain - Final
01/01/24 23:41 MRSA Screen - Final
Nose No Methicillin Resistant Staphylococcus aureus isolated.
--- NOTE | 2024-01-13 14:33 | PN.CDI ---
CDI
- -
CDI:
Physician Documentation Request
Admit Date: 01/02/24 08:49
Dear Doctor Erika
Documentation includes the diagnosis of malnutrition.
01/12 progress note states ' ...awake and alert, appears chronically ill and cachectic/malnourished'
To ensure the quality of the medical record, based on the above information and the recognized standards for malnutrition , could you please verify in your progress notes which of the following responses best reflects the patient's nutritional
status:
(Specify severity) Malnutrition is/was present and is a clinical diagnosis (please provide additional support in the medical record)
No nutritional deficiency
Other (please specify)
[place] Criteria ([facility] Hospitalist 2017)
2 or more criteria must be present for either
non severe or severe malnutrition
Note that the criteria differs related to the
presence of an acute or chronic illness
Acute Illness Chronic Illness
Energy Intake Non Severe: <75% for >7 days Non Severe: <75% for >1 month
Severe: <50% for >5 days Severe: <75% for >1 month
Weight Loss Non Severe: 1-2% over 1 week Non Severe: 5% over 1 month
5% over 1 month 7.5% over 3 months
7.5% over 3 months 10% over 6 months
1 year N/A 20% over 1 year
Severe: >2% over 1 week Severe: >5% over 1 month
>5% over 1 month >7.5% over 3 months
>7.5% over 3 months >10% over 6 months
1 year N/A >20% over 1 year
Body Fat Non Severe: Mild Decrease Non Severe: Mild Loss
Severe: Moderate Decrease Severe: Severe Loss
Muscle Mass Non Severe: Mild Decrease Non Severe: Mild Loss
Severe: Moderate Decrease Severe: Severe Loss
Fluid Accumulation Non Severe: Mild Accumulation Non Severe: Mild Accumulation
Severe: Moderate to severe Severe: Moderate to severe
accumulation accumulation
Reduced Bulk Station Operator Strength Non Severe: N/A Non Severe: N/A
Severe: Measurably reduced Severe: Measurably reduced
Use of terms such as suspected, likely, concern for, or probable (associated with a specific diagnosis that is being evaluated, monitored, or treated as if it exists) are acceptable and can be coded in the inpatient setting, when documented at the
time of discharge.
Thank you,
Obdulia Cartagena RN, BSN
CDI Specialist
tiger text
Please use your independent medical judgment in providing your response.
--- NOTE | 2024-01-13 17:27 | PN.IRAD.UPD ---
Update Note - IRAD
- -
post procedure drained patient's right sided asept in department, while teaching family. took off 950ml of dark red fluid. redressed the site and had no complaints from patient. ap
[2024-01-13] MEDS: ELIQUIS 10 MG PO (21:18)
[2024-01-13] MEDS: NEURONTIN 600 MG PO (21:18)
[2024-01-13] MEDS: SENOKOT PO (21:21)
[2024-01-14] MEDS: TYLENOL 650 MG PO (01:33)
[2024-01-14] MEDS: ANCEF 10 IV ×3 (05:04→20:32)
[2024-01-14] MEDS: DUONEB 3 ML INH ×4 (07:23→19:33)
[2024-01-14] MEDS: SYMBICORT 160/4.5 MCG INHALER 2 PUFF INH ×2 (07:23→19:33)
--- NOTE | 2024-01-14 07:43 | W.PN.HOSP.TC ---
Addendum entered and electronically signed by Luca James MD 01/14/24 11:59:
I saw and evaluated the patient. I reviewed the resident�s note and agree with findings and plan as documented in the resident�s note.
Patient complains of pleuritic chest pain at the site of her Pleurx catheter
Remains no acute distress, awake and alert, appears chronically ill and cachectic/malnourished
Remains regular rate and rhythm, normal S1-S2
CTAB anteriorly
Cranial nerves II through XII are intact, nonfocal
Large right-sided empyema:
-Had chest tube earlier during admission. Fluid studies with exudate with MSSA.
-s/p Pleurx catheter placement on 01/13/24
-Continue Ancef to complete 6 weeks of antibiotic therapy
Remains medically stable for discharge.
Total time spent on d/c = 32 min. This included today's physical exam, progress note, review of laboratory and diagnostic data, preparation of discharge documents and prescriptions, and discussions about the pt's hospital course and discharge plan
with the patient and other back office medical assistant involved in the patient's care.
Original Note:
Today's Communication/Plan
-
D/c today after 12pm dose of Ancef
Assessment / Plan
Assessment / Plan
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
##Large Right Sided Pleural Effusion
#Empyema
- History of 2 prior pleural effusions treated with thoracentesis at outpatient oncologist
- Pleural fluid (+) Light's criteria, exudative fluid. Culture (+) for MSSA. Abx narrowed to Cefazolin per ID
- CXR suggestive of trapped lung, likely chronic due to scarring. Chronic reaccumulation of fluid highly likely. Known cavitating lesion on the left upper lobe
- Will need 6 weeks of Cefazolin per ID. Can continue at home with VN until February 15.
#Acute on Chronic DVT LLE, previously untreated
- Patient did not take her Eliquis post discharge for LE DVT, has not been on OAC since her August 2023 admission
- LE Venous Doppler during this admission (+) extensive DVT, increased from prior ultrasound
- C/w Eliquis 10mg BID until 01/16 8AM, then starting 01/16 8PM 5mg dose BID indefinitely
#Acute on Chronic hypoxic respiratory failure w/ home oxygen dependence (resolved)
- Required >5L en route to hospital, currently stable on 4-5L NC
- C/w QID DuoNeb treatments, Symbicort inhaler, O2 NC as needed for saturations >88% and nasal mist
#Stage IV Ovarian cancer w/ Mets to the Lung
#Chronic cancer pain with opioid dependence
- Palliative chemotherapy (Taxol) with [facility] q3 weeks
- Is not interested in Hospice at this time. Discussed code status with the patient who desires Full Code.
- C/w Oxycodone 7.5mg Q4h prn. Pain sx controlled on this dose
- Dr. Hensley (Oncologist) aware of current hospitalization. Chemo postponed while on Antibiotics. Patient may discuss resuming palliative chemo after 6 week abx course
#Acute on Chronic constipation, multifactorial (resolved)- C/w bowel regimen of Senokot/Miralax, adding Magnesium Citrate if constipation persists for >3 days
#History of Prosthetic Joint Infection - Holding ppx Keflex. OK to resume outpatient after completion of Cefazolin per ID
#Peripheral Neuropathic Pain - Stable; c/w home dose gabapentin 600mg QHS
#Dispo:
Med/Surg
DVT PPx: Eliquis
Diet: Regular
Code: Full Code
Anticipated Discharge: Today
Subjective/Interval History
-
Seen in the AM. She was experiencing some pain when taking deep breaths after placement of PleurX catheter. Pain seemed to be related to bandage which felt 'tight'.
Objective Data
-
Vital Signs:
Vital Signs
Temp Pulse Resp BP Pulse Ox
98.5 F 98 16 102/60 100
01/13/24 23:18 01/13/24 23:18 01/13/24 23:18 01/13/24 23:18 01/13/24 23:18
I&O
01/13/24 01/14/24 01/15/24
06:59 06:59 06:59
Intake Total 900 / 900 700 / 700
Output Total 50 / 50
Balance 850 / 850 700 / 700
Review of Systems
-
History Source: Patient
All other systems: Reviewed and negative
Respiratory: Reports Trouble Breathing
Physical Exam
-
General: Well Developed, No Apparent Distress, Appears Chronically Ill and Cachectic
HEENT: Normocephalic, Atraumatic, Moist Mucous Membranes, Anicteric, [place] Conjunctivae and PERRLA
Respiratory: Rales and Decreased Breath Sounds
Cardiac: Regular Rhythm and S1/S2; Negative Murmur or Calf Tenderness
Breast: Deferred by me
GI: Soft, Nontender, Nondistended and Normal Bowel Sounds
Rectal: Deferred by Provider
Genito-urinary: No Costovertebral Tender
Musculoskeletal: No Clubbing, No Cyanosis and Edema, Right Lower Extrem (Swelling similar, but the limb is less warm than before)
Skin: IV Access / Catheter Site (R Side Chemo port, ride PleurX catheter)
Neuro: AO x 3, No Motor Deficits and No Sensory Deficits
Hematologic / Lymphatic: No Lymphadenopathy
Psych: Calm
[2024-01-14 07:46] VITALS: BP 119/87
--- NOTE | 2024-01-14 10:25 | CM ---
Addendum entered by Lorraine Jett 01/14/24 17:21:
Per patient and fien medications not received at the home.
Patent was to have someone at the home to receive medications, spouse was home but has memory problems.
will f/u with [facility] in am.
Addendum entered by Lorraine Jett 01/14/24 16:56:
Spoke with patient and friend.
Concern re draining Acept catheter at home.
TC to [facility] to verify they will be out tomorrow, unable to get in touch with Taylor.
Left VM for [facility] re concerns over this evening administration of medications even though teaching was completed yesterday with patient/family understaging.
per patient friend, increased shortness of breath and concern what if catheter needs to be drained tonight.
Nursing updated.
Original Note:
Patient seen bedside.
patient for d/c home today with VN and IV anbx via port.
Asept catheter supplies already at home.
Spoke with Taylor from [facility] they are on board for the supplies and visits.
Spoke with [facility] from [facility], teaching completed yesterday. Mediations and supplies to be delivered between 2-3 pm. 12 pm dose of med to be given prior to d/c and next dose 8 pm.
IMM completed.
Plan: home with [facility] and [facility]

[facility]
[2024-01-14] MEDS: SENOKOT 17.2 MG PO (10:29)
[2024-01-14] MEDS: NEURONTIN 300 MG PO (10:29)
[2024-01-14] MEDS: ZYRTEC 10 MG PO (10:30)
[2024-01-14] MEDS: ELIQUIS 10 MG PO ×2 (10:30→20:27)
[2024-01-14] MEDS: ROXICODONE 5 MG PO ×3 (10:36→20:28)
--- NOTE | 2024-01-14 10:41 | W.PN.ID1 ---
Date of Service
Date of Service: January 14, 2024
Today's Communication
c/w cefazolin
Assessment / Plan
Empyema due to MSSA
Stage IV ovarian cancer on chemotherapy (last line by report)
Port
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
Cachexia
- pleurex in place
- given ongoing chemotherapy, aggressive pathogen, frail patient, would plan a longer course of IV cefazolin - likely 6 weeks 01/05-02/15
- has a port will plan to use this for the duration of therapy
- c/w cefazolin 2 gm IV q8 hrs through 02/16/24
- while on cefazolin can hold SCOWMAN keflex; resume keflex on completion of IV cefazolin
- follow up with Dr Jt SIM for suppression of R hip PJI
Chief Complaint
-: Other (empyema)
Subjective / Review of Systems
afebrile
bp stable
pleurex in place
Vital Signs / Physical Exam
Vital Signs
Vital Signs
Temp Pulse Resp BP Pulse Ox
98.1 F 84 18 119/87 99
01/14/24 07:46 01/14/24 07:46 01/14/24 07:46 01/14/24 07:46 01/14/24 07:46
Physical Exam
Constitutional: No Acute Distress and Chronically Ill
Cardiovascular: Regular Rate
Pulmonary: Symmetric and Non Labored
Gastrointestinal: Non Distended
Skin: Warm and Dry; Negative Rash or Jaundice
Neurological: Awake
Lines: Other (pleurex)
Objective Data
Lab Data
Lab Results
01/09/24 08:34
01/09/24 08:34
PT 14.0 Sec (11.4-14.6) 01/01/24 11:15
INR 1.08 01/01/24 11:15
APTT 66.5 Sec (23.4-35.0) H 01/08/24 13:59
Estimated Creat Clear 60 ml/min 01/09/24 08:34
Lactic Acid Cancelled 01/01/24 15:00
Total Bilirubin 0.2 mg/dl (0.2-1.3) 01/08/24 05:49
AST 20 U/L (14-36) 01/08/24 05:49
ALT < 10 U/L (0-35) 01/08/24 05:49
Alkaline Phosphatase 71 U/L (38-126) 01/08/24 05:49
Most recent labs reviewed.
Micro Results:
01/07/24 16:20 Blood Culture - Final
Blood/Venous No Growth - Final Report
01/07/24 13:20 Blood Culture - Final
Blood/Venous No Growth - Final Report
01/01/24 16:35 Body Fluid Culture - Final
Pleural Fluid S aureus-Methicillin Sensitive
Gram Stain - Final
01/01/24 23:41 MRSA Screen - Final
Nose No Methicillin Resistant Staphylococcus aureus isolated.
--- NOTE | 2024-01-14 13:26 | W.PN.PUL3 ---
Today's Communication / Plan
-
Okay to discharge from my perspective
Outpatient pulmonary follow-up
Sign off
Assessment
-
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
right-sided back pain x 3 days. Patient took her Xopenex + albuterol at home which did not improve her symptoms. She also has a dry cough. In the ER she was afebrile to 97.5 �F, tachycardic to 121, breathing at 24 breaths/min, BP 127/82 and
saturating 96% on 5 L/min nasal cannula. Labs showed anemia to 8.2, troponin elevated at 0.094, proBNP elevated at 1470, and COVID-19 antigen negative. CXR showed massive right pleural effusion + REMBERTO lesion. CT chest confirmed large right pleural
effusion as well as small�moderate size left pleural effusion. IR was consulted and placed a right-sided pigtail catheter into the basilar pleural space. Pleural studies showed PMN predominant exudative fluid with low glucose. Pleural fluid
culture grew MSSA on 01/05/2024. Most recent CXR on 01/03/2024 shows residual loculated right apical pleural fluid with small right basilar pleural effusion with adjacent atelectasis/consolidation, and a small left pleural effusion. She continues to
be on her home dose of oxygen however she is on midflow nasal cannula. Pulmonary service now consulted for additional management/recommendations.
Chronic conditions GENERAL COUNSELOR: Osteoarthritis involving multiple joints, history of RA, stage IV ovarian cancer with metastasis to lung, colonic polyps, chronic hypoxic respiratory failure on 5 L/min nasal cannula
Impression:
#Large right pleural effusion + small�moderate left-sided pleural effusion, likely due to known ovarian malignancy with metastasis to lung; differential also includes ADHF
#Right-sided complicated parapneumonic effusion-WBC 2616, exudate, pH 7.34, cultures with MSSA
#Left upper lobe cavitary lesion � currently measures 2.8 x 2.1 x 3 cm (previously measured 3.4 x 2.0 cm in March 2023)
#Chronic anemia (baseline Hb 7.5�9 g/dL)
#Elevated troponin � peaked at 0.094 on 01/01/24
#Elevated proBNP (1470 on 01/01/24) - Echocardiogram 01/06/2024-shows mildly reduced LVEF of 45% with normal RV size/function, mild�moderate TR with moderate pulmonary hypertension with PASP 44 mmHg assuming an RAP of 3 mmHg
Plan:
Respiratory status slightly declined since chest tube removed--repeat CXR showing reaccumulation with right basilar pneumothorax versus trapped lung (I suspect the latter)
-
Continue current bronchodilator regimen: DuoNebs QID with Symbicort
-
Afebrile without leukocytosis.
Does not appear ill or toxic.
-
Empyema-positive MSSA
Empiric antibiotics continue-Ancef
Infectious disease consultation obtained 01/07/2024-correspondence reviewed
Chest tube removed 01/07/2024-suspect complicated parapneumonic effusion
pH 7.34, some WBCs and grew MSSA-chest tube removed after almost complete fluid evacuation
Repeat chest x-ray 01/08/2024 with slight increased shortness of breath-? Increasing pneumothorax-explained to patient if pneumothorax enlarged may require repeat chest tube
Chest x-ray 01/12/2024: small apical pneumothorax-likely trapped lung. Moderate loculated right pleural effusion progress. Moderate loculated left pleural effusion is stable. No pneumothorax.
-
Status post intrapleural catheter 01/13/2024.
Pleural cytology 01/06/2024: Positive for malignant cells. Adenocarcinoma.
Patient with history of ovarian cancer. No metastatic. Cachectic.
Cachectic: Continue with nutritional support.
DVT prophylaxis-on eliquis
PT/OT - PT rec'd home health
Patient would like eventual records sent to [place]
Code status: Full code --> we would recommend DNR given her cachectic appearance and [id number] will be an ongoing discussion.
Primary team has discussed hospice with her and she is not interested and desires full code
Outpatient pulmonary follow-up including PFTs and monitoring of her pleural effusions
Pulmonary service will continue to follow along while she remains hospitalized.
Follow-up with Dr. Cage after discharge-Pleurx catheter should be drained every 48 hours.
-
Okay to discharge from my perspective.
No additional recommendations.
Sign off.

Data:
CTA chest 01/01/24:
1. No evidence of pulmonary embolism.
2. Large right pleural effusion with complete collapse of the right lung and associated mild leftward mediastinal shift.. There is additional small left pleural effusion with left basilar atelectasis.
3. The known centrally cavitating left upper lobe lesion measures 2.8 x 2.1 x 3.0 cm, slightly decreased in size from prior.
4. There is a new sclerotic lesion within the right aspect of the T12 vertebral body extending into the pedicle, although this can be seen as sequelae of treatment response.
CXR 01/12/2024:
Significantly improved right basilar pneumothorax/have lung.
Small right apical probable pneumothorax/trapped lung. Stable
Right perihilar opacification concerning for likely pleural effusion. Pneumonia, atelectasis and underlying mass not excluded.
Moderate loculated right pleural effusion. Progressed.
Moderate loculated left pleural effusion. Stable
TTE 01/06/2024:
Mildly reduced left ventricular systolic function. LV ejection fraction is 45%.
Stage I diastolic dysfunction suggestive of abnormal relaxation.
Normal right ventricular size and function.
Mild/moderate tricuspid regurgitation. Mildly elevated PASP. Estimated
pulmonary artery pressure of 44 mmHg, assuming a right atrial pressure of 3
mmHg.
Compared to 09/16/23: LVEF has declined from 50-55% to 45%. PASP has increased
from 33 mmHg to 44 mmHg.
Subjective Data
-
Date of Service:
Date of Service: January 14, 2024
Chief Complaint: Pulmonary Follow Up and Dyspnea Follow Up
Subjective:
No new complaints other than discomfort on the chest tube/Pleurx catheter entry site.
Hemodynamically stable.
Review of Systems
Cardiopulmonary: Dyspnea on Exertion (n) and Cough (n)
Objective Data
Data Reviewed
Vital Signs / I&O / Oxygen:
Vital Signs
Temp Pulse Resp BP Pulse Ox
98.1 F 68 22 119/87 95
01/14/24 07:46 01/14/24 11:27 01/14/24 11:27 01/14/24 07:46 01/14/24 11:27
Intake and Output
01/13/24 01/14/24 01/15/24
06:59 06:59 06:59
Intake Total 900 / 900 700 / 700
Output Total 50 / 50
Balance 850 / 850 700 / 700
SaO2 95
Nasal Cannula flow liters per 5
minute
Physical Exam
General: Respiratory Distress (n), Comfortable, Chills (negative), Sweats (negative) and Other (Cachectic)
HEENT: Normocephalic, Anicteric and Other (Temporal wasting and cachexia)
Cardiovascular: S1-S2, Murmur and Other (normal rate)
Respiratory: Wheeze (negative), Crackles (Few left basilar), Rhonchi (negative), Accessory Resp Muscle Use (n), Chest Tube (Pleurx catheter in place. Entry site without hematoma.) and Other (Diminished breath sounds at bibasilar bases, R>L)
GI: Soft, Non Distended and Non Tender
Neurology: Awake, Alert and Tremors (negative)
Skin: Warm, Dry, Cyanosis (n), Jaundice (n) and Rash (n)
Labs/Micro/Reports
Lab Data
01/09/24 08:34
01/09/24 08:34
Microbiology
01/07/24 16:20 Blood/Venous Blood Culture - Final
No Growth - Final Report
01/07/24 13:20 Blood/Venous Blood Culture - Final
No Growth - Final Report
[2024-01-14 15:20] VITALS: BP 99/69
--- NOTE | 2024-01-14 16:06 | VATNOTE ---
Pt. stated to this VAT RN, that she was leaving with port accessed for home antbx until . Dr Hernandez reached and will place nursing order for approval of pt. to leave with accessed.
--- NOTE | 2024-01-14 17:30 | PTCARENOTE ---
1620 During reviewing discharge instructions with pt, Pt requested to speak to pillowcase cleaner regarding visiting nurse and home IV ab therapy.
1640 gallery manager came to speak to pt at bedside and found out home IV ab therapy doses are not at home for pt to administer self for 8pm and 4am doses tonight. Dr. James notified and aware pt would have to stay tonight to receive IV ab therapy.
Nurse branch manager notified.
Explain to pt will stay tonight.
[2024-01-14] MEDS: NEURONTIN 600 MG PO (20:27)
[2024-01-14] MEDS: SENOKOT PO (20:27)
[2024-01-14 23:04] VITALS: BP 87/56
[2024-01-15] MEDS: ANCEF 10 IV ×2 (05:25→12:06)
[2024-01-15 07:05] VITALS: BP 88/53
[2024-01-15] MEDS: SYMBICORT 160/4.5 MCG INHALER 2 PUFF INH (07:35)
[2024-01-15] MEDS: DUONEB 3 ML INH ×2 (07:35→11:32)
--- NOTE | 2024-01-15 09:06 | CM ---
Addendum entered by Lorraine Jett 01/15/24 11:32:
Plan: home with [facility] and [facility]

[facility]

Addendum entered by Lorraine Jett 01/15/24 10:16:
Per [facility]- meds to be delivered between 1-3 pm. Daughter Ximena aware.
[facility] will do a televisit for 2 pm medication infusion today.
Private caregiver information provided to patient.
Patients friend will transport home.
[facility] to see patient tomorrow, daughter is back up for calls from homecare (added to referral)
Addendum entered by Lorraine Jett 01/15/24 09:21:
TCB from [facility], she will check if medications were delivered.
TCB from [place]/[facility], they will be out to see patient tomorrow.
Original Note:
TC to [facility], await tcb.
TC to [facility], await TCB.
Patient for d/c today, just need to confirm medications are delivered.
[2024-01-15] MEDS: ELIQUIS 10 MG PO (09:58)
[2024-01-15] MEDS: ZYRTEC 10 MG PO (09:58)
[2024-01-15] MEDS: NEURONTIN 300 MG PO (09:59)
[2024-01-15] MEDS: ROXICODONE 5 MG PO (09:59)
[2024-01-15] MEDS: SENOKOT 17.2 MG PO (09:59)
--- NOTE | 2024-01-15 10:17 | W.PN.HOSP.TC ---
Addendum entered and electronically signed by Luca James MD 01/15/24 10:25:
I saw and evaluated the patient. I reviewed the resident�s note and agree with findings and plan as documented in the resident�s note.
Denies chest pain, shortness of breath, lightheadedness. Reports that her blood pressure is 'always low.'
Continues to remain no acute distress, awake and alert, appears chronically ill and cachectic/malnourished
Continues to remain regular rate and rhythm, normal S1-S2
Decreased breath sounds in the bases
Cranial nerves II through XII are intact, nonfocal
Large right-sided empyema:
-Had chest tube earlier during admission. Fluid studies with exudate with MSSA.
-s/p Pleurx catheter placement on 01/13/24, drain every 48 hours
-Continue Ancef to complete 6 weeks of antibiotic therapy
Acute on chronic RLE DVT:
-h/o noncompliance with Eliquis
-Eliquis has been restarted and compliance has been encouraged
Continues to remain medically stable for discharge. Unfortunately, overall prognosis is extremely poor.
Total time spent on d/c = 31 min. This included today's physical exam, progress note, review of laboratory and diagnostic data, preparation of discharge documents and prescriptions, and discussions about the pt's hospital course and discharge plan
with the patient and other medical assistant per diem involved in the patient's care.
Original Note:
Today's Communication/Plan
-
Discharge home today. Follow up with pulmonology and Eliza.
Assessment / Plan
Assessment / Plan
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
##Large Right Sided Pleural Effusion
#Empyema
- History of 2 prior pleural effusions treated with thoracentesis at outpatient oncologist
- Pleural fluid (+) Light's criteria, exudative fluid. Culture (+) for MSSA. Abx narrowed to Cefazolin per ID
- CXR suggestive of trapped lung, likely chronic due to scarring. Chronic reaccumulation of fluid highly likely. Known cavitating lesion on the left upper lobe
- Will need 6 weeks of Cefazolin per ID. Can continue at home with [facility] until February 15.
- patient to drain catheter every 48 hours at home.
#Acute on Chronic DVT LLE, previously untreated
- Patient did not take her Eliquis post discharge for LE DVT, has not been on OAC since her August 2023 admission
- LE Venous Doppler during this admission (+) extensive DVT, increased from prior ultrasound
- C/w Eliquis 10mg BID until 01/16 8AM, then starting 01/16 8PM 5mg dose BID indefinitely
#Acute on Chronic hypoxic respiratory failure w/ home oxygen dependence (resolved)
- Required >5L en route to hospital, currently stable on 4-5L NC
- C/w QID DuoNeb treatments, Symbicort inhaler, O2 NC as needed for saturations >88% and nasal mist
#Stage IV Ovarian cancer w/ Mets to the Lung
#Chronic cancer pain with opioid dependence
- Palliative chemotherapy (Taxol) with [facility] q3 weeks
- Is not interested in Hospice at this time. Discussed code status with the patient who desires Full Code.
- C/w Oxycodone 7.5mg Q4h prn. Pain sx controlled on this dose
- Dr. Hensley (Oncologist) aware of current hospitalization. Chemo postponed while on Antibiotics. Patient may discuss resuming palliative chemo after 6 week abx course
#Acute on Chronic constipation, multifactorial (resolved)- C/w bowel regimen of Senokot/Miralax, adding Magnesium Citrate if constipation persists for >3 days
#History of Prosthetic Joint Infection - Holding ppx Keflex. OK to resume outpatient after completion of Cefazolin per ID
#Peripheral Neuropathic Pain - Stable; c/w home dose gabapentin 600mg QHS
#Dispo:
Med/Surg
DVT PPx: Eliquis
Diet: Regular
Code: Full Code
Anticipated Discharge: Today
Subjective/Interval History
-
Patient was not discharged yesterday:
Unable to confirm that IV antibiotics had arrived at her house. There was also concern for shortness of breath. Patient was kept this final night into the morning with plans for discharge in the AM.
Shortness of breath is present and unchanged from prior. She has no other acute complaints this morning. There were no acute events overnight.
Objective Data
-
Labs:
Laboratory Results
01/15/24
10:16
Hgb Pending
Hct Pending
Vital Signs:
Vital Signs
Temp Pulse Resp BP Pulse Ox
98.0 F 91 16 88/53 93
01/15/24 07:05 01/15/24 07:39 01/15/24 07:39 01/15/24 07:05 01/15/24 07:39
I&O
01/14/24 01/15/24 01/16/24
06:59 06:59 06:59
Intake Total 700 / 700 720 / 720
Balance 700 / 700 720 / 720
Review of Systems
-
History Source: Patient
All other systems: Reviewed and negative
Respiratory: Reports Trouble Breathing
Physical Exam
-
General: Well Developed, No Apparent Distress, Comfortable, Appears Chronically Ill and Cachectic
HEENT: Normocephalic, Atraumatic, Moist Mucous Membranes, Anicteric, [place] Conjunctivae and PERRLA
Respiratory: Crackles and Decreased Breath Sounds
Cardiac: Regular Rhythm and S1/S2; Negative Murmur or Calf Tenderness
Breast: N/A
GI: Soft, Nontender, Nondistended and Normal Bowel Sounds
Rectal: Deferred by Provider
Genito-urinary: No Costovertebral Tender
Musculoskeletal: No Clubbing, No Cyanosis and Edema, Right Lower Extrem
Skin: Warm, Dry and IV Access / Catheter Site (R IJ Chemo port/ R pleurX catheter)
Neuro: Awake, Alert, Oriented, No Motor Deficits, Nonfocal/Grossly Intact and No Sensory Deficits
Psych: Calm
[2024-01-15 10:22] LABS: Hematocrit 25.2 % (37.0-47.0); Hemoglobin 8.3 g/dL (12.0-16.0)
--- NOTE | 2024-01-15 10:32 | W.PN.ID1 ---
Date of Service
Date of Service: January 15, 2024
Today's Communication
- c/w cefazolin 2 gm IV q8 hrs through 02/16/24
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
- follow up with Dr Waters as per his previous instructions for suppression of R hip PJI
Assessment / Plan
Empyema due to MSSA
Stage IV ovarian cancer on chemotherapy (last line by report)
Port
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
Cachexia
- pleurex in place
- given ongoing chemotherapy, aggressive pathogen, frail patient, would plan a longer course of IV cefazolin - likely 6 weeks 01/05-02/15
- has a port will plan to use this for the duration of therapy
- c/w cefazolin 2 gm IV q8 hrs through 02/16/24
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
- follow up with Dr Waters as per his previous instructions for suppression of R hip PJI
Chief Complaint
-: Other (empyema)
Subjective / Review of Systems
afebrile
no events overnight
Vital Signs / Physical Exam
Vital Signs
Vital Signs
Temp Pulse Resp BP Pulse Ox
98.0 F 91 16 88/53 93
01/15/24 07:05 01/15/24 07:39 01/15/24 07:39 01/15/24 07:05 01/15/24 07:39
Physical Exam
Constitutional: No Acute Distress and Chronically Ill
Cardiovascular: Regular Rate and S1/S2; Negative Murmur or Rub
Pulmonary: Clear and Symmetric; Negative Wheezes or Rales
Gastrointestinal: Non Tender and Non Distended
Skin: Warm and Dry; Negative Rash or Jaundice
Neurological: Awake
Lines: Other (pleurex)
Objective Data
Lab Data
Lab Results
01/15/24 10:16
01/09/24 08:34
PT 14.0 Sec (11.4-14.6) 01/01/24 11:15
INR 1.08 01/01/24 11:15
APTT 66.5 Sec (23.4-35.0) H 01/08/24 13:59
Estimated Creat Clear 60 ml/min 01/09/24 08:34
Lactic Acid Cancelled 01/01/24 15:00
Total Bilirubin 0.2 mg/dl (0.2-1.3) 01/08/24 05:49
AST 20 U/L (14-36) 01/08/24 05:49
ALT < 10 U/L (0-35) 01/08/24 05:49
Alkaline Phosphatase 71 U/L (38-126) 01/08/24 05:49
Most recent labs reviewed.
Micro Results:
01/07/24 16:20 Blood Culture - Final
Blood/Venous No Growth - Final Report
01/07/24 13:20 Blood Culture - Final
Blood/Venous No Growth - Final Report
01/01/24 16:35 Body Fluid Culture - Final
Pleural Fluid S aureus-Methicillin Sensitive
Gram Stain - Final
01/01/24 23:41 MRSA Screen - Final
Nose No Methicillin Resistant Staphylococcus aureus isolated.
[2024-01-15] MEDS: TYLENOL 650 MG PO (12:36)
--- NOTE | 2024-01-16 16:03 | CM ---
TC from [facility] requesting orders for Pleurex catheter and updated notes.
Pulmonary will fax orders to [phone].
CM to fax updated notes.
== END 2024-01-15 13:55 | disposition home health service (06) | DRG 180 ==
LOC: 4 WEST ACU 08:49
PROVIDERS: Hospitalist; Nurse Practitioner Gerontology; Physician Assistant; Radiology Diagnostic Radiology; ADMITTING PHYSICIAN Internal Medicine; ATTENDING PHYSICIAN Internal Medicine; CONSULT PHYSICIAN Internal Medicine Critical Care Medicine; EMERGENCY PHYSICIAN Emergency Medicine; FAMILY PHYSICIAN Student in an Organized Health Care Education/Training Program; OTHER PHYSICIAN Student in an Organized Health Care Education/Training Program
PROC: 0W9930Z Drainage of Right Pleural Cavity with Drainage Device, Percutaneous Approach (ICD-10-PCS; 2024-01-01)
PROC: 30233N1 Transfusion of Nonautologous Red Blood Cells into Peripheral Vein, Percutaneous Approach (ICD-10-PCS; 2024-01-02)
PROC: 0WP9X0Z Removal of Drainage Device from Right Pleural Cavity, External Approach (ICD-10-PCS; 2024-01-07)
DX: C78.02 Secondary malignant neoplasm of left lung (principal); E43 Unspecified severe protein-calorie malnutrition; J86.9 Pyothorax without fistula; J96.21 Acute and chronic respiratory failure with hypoxia; J91.0 Malignant pleural effusion; I5A Non-ischemic myocardial injury (non-traumatic); F11.20 Opioid dependence, uncomplicated; J98.11 Atelectasis; I82.511 Chronic embolism and thrombosis of right femoral vein; I82.531 Chronic embolism and thrombosis of right popliteal vein; I82.551 Chronic embolism and thrombosis of right peroneal vein; I82.521 Chronic embolism and thrombosis of right iliac vein; C56.9 Malignant neoplasm of unspecified ovary; I82.492 Acute embolism and thrombosis of other specified deep vein of left lower extremity; R64 Cachexia; Z68.1 Body mass index [BMI] 19.9 or less, adult; D84.821 Immunodeficiency due to drugs; I47.20 Ventricular tachycardia, unspecified; T84.51XA Infection and inflammatory reaction due to internal right hip prosthesis, initial encounter; J45.909 Unspecified asthma, uncomplicated; D63.0 Anemia in neoplastic disease; G89.3 Neoplasm related pain (acute) (chronic); L89.312 Pressure ulcer of right buttock, stage 2; M54.89 Other dorsalgia; M06.9 Rheumatoid arthritis, unspecified; M15.9 Polyosteoarthritis, unspecified; B95.61 Methicillin susceptible Staphylococcus aureus infection as the cause of diseases classified elsewhere; G62.0 Drug-induced polyneuropathy; T45.1X5A Adverse effect of antineoplastic and immunosuppressive drugs, initial encounter; E88.09 Other disorders of plasma-protein metabolism, not elsewhere classified; K59.09 Other constipation; K59.03 Drug induced constipation; T40.2X5A Adverse effect of other opioids, initial encounter; I07.1 Rheumatic tricuspid insufficiency; I50.9 Heart failure, unspecified; B96.20 Unspecified Escherichia coli [E. coli] as the cause of diseases classified elsewhere; T45.516A Underdosing of anticoagulants, initial encounter; Y83.1 Surgical operation with implant of artificial internal device as the cause of abnormal reaction of the patient, or of later complication, without mention of misadventure at the time of the procedure; Z11.52 Encounter for screening for COVID-19; Z99.81 Dependence on supplemental oxygen; Z96.651 Presence of right artificial knee joint; Z79.2 Long term (current) use of antibiotics; Z90.710 Acquired absence of both cervix and uterus; Z90.722 Acquired absence of ovaries, bilateral; Z87.891 Personal history of nicotine dependence; Z85.43 Personal history of malignant neoplasm of ovary; Z79.899 Other long term (current) drug therapy; Z91.138 Patient's unintentional underdosing of medication regimen for other reason
CPT/HCPCS: 88305; 93308; 32550; 32557; 71045; 71046; 71275; 75989; 80048; 80053; 82945; 83605; 83615; 83735; 83880; 83986; 84155; 84157; 84484; 85014; 85018; 85025; 85027; 85610; 85730; 86803; 86850; 86900; 86901; 86920; 87015; 87040; 87070; 87147; 87186; 87205; 87811; 88112; 89051; 93005; 93321; 93325; 93971; 94640; 97116; 97162; 97166; 97530; 97535; 99152; 99153; 99285; C1729; C1769; P9016; Q9967

== ENCOUNTER 2024-02-05 14:49 | Inpatient (IN) | payer MEDICARE, OTHER, SELFPAY ==
[2024-02-05] VITALS (56 sets, daily range): BP systolic 60–130; BP diastolic 40–80; BMI 17.8; BMI 17.3
--- NOTE | 2024-02-05 12:22 | ED.GENMED ---
History of Present Illness
General
Chief Complaint: Breathing Problem
Source: patient
Time Seen by Provider: 02/05/24 12:17
History of Present Illness
History of Present Illness:
73-year-old female presents to the emergency room complaining of significant shortness of breath and chest pain. Patient was recently hospitalized here at [place] for similar symptoms. Patient found to have a large pleural effusion which did
have positive cytology. Patient also treated for empyema. She was discharged on on antibiotics to complete a 6-week course. Patient is taking Eliquis due to DVTs. No known fever. Patient has a decreased appetite but is tolerating oral intake.
Past History
Past History
ED Past Medical History: Asthma, Cancer (Ovarian with mets to Lung) and Other (Neuropathy)
ED Past Surgical History: Appendectomy, Gynecological (Hysterectomy) and Orthopedic (Right total knee replacement, Right total hip replacement)
Social History
Tobacco: Non-smoker
Alcohol: Occasional
Drug: None
Personal:
Living: with family
Phy Exam
Physical Exam
Physical Exam:
General: Awake, Alert, Oriented X3. Appears chronically ill, cachectic
Vitals: Tachycardic, hypoxic on room air
Head: Atraumatic
Eyes: Pupils equal, EOMI
Throat: Airway intact, no exudates
Neck: Trachea midline
Lungs: Decreased breath sounds bilateral lower lung yanez.
Heart: Regular rate, no murmurs
Abd: Soft, Nontender, No pulsatile mass
Neuro: Grossly nonfocal
Skin: Warm, dry, no rash
Extremities: pulses equal b/l, no edema
Scores
Heart Failure Risk
Heart Failure Risk Score: Not Applicable
Course
Orders/Labs/Results
Orders:
Orders
02/05/24 12:14
EKG [Electrocardiogram (*1)] Urgent
Reason for Study: Tachycardia
EKG- Treatment ONCE
02/05/24 12:20
Cardiac Monitoring- Treatment ONCE
0.9% Sodium Chloride 1000 ml [Nss] 1,000 ml IV BOLUS
CR Chest Portable - 1 View Urgent
Comment:
Reason For Exam: shortness of breath
Reason Study Needs to be Portable: Patient Unstable
02/05/24 12:25
Complete Blood Count/With Diff Urgent
Comprehensive Metabolic Panel Urgent
Magnesium Urgent
Comment: ADD ON
Troponin I Urgent
02/05/24 12:44
Cardiac Monitoring- Treatment ONCE
0.9% Sodium Chloride 1000 ml [Nss] 1,400 ml IV NOW STA
Acetaminophen [Tylenol] 650 mg PO NOW STA
Piperacillin/Tazo 4.5 Gram [Zosyn] 4.5 gram in 100 ml IV NOW
02/05/24 12:47
NORepinephrine 4 MG/250 ML [Levophed] 4 mg in 250 ml .ROUTE .STK-MED
NORepinephrine 4 MG/250 ML [Levophed] 4 mg in 250 ml IV NOW
Initial dose in mcg/min, then titrate:: 4
Titrate to keep:: MAP > 65 mmHg
Titrate by mcg/min:: 1-2 mcg/min
Frequency of titrations (minutes):: 5
Maximum dose in ICU in mcg/min:: 30
Maximum dose in IMU in mcg/min:: 8
Maximum dose in IVU in mcg/min:: 4
Begin to taper infusion when:: Remained at goal for 4hrs
Taper by mcg/min:: 1-2 mcg/min
Frequency of taper (minutes) if patient maintains goal:: 30
Taper to off?: Yes
If infusion off & no longer maintaining goal:: Contact Provider
02/05/24 12:54
COVID-19 Antigen Urgent
Source: Nasal Swab
Lactic Acid Q4H
Comment: CANCEL 2nd LACTIC ACID IF 1st LACTIC ACID IS LESS THAN 2
Blood Culture Routine
SAVANNA Source: Blood/Venous
Specimen Description:
Influenza A+B Rapid Molecular Urgent
SAVANNA Source: Nasal Swab
Specimen Description:
02/05/24 13:32
Vancomycin [Vancocin] 1,250 mg 0.9% Sodium Chloride 250 ml [Nss] 250 ml IV NOW
02/05/24 14:05
INFECTIOUS DISEASE CONSULT Routine
Consulting Provider: Beata Hernandez
Was physician already notified: Yes
Reason for consult: fever hyypotension recent mssa r lung on abx
02/05/24 14:[address] Non Medication Order As Directed
Physician Order: please see additional blood culture requested by ID for total set of 2
Above order entered?: Yes
02/05/24 14:26
Medicare Interviewer Consult Routine
Consulting Provider: Yuan Silva
Was physician already notified: Yes
Reason for consult: Septic shock Hx right pleural fluid MSSA
02/05/24 14:28
Admit/Transfer Patient As Directed
Co-Sign Provider:
Level of Care: Inpatient admission
Assign to:: ICU
Physician / Group: heriberto hoover
Diagnosis: septic shock unclear , hx mssa r lung w/plueral cath,ovarian ca mets lung
Reason for Hospitalization: septic shock unclear , hx mssa r lung w/plueral cath,ovarian ca mets lung
Expected length of stay greater than two midnights?: Yes
ELOS- Estimated Length of Stay in days: 6
I certify the patient meets the requirements for IP care: Yes
Code Status As Directed
Resuscitation Status: Full Code
02/05/24 14:30
0.9% Sodium Chloride 1000 ml [Nss] 1,000 ml IV 100 mls/hr
02/05/24 14:34
PRN Pain Medication Management As Directed
May give lesser potent ordered pain med per pt: Yes
preference::
Protocol:: Medication orders for pain may be administered in a
manner that supports deferring to patient preference
when the pt is:
- Requesting an ordered lesser potent pain medication.
Least to most potent pain medications are defined
as: acetaminophen < NSAID < tramadol < opioids
(morphine, oxycodone, hydromorphone).
- Requesting a lesser dose of the same medication IF
ORDERED.
- Requesting a less intrusive route of administration
if both routes are prescribed by the provider (PO <
IV).
02/05/24 14:40
IRAD CONSULT Routine
Consulting Provider: Fredrick Ashton
Was physician already notified: Yes
Reason for Consult/Procedure: need plueral cath drained then fluid repeat analysis no cytology needed
Acknowledgement that appropriate orders are entered: Yes
02/05/24 14:46
Blood Culture Urgent
SAVANNA Source: Blood/Venous
Specimen Description:
02/05/24 Dinner
Regular
At Your Request: Full Participation
02/05/24 15:45
Acid Fast Culture & Smear Routine
SAVANNA Source: Pleural Fluid
Specimen Description:
Date Specimen was Collected: 02/05/24
Time Specimen was Collected: 15:42
Comment: post procedure
Body Fluid Amylase Routine
Fluid Source: Pleural
Date Specimen was Collected: 02/05/24
Time Specimen was Collected: 15:42
Body Fluid Cell Count Routine
What is the Body Fluid: pleural fluid
Date Specimen was Collected: 02/05/24
Time Specimen was Collected: 15:42
Comment: post procedure
Body Fluid Glucose Routine
Fluid Source: Pleural
Date Specimen was Collected: 02/05/24
Time Specimen was Collected: 15:42
Body Fluid LDH Routine
Fluid Source: Pleural
Date Specimen was Collected: 02/05/24
Time Specimen was Collected: 15:42
Body Fluid Protein Routine
Fluid Source: Pleural
Date Specimen was Collected: 02/05/24
Time Specimen was Collected: 15:42
Body Fluid Triglycerides Routine
Fluid Source: Pleural
Date Specimen was Collected: 02/05/24
Time Specimen was Collected: 15:42
Fluid Culture with Gram Stain Routine
SAVANNA Source: Pleural Fluid
Specimen Description:
Date Specimen was Collected: 02/05/24
Time Specimen was Collected: 15:42
Comment: post procedure
Fungus Culture Routine
SAVANNA Source: Pleural Fluid
Specimen Description:
Date Specimen was Collected: 02/05/24
Time Specimen was Collected: 15:42
Fungus Smear Routine
SAVANNA Source: Pleural Fluid
Specimen Description:
Date Specimen was Collected: 02/05/24
Time Specimen was Collected: 15:42
02/05/24 16:39
Acetaminophen [Tylenol] 650 mg PO Q4HPRN PRN
Albuterol [ProAIR HFA INHALER] 2 puff INH R Q4HPRN PRN
Budesonide/Formoterol 160/4.5 [Symbicort 160/4.5 Mcg Inhaler] 2 puff INH R BIDPRN PRN
NORepinephrine 4 MG/250 ML [Levophed] 4 mg in 250 ml IV PER PROTOCOL
Currently infusing. Continue current dose and titrate:: Yes
Titrate to keep:: MAP > 65 mmHg
Titrate by mcg/min:: 1-2 mcg/min
Frequency of titrations (minutes):: 5
Maximum dose in ICU in mcg/min:: 30
Maximum dose in IMU in mcg/min:: 8
Maximum dose in IVU in mcg/min:: 4
Begin to taper infusion when:: Remained at goal for 4hrs
Taper by mcg/min:: 1-2 mcg/min
Frequency of taper (minutes) if patient maintains goal:: 30
Taper to off?: Yes
If infusion off & no longer maintaining goal:: Contact Provider
Oxycodone [Roxicodone] 5 mg PO Q4HPRN PRN
phenylephrine-guaifenesin See Dose Instructions PO [id number] PRN
02/05/24 16:39
VTE Contraindication Routine
VTE Mechanical Device Contraindication: Medical Contraindication
Pharmocologic Contraindication: Medical Contraindication
Comment: pt on eliquis
Activity As Directed
Activity Level: As Tolerated
Intake/ Output As Directed
Frequency: Per unit guidelines
Vital Signs As Directed
Frequency: Per unit guidelines
Weight As Directed
Frequency: Daily
O2 Therapy [RESP] Routine
Nasal Cannula Liter Flow: 2 LPM
Titrate/Wean O2 to maintain O2 sat greater than (%): 6
Pulse Ox/spot Check [RESP] Routine
Quantity: 1
02/05/24 16:50
Pantoprazole [Protonix] 40 mg PO DAILYPRN PRN
02/05/24 19:59
Lactic Acid Q4H
Comment: CANCEL 2nd LACTIC ACID IF 1st LACTIC ACID IS LESS THAN 2
02/05/24 20:00
Apixaban [Eliquis] 5 mg PO BID
Ipratropium/Albuterol Sulfate [Duoneb] 3 ml INH R TID
02/05/24 22:00
Gabapentin [Neurontin] 600 mg PO HS
Sennosides [Senokot] 8.6 mg PO HS
02/05/24 22:59
Urinalysis Reflex To Culture Urgent
Date Specimen was Collected: 02/05/24
Time Specimen was Collected: 22:35
02/06/24 03:54
Complete Blood Count/With Diff IN AM
Comprehensive Metabolic Panel IN AM
02/06/24 08:00
Gabapentin [Neurontin] 300 mg PO DAILY
02/07/24 05:19
Complete Blood Count/With Diff IN AM
Comprehensive Metabolic Panel IN AM
02/08/24 04:19
Complete Blood Count/With Diff IN AM
Comprehensive Metabolic Panel IN AM
02/09/24 04:03
Complete Blood Count/With Diff IN AM
Comprehensive Metabolic Panel IN AM
Abnormal Lab Results
02/05/24 02/05/24
12: 12:54
WBC 4.6 L 10^3/uL
(4.8-10.8)
RBC 4.16 L 10^6/uL
(4.20-5.40)
Hct 36.6 L %
(37.0-47.0)
RDW 16.9 H %
(11.5-14.5)
Absolute Lymphs (auto) 0.1 L 10^3/uL
(1.2-3.4)
Immature Gran % 0.6 H %
(0-0.5)
Neutrophils % 92.7 H %
(42.2-75.2)
Lymphocytes % 1.1 L %
(20.5-51.1)
Sodium 132 L mmol/L
(135-145)
BUN 24 H mg/dl
(7-17)
Lactic Acid 2.7 H mmol/L
(0.7-2.0)
Calcium 8.0 L mg/dl
(8.4-10.2)
Magnesium 1.1 L mg/dl
(1.6-2.3)
Total Protein 4.9 L g/dl
(6.3-8.2)
Albumin 2.5 L g/dl
(3.5-5.0)
02/05/24 12:25
02/05/24 12:25
Vital Signs
Initial and Last Documented VS:
Initial Vital Signs
Temp Pulse Resp BP Pulse Ox
99.5 F 93 13 69/52 92
02/05/24 12:06 02/05/24 12:06 02/05/24 12:06 02/05/24 12:06 02/05/24 12:06
Last Documented Vital Signs
Temp Pulse Resp BP Pulse Ox
98.0 F 90 18 120/80 97
02/10/24 08:02 02/10/24 08:07 02/10/24 08:07 02/10/24 06:00 02/09/24 23:13
MDM/Problems Addressed
Differential Diagnosis Includes:
sepsis from pneumonia/empyema, prosthetic joint infection (chronic problem), uti, other source?
MDM/Problems Addressed:
Patient presents with significant sinus tachycardia at 140s to 150s. She is hypotensive with a systolic pressure of 60. Fluid resuscitation initiated. Patient noted to be febrile by rectal temp. Broad-spectrum antibiotics ordered empirically.
Patient appears dry and hopefully will respond to IV fluids. However given her profound hypotension we will initiate pressors early.
Chronic conditions affecting care: Cancer (Metastatic ovarian cancer)
*EKG
Interpreted by ED Provider?: Yes
Heart Rate: 144
Rate: tachycardiac
Rhythm: sinus tachycardia
[place]: normal axis
Interval: normal interval
QRS Pattern: normal QRS
Ischemia: non-specific ST changes
*Critical Care Note
Total Time (30-74mins, 75-104mins- exclusive of procedures): 35 min
comment:
Critical care statement: A total of 35 minutes of critical care time was provided for this patient. This includes management of unstable vital signs, evaluation of the patient at bedside, reviewing the patient's pertinent medical records, discussion
with consultants, review of old EKGs and review of pertinent medical records. This time with separate from time utilized to perform the aforementioned documented procedures
ED Attending Note
-
Portions of this chart may have been created with voice recognition software.� Occasional wrong word or��sound alike� substitutions may have occurred due to the inherent limitations of voice recognition software.
Discharge Plan
Departure
Patient Disposition: Admit
Date of Disposition: 02/05/24
Time of Disposition: 13:36
Admit to: IMU
Presentation/result/management discussed w/ accepting MD/DO: Hospitalist
Discharge Problem:
Fever, Septic shock
Interventions
Interventions:
*General Assessment Last Done: 02/05/24 14:00
*Neglect/Abuse Screening Last Done: 02/05/24 17:02
*Nursing Disposition Last Done: 02/05/24 17:02
ED- Cardiac Assessment Last Done: 02/05/24 14:36
ED- Pulmonary Assessment Last Done: 02/05/24 14:37
Discharge Date and Time
Discharge Date/Time: 02/05/24 17:03
[2024-02-05 12:39] LABS: % Basophils 0.4 % (0-2); % Immature Granulocytes 0.6 % (0-0.5); % Lymphocytes 1.1 % (20.5-51.1); % Monocytes 5.2 % (1.7-9.3); % Neutrophils 92.7 % (42.2-75.2); Absolute Lymphocytes 0.1 10^3/uL (1.2-3.4); Absolute Monocytes 0.2 10^3/uL (0.1-0.6); Absolute Neutrophils 4.3 10^3/uL (1.4-6.5); Hematocrit 36.6 % (37.0-47.0); Hemoglobin 12.3 g/dL (12.0-16.0); Mean Corp Hgb Conc. 33.6 g/dL (33.0-37.0); Mean Corpuscular Hgb 29.6 pg (27.0-31.0); Mean Platelet Volume 8.3 fL (7.4-10.4); Nucleated Red Blood Cells % 0 %; Platelet Count 254 10^3/uL (130-400); Red Blood Cell Count 4.16 10^6/uL (4.20-5.40); Red Cell Dist. Width 16.9 % (11.5-14.5); White Blood Cell Count 4.6 10^3/uL (4.8-10.8)
[2024-02-05] MEDS: NSS 1000 IV ×2 (12:55→15:44)
[2024-02-05] MEDS: LEVOPHED 250 IV (12:56)
[2024-02-05 12:57] LABS: ALT (SGPT) < 10 U/L (0-35); AST (SGOT) 17 U/L (14-36); Albumin 2.5 g/dl (3.5-5.0); Alkaline Phosphatase 80 U/L (38-126); Blood Urea Nitrogen 24 mg/dl (7-17); Carbon Dioxide 25 mmol/L (22-30); Chloride 98 mmol/L (98-107); Estimated Creatinine Clearance 53 ml/min; Glucose 92 mg/dl (70-99); Potassium 3.8 mmol/L (3.5-5.1); Sodium 132 mmol/L (135-145); Total Bilirubin 0.3 mg/dl (0.2-1.3); Total Protein 4.9 g/dl (6.3-8.2); eGFR > 60.00
[2024-02-05] MEDS: TYLENOL 650 MG PO (13:02)
[2024-02-05] MEDS: ZOSYN 100 IV (13:03)
[2024-02-05 13:19] LABS: Lactic Acid 2.7 mmol/L (0.7-2.0)
[2024-02-05 13:33] LABS: Troponin I < 0.012 ng/ml
--- NOTE | 2024-02-05 13:43 | HPS.HSE ---
Family Physician
-
Family Physician: Olya Moore MD
Chief Complaint
-
Shortness of breath on chronic 5 L nasal cannula
History of Present Illness
73-year-old female complaining of shortness of breath on her chronic 5 L nasal cannula at home. She also reported some mild nausea. On arrival to the ER her rectal temperature was 101 F she was noted to be hypotensive with blood pressures 69/52.
She received 1400 cc of IV NSS and eventually placed on IV Levophed with current pressure 89/58. She has a Right sided pleural catheter secondary to large pleural effusion in December. This is drained every other day by home care nurse with an
average volume of 400 600 cc per the patient. She is due for drainage today 02/05/2024. On Saturday her daughter said drainage was noted to be dark red and fluid. She is on oral Eliquis for a left lower extremity DVT. Her hemoglobin is stable at
12.3. She denies headache, sore throat, chest pain, palpitations, abdominal pain, vomiting, diarrhea, urinary symptoms, blood in stool.
She had a recent admission 01/01 - 01/15/2024 for Empyema and a large right pleural effusion requiring thoracentesis with fluid analysis showing exudative fluid positive for malignant cells adenocarcinoma. Her pleural fluid did show growth of MSSA and
she was started on IV Rocephin within a 6-week course of cefazolin through her PICC line. This antibiotic infusion is due to stop on 02/16/2024 then she was able to resume her prophylactic Keflex for history of infected prosthetic joint. She had
ISAURA which was negative for vegetation. She had 11 beats of V. tach which resolved on its own potassium magnesium were repleted she did receive 1 unit PRBC due to hemoglobin drop to 7. She had a large DVT which expanded from prior to her left lower
extremity. She stopped taking her Eliquis in August unclear reason. She was placed on IV heparin and then transition to oral Eliquis to be lifelong.
She has past medical history of stage IV ovarian cancer with mets to omentum 06/04/2019 completed chemotherapy then reoccurrence August 2022 with mets to her lungs. She follows with Dr. Hensley oncology at [facility]. Her current chemo is
on hold due to MSSA of the right lung pleural fluid December 2023 admission, large right-sided malignant pleural effusion adenocarcinoma 01/02/2024 status post thoracentesis positive for MSSA, requiring 6-week course of IV Rocephin through port right
upper chest wall, known empyema cavitary lesion left upper lobe, chronic hypoxic respiratory failure on chronic 5 L nasal cannula, chronic DVT left lower extremity on current Eliquis, chronic constipation, history of prosthetic joint infection,
peripheral neuropathic pain
Medical History
Past Medical History
Past Medical History: Reports Asthma
Additional Past Medical History:
Stage IV Ovarian Carcinoma (06 04 2019 mets to omentum s/p several rounds of chemo) w/ Lung Mets August 2022 recurrent
DVT left lower extremity was, not on OAC August 2023, expanding DVT left lower extremity placed on Eliquis December 2023 admission
Large right-sided malignant pleural effusion s/p thoracentesis on 01/06/2024 with current chronic right pleural chest tube
MSSA right-sided pleural effusion 01/06/2024 to finish antibiotics 02/16/2024 Rocephin via PICC line
Chronic hypoxia requiring 4 to 5 L nasal cannula O2
Past Surgical History: Reports Appendectomy, Gynocological (Hysterectomy w/ BL SPO/ tumor resection) and Orthopedic (R Hip replacement, R Knee replacement)
Additional Past Surgical History:
Port right upper chest wall
Right pleural chest tube
Social History
Tobacco: Non-smoker
Alcohol: None
Drug: None
Personal:
Living: With Family ()
Employment: Retired
Family History
Family History: Not pertinent
Allergies / Home Medications
Allergies reflects when Allergies were last updated in [facility].
Home Medications with original date entered in [facility]
Allergy/Medication List:
Allergies
Allergy/AdvReac Type Severity Reaction Status Date / Time
No Known Allergies Allergy Verified 01/01/24 10:47
Home Medications
gabapentin 300 mg capsule 600 mg (2 x 300 mg) PO HS Pain #0 caps 09/16/23
gabapentin 300 mg capsule 300 mg PO DAILY Neurological Condition 01/01/24
ipratropium 0.5 mg-albuterol 3 mg (2.5 mg base)/3 mL nebulization soln 3 ml inhalation R TID Lung/Breathing Issues 01/01/24
oxycodone 5 mg tablet 5 mg PO Q4HPRN PRN moderate pain 01/01/24
sennosides 8.6 mg tablet (Senokot) 8.6 mg PO HS 01/01/24
apixaban 5 mg tablet (Eliquis) 5 mg PO BID 30 days #60 tabs 01/14/24
cefazolin 10 gram solution for injection 2 g IV Q8H #0 ea 01/14/24
albuterol sulfate 90 mcg/actuation aerosol inhaler 2 puff inhalation R Q4HPRN PRN sob 02/05/24
budesonide-formoterol HFA 160 mcg-4.5 mcg/actuation aerosol inhaler (Symbicort) 2 inh inhalation R BIDPRN PRN sob 02/05/24
omeprazole magnesium 20 mg tablet,delayed release (Prilosec OTC) 20 mg PO DAILYPRN PRN heartburn 02/05/24
ondansetron HCl 8 mg tablet 8 mg PO DAILY 02/05/24
ondansetron HCl 8 mg tablet 8 mg PO QPMPRN PRN nausea 02/05/24
oxymetazoline 0.05 % nasal spray (Afrin (oxymetazoline)) 1 spray intranasal DAILYPRN PRN conjestion 02/05/24
phenylephrine-guaifenesin 2.5 mg-100 mg/5 mL oral liquid 20 ml PO [id number] PRN cough 02/05/24
Review of Systems
-
History Source: Patient and Family (Daughters at bedside)
A 12 point ROS was completed and negative except as noted: Yes
Constitutional: Reports Fever; Denies Fatigue or Chills
EENT: Denies Tearing, Sore Throat or Runny Nose
Respiratory: Reports Trouble Breathing (On chronic 5 L nasal cannula) and Other (Chronic right sided pleural cath present); Denies Cough
Cardiac: Denies Chest Pain, Diaphoresis, Palpitations or Syncope
Abdomen/GI: Reports Nausea; Denies Abdominal Pain, Vomiting, Diarrhea, Constipated, Bloody Stools or Black Stools
: Denies Dysuria, Frequency, Flank Pain, Incontinence or Difficulty Voiding
Musculoskeletal: Denies Joint Pain or Edema
Skin: Reports Other (Port present right upper chest wall); Denies Itching or Rash
Neurological: Denies Dizzy, Headache or Weakness
Endocrine: Reports No Symptoms
Hematologic/Lymphatic: Reports No Symptoms
Psych: Reports Calm
Physical Exam
Vital Signs
Vital Signs
Temp Pulse Resp BP Pulse Ox
99.5 F 93 13 69/52 92
02/05/24 12:06 02/05/24 12:06 02/05/24 12:06 02/05/24 12:06 02/05/24 12:06
Physical Exam
General: Comfortable, Conversant and Fever; No Chills
HEENT: NormoCephalic, Anicteric, Moist mucous membranes, PERRLA, [place] Conjunctivae, No Ptosis, Neck Nontender and Oxygen (6 L nasal cannula)
Respiratory: Clear and Chest Tube (Chronic right sided pleural cath); No Wheezes, Rales or Rhonchi
Cardiac: S1/S2 and Regular Rhythm; No Murmur, Rub, Gallop, Peripheral Edema or JVD
Breast: Deferred by me
GI: Soft, Non Tender, Non Distended, Normal Bowel Sounds and No Hepatosplenomegaly
Rectal: Deferred by Provider
Genito-urinary: Deferred by me
Musculoskeletal: No Clubbing, No Cyanosis and No Edema
Skin: Warm, Dry and IV/Catheter Site (Port right upper chest wall); No Rash
Neuro: AO x 3, No Motor Deficits, Nonfocal/grossly intact, Cranial Nerves Intact and No Sensory Deficits; No Slurred Speech, Facial Droop, Tremors or Sedated
Psych: Calm
Laboratory Results
-
02/05/24 12:25
02/05/24 12:25
Laboratory Results
Lactic Acid 2.7 mmol/L (0.7-2.0) H 02/05/24 12:54
Total Bilirubin 0.3 mg/dl (0.2-1.3) 02/05/24 12:25
AST 17 U/L (14-36) 02/05/24 12:25
ALT < 10 U/L (0-35) 02/05/24 12:25
Alkaline Phosphatase 80 U/L (38-126) 02/05/24 12:25
Troponin I < 0.012 ng/ml 02/05/24 12:25
Impression/Plan
-
Impression/plan:
Admit to ICU
#Septic shock unclear etiology concern for bacteremia given current MSSA right pleural fluid
#Lactic acidodis
WBC 4.6, rectal temp 101F, HR 93, BP 69 4-52
-Consult infectious disease
-Consult supervisor travel trailer
-Consult IR for pleural tube drainage every other day
-Blood cultures x 2 per ID
-IV vancomycin, IV Zosyn
-Given 1400 cc IV NSS, continue IV NSS 100 cc an hour
-Hypotensive 69/50s requiring IV Levophed
-Tylenol as needed fever
-cbc cmp
-Re check right pleural fluid
CXR:Bilateral pleural effusions, moderate in size, stable. Parenchymal opacity within both lower lungs, which appears stable,
and is most likely compressive atelectasis.
Focal sclerosis involving the right side of the T12 vertebral body, stable, and likely a bony metastatic lesion.
#Large Right Sided malignant pleural effusion adenocarcinoma 01/02/2024 status post thoracentesis, positive for MSSA
#Right sided pleural tube requiring drainage every other day(typical volume 400 to 600 cc per)
#Empyema-known cavitating lesion left upper lobe
-Thoracentesis on 01/06/2024 positive malignant cells, adenocarcinoma
-MSSA pleural effusion treated with Rocephin transition 6-week course cefazolin through her PICC line to stop on 02/16/2024 then resume her prophylactic Keflex for prior joint infection
-Patient will need right pleural tube drained every other day is due today 02/05/2024
# Chronic hypoxic respiratory failure w/ home oxygen dependence (resolved)
-Chronic 5 L nasal cannula now requiring 6 L nasal cannula
- C/w QID DuoNeb treatments, Symbicort inhaler
# Chronic DVT LLE, previously untreated patient stopped her Eliquis in August 2019 for unclear reason
- Patient did not take her Eliquis post discharge for LE DVT, has not been on OAC since her August 2023 admission
- LE Venous Doppler during this admission (+) extensive DVT, increased from prior ultrasound
-Was restarted on Eliquis 10mg BID until 01/16 8AM, then starting 01/16 8PM ,
-continue Eliquis 5mg dose BID indefinitely
#Stage IV Ovarian cancer w/ Mets omentum 06/04/2019 then mets to the Lung August 2022 poss new stable T12 vertebral body bony mets
#Chronic cancer pain with opioid dependence
- Palliative chemotherapy (Taxol) with [facility] q3 weeks
-Was not interested in hospice during December visit
- Cont Oxycodone 7.5mg Q4h prn
-Patient's oncologist Dr. Hensley her chemo was paused due to December hospitalization for MSSA
CXR showing focal sclerosis involving the right side of the T12 vertebral body, stable, and likely a bony metastatic lesion.
#Chronic constipation, multifactorial (resolved)
- Cont bowel regimen of Senokot/Mirala
#History of Prosthetic Joint Infection
-To resume oral Keflex after completing IV Rocephin via PICC line on 02/16/2024
#Peripheral Neuropathic Pain
-Continue home dose gabapentin 600mg QHS
DVT prophylaxis
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
Full code per patient with daughters at bedside
[2024-02-05] MEDS: NSS 1400 ML IV (13:44)
[2024-02-05] MEDS: VANCOCIN 275 MG IV (13:45)
[2024-02-05 13:52] LABS: COVID-19 Antigen Negative (Negative)
--- NOTE | 2024-02-05 14:51 | W.PN.UPDATE ---
Update Note
Progress Note Update
This is an addendum to the H&P written by Camryn Luther on 02/05/2024.� Patient seen and examined independently with DIP UNIT OPERATOR.
73-year-old female past medical history of stage IV ovarian cancer metastases to lung with malignant pleural effusion status post right-sided Pleurx catheter, large right-sided empyema secondary to MSSA currently on cefazolin through port,, left
lower extremity DVT previously untreated discovered to be larger in December, constipation, history of prostatic joint infection, peripheral neuropathy, presenting with increasing shortness of breath, fever/chills.� 400 to 600 cc every other day
drained from Pleurx.� Increasing dark material over the past few days.
Patient was recently admitted from 01/01 to 01/14 for large right-sided pleural effusion status post chest tube eventually converted to Pleurx.� Pleural culture showed MSSA.� She was switched over to IV cefazolin.� She was also found to have left lower
extremity DVT which expanded from prior imaging due to Eliquis noncompliance.
Found to be hypotensive, tachycardic and febrile in the emergency room.
Labs show leukopenia, lactic acidosis.� Chest x-ray shows bilateral pleural effusions, moderate in size.� Concern for septic shock secondary to persistent right lung empyema versus bacteremia secondary to MSSA.� IV fluids, blood cultures, vancomycin
and Zosyn.� Pulmonary, ID, IR consulted as Pleurx needs to be drained today and pleural fluid needs to be sent for culture.
--- NOTE | 2024-02-05 14:57 | CON.INTV ---
Consultation
Consultation Request
Date/Time Consultation Requested: 02/05/2024
Date/Time Consultation Performed: 02/05/2024
Requesting Provider: Dr. Ca
Performing Provider: Dr.Manuel Keene
Reason for Consultation: Septic shock
Medical History
-
Chief Complaint: SOB, right-sided back pain
History of Present Illness:
73-year-old female with a past medical history of stage IV ovarian cancer with metastasis to lung on chemotherapy, history of colon polyps, chronic hypoxic respiratory failure on home O2 (5 L/min) and history of RA who in December 2023 was admitted
with MSSA empyema, received antibiotics. s/p Left Intrapleural catheter was placed 01/13/2024. Patient was discharged on 01/27/2024.
Returns to the hospital 02/05/2024 complaining of shortness of breath. Patient found to be febrile up to 101 �F, noted to be hypotensive 69/52. Received adequate fluid resuscitation. Despite that she remained hypotensive. Required vasopressors.
Patient has been draining her pleural catheter every other day 400 to 600 cc.
Chest x-ray here showed small pleural effusion on the left. Apparently she is due to drain 02/05/2024.
Has been on chronic anticoagulation for DVT.
Denies any signs of bleeding.
Denies nausea, vomiting, sore throat, phlegm production.
Patient is supposed to be on IV Rocephin until 02/16/2024.
Has not received chemotherapy due to ongoing MSSA infection. Follows up at [facility].
PMHx: Osteoarthritis involving multiple joints, history of RA, stage IV ovarian cancer with metastasis to lung, colonic polyps, chronic hypoxic respiratory failure on 5 L/min nasal cannula
PSHx: Right TKA, facial surgery, left 5th digit surgery, appendectomy, hysterectomy
Past Medical History
Past Medical History: Other (Above as per HPI)
Past Surgical History: Other (Above as per HPI)
Social History
Tobacco: Former Smoker (Remote Hx of light tobacco use when she was in college (smoked 2 cigarettes/day for ~1 year))
Alcohol: Occasional
Drug: None
Family History
Family History: Hypertension (Mother) and Other (Father: Stroke)
Allergies / Home Medications
Allergies
Allergy/AdvReac Type Severity Reaction Status Date / Time
No Known Allergies Allergy Verified 01/01/24 10:47
Home Medications
�Medication �Instructions �Recorded �Confirmed �Last Taken �Type
gabapentin 300 mg capsule 600 mg (2 x 300 mg) PO HS Pain #0 09/16/23 02/05/24 02/04/24 Rx
caps
gabapentin 300 mg capsule 300 mg PO DAILY Neurological 01/01/24 02/05/24 02/05/24 History
Condition
ipratropium 0.5 mg-albuterol 3 mg 3 ml inhalation R TID 01/01/24 02/05/24 02/05/24 History
(2.5 mg base)/3 mL nebulization Lung/Breathing Issues
soln
oxycodone 5 mg tablet 5 mg PO Q4HPRN PRN moderate pain 01/01/24 02/05/24 02/05/24 History
sennosides 8.6 mg tablet (Senokot) 8.6 mg PO HS 01/01/24 02/05/24 02/04/24 History
apixaban 5 mg tablet (Eliquis) 5 mg PO BID 30 days #60 tabs 01/14/24 02/05/24 02/05/24 Rx
cefazolin 10 gram solution for 2 g IV Q8H #0 ea 01/14/24 02/05/24 02/05/24 Rx
injection
albuterol sulfate 90 mcg/actuation 2 puff inhalation R Q4HPRN PRN sob 02/05/24 02/05/24 Unknown History
aerosol inhaler
budesonide-formoterol HFA 160 2 inh inhalation R BIDPRN PRN sob 02/05/24 02/05/24 Unknown History
mcg-4.5 mcg/actuation aerosol
inhaler (Symbicort)
omeprazole magnesium 20 mg 20 mg PO DAILYPRN PRN heartburn 02/05/24 02/05/24 02/04/24 History
tablet,delayed release (Prilosec
OTC)
ondansetron HCl 8 mg tablet 8 mg PO DAILY 02/05/24 02/05/24 02/05/24 History
ondansetron HCl 8 mg tablet 8 mg PO QPMPRN PRN nausea 02/05/24 02/05/24 Unknown History
oxymetazoline 0.05 % nasal spray 1 spray intranasal DAILYPRN PRN 02/05/24 02/05/24 Unknown History
(Afrin (oxymetazoline)) conjestion
phenylephrine-guaifenesin 2.5 20 ml PO [id number] PRN cough 02/05/24 02/05/24 Unknown History
mg-100 mg/5 mL oral liquid
Review of Systems
Vitals / Labs / Diagnostic Testing
Vital Signs
Temp Pulse Resp BP Pulse Ox
99.5 F 116 20 89/58 95
02/05/24 12:06 02/05/24 14:00 02/05/24 14:00 02/05/24 14:00 02/05/24 14:37
Lab Data
02/05/24 12:25
02/05/24 12:25
Microbiology
02/05/24 12:54 Nasal Swab Influenza Types A & B (PILI) - Final
Negative for Influenza A & B, NAAT
Negative results must be combined with clinical observations
and patient history.
Nucleic Acid Amplification test (NAAT)performed on the
[employer] platform.
Diagnostic Testing:
Physical Exam
-
HEENT: Normocephalic
Cardiovascular: S1/S2
Respiratory: Other (Decreased breath sounds bilaterally)
GI: Soft and Non Distended
Neurology: Awake, Alert, Oriented and No Motor Deficits
General: Respiratory Distress (n) and Other (Cachectic)
Assessment
-
73-year-old woman with history of widely metastatic ovarian cancer, cachexia, recent MSSA empyema, status post intrapleural catheter placement, chronic anemia, chronic hypoxemic respiratory failure, currently not on chemotherapy admitted for fevers
and hypotension. Increased lactic acid. Transferred to the critical care unit for further evaluation.
Septic shock
Multiple sources possible
Chest x-ray 02/05/2024: Reviewed showed bilateral pleural effusion, stable compared to prior. Moderate in size. Bibasilar atelectasis.
Lactic acidosis
Conditions present prior admission:
Recent admission for MSSA empyema 12/2023.
Left upper lobe cavitary lesion-metastatic.
Cardiomyopathy.
Echocardiogram 01/06/2024-shows mildly reduced LVEF of 45% with normal RV size/function, mild�moderate TR with moderate pulmonary hypertension with PASP 44 mmHg assuming an RAP of 3 mmHg
Osteoarthritis involving multiple joints
History of rheumatoid arthritis
Chronic anemia (baseline Hb 7.5�9 g/dL)
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 Follows up at [facility]-chemotherapy on hold since December due to empyema.
Chronic respiratory failure 5 L nasal cannula
Chronic pleural effusion: Malignant, status post Left intrapleural catheter 01/13/2024.
Plan:
Critically ill, requiring vasopressors.
Noted recent admission to the hospital with MSSA empyema. Status post intrapleural catheter. On the left being drained every 48 hours for 400 to 500 cc.
Now febrile and hypotensive.
In the emergency room to my evaluation she did not have any particular complaints.
-
Suspect septic shock
Chest x-ray with bilateral pleural effusion, left IPC in place.
I agree with sampling pleural fluid for infection-IR has been consulted-will be sent for analysis.
Infectious diseases been consulted, patient received Zosyn and vancomycin in the emergency room.
Port site appears clean intact
Intrapleural catheter site also does not appear
Check blood cultures
Check UA
Sputum culture if patient produces. Not behaving like pneumonia
-
Continue vasopressors-maintain systolic blood pressure above 90. Patient runs low.
Currently on Levophed
Follow renal function
Trend lactic acid
Follow renal function and leukocytes
-
Continue current bronchodilator regimen: DuoNebs QID with Symbicort(takes in the outpatient setting)
-
Empyema-positive MSSA diagnosed 12/2023. Discharged on IV antibiotics-she states that she has been doing well since discharge.
On Ancef-was supposed to continue antibiotics until 02/16/2024.
Defer antibiotic choice to infectious disease.
-
Status post intrapleural catheter 01/13/2024.
Pleural cytology 01/06/2024: Positive for malignant cells. Adenocarcinoma.
Patient with history of ovarian cancer. No metastatic. Cachectic.
Continue to drain every 48-72 hours while in the hospital.
Cachectic: Continue with nutritional support.
DVT prophylaxis-on eliquis
Code status: Full code --> we would recommend DNR given her cachectic appearance and [id number] will be an ongoing discussion.
Remains full code per daughter.
-
Critical care statement: A total of 32 minutes of critical care time was provided for this patient today. This includes management of unstable vital signs, evaluation of the patient at bedside, reviewing the patient's pertinent medical records
including ventilator settings, arterial blood gases, radiographs, microbiology, laboratory evaluations and discussion with primary team, critical care nursing, and respiratory therapy.
--- NOTE | 2024-02-05 15:14 | PN.IRAD.UPD ---
Update Note - IRAD
- -
Drained Right Asept catheter per Camryn Homa. 30 ml's of blood tinged fluid was aspirated. Catheter was then attached to suction with no drainage. Site cleaned and dressed. Capped syringe was labeled and left in patient's room to send for
analysis. RN notified to check lab orders and send fluid.
[2024-02-05 16:10] LABS: Body Fluid Mononuclear 19.9 %; Body Fluid Polymorphonuclear 80.1 %; Body Fluid WBC 872 /CUMM
[2024-02-05 16:29] LABS: Body Fluid Amylase 34 U/L; Body Fluid Glucose < 30 mg/dl; Body Fluid Protein 2.4 g/dl; Body Fluid Triglycerides < 30 mg/dl
[2024-02-05 16:30] LABS: Body Fluid Second Tech FB
--- NOTE | 2024-02-05 17:31 | PTCARENOTE ---
1700-Received pt from ED via stretcher.Pt is awake and alert.Speech is appropriate.+3-4/5 WEBER with generalized weakness noted.Denies pain.SR noted.Right SQ port intact with Levophed gtt.IVF infusing.Decreased breath sounds throughout.O2 6l NC.POX
97%Pt c/o hunger.Dinner ordered.No BM.No void.bladder scanned for 207 ml.Skin integrity as documented.Pt's daughter and day care assistant at bedside.Plan of care discussed.
[2024-02-05 17:46] LABS: Magnesium 1.1 mg/dl (1.6-2.3)
[2024-02-05 18:08] LABS: Body Fluid LDH 2796 U/L
--- NOTE | 2024-02-05 18:37 | PHA.VAN.IN ---
Assessment
- Assessment
Renal Function: Appears similar to baseline
Concomitant Antimicrobials: piperacillin/tazobactam
Plan
- Plan
Initial / Loading Dose: vanc 1250mg administered in ED @ 1345
Maintenance Regimen: dosing by level
Monitoring: random level 02/05 0600
Pharmacokinetics Vancomycin I
- -
Patient Age: 73
Patient Sex: Female
Vancomycin Day #: 1
Indication: Bacteremia
Requesting Provider: Camryn Luther
Pertinent Antimicrobial Allergies:
no pertinent antimicrobial allergies
Height / Weight:
Height 5 ft 4 in
Actual Weight 45.8 kg
Pertinent Past Medical History: BMI ~17, hx ovarian cancer w/ mets to lung, recent MSSA empyema 01/01/24
- Vital Signs / Lab Results
Temp Pulse Resp BP Pulse Ox
98.2 F 94 18 89/62 97
02/05/24 18:28 02/05/24 16:35 02/05/24 16:35 02/05/24 16:35 02/05/24 17:00
Lab Results - Hematology
02/05/24
12:25
WBC 4.6 L
Lab Results - Chemistry
02/05/24
12:25
BUN 24 H
Creatinine 0.7
Estimated Creat Clear 53
Albumin 2.5 L
02/05/24
12:54
Lactic Acid 2.7 H
Microbiology Results
02/05/24 15:45 Gram Stain - Preliminary
Pleural Fluid
02/05/24 15:45 Fungal Culture - Preliminary
Pleural Fluid Culture in progress.
Positive cultures are reported as soon as detected.
Final report to follow in four to five weeks.
02/05/24 12:54 Influenza Types A & B (PILI) - Final
Nasal Swab Negative for Influenza A & B, NAAT
Negative results must be combined with clinical observations
and patient history.
Nucleic Acid Amplification test (NAAT)performed on the
[employer] platform.
[2024-02-05] MEDS: DUONEB 3 ML INH (19:20)
[2024-02-05] MEDS: SYMBICORT 160/4.5 MCG INHALER 2 PUFF INH (19:25)
[2024-02-05 20:16] LABS: INR 1.91
[2024-02-05 20:17] LABS: APTT 44.9 Sec (23.4-35.0)
[2024-02-05] MEDS: MAGNESIUM SULFATE 50 IV (20:17)
[2024-02-05] MEDS: ZOSYN 50 IV (20:17)
[2024-02-05 20:19] LABS: Lactic Acid 1.4 mmol/L (0.7-2.0)
[2024-02-05] MEDS: NEURONTIN 600 MG PO (20:19)
[2024-02-05] MEDS: ROXICODONE 5 MG PO (20:19)
[2024-02-05] MEDS: SENOKOT 8.6 MG PO (20:20)
[2024-02-05] MEDS: ELIQUIS 5 MG PO (20:20)
--- NOTE | 2024-02-05 20:43 | PTCARENOTE ---
On assessment pt AAOx3, c/o pain to sacrum, PRN meds given see MAR, denies chest pain and SOB, SR on the monitor, on minimal levo gtt, 6L NC 96%, L intrapleural catheter dressing intact, purwick in place, sacral wound and multiple skin tears see
flowsheet, R subQ port with levo gtt, NSS at 100ml/hr per order, call cortez in reach
[2024-02-05 23:08] LABS: Urine Albumin Trace (Neg - Trace); Urine Bilirubin Negative (Negative); Urine Character Clear (Clear); Urine Color Yellow; Urine Glucose Negative (Negative); Urine Ketone Negative (Negative); Urine Leukocyte Trace (Negative); Urine Nitrite Negative (Negative); Urine Occult Blood Negative (Negative); Urine Urobilinogen Negative (Neg - 1+)
[2024-02-05 23:16] LABS: Urine Bacteria Many (Negative); Urine Red Blood Cell 0-2 /HPF (0-2); Urine White Cell 0-2 /HPF (0-5)
[2024-02-06] VITALS (41 sets, daily range): BP systolic 73–140; BP diastolic 44–78; PULSE 97–141; BMI 17.9
--- NOTE | 2024-02-06 00:46 | PTCARENOTE ---
Pt repositioned and educated on need for frequent turns, pt states pain is 'better', pt voided approximately 75cc, bladder scanned for 354cc, pt states she will try to void at this time, purwick in place and call cortez in reach.
[2024-02-06] MEDS: NSS 1000 IV (00:50)
[2024-02-06] MEDS: ZOSYN 50 IV ×2 (01:03→07:45)
--- NOTE | 2024-02-06 02:34 | PTCARENOTE ---
small amount of incontinent urine noted, bladder scanned 345cc, encouraged pt to try and void, purwick in place.
--- NOTE | 2024-02-06 03:31 | PTCARENOTE ---
no changes from prior assessment, call cortez in reach.
[2024-02-06 04:33] LABS: ALT (SGPT) < 10 U/L (0-35); AST (SGOT) 15 U/L (14-36); Albumin 2.2 g/dl (3.5-5.0); Alkaline Phosphatase 68 U/L (38-126); Blood Urea Nitrogen 22 mg/dl (7-17); Calcium 7.7 mg/dl (8.4-10.2); Carbon Dioxide 24 mmol/L (22-30); Chloride 100 mmol/L (98-107); Estimated Creatinine Clearance 52 ml/min; Glucose 99 mg/dl (70-99); Magnesium 1.6 mg/dl (1.6-2.3); Potassium 3.9 mmol/L (3.5-5.1); Sodium 134 mmol/L (135-145); Total Bilirubin 0.2 mg/dl (0.2-1.3); Total Protein 4.5 g/dl (6.3-8.2); eGFR > 60.00
[2024-02-06 05:18] LABS: % Basophils 0.3 % (0-2); % Immature Granulocytes 1.5 % (0-0.5); % Lymphocytes 0.7 % (20.5-51.1); % Monocytes 2.4 % (1.7-9.3); % Neutrophils 95.1 % (42.2-75.2); Absolute Immature Granulocytes 0.1 10^3/uL (0-0.05); Absolute Lymphocytes 0.1 10^3/uL (1.2-3.4); Absolute Monocytes 0.2 10^3/uL (0.1-0.6); Absolute Neutrophils 8.6 10^3/uL (1.4-6.5); Hematocrit 26.3 % (37.0-47.0); Hemoglobin 8.8 g/dL (12.0-16.0); Mean Corp Hgb Conc. 33.5 g/dL (33.0-37.0); Mean Corpuscular Hgb 29.3 pg (27.0-31.0); Mean Corpuscular Volume 87.7 fL (81.0-99.0); Mean Platelet Volume 8.8 fL (7.4-10.4); Nucleated Red Blood Cells % 0 %; Platelet Count 299 10^3/uL (130-400); Red Cell Dist. Width 16.9 % (11.5-14.5); White Blood Cell Count 9.1 10^3/uL (4.8-10.8)
--- NOTE | 2024-02-06 05:40 | PTCARENOTE ---
pt voided in purwick, small to moderate amount, yellow urine, post void bladder scan was 235cc
[2024-02-06] MEDS: ROXICODONE 5 MG PO ×3 (05:45→20:53)
[2024-02-06] MEDS: MAGNESIUM SULFATE 102 GRAMS IV (05:45)
[2024-02-06] MEDS: LEVOPHED 250 IV (05:46)
[2024-02-06] MEDS: DUONEB 3 ML INH ×3 (07:10→20:09)
[2024-02-06] MEDS: SYMBICORT 160/4.5 MCG INHALER 2 PUFF INH ×2 (07:31→20:09)
[2024-02-06] MEDS: NEURONTIN 300 MG PO (07:45)
[2024-02-06] MEDS: ELIQUIS 5 MG PO ×2 (07:45→20:46)
--- NOTE | 2024-02-06 08:19 | PHA.VAN.FU ---
Vancomycin Assessment / Plan
- Assessment
Renal Function: Stable
WBC's are: WNL
In the past 24 hrs, patient has been: Afebrile
Concomitant Antimicrobials: piperacillin/tazobactam
- Assessment - Therapeutic Drug Monitoring
Random Level: 11 - drawn ~14H after 1250mg initial dose
- Dosing Plan
Dosing by Level: Re-dose today (Vanc 1000mg)
Given BMI < 20, patient likely to have increased clearance compared to population PK. Additionally, patients with cancer may have higher vanc clearance (Pharmacotherapy. 2019;40(12):1301-4504. doi: 10.1002/phar.2475.)
Utilizing IBW for dosing weight, Vanc 1000mg Q24H predicts:
With CrCl 62 ml/min (IBW): AUC 478, Peak 35.2, Trough 9.7
With CrCl 52 ml/min (TBW): AUC 559, Peak 38.2, Trough 12.8
Will keep dose by level to assess trend of level
- Monitoring Plan
Random Level: 02/06 0600
- Follow Up
Pharmacy will continue to follow.
Vancomycin Follow UP
- -
Patient Age: 73
Patient Sex: Female
Vancomycin Day #: 2
Indication: Bacteremia
Requesting Provider: Camryn Luther
Pertinent Antimicrobial Allergies:
NKDA
Height / Weight:
Height 5 ft 4 in
Actual Weight 47.3 kg
IBW in k.7
Pertinent Past Medical History: BMI ~17, Metastatic ovarian cancer, MSSA empyema (12/2023)
- Vital Signs / Lab Results
Temp Pulse Resp BP Pulse Ox
99.1 F 82 18 108/68 98
02/06/24 07:39 02/06/24 07:32 02/06/24 07:32 02/06/24 06:00 02/06/24 07:11
Lab Results - Hematology
02/05/24 02/06/24
12:25 03:54
WBC 4.6 L 9.1
Lab Results - Chemistry
02/05/24 02/06/24
12:25 03:54
BUN 24 H 22 H
Creatinine 0.7 0.7
Estimated Creat Clear 53 52
Albumin 2.5 L 2.2 L
02/05/24 02/05/24
12:54 19:59
Lactic Acid 2.7 H 1.4
Lab Results - Urine
02/05/24
22:59
Urine Nitrite Cancelled
Urine Nitrite (Reflex) Negative
Ur Leukocyte Esterase Cancelled
Leukocyte Esterase Rfl Trace A
Microbiology Results
02/05/24 15:45 Gram Stain - Preliminary
Pleural Fluid
02/05/24 15:45 Fungal Culture - Preliminary
Pleural Fluid Culture in progress.
Positive cultures are reported as soon as detected.
Final report to follow in four to five weeks.
02/05/24 12:54 Influenza Types A & B (PILI) - Final
Nasal Swab Negative for Influenza A & B, NAAT
Negative results must be combined with clinical observations
and patient history.
Nucleic Acid Amplification test (NAAT)performed on the
[employer] platform.
Therapeutic Drug Monitoring
Random Vancomycin 11.0 ug/ml 02/06/24 03:54
[2024-02-06] MEDS: NSS IV (09:59)
--- NOTE | 2024-02-06 10:30 | CM ---
CM following re: discharge planning.
Discussed in Rounds, reviewed pt's chart, met with pt.
Pt is a 73 year old female, admitted with primary dx of septic shock. Per Rounds meeting, pt is critically ill, requiring vasopressors, continue supportive care.
Pt reports she lives with 2SH, 2 steps to enter, stays on the 1st floor, has 2 supportive children. Pt reports she uses a cane, a walker, has a wheelchair and home Oxygen, 5L NC at baseline. Pt reports she is known to [employer] [facility] and pt stated
she is expected to return back home with [employer].
PT and OT will evaluate the pt to determine a level of care at discharge.
PCP: Olya Moore
Pharmacy: [facility].
[facility] PT and OT to confirm next level of care.
CM will follow with discharge plan updates as hospitalization progresses
[2024-02-06] MEDS: ProAmatine 5 MG TUBE ×3 (10:51→16:53)
--- NOTE | 2024-02-06 11:17 | W.PN.INTV ---
Today's Communication / Plan
Recommendations
Continue antibiotics
Follow-up final identification of blood culture
Follow pleural fluid culture
Will add low-dose midodrine
Hopefully can wean off Levophed
Maintain ICU level of care
Assessment
-
73-year-old woman with history of widely metastatic ovarian cancer, cachexia, recent MSSA empyema, status post intrapleural catheter placement, chronic anemia, chronic hypoxemic respiratory failure, currently not on chemotherapy admitted for fevers
and hypotension. Increased lactic acid. Transferred to the critical care unit for further evaluation.
Septic shock
Multiple sources possible
Chest x-ray 02/05/2024: Reviewed showed bilateral pleural effusion, stable compared to prior. Moderate in size. Bibasilar atelectasis.
Lactic acidosis
Conditions present prior admission:
Recent admission for MSSA empyema 12/2023.
Left upper lobe cavitary lesion-metastatic.
Cardiomyopathy.
Echocardiogram 01/06/2024-shows mildly reduced LVEF of 45% with normal RV size/function, mild�moderate TR with moderate pulmonary hypertension with PASP 44 mmHg assuming an RAP of 3 mmHg
Osteoarthritis involving multiple joints
History of rheumatoid arthritis
Chronic anemia (baseline Hb 7.5�9 g/dL)
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 Follows up at [facility]-chemotherapy on hold since December due to empyema.
Chronic respiratory failure 5 L nasal cannula
Chronic pleural effusion: Malignant, status post Left intrapleural catheter 01/13/2024.
Plan:
Critically ill, requiring vasopressors. Requirements improved.
Patient does not appear toxic
Low-grade fever noted
No significant leukocytosis
-
Noted recent admission to the hospital with MSSA empyema. Status post intrapleural catheter. On the left being drained every 48 hours for 400 to 500 cc.
Now febrile and hypotensive.
In the emergency room to my evaluation she did not have any particular complaints.
-
Septic shock: Patient in general has low blood pressures.
Continue Levophed, maintain systolic blood pressure above 90 mmHg.
Will add low-dose midodrine as well.
Normal renal function
Lactic acid is cleared
-
Chest x-ray with bilateral pleural effusion, left IPC in place.
Pleural fluid obtained by interventional radiology: Exudative. Malignant-Gram stain without organisms. Wait for cultures.
Will continue to drain every 48-72 hours depending on symptoms, while in the hospital
-
Blood culture with gram-negative red: Final identification pending 02/05/2024.
UA not impressive- many bacteria WBC 0-2
Follow cultures.
-
History of empyema-positive MSSA diagnosed 12/2023. Discharged on IV antibiotics-she states that she has been doing well since discharge.
On Ancef-was supposed to continue antibiotics until 02/16/2024.
Defer antibiotic choice to infectious disease.
-
Status post intrapleural catheter 01/13/2024.
Pleural cytology 01/06/2024: Positive for malignant cells. Adenocarcinoma.
Patient with history of ovarian cancer. No metastatic. Cachectic.
Continue to drain every 48-72 hours while in the hospital.
Not bronchospastic on exam
Continue current bronchodilator regimen: DuoNebs QID with Symbicort(takes in the outpatient setting)
-
Cachectic: Continue with nutritional support.
DVT prophylaxis-on eliquis
Code status: Full code --> we would recommend DNR given her cachectic appearance and [id number] will be an ongoing discussion.
Remains full code per daughter.
-
Critical care statement: A total of 31 minutes of critical care time was provided for this patient today. This includes management of unstable vital signs, evaluation of the patient at bedside, reviewing the patient's pertinent medical records
including ventilator settings, arterial blood gases, radiographs, microbiology, laboratory evaluations and discussion with primary team, critical care nursing, and respiratory therapy.
Subjective Dataa
Subjective Data
Date of Service:
Date of Service: February 06, 2024
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
Subjective:
Patient offers no new complaints
Remains on low-dose vasopressors
Denies any cough, phlegm production.
Denies any chest pain or abdominal pain.
Review of Systems
General: Fever (Low-grade)
Cardiopulmonary: Dyspnea and Dyspnea on Exertion (Chronic)
GI: Abdominal Pain (n) and Nausea (n)
Objective Data
Data Reviewed
Vital Signs / I&O / Oxygen:
Vital Signs
Temp Pulse Resp BP Pulse Ox
99.1 F 96 20 85/53 98
02/06/24 07:39 02/06/24 10:51 02/06/24 09:48 02/06/24 10:51 02/06/24 09:48
Intake and Output
02/05/24 02/06/24 02/07/24
06:59 06:59 06:59
Intake Total 1530 / 1637.5 558.7 / 558.7
Output Total 75 / 75 250 / 250
Balance 1455 / 1562.5 308.7 / 308.7
SaO2 98
Nasal Cannula flow liters per 5
minute
Physical Exam
General: Comfortable and Other (Cachectic)
HEENT: Normocephalic
Cardiovascular: S1-S2
Respiratory: Other (Decreased breath sounds bilaterally)
GI: Soft and Non Distended
Neurology: Awake, AO x 3 and No Motor Deficits
Skin: Warm
Labs/Micro/Reports
Lab Data
02/06/24 03:54
02/06/24 03:54
Laboratory Results
02/05/24
19:59
PT 22.0 H
INR 1.91
APTT 44.9 H
Microbiology
02/05/24 15:45 Pleural Fluid Body Fluid Culture - Preliminary
No Growth After 18-24 Hours
02/05/24 15:45 Pleural Fluid Gram Stain - Preliminary
02/05/24 12:54 Blood/Venous Blood Culture - Preliminary
Pseudomonas aeruginosa
02/05/24 12:54 Blood/Venous Gram Stain - Preliminary
02/05/24 14:46 Blood/Venous Blood Culture - Preliminary
Positive culture in progress
02/05/24 14:46 Blood/Venous Gram Stain - Final
02/05/24 15:45 Pleural Fluid Fungal Culture - Preliminary
Culture in progress.
Positive cultures are reported as soon as detected.
Final report to follow in four to five weeks.
02/05/24 12:54 Nasal Swab Influenza Types A & B (PILI) - Final
Negative for Influenza A & B, NAAT
Negative results must be combined with clinical observations
and patient history.
Nucleic Acid Amplification test (NAAT)performed on the
[employer] platform.
--- NOTE | 2024-02-06 11:22 | CON.ID ---
Consultation
-
Date/Time Consultation Requested: 02/05/2024 1405
Date/Time Consultation Performed: 02/06/2024 1029
Requesting Provider: Camryn Luther
Performing Provider: Dr. Waters
Reason for Consultation: Clinical sepsis
Chief Complaint / Past History
History of Present Illness
Katiuska Mckeon is a 73-year-old female with a significant past medical history of metastatic ovarian cancer being evaluated at the request of Camryn Luther in regards to clinical sepsis. History is obtained from chart review, along with patient
interview, and history obtained from patient's family who was at the bedside.
The patient recently was admitted to [facility] in mid December, during which time she was found to have a right sided empyema secondary to MSSA. She was discharged on 01/14, to continue with a 6-week course of IV antibiotics (cefazolin)
through 02/16/2024.
She reports that the infusions were going well, and she was not having any difficulty until yesterday when she just did not feel well. She developed increasing shortness of breath, along with the development of chills. When her nurse was out to
evaluate her yesterday morning she was found to have a fever to 101.9 degrees at home.
At presentation to the ER she was found to be hypotensive (69/52) and fluids were initiated, but patient ultimately required the addition of Levophed. Since admission, blood cultures obtained have now turned positive for gram-negative rods, and
Infectious Diseases is asked to manage further antimicrobial therapy.
At present time she notes she is feeling overall improved. She notes that her breathing is occasionally labored. She denies any significant cough and notes only rare clear sputum. She has not thus far had any difficulty with her port, which has
been in place for the past 4 years. She otherwise denies any headache. She denies any abdominal pain, nausea, vomiting, diarrhea or dysuria.
Past History
Additional Past Medical History:
Stage IV Ovarian Carcinoma (2019, s/p several rounds of chemo) w/ Lung Mets,
DVT, not on OAC
Asthma
Neuropathy
Additional Past Surgical History:
Appendectomy
Hysterectomy w/ BL SPO/ tumor resection
R Hip replacement
R Knee replacement
port placement
Allergy History:
No Known Allergies Allergy (Verified 01/01/24 10:47)
Medications Reviewed: Yes
Current Antibiotics:
Zosyn 3.375 g IV every 6 hours
Social History
Tobacco: Non-Smoker
Alcohol: None
Drug: None
Employment: Not Employed
Family History
Family History: Not Pertinent
Review of Systems
Review of Systems
See HPI
Vital Signs
Temp Pulse Resp BP Pulse Ox
99.1 F 96 20 85/53 98
02/06/24 07:39 02/06/24 10:51 02/06/24 09:48 02/06/24 10:51 02/06/24 09:48
Physical Exam
Physical Exam
Constitutional: No Acute Distress, Comfortable, Acutely Ill, Non-toxic and Cachetic
Head: Normocephalic
Eyes: Pupils Equal, Pupils Round, No Conjunctival Hemorrhage and Sclera Anicteric
Oral: No Thrush and No Ulcers
Cardiovascular: Regular Rate and S1/S2; Negative Murmur or Rub
Pulmonary: Coarse and Non Labored; Negative Rales or Rhonchi
Gastrointestinal: Soft, Non Tender, Non Distended and Normal Bowel Sounds
Genito-Urinary: Negative Suprapubic Tenderness
Musculoskeletal: Negative Joint Swelling or Joint Effusion
Skin: Warm and Dry; Negative Rash or Jaundice
Neurological: Awake, Alert and Oriented
Lines: Port (accessed, functional, no: erythema, warmth, tenderness or drainage)
Lab / Diagnostic Study Results
02/06/24 03:54
02/06/24 03:54
Abs Immat Gran (auto) 0.1 10^3/uL (0-0.05) H 02/06/24 03:54
Absolute Neuts (auto) 8.6 10^3/uL (1.4-6.5) H 02/06/24 03:54
Absolute Lymphs (auto) 0.1 10^3/uL (1.2-3.4) L 02/06/24 03:54
Absolute Monos (auto) 0.2 10^3/uL (0.1-0.6) 02/06/24 03:54
Absolute Basos (auto) 0.0 10^3/uL (0-0.2) 02/06/24 03:54
Immature Gran % 1.5 % (0-0.5) H 02/06/24 03:54
Neutrophils % 95.1 % (42.2-75.2) H 02/06/24 03:54
Lymphocytes % 0.7 % (20.5-51.1) L 02/06/24 03:54
Monocytes % 2.4 % (1.7-9.3) 02/06/24 03:54
Eosinophils % 0.0 % (0-6) 02/06/24 03:54
Basophils % 0.3 % (0-2) 02/06/24 03:54
PT 22.0 Sec (11.4-14.6) H 02/05/24 19:59
INR 1.91 02/05/24 19:59
Lactic Acid 1.4 mmol/L (0.7-2.0) 02/05/24 19:59
Microbiology Results
Micro:
02/05/24 15:45 Body Fluid Culture - Preliminary
Pleural Fluid No Growth After 18-24 Hours
Gram Stain - Preliminary
02/05/24 12:54 Blood Culture - Preliminary
Blood/Venous Pseudomonas aeruginosa
Gram Stain - Preliminary
02/05/24 14:46 Blood Culture - Preliminary
Blood/Venous Positive culture in progress
Gram Stain - Final
02/05/24 22:59 Urine Culture - Pending
Urine
02/05/24 15:45 Fungal Smear - Pending
Pleural Fluid Fungal Culture - Preliminary
Culture in progress.
Positive cultures are reported as soon as detected.
Final report to follow in four to five weeks.
02/05/24 15:45 Acid Fast Bacilli Smear - Pending
Pleural Fluid Acid Fast Bacilli Culture - Pending
02/05/24 12:54 Influenza Types A & B (PILI) - Final
Nasal Swab Negative for Influenza A & B, NAAT
Negative results must be combined with clinical observations
and patient history.
Nucleic Acid Amplification test (NAAT)performed on the
[employer] platform.
Assessment / Plan
Pseudomonas bacteremia
� Potential sources include port, urinary, lung, other
Hypotension
Clinical sepsis
Anemia
Fever
Lactic acidosis
Right empyema secondary to MSSA
� On antibiotics through 02/16/2024
Stage IV Ovarian Carcinoma (2019, s/p several rounds of chemo) w/ Lung Mets,
DVT, not on OAC
Asthma
Neuropathy
Recommendations:
Transition Zosyn to cefepime empirically while further culture data is pending.
Monitor white count and temperature curve.
Given bacteremia, I suspect port is the most likely source, and would consider removal. Will need PICC/midline for IV access.
Continue pressor support to keep MAP >65
Will check repeat blood cultures following port removal.
Will continue to follow for clinical improvement.
Further recommendations as additional data is returned.
Patient remains critically ill on pressors and intensive care unit.
Care Review
Plan reviewed with: Physician (Hospitalist)
[2024-02-06] MEDS: MAXIPIME 1000 MG IV ×3 (12:55→23:53)
[2024-02-06] MEDS: STERILE WATER FOR INJECTION 10 ML IV ×3 (12:56→23:53)
--- NOTE | 2024-02-06 14:56 | WOUNDNOTE ---
[facility] note: Patient admitted with sepsis
See H&P for complete history.
PMH: Stage IV Ovarian Carcinoma (2019, s/p several rounds of chemo) with lung mets, DVT, asthma, chronic respiratory failure with use of 5 L 02, neuropathy, appendectomy, hysterectomy, right hip replacement, right knee replacement.
Wound Location and type/assessment: Patient admitted with stage 2 of sacrum surrounded by possible DTI. The wound has a pink wound bed surrounded by areas of non-blanchable skin. Patient reports using gel cushion at home in recliner. Per chart
review, patient has several skin tears on arms and legs. All wounds covered with sacral foam. Patient declined having wounds assessed today. Heels intact. Skin on arms, legs, back and torso are very dry and flakey.
Appetite: Reports poor appetite. BMI 18.4.
Pressure redistribution devices in place: Centrella Max Air, air cushion in chair, heels off loaded on pillows, patient placed on right side-lying position.
Plan: Spoke to patient about sacral wound and the possibility of it worsening. Patient states understanding. She said she will continue turning and changing position in bed. Sacral border foam applied to sacral area. Will order Aquaphor for dry
skin. Patient has several comorbidities including stage IV ovarian cancer, recent use of pressors, low BMI, and chronic respiratory failure with use of 5 L 02. Will update SACHA Barclay and confirm orders with hospitalist. Updated care plan and will
follow as needed.
Note to case management of equipment requested for discharge: Patient requires air surface at home or at SNF due to sacral wound.
--- NOTE | 2024-02-06 15:21 | W.PN.HOSP.TC ---
Today's Communication/Plan
-
Repeat blood cultures. Port may be nidus of infection. Will have to consider removing and placing PICC line
Follow-up pleural fluid
Wean norepinephrine, MAP goal greater than 65. Started on midodrine.
Continue cefepime
Assessment / Plan
Assessment / Plan
Physical Exam
General: Comfortable, Conversant and Fever; No Chills
HEENT: NormoCephalic, Anicteric, Moist mucous membranes, PERRLA, [place] Conjunctivae, No Ptosis, Neck Nontender and Oxygen (6 L nasal cannula)
Respiratory: Clear and Chest Tube (Chronic right sided pleural cath); No Wheezes, Rales or Rhonchi
Cardiac: S1/S2 and Regular Rhythm; No Murmur, Rub, Gallop, Peripheral Edema or JVD
Breast: Deferred by me
GI: Soft, Non Tender, Non Distended, Normal Bowel Sounds and No Hepatosplenomegaly
Rectal: Deferred by Provider
Genito-urinary: Deferred by me
Musculoskeletal: No Clubbing, No Cyanosis and No Edema
Skin: Warm, Dry and IV/Catheter Site (Port right upper chest wall); No Rash
Neuro: AO x 3, No Motor Deficits, Nonfocal/grossly intact, Cranial Nerves Intact and No Sensory Deficits; No Slurred Speech, Facial Droop, Tremors or Sedated
Psych: Calm
#Septic shock unclear etiology concern for bacteremia given current MSSA right pleural fluid
#Lactic acidosis
#Bacteremia, Pseudomonas
-F/u pleural cultures
-Repeat blood cultures
-Cefepime
-[place] WBC, fever curve
-Port possibly is the cultprit, will need to consider removal
-Ensure MAP >65, wean norepinephrine as tolerated
� Midodrine added
#Large Right Sided malignant pleural effusion adenocarcinoma 01/02/2024 status post thoracentesis, positive for MSSA
#Right sided pleural tube requiring drainage every other day(typical volume 400 to 600 cc per)
#Empyema-known cavitating lesion left upper lobe
-Thoracentesis on 01/06/2024 positive malignant cells, adenocarcinoma
-MSSA pleural effusion treated with Rocephin transition 6-week course cefazolin through her PICC line to stop on 02/16/2024 then resume her prophylactic Keflex for prior joint infection
-Patient will need right pleural tube drained every other day
# Chronic hypoxic respiratory failure w/ home oxygen dependence (resolved)
-Chronic 5 L nasal cannula now requiring 6 L nasal cannula
- C/w QID DuoNeb treatments, Symbicort inhaler
# Chronic DVT LLE, previously untreated patient stopped her Eliquis in August 2019 for unclear reason
- Patient did not take her Eliquis post discharge for LE DVT, has not been on OAC since her August 2023 admission
- LE Venous Doppler during this admission (+) extensive DVT, increased from prior ultrasound
-Was restarted on Eliquis 10mg BID until 01/16 8AM, then starting 01/16 8PM ,
-continue Eliquis 5mg dose BID indefinitely
#Stage IV Ovarian cancer w/ Mets omentum 06/04/2019 then mets to the Lung August 2022 poss new stable T12 vertebral body bony mets
#Chronic cancer pain with opioid dependence
- Palliative chemotherapy (Taxol) with [facility] q3 weeks
-Was not interested in hospice during December visit
- Cont Oxycodone 7.5mg Q4h prn
-Patient's oncologist Dr. Hensley her chemo was paused due to December hospitalization for MSSA
CXR showing focal sclerosis involving the right side of the T12 vertebral body, stable, and likely a bony metastatic lesion.
#Chronic constipation, multifactorial (resolved)
- Cont bowel regimen of Senokot/Mirala
#History of Prosthetic Joint Infection
-To resume oral Keflex after completing IV Rocephin via PICC line on 02/16/2024
#Peripheral Neuropathic Pain
-Continue home dose gabapentin 600mg QHS
DVT prophylaxis
Continue DRY PLASTERER Eliquis 5 mg twice daily
Total time spent on today's encounter was 50 minutes which included time spent in counseling the patient/family regarding diagnosis and treatment plan as listed above, goals of care, and symptom management. Case was discussed with nursing staff,
specialists, and care coordinators/case management. All labs and imaging personally reviewed by me. Remainder the time spent in detailed review of previous records, lab data, imaging, and other medical provider documentation.
Anticipated Discharge: > 48 hours
Subjective/Interval History
-
Date of Service: February 06, 2024
On 2mcg norepinephrine, mentating well
Objective Data
-
Labs:
Laboratory Results
02/06/24
03:54
WBC 9.1
Hgb 8.8 L D
Hct 26.3 L
Plt Count 299
Sodium 134 L
Potassium 3.9
Chloride 100
Carbon Dioxide 24
BUN 22 H
Creatinine 0.7
Glucose 99
Calcium 7.7 L
Total Bilirubin 0.2
AST 15
ALT < 10
Alkaline Phosphatase 68
Vital Signs:
Vital Signs
Temp Pulse Resp BP Pulse Ox
98.8 F 101 20 90/60 97
02/06/24 11:33 02/06/24 14:10 02/06/24 14:10 02/06/24 13:08 02/06/24 14:10
I&O
02/05/24 02/06/24 02/07/24
06:59 06:59 06:59
Intake Total 1530 / 1637.5 1392.4 / 1392.4
Output Total 75 / 75 450 / 450
Balance 1455 / 1562.5 942.4 / 942.4
Review of Systems
-
History Source: Patient
All other systems: Not reviewed unless documented
Data Reviewed
-
Diagnostic Radiology: Image personally visualized and interpreted and Report Reviewed by me
Labs: Labs Reviewed by me and Discussed with Patient
--- NOTE | 2024-02-06 15:43 | PTCARENOTE ---
Continue with follow up assessment trends thru shift. Continue progressive levophed wean. Presently off maintaining map 65. IVF capped, patient with good PO intake. Follow up plan of cares and teaching thru shift. Patient in and out of bed to chair
with PT/OT and staff. Continue follow up plan of cares. Wound care and skin cares in to work and follow up assessment of skin/wound. Assessment unchanged presently napping after return to bed.
--- NOTE | 2024-02-06 16:35 | W.PN.UPDATE ---
Update Note
Progress Note Update
Discussed with Dr. Xiong, will consult interventional radiology to remove her port.
A PICC line will need to be placed.
Continue to follow cultures
Levophed has been weaned off.
--- NOTE | 2024-02-06 19:53 | PTCARENOTE ---
On assessment pt AAOx3, c/o discomfort to sacrum, air pillow under sacrum/hips, denies chest pain and SOB, SR on the monitor, BP soft pt asymptomatic, 5L NC 98%, L intrapleural catheter dressing intact, purwick in place, sacral wound and multiple
skin tears see flowsheet, R subQ port, pt c/o being nauseous, FIREWALL SECURITY ENGINEER made aware, QTc prolonged, unable to give zofran at this time, pt refused IM tigan, FIREWALL SECURITY ENGINEER made aware, call cortez in reach, family at bedside.
[2024-02-06] MEDS: SENOKOT 8.6 MG PO (20:46)
[2024-02-06] MEDS: NEURONTIN 600 MG PO (20:46)
[2024-02-07] VITALS (30 sets, daily range): BP systolic 76–126; BP diastolic 51–83; BMI 18.0
--- NOTE | 2024-02-07 01:44 | PTCARENOTE ---
pt restarted on LEVO gtt due to decreasing MAPs, CARAMEL MAKER aware, pt asymptomatic, call cortez in reach
[2024-02-07] MEDS: STERILE WATER FOR INJECTION 10 ML IV ×4 (05:26→23:58)
[2024-02-07] MEDS: MAXIPIME 1000 MG IV ×4 (05:26→23:57)
--- NOTE | 2024-02-07 05:49 | PTCARENOTE ---
Levo gtt continues at starting dose see flow sheet, BP soft at times, pt remains asymptomatic, voided using purwick, denies any chest pain/SOB, call cortez in reach
[2024-02-07 06:08] LABS: % Basophils 0.3 % (0-2); % Eosinophils 0.5 % (0-6); % Immature Granulocytes 0.8 % (0-0.5); % Lymphocytes 2.4 % (20.5-51.1); Absolute Immature Granulocytes 0.1 10^3/uL (0-0.05); Absolute Lymphocytes 0.2 10^3/uL (1.2-3.4); Absolute Monocytes 0.5 10^3/uL (0.1-0.6); Absolute Neutrophils 5.6 10^3/uL (1.4-6.5); Mean Corp Hgb Conc. 33.3 g/dL (33.0-37.0); Mean Corpuscular Hgb 30.2 pg (27.0-31.0); Mean Corpuscular Volume 90.6 fL (81.0-99.0); Mean Platelet Volume 8.9 fL (7.4-10.4); Nucleated Red Blood Cells % 0 %; Platelet Count 251 10^3/uL (130-400); Red Blood Cell Count 2.65 10^6/uL (4.20-5.40); Red Cell Dist. Width 16.9 % (11.5-14.5); White Blood Cell Count 6.4 10^3/uL (4.8-10.8)
[2024-02-07 06:39] LABS: ALT (SGPT) < 10 U/L (0-35); AST (SGOT) 15 U/L (14-36); Albumin 2.1 g/dl (3.5-5.0); Alkaline Phosphatase 71 U/L (38-126); Blood Urea Nitrogen 23 mg/dl (7-17); Carbon Dioxide 22 mmol/L (22-30); Chloride 100 mmol/L (98-107); Estimated Creatinine Clearance 53 ml/min; Glucose 84 mg/dl (70-99); Potassium 3.6 mmol/L (3.5-5.1); Sodium 132 mmol/L (135-145); Total Bilirubin < 0.1 mg/dl (0.2-1.3); Total Protein 4.3 g/dl (6.3-8.2); eGFR > 60.00
[2024-02-07] MEDS: DUONEB 3 ML INH ×3 (07:17→19:57)
[2024-02-07] MEDS: SYMBICORT 160/4.5 MCG INHALER 2 PUFF INH (07:31)
[2024-02-07] MEDS: TYLENOL 650 MG PO (08:22)
[2024-02-07] MEDS: NEURONTIN 300 MG PO (08:22)
[2024-02-07] MEDS: ProAmatine 5 MG TUBE ×3 (08:22→18:21)
[2024-02-07] MEDS: ELIQUIS PO ×2 (08:22→12:07)
[2024-02-07] MEDS: ProAIR HFA INHALER 2 PUFF INH ×2 (08:23→21:29)
--- NOTE | 2024-02-07 09:40 | W.PN.ID1 ---
Date of Service
Date of Service: February 07, 2024
Today's Communication
Continue cefepime
DC port, culture tip.
Assessment / Plan
Pseudomonas bacteremia
� Potential sources include port
Hypotension
Clinical sepsis
Anemia
Fever
Lactic acidosis
Right empyema secondary to MSSA, has PleurX catheter
� On antibiotics through 02/16/2024
h/o R hip PJI with E. coli, on cephalexin suppressive therapy
Stage IV Ovarian Carcinoma (2019, s/p several rounds of chemo) w/ Lung Mets, malignant pleural effusion
DVT, not on OAC
Asthma
Neuropathy
Recommendations:
Continue cefepime
DC port, culture tip.
check repeat blood cultures tomorrow am.
Will need PICC/midline for IV access when bacteremia resolves.
Monitor white count and temperature curve.
Continue pressor support to keep MAP >65
Will continue to follow for clinical improvement.
Chief Complaint
-: Bacteremia
Subjective / Review of Systems
Feeling better today.
Review of Systems: No Abdominal Pain, No Nausea and No Diarrhea
Vital Signs / Physical Exam
Vital Signs
Vital Signs
Temp Pulse Resp BP Pulse Ox
97.7 F 97 14 99/68 96
02/07/24 07:00 02/07/24 09:15 02/07/24 09:15 02/07/24 09:00 02/07/24 09:15
Physical Exam
Constitutional: No Acute Distress, Comfortable and Cachetic
Cardiovascular: Regular Rate and S1/S2
Gastrointestinal: Soft, Non Tender and Non Distended
Neurological: AO x 3
Lines: Port (RCW no erythema)
Objective Data
Lab Data
Lab Results
02/07/24 05:19
02/07/24 05:19
PT 22.0 Sec (11.4-14.6) H 02/05/24 19:59
INR 1.91 02/05/24 19:59
APTT 44.9 Sec (23.4-35.0) H 02/05/24 19:59
Estimated Creat Clear 53 ml/min 02/07/24 05:19
Lactic Acid 1.4 mmol/L (0.7-2.0) 02/05/24 19:59
Total Bilirubin < 0.1 mg/dl (0.2-1.3) L 02/07/24 05:19
AST 15 U/L (14-36) 02/07/24 05:19
ALT < 10 U/L (0-35) 02/07/24 05:19
Alkaline Phosphatase 71 U/L (38-126) 02/07/24 05:19
Most recent labs reviewed.
Micro Results:
02/05/24 15:45 Body Fluid Culture - Preliminary
Pleural Fluid No Growth After 48 Hours
Gram Stain - Preliminary
02/05/24 22:59 Urine Culture - Final
Urine No Significant Growth
02/05/24 14:46 Blood Culture - Preliminary
Blood/Venous Pseudomonas aeruginosa
Gram Stain - Final
02/05/24 12:54 Blood Culture - Preliminary
Blood/Venous Pseudomonas aeruginosa
Gram Stain - Preliminary
02/05/24 15:45 Fungal Smear - Pending
Pleural Fluid Fungal Culture - Preliminary
Culture in progress.
Positive cultures are reported as soon as detected.
Final report to follow in four to five weeks.
02/05/24 15:45 Acid Fast Bacilli Smear - Pending
Pleural Fluid Acid Fast Bacilli Culture - Pending
02/05/24 12:54 Influenza Types A & B (PILI) - Final
Nasal Swab Negative for Influenza A & B, NAAT
Negative results must be combined with clinical observations
and patient history.
Nucleic Acid Amplification test (NAAT)performed on the
[employer] platform.
[2024-02-07] MEDS: ROXICODONE 5 MG PO ×2 (09:51→22:14)
--- NOTE | 2024-02-07 09:56 | CM ---
CM following re: discharge planning.
Discussed in Rounds, reviewed pt's chart, met with pt and pt's daughter Bernie at bedside.
Per ID, Continue cefepime, DC port, check blood cultures tomorrow, will need PICC/midline for IV access when bacteremia resolves.
PT and OT evaluations noted - SNF level of care recommended. Both pt and her daughter are aware, expressed their understanding and per pt she preferred to return back home with [facility]. Pt's daughter at some point supports pt's decision returning
back home and per daughter, if pt will need IV antibiotics at home she will not be able to manage. A list of SNFs provided to pt and her daughter. pt's daughter stated that pt was at [facility] in the past and she does not want to go there
again.
At this point, as of today a plan is for pt to return back home when medically stable with [facility] and family support. Both pt and her daughter reviewing a list of SNFs as an option.
A referral to [facility] made.
D/C plan: home with [facility] vs SNF. Both pt and her daughter deciding.
CM will follow with discharge plan updates as hospitalization progresses
--- NOTE | 2024-02-07 10:45 | PN.IRAD.UPD ---
Update Note - IRAD
- -
2ML pleural fluid removed via right ASEPT. New,dry, clean dressing placed over site. Patient tolerated procedure well.
--- NOTE | 2024-02-07 10:53 | W.PN.INTV ---
Today's Communication / Plan
Recommendations
Port to be removed
Hold Eliquis
Wean off Levophed
Continue midodrine for now
Continue antibiotics per infectious disease to cover for Pseudomonas bacteremia
Assessment
-
73-year-old woman with history of widely metastatic ovarian cancer, cachexia, recent MSSA empyema, status post intrapleural catheter placement, chronic anemia, chronic hypoxemic respiratory failure, currently not on chemotherapy admitted for fevers
and hypotension. Increased lactic acid. Transferred to the critical care unit for further evaluation.
Septic shock
Multiple sources possible
Chest x-ray 02/05/2024: Reviewed showed bilateral pleural effusion, stable compared to prior. Moderate in size. Bibasilar atelectasis.
Lactic acidosis
Conditions present prior admission:
Recent admission for MSSA empyema 12/2023.
Left upper lobe cavitary lesion-metastatic.
Cardiomyopathy.
Echocardiogram 01/06/2024-shows mildly reduced LVEF of 45% with normal RV size/function, mild�moderate TR with moderate pulmonary hypertension with PASP 44 mmHg assuming an RAP of 3 mmHg
Osteoarthritis involving multiple joints
History of rheumatoid arthritis
Chronic anemia (baseline Hb 7.5�9 g/dL)
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 Follows up at [facility]-chemotherapy on hold since December due to empyema.
Chronic respiratory failure 5 L nasal cannula
Chronic pleural effusion: Malignant, status post Left intrapleural catheter 01/13/2024.
Plan:
Off vasopressors this morning.
Patient does not appear toxic-mostly asymptomatic.
Afebrile
No significant leukocytosis
-
Septic shock: Patient in general has low blood pressures.
Levophed weaned off.
Continue low-dose midodrine. Likely has low vascular tone given widely metastatic carcinoma, low albumin levels etc.
Normal renal function
Lactic acid is cleared
Pseudomonas aeruginosa: Bacteremia
Repeat blood culture
UA not impressive- many bacteria WBC 0-[address] Waters from infectious disease, her port will be discontinued. I personally consulted interventional radiology. Patient is on anticoagulation and for now we will hold.
-
History of empyema-positive MSSA diagnosed 12/2023. Discharged on IV antibiotics-she states that she has been doing well since discharge.
On Ancef-was supposed to continue antibiotics until 02/16/2024.
Continue antibiotics per infectious disease.
Pleural fluid does not appear infected this admission 02/05/2024.
-
Chest x-ray with bilateral pleural effusion, left IPC in place.
Pleural fluid obtained by interventional radiology: Exudative. Malignant-Gram stain without organisms. Wait for cultures.
Will continue to drain every 48-72 hours depending on symptoms, while in the hospital
-
Status post intrapleural catheter 01/13/2024.
Pleural cytology 01/06/2024: Positive for malignant cells. Adenocarcinoma.
Patient with history of ovarian cancer. No metastatic. Cachectic.
Not bronchospastic on exam
Continue current bronchodilator regimen: DuoNebs QID with Symbicort(takes in the outpatient setting)
-
Cachectic: Continue with nutritional support.
DVT prophylaxis-on eliquis
Code status: Full code --> we would recommend DNR given her cachectic appearance and [id number] will be an ongoing discussion.
Remains full code per daughter.
-
Transferred to IMU.
Pulmonary will continue to follow for bilateral pleural effusions briefly.
Subjective Dataa
Subjective Data
Date of Service:
Date of Service: February 07, 2024
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
Subjective:
Patient offers no new complaints
This morning off vasopressors
Denies shortness of breath or chest pain.
Denies any chills
Reports poor appetite
Review of Systems
GI: Abdominal Pain (n), Nausea (n) and Vomiting (n)
Objective Data
Data Reviewed
Vital Signs / I&O / Oxygen:
Vital Signs
Temp Pulse Resp BP Pulse Ox
97.9 F 76 17 117/61 100
02/07/24 10:23 02/07/24 10:23 02/07/24 10:23 02/07/24 10:23 02/07/24 10:23
Intake and Output
02/06/24 02/07/24 02/08/24
06:59 06:59 06:59
Intake Total 1530 / 1637.5 2335.1 / 2335.1
Output Total 75 / 75 800 / 800
Balance 1455 / 1562.5 1535.1 / 1535.1
SaO2 100
Nasal Cannula flow liters per 4
minute
Physical Exam
General: Comfortable and Other (Cachectic)
HEENT: Normocephalic
Cardiovascular: S1-S2
Respiratory: Other (Decreased breath sounds bilaterally)
GI: Soft and Non Distended
Neurology: Awake, AO x 3 and No Motor Deficits
Skin: Warm
Labs/Micro/Reports
Lab Data
02/07/24 05:19
02/07/24 05:19
Microbiology
02/05/24 15:45 Pleural Fluid Body Fluid Culture - Preliminary
No Growth After 48 Hours
02/05/24 15:45 Pleural Fluid Gram Stain - Preliminary
02/05/24 22:59 Urine Urine Culture - Final
No Significant Growth
02/05/24 14:46 Blood/Venous Blood Culture - Preliminary
Pseudomonas aeruginosa
02/05/24 14:46 Blood/Venous Gram Stain - Final
02/05/24 12:54 Blood/Venous Blood Culture - Preliminary
Pseudomonas aeruginosa
02/05/24 12:54 Blood/Venous Gram Stain - Preliminary
02/05/24 15:45 Pleural Fluid Fungal Culture - Preliminary
Culture in progress.
Positive cultures are reported as soon as detected.
Final report to follow in four to five weeks.
02/05/24 12:54 Nasal Swab Influenza Types A & B (PILI) - Final
Negative for Influenza A & B, NAAT
Negative results must be combined with clinical observations
and patient history.
Nucleic Acid Amplification test (NAAT)performed on the
[employer] platform.
--- NOTE | 2024-02-07 13:30 | PTCARENOTE ---
Pt received in bed @ 0700. AAOx3. SaO2 98% on 4L NC. (R) chest intrapleural catheter covered by 4x4 and tegaderm. Diminished breath sounds. Sinus rhythm on vehicle monitor technician. Levophed gtt received infusing @ 1 mcg/min with order to maintain MAP >
65. After Roxicodone administration, MAP < 65; Levophed gtt increased to 2 mcg/min. Pt denying nausea. Able to eat 50% of breakfast. Purewick external female catheter in place draining clear yellow urine. Right AC #20 IV site added. Sacral dressing
C/D/I. CHG cloth bath provided and linens changed. Pt brushed own teeth.
Pt sent and returned from IR for right chest wall SubQ port removal. Right chest wall dressing C/D/I.
--- NOTE | 2024-02-07 14:50 | PN.CDI ---
CDI
- -
CDI:
Physician Documentation Request
Admit Date: 02/05/24 14:49
Dear Doctor Rosemary,
Patient admitted with septic shock.
Sodium resulted as follows:
Laboratory Tests
02/05/24 02/06/24 02/07/24
12:25 03:54 05:19
Sodium 132 L 134 L 132 L
Could you please provide a diagnosis that supports the above lab abnormalities and additional evaluation/ monitoring:
Hyponatremia
Abnormal lab value clinically insignificant
Other
Use of terms such as suspected, likely, concern for, or probable (associated with a specific diagnosis that is being evaluated, monitored, or treated as if it exists) are acceptable and can be coded in the inpatient setting, when documented at the
time of discharge.
Thank you,
Obdulia Cartagena RN, BSN
CDI Specialist
tiger text
Please use your independent medical judgment in providing your response.
--- NOTE | 2024-02-07 14:53 | PN.CDI ---
CDI
- -
CDI:
Physician Documentation Request
Admit Date: 02/05/24 14:49
Dear Doctor Rosemary,
Patient admitted with septic shock. H&P states '73-year-old female complaining of shortness of breath on her chronic 5 L nasal cannula at home...' further down in same note 'Chronic hypoxic respiratory failure w/ home oxygen dependence (resolved).
Chronic 5 L nasal cannula now requiring 6 L nasal cannula'
Could you please clarify the patients respiratory status:
Chronic hypoxic respiratory failure
Acute on chronic hypoxic respiratory failure
Other
Use of terms such as suspected, likely, concern for, or probable (associated with a specific diagnosis that is being evaluated, monitored, or treated as if it exists) are acceptable and can be coded in the inpatient setting, when documented at the
time of discharge.
Thank you,
Obdulia Cartagena RN, BSN
CDI Specialist
tiger text
Please use your independent medical judgment in providing your response.
--- NOTE | 2024-02-07 14:56 | PN.CDI ---
CDI
- -
CDI:
Physician Documentation Request
Admit Date: 02/05/24 14:49
Dear Doctor Rosemary,
02/05 WOCN note states ' Patient admitted with stage 2 of sacrum surrounded by possible DTI. '
Physician documentation of the type and location of wounds is required for compliant documentation. Based on the above clinical findings and your assessment, please provide the following in your progress note:
1. Location of the ulcer/wound, including laterality.
2. Type (etiology) of ulcer/wound:
- Traumatic wound
- Pressure (decubitus) ulcer
- Other
Use of terms such as suspected, likely, concern for, or probable (associated with a specific diagnosis that is being evaluated, monitored, or treated as if it exists) are acceptable and can be coded in the inpatient setting, when documented at the
time of discharge.
Thank you,
Obdulia Cartagena RN, BSN
CDI Specialist
tiger text
Please use your independent medical judgment in providing your response.
*Source: National Pressure Ulcer Advisory Panel (NPUAP)
--- NOTE | 2024-02-07 14:59 | PN.CDI ---
CDI
- -
CDI:
Physician Documentation Request
Admit Date: 02/05/24 14:49
Dear Doctor Rosemary,
02/05 RD notes and assessment state 'chart reviewed due to pt with BMI < 19... During visit RD able to observe pt with protrusion of clavical, apparent ribs, fat lose over tricep, orbital area sunken in and temporal area with scooped in. With
observed muscle and fat wasting and < 75% estimated needs > 1 month pt meets
AND/ASPEN criteria for severe protein calorie malnutrition of chronic illness. '
Severe protein calorie malnutrition, chronic illness </= 75% estimated energy needs, greater than or equal to 1 month. Subcutaneous loss: Orbital severe, Rib cage moderate, tricep severe. Muscle loss Temporal Moderate, Clavicle Severe
Based on the above information and your assessment, which of the following most accurately represents the patient's nutritional status?
Severe Malnutrition
No nutritional deficiency
Other (please specify)
[place] Criteria (ACP Hospitalist 2017)
2 or more criteria must be present for either
non severe or severe malnutrition
Note that the criteria differs related to the
presence of an acute or chronic illness
Acute Illness Chronic Illness
Energy Intake Non Severe: <75% for >7 days Non Severe: <75% for >1 month
Severe: <50% for >5 days Severe: <75% for >1 month
Weight Loss Non Severe: 1-2% over 1 week Non Severe: 5% over 1 month
5% over 1 month 7.5% over 3 months
7.5% over 3 months 10% over 6 months
1 year N/A 20% over 1 year
Severe: >2% over 1 week Severe: >5% over 1 month
>5% over 1 month >7.5% over 3 months
>7.5% over 3 months >10% over 6 months
1 year N/A >20% over 1 year
Body Fat Non Severe: Mild Decrease Non Severe: Mild Loss
Severe: Moderate Decrease Severe: Severe Loss
Muscle Mass Non Severe: Mild Decrease Non Severe: Mild Loss
Severe: Moderate Decrease Severe: Severe Loss
Fluid Accumulation Non Severe: Mild Accumulation Non Severe: Mild Accumulation
Severe: Moderate to severe Severe: Moderate to severe
accumulation accumulation
Reduced Manager Pet Strength Non Severe: N/A Non Severe: N/A
Severe: Measurably reduced Severe: Measurably reduced
Use of terms such as suspected, likely, concern for, or probable (associated with a specific diagnosis that is being evaluated, monitored, or treated as if it exists) are acceptable and can be coded in the inpatient setting, when documented at the
time of discharge.
Thank you,
Obdulia Cartagena RN, BSN
CDI Specialist
tiger text
Please use your independent medical judgment in providing your response.
--- NOTE | 2024-02-07 15:42 | W.PN.HOSP.TC ---
Today's Communication/Plan
-
port removed, tip cultures
PICC line
Midodrine, wean off as tolerated
f/u cultures and treat bacteremia
Assessment / Plan
Assessment / Plan
Physical Exam
General: Comfortable, Conversant and Fever; No Chills
HEENT: NormoCephalic, Anicteric, Moist mucous membranes, PERRLA, Garden Conjunctivae, No Ptosis, Neck Nontender and Oxygen (6 L nasal cannula)
Respiratory: Clear and Chest Tube (Chronic right sided pleural cath); No Wheezes, Rales or Rhonchi
Cardiac: S1/S2 and Regular Rhythm; No Murmur, Rub, Gallop, Peripheral Edema or JVD
Breast: Deferred by me
GI: Soft, Non Tender, Non Distended, Normal Bowel Sounds and No Hepatosplenomegaly
Rectal: Deferred by Provider
Genito-urinary: Deferred by me
Musculoskeletal: No Clubbing, No Cyanosis and No Edema
Skin: Warm, Dry and IV/Catheter Site (Port right upper chest wall); No Rash
Neuro: AO x 3, No Motor Deficits, Nonfocal/grossly intact, Cranial Nerves Intact and No Sensory Deficits; No Slurred Speech, Facial Droop, Tremors or Sedated
Psych: Calm
#Septic shock unclear etiology concern for bacteremia given current MSSA right pleural fluid
#Lactic acidosis
#Bacteremia, Pseudomonas
-F/u pleural cultures
-Repeat blood cultures
-Cefepime
-Monitor WBC, fever curve
-Port possibly is the cultprit, removal today and cultures
-PICC line placed
-Ensure MAP >65, wean norepinephrine as tolerated
� Midodrine
#Large Right Sided malignant pleural effusion adenocarcinoma 01/02/2024 status post thoracentesis, positive for MSSA
#Right sided pleural tube requiring drainage every other day(typical volume 400 to 600 cc per)
#Empyema-known cavitating lesion left upper lobe
-Thoracentesis on 01/06/2024 positive malignant cells, adenocarcinoma
-MSSA pleural effusion treated with Rocephin transition 6-week course cefazolin through her PICC line to stop on 02/16/2024 then resume her prophylactic Keflex for prior joint infection
-Patient will need right pleural tube drained every other day - drained today, only 2cc out; cultures - f/u cultures
# Chronic hypoxic respiratory failure w/ home oxygen dependence (resolved)
-Chronic 5 L nasal cannula now requiring 6 L nasal cannula
- C/w QID DuoNeb treatments, Symbicort inhaler
# Chronic DVT LLE, previously untreated patient stopped her Eliquis in August 2019 for unclear reason
- Patient did not take her Eliquis post discharge for LE DVT, has not been on OAC since her August 2023 admission
- LE Venous Doppler during this admission (+) extensive DVT, increased from prior ultrasound
-Was restarted on Eliquis 10mg BID until 01/16 8AM, then starting 01/16 8PM ,
-continue Eliquis 5mg dose BID indefinitely
#Stage IV Ovarian cancer w/ Mets omentum 06/04/2019 then mets to the Lung August 2022 poss new stable T12 vertebral body bony mets
#Chronic cancer pain with opioid dependence
- Palliative chemotherapy (Taxol) with [facility] q3 weeks
-Was not interested in hospice during December visit
- Cont Oxycodone 7.5mg Q4h prn
-Patient's oncologist Dr. Hensley her chemo was paused due to December hospitalization for MSSA
CXR showing focal sclerosis involving the right side of the T12 vertebral body, stable, and likely a bony metastatic lesion.
#Chronic constipation, multifactorial (resolved)
- Cont bowel regimen of Senokot/Mirala
#History of Prosthetic Joint Infection
-To resume oral Keflex after completing IV Rocephin via PICC line on 02/16/2024
#Peripheral Neuropathic Pain
-Continue home dose gabapentin 600mg QHS
DVT prophylaxis
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
Anticipated Discharge: > 48 hours
Subjective/Interval History
-
Date of Service: February 07, 2024
off vasopressors this am
Objective Data
-
Labs:
Laboratory Results
02/07/24
05:19
WBC 6.4
Hgb 8.0 L
Hct 24.0 L
Plt Count 251
Sodium 132 L
Potassium 3.6
Chloride 100
Carbon Dioxide 22
BUN 23 H
Creatinine 0.7
Glucose 84
Calcium 8.0 L
Total Bilirubin < 0.1 L
AST 15
ALT < 10
Alkaline Phosphatase 71
Vital Signs:
Vital Signs
Temp Pulse Resp BP Pulse Ox
97.7 F 73 13 111/65 100
02/07/24 15:00 02/07/24 14:30 02/07/24 14:30 02/07/24 14:00 02/07/24 14:30
I&O
02/06/24 02/07/24 02/08/24
06:59 06:59 06:59
Intake Total 1530 / 1637.5 2335.1 / 2335.1 34.0 / 34.0
Output Total 75 / 75 800 / 800
Balance 1455 / 1562.5 1535.1 / 1535.1 34.0 / 34.0
Review of Systems
-
History Source: Patient
All other systems: Not reviewed unless documented
Physical Exam
-
General: Well Developed, No Apparent Distress, Comfortable, Appears Chronically Ill and Cachectic
HEENT: Normocephalic, Atraumatic, Moist Mucous Membranes, Anicteric, Garden Conjunctivae and PERRLA
Respiratory: Crackles and Decreased Breath Sounds
Cardiac: Regular Rhythm and S1/S2; Negative Murmur or Calf Tenderness
Breast: N/A
GI: Soft, Nontender, Nondistended and Normal Bowel Sounds
Rectal: Deferred by Provider
Genito-urinary: No Costovertebral Tender
Musculoskeletal: No Clubbing, No Cyanosis and Edema, Right Lower Extrem
Skin: Warm, Dry and IV Access / Catheter Site (R IJ Chemo port/ R pleurX catheter)
Neuro: Awake, Alert, Oriented, No Motor Deficits, Nonfocal/Grossly Intact and No Sensory Deficits
Psych: Calm
Data Reviewed
-
Diagnostic Radiology: Image personally visualized and interpreted and Report Reviewed by me
Labs: Labs Reviewed by me and Discussed with Patient
[2024-02-07] MEDS: ELIQUIS 5 MG PO (20:25)
--- NOTE | 2024-02-07 20:54 | PTCARENOTE ---
Handoff report received from off going RN. Patient received in bed AAOx3. Flat affect. Plan of care for the shift reviewed with the patient. Lt intrapleural catheter dressing is intact. Sinus rhythm on the monitor. +2 edema to RUE and RLE. Palpable
pulses. Levophed is off at this time.Diminished breath sounds. SpO2 at 97% on 4L/O2 nc. +BS. Sacral foam is cdi. Bilateral LE mepilex dressings are cdi. Pure wick is draining rosa urine. All needs are met right now.
--- NOTE | 2024-02-07 21:49 | PTCARENOTE ---
: Patient complaining of SOB, stating that she received nebulizer treatment that is ineffective. SpO2 at 93% on 4L. RR 13. HR 85. O2 increased to 5L/ nc. Encouraged deep breathing. SpO2 at 97%. Explained to the patient that neb treatment
was administered and proair has albuterol. Pt states that she needs her inhaler. RT paged and made aware. RT at the bedside. Pt communicating with staff. No signs of distress.
[2024-02-07] MEDS: NEURONTIN 600 MG PO (22:12)
[2024-02-07] MEDS: SENOKOT PO (22:12)
[2024-02-08] VITALS (16 sets, daily range): BP systolic 78–98; BP diastolic 51–74; BMI 17.9
--- NOTE | 2024-02-08 00:05 | PTCARENOTE ---
Patient reassessed. VSS. Remains on 5L o2 nc. Denies SOB. the patient turns and repositions herself. All needs met at this time.
[2024-02-08 04:45] LABS: % Basophils 0.3 % (0-2); % Eosinophils 0.6 % (0-6); % Immature Granulocytes 0.6 % (0-0.5); % Lymphocytes 2.9 % (20.5-51.1); % Monocytes 6.6 % (1.7-9.3); Absolute Lymphocytes 0.2 10^3/uL (1.2-3.4); Absolute Monocytes 0.5 10^3/uL (0.1-0.6); Hematocrit 22.2 % (37.0-47.0); Hemoglobin 7.5 g/dL (12.0-16.0); Mean Corp Hgb Conc. 33.8 g/dL (33.0-37.0); Mean Corpuscular Hgb 30.7 pg (27.0-31.0); Mean Platelet Volume 8.9 fL (7.4-10.4); Nucleated Red Blood Cells % 0 %; Platelet Count 258 10^3/uL (130-400); Red Blood Cell Count 2.44 10^6/uL (4.20-5.40); Red Cell Dist. Width 16.6 % (11.5-14.5); White Blood Cell Count 6.8 10^3/uL (4.8-10.8)
--- NOTE | 2024-02-08 04:49 | PTCARENOTE ---
Patient reassessed. No changes from the previous assessment. Labs drawn and sent. Patient cleansed with CHG wipes. Pt completed mouth care with moisturizing swabs. PAds changed. New purewick place. All needs are met at this time. Safety measures
continued.
[2024-02-08 05:07] LABS: ALT (SGPT) < 10 U/L (0-35); AST (SGOT) 16 U/L (14-36); Albumin 2.1 g/dl (3.5-5.0); Alkaline Phosphatase 73 U/L (38-126); Blood Urea Nitrogen 23 mg/dl (7-17); Calcium 8.1 mg/dl (8.4-10.2); Carbon Dioxide 23 mmol/L (22-30); Chloride 100 mmol/L (98-107); Estimated Creatinine Clearance 63 ml/min; Glucose 81 mg/dl (70-99); Sodium 132 mmol/L (135-145); Total Bilirubin < 0.1 mg/dl (0.2-1.3); Total Protein 4.5 g/dl (6.3-8.2); eGFR > 60.00
[2024-02-08] MEDS: DUONEB 3 ML INH ×3 (08:03→20:21)
[2024-02-08] MEDS: SYMBICORT 160/4.5 MCG INHALER 2 PUFF INH ×2 (08:23→20:48)
[2024-02-08] MEDS: STERILE WATER FOR INJECTION 10 ML IV ×3 (08:48→18:20)
[2024-02-08] MEDS: MAXIPIME 1000 MG IV ×3 (08:48→18:19)
[2024-02-08] MEDS: TYLENOL 650 MG PO (08:49)
[2024-02-08] MEDS: ProAmatine 5 MG TUBE ×3 (08:49→18:20)
[2024-02-08] MEDS: NEURONTIN 300 MG PO (08:49)
[2024-02-08] MEDS: ELIQUIS 5 MG PO ×2 (08:49→20:21)
--- NOTE | 2024-02-08 09:21 | W.PN.ID1 ---
Date of Service
Date of Service: February 08, 2024
Today's Communication
Continue cefepime.
Repet bcx.
Assessment / Plan
Pseudomonas bacteremia
� Potential sources include port
- Port removed 02/06, tip cx pending
Hypotension - weaned off pressor
Clinical sepsis
Anemia
Fever
Lactic acidosis
Right empyema secondary to MSSA, has PleurX catheter
� On antibiotics through 02/16/2024
h/o R hip PJI with E. coli, on cephalexin suppressive therapy
Stage IV Ovarian Carcinoma (2019, s/p several rounds of chemo) w/ Lung Mets, malignant pleural effusion
DVT, not on OAC
Asthma
Neuropathy
Recommendations:
Continue cefepime (d3)
Follow port tip cx
Follow repeat blood cultures this am
Will need PICC/midline for IV access when bacteremia resolves.
Monitor white count and temperature curve.
Will continue to follow for clinical improvement.
Chief Complaint
-: Bacteremia
Subjective / Review of Systems
Feels well today.
Vital Signs / Physical Exam
Vital Signs
Vital Signs
Temp Pulse Resp BP Pulse Ox
98 F 82 19 95/65 98
02/08/24 04:30 02/08/24 08:49 02/08/24 08:07 02/08/24 08:49 02/08/24 08:07
Physical Exam
Constitutional: No Acute Distress and Cachetic
Cardiovascular: Regular Rate and S1/S2
Pulmonary: Other (Decreased BS bases)
Gastrointestinal: Soft, Non Tender and Non Distended
Extremities: Negative Edema
Neurological: AO x 3
Objective Data
Lab Data
Lab Results
02/08/24 04:19
02/08/24 04:19
PT 22.0 Sec (11.4-14.6) H 02/05/24 19:59
INR 1.91 02/05/24 19:59
APTT 44.9 Sec (23.4-35.0) H 02/05/24 19:59
Estimated Creat Clear 63 ml/min 02/08/24 04:19
Lactic Acid 1.4 mmol/L (0.7-2.0) 02/05/24 19:59
Total Bilirubin < 0.1 mg/dl (0.2-1.3) L 02/08/24 04:19
AST 16 U/L (14-36) 02/08/24 04:19
ALT < 10 U/L (0-35) 02/08/24 04:19
Alkaline Phosphatase 73 U/L (38-126) 02/08/24 04:19
Most recent labs reviewed.
Micro Results:
02/05/24 14:46 Blood Culture - Preliminary
Blood/Venous Pseudomonas aeruginosa
Gram Stain - Final
02/05/24 12:54 Blood Culture - Preliminary
Blood/Venous Pseudomonas aeruginosa
Gram Stain - Preliminary
02/08/24 04:19 Blood Culture - Pending
Blood/Venous
02/05/24 15:45 Acid Fast Bacilli Smear - Preliminary
Pleural Fluid Acid Fast Bacilli Culture - Preliminary
02/05/24 15:45 Fungal Smear - Final
Pleural Fluid No yeast or fungal elements seen.
Fungal Culture - Preliminary
Culture in progress.
Positive cultures are reported as soon as detected.
Final report to follow in four to five weeks.
02/07/24 11:05 Catheter Tip Culture - Pending
Catheter Tip
02/05/24 15:45 Body Fluid Culture - Preliminary
Pleural Fluid No Growth After 48 Hours
Gram Stain - Preliminary
02/05/24 22:59 Urine Culture - Final
Urine No Significant Growth
02/05/24 12:54 Influenza Types A & B (PILI) - Final
Nasal Swab Negative for Influenza A & B, NAAT
Negative results must be combined with clinical observations
and patient history.
Nucleic Acid Amplification test (NAAT)performed on the
[employer] platform.
[2024-02-08] MEDS: ROXICODONE 5 MG PO ×2 (09:40→13:43)
[2024-02-08 10:35] LABS: Iron 41 ug/dl (37-170)
--- NOTE | 2024-02-08 11:42 | W.PN.INTV ---
Today's Communication / Plan
Recommendations
Continue antibiotics
Follow blood culture
Chest x-ray on Saturday
Possibly attempt to drain intrapleural catheter on Saturday if there is significant fluid on x-ray
Assessment
-
73-year-old woman with history of widely metastatic ovarian cancer, cachexia, recent MSSA empyema, status post intrapleural catheter placement, chronic anemia, chronic hypoxemic respiratory failure, currently not on chemotherapy admitted for fevers
and hypotension. Increased lactic acid. Transferred to the critical care unit for further evaluation.
Septic shock
Multiple sources possible
Chest x-ray 02/05/2024: Reviewed showed bilateral pleural effusion, stable compared to prior. Moderate in size. Bibasilar atelectasis.
Lactic acidosis
Conditions present prior admission:
Recent admission for MSSA empyema 12/2023.
Left upper lobe cavitary lesion-metastatic.
Cardiomyopathy.
Echocardiogram 01/06/2024-shows mildly reduced LVEF of 45% with normal RV size/function, mild�moderate TR with moderate pulmonary hypertension with PASP 44 mmHg assuming an RAP of 3 mmHg
Osteoarthritis involving multiple joints
History of rheumatoid arthritis
Chronic anemia (baseline Hb 7.5�9 g/dL)
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 Follows up at [facility]-chemotherapy on hold since December due to empyema.
Chronic respiratory failure 5 L nasal cannula
Chronic pleural effusion: Malignant, status post Left intrapleural catheter 01/13/2024.
Plan:
Pulmonary following for bilateral effusions.
Denies any significant shortness of breath at rest
Last attempt to drain on admission only yielded less than 100 cc.
Will repeat chest x-ray on Saturday. If there is significant effusion we will attempt to drain again.
-
Septic shock: Mostly resolved
Remains off vasopressors, intermittently requiring 1 baltazar of Levophed.
Patient does not appear toxic-mostly asymptomatic.
Afebrile
No significant leukocytosis
-
Continue low-dose midodrine. Likely has low vascular tone given widely metastatic carcinoma, low albumin levels etc.
Normal renal function
Lactic acid is cleared
Pseudomonas aeruginosa: Bacteremia
Repeat blood culture
UA not impressive- many bacteria WBC 0-2
Infectious disease following. Repeat blood cultures.
Once bacteremia clears we can decide on PICC line.
-
History of empyema-positive MSSA diagnosed 12/2023. Discharged on IV antibiotics-she states that she has been doing well since discharge.
On Ancef-was supposed to continue antibiotics until 02/16/2024.
Continue antibiotics per infectious disease.
Pleural fluid does not appear infected this admission 02/05/2024.
-
Status post intrapleural catheter 01/13/2024.
Pleural cytology 01/06/2024: Positive for malignant cells. Adenocarcinoma.
Chest x-ray with bilateral pleural effusion, left IPC in place.
Pleural fluid obtained by interventional radiology: Exudative. Malignant-Gram stain without organisms. Wait for cultures.
Will continue to drain every 48-72 hours depending on symptoms, while in the hospital-next drain possibly on Saturday depending on chest x-ray and symptoms.
Patient with history of ovarian cancer. No metastatic. Cachectic. Malnourished.
Not bronchospastic on exam
Continue current bronchodilator regimen: DuoNebs QID with Symbicort(takes in the outpatient setting)
-
Cachectic: Continue with nutritional support.
DVT prophylaxis-on eliquis
Code status: Full code --> we would recommend DNR given her cachectic appearance and oo-morvlyhealr-fenu will be an ongoing discussion.
Remains full code per daughter.
-
Pulmonary will follow intermittently. Will see again on Saturday
Subjective Dataa
Subjective Data
Date of Service:
Date of Service: February 08, 2024
Chief Complaint: [employer] Follow Up (Septic shock)
Subjective:
No new complaints
Denies any chills
Continues to have poor p.o. intake
Review of Systems
General: Fever (n)
Cardiopulmonary: Dyspnea (none at rest)
GI: Abdominal Pain (n)
Neuro: Headache (n)
Objective Data
Data Reviewed
Vital Signs / I&O / Oxygen:
Vital Signs
Temp Pulse Resp BP Pulse Ox
98 F 88 13 95/65 98
02/08/24 08:00 02/08/24 09:30 02/08/24 09:30 02/08/24 08:49 02/08/24 09:30
Intake and Output
02/07/24 02/08/24 02/09/24
06:59 06:59 06:59
Intake Total 2335.1 / 2335.1 494.0 / 494.0 240 / 240
Output Total 800 / 800 350 / 350 400 / 400
Balance 1535.1 / 1535.1 144.0 / 144.0 -160 / -160
SaO2 98
Nasal Cannula flow liters per 5
minute
Physical Exam
General: Comfortable and Other (Cachectic)
HEENT: Normocephalic
Cardiovascular: S1-S2
Respiratory: Other (Decreased breath sounds bilaterally)
GI: Soft and Non Distended
Neurology: Awake, AO x 3 and No Motor Deficits
Skin: Warm
Labs/Micro/Reports
Lab Data
02/08/24 04:19
02/08/24 04:19
Microbiology
02/05/24 15:45 Pleural Fluid Body Fluid Culture - Final
No Growth After 72 Hours
02/05/24 15:45 Pleural Fluid Gram Stain - Final
02/07/24 11:05 Catheter Tip Catheter Tip Culture - Preliminary
No Growth After 18-24 Hours
02/05/24 14:46 Blood/Venous Blood Culture - Final
Pseudomonas aeruginosa
02/05/24 14:46 Blood/Venous Gram Stain - Final
02/05/24 12:54 Blood/Venous Blood Culture - Preliminary
Pseudomonas aeruginosa
02/05/24 12:54 Blood/Venous Gram Stain - Preliminary
02/05/24 15:45 Pleural Fluid Acid Fast Bacilli Smear - Preliminary
02/05/24 15:45 Pleural Fluid Acid Fast Bacilli Culture - Preliminary
02/05/24 15:45 Pleural Fluid Fungal Smear - Final
No yeast or fungal elements seen.
02/05/24 15:45 Pleural Fluid Fungal Culture - Preliminary
Culture in progress.
Positive cultures are reported as soon as detected.
Final report to follow in four to five weeks.
02/05/24 22:59 Urine Urine Culture - Final
No Significant Growth
02/05/24 12:54 Nasal Swab Influenza Types A & B (PILI) - Final
Negative for Influenza A & B, NAAT
Negative results must be combined with clinical observations
and patient history.
Nucleic Acid Amplification test (NAAT)performed on the
[employer] platform.
[2024-02-08] MEDS: ProAIR HFA INHALER 2 PUFF INH (11:59)
[2024-02-08 12:27] LABS: Vitamin B12 778 pg/ml (239-931)
[2024-02-08] MEDS: MUCINEX 600 MG PO ×2 (13:36→20:21)
--- NOTE | 2024-02-08 14:31 | W.PN.HOSP.TC ---
Today's Communication/Plan
-
cont cefepime
imaging intermittently to assess for draining catheter
Assessment / Plan
Assessment / Plan
Physical Exam
General: Comfortable, Conversant and Fever; No Chills
HEENT: NormoCephalic, Anicteric, Moist mucous membranes, PERRLA, [place] Conjunctivae, No Ptosis, Neck Nontender and Oxygen (6 L nasal cannula)
Respiratory: Clear and Chest Tube (Chronic right sided pleural cath); No Wheezes, Rales or Rhonchi
Cardiac: S1/S2 and Regular Rhythm; No Murmur, Rub, Gallop, Peripheral Edema or JVD
Breast: Deferred by me
GI: Soft, Non Tender, Non Distended, Normal Bowel Sounds and No Hepatosplenomegaly
Rectal: Deferred by Provider
Genito-urinary: Deferred by me
Musculoskeletal: No Clubbing, No Cyanosis and No Edema
Skin: Warm, Dry and IV/Catheter Site (Port right upper chest wall); No Rash
Neuro: AO x 3, No Motor Deficits, Nonfocal/grossly intact, Cranial Nerves Intact and No Sensory Deficits; No Slurred Speech, Facial Droop, Tremors or Sedated
Psych: Calm
#Septic shock unclear etiology concern for bacteremia given current MSSA right pleural fluid
#Lactic acidosis
#Bacteremia, Pseudomonas
-F/u pleural cultures
-Repeat blood cultures
-Cefepime
-Monitor WBC, fever curve
-Port possibly is the cultprit, removal and cultures drawn 02/06
-PICC line placed
-Ensure MAP >65, now resolved
� Midodrine - can wean as appropriate
#Large Right Sided malignant pleural effusion adenocarcinoma 01/02/2024 status post thoracentesis, positive for MSSA
#Right sided pleural tube requiring drainage every other day(typical volume 400 to 600 cc per)
#Empyema-known cavitating lesion left upper lobe
-Thoracentesis on 01/06/2024 positive malignant cells, adenocarcinoma
-MSSA pleural effusion treated with Rocephin transition 6-week course cefazolin through her PICC line to stop on 02/16/2024 then resume her prophylactic Keflex for prior joint infection
-Patient will need right pleural tube drained every other day - drained today, only 2cc out; cultures - f/u cultures; may consider draining on Saturday depending on imaging
# Chronic hypoxic respiratory failure w/ home oxygen dependence (resolved)
-Chronic 5 L nasal cannula now requiring 6 L nasal cannula
- C/w QID DuoNeb treatments, Symbicort inhaler
# Chronic DVT LLE, previously untreated patient stopped her Eliquis in August 2019 for unclear reason
- Patient did not take her Eliquis post discharge for LE DVT, has not been on OAC since her August 2023 admission
- LE Venous Doppler during this admission (+) extensive DVT, increased from prior ultrasound
-Was restarted on Eliquis 10mg BID until 01/16 8AM, then starting 01/16 8PM ,
-continue Eliquis 5mg dose BID indefinitely
#Stage IV Ovarian cancer w/ Mets omentum 06/04/2019 then mets to the Lung August 2022 poss new stable T12 vertebral body bony mets
#Chronic cancer pain with opioid dependence
- Palliative chemotherapy (Taxol) with [facility] q3 weeks
-Was not interested in hospice during December visit
- Cont Oxycodone 7.5mg Q4h prn
-Patient's oncologist Dr. Hensley her chemo was paused due to December hospitalization for MSSA
CXR showing focal sclerosis involving the right side of the T12 vertebral body, stable, and likely a bony metastatic lesion.
#Chronic constipation, multifactorial (resolved)
- Cont bowel regimen of Senokot/Mirala
#History of Prosthetic Joint Infection
-To resume oral Keflex after completing IV Rocephin via PICC line on 02/16/2024 - now on cefepime
#Peripheral Neuropathic Pain
-Continue home dose gabapentin 600mg QHS
# Hyponatremia
� Most likely SIADH
� Monitor
DVT prophylaxis
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
Anticipated Discharge: > 48 hours
Subjective/Interval History
-
Date of Service: February 08, 2024
no acute events
Objective Data
-
Labs:
Laboratory Results
02/08/24
04:19
WBC 6.8
Hgb 7.5 L
Hct 22.2 L
Plt Count 258
Sodium 132 L
Potassium 4.0
Chloride 100
Carbon Dioxide 23
BUN 23 H
Creatinine 0.6
Glucose 81
Calcium 8.1 L
Total Bilirubin < 0.1 L
AST 16
ALT < 10
Alkaline Phosphatase 73
Vital Signs:
Vital Signs
Temp Pulse Resp BP Pulse Ox
98.7 F 102 23 94/55 98
02/08/24 12:35 02/08/24 13:36 02/08/24 13:36 02/08/24 13:36 02/08/24 13:36
I&O
02/07/24 02/08/24 02/09/24
06:59 06:59 06:59
Intake Total 2335.1 / 2335.1 494.0 / 494.0 480 / 480
Output Total 800 / 800 350 / 350 400 / 400
Balance 1535.1 / 1535.1 144.0 / 144.0 80 / 80
Review of Systems
-
History Source: Patient
All other systems: Not reviewed unless documented
Physical Exam
-
General: Well Developed, No Apparent Distress, Comfortable, Appears Chronically Ill and Cachectic
HEENT: Normocephalic, Atraumatic, Moist Mucous Membranes, Anicteric, [place] Conjunctivae and PERRLA
Respiratory: Crackles and Decreased Breath Sounds
Cardiac: Regular Rhythm and S1/S2; Negative Murmur or Calf Tenderness
Breast: N/A
GI: Soft, Nontender, Nondistended and Normal Bowel Sounds
Rectal: Deferred by Provider
Genito-urinary: No Costovertebral Tender
Musculoskeletal: No Clubbing, No Cyanosis and Edema, Right Lower Extrem
Skin: Warm, Dry and IV Access / Catheter Site (R IJ Chemo port/ R pleurX catheter)
Neuro: Awake, Alert, Oriented, No Motor Deficits, Nonfocal/Grossly Intact and No Sensory Deficits
Psych: Calm
Data Reviewed
-
Diagnostic Radiology: Image personally visualized and interpreted and Report Reviewed by me
Labs: Labs Reviewed by me and Discussed with Patient
--- NOTE | 2024-02-08 16:50 | PTCARENOTE ---
Continue follow up assessment. Patient complains off and on with shortness of breath. Relief with rest, pain meds and nebs. Continue follow up evaluation of medications via [place], Follow up vs trends ongoing. Patient and family discussing options of
care, palliative care, second opinion r/t oncology problems,. Patient very emotional expressing she doesn't want to live like this. Continue supportive cares. Teaching as needed with emotional support ongoing. Patient OOB to chair for lunch and
afternoon. Return to bed at this time.
--- NOTE | 2024-02-08 21:06 | PTCARENOTE ---
Patient received in bed, AAOx4. Denies pain and sob. Plan of care for the shift reviewed with the patient. Sinus rhythm on the monitor. Rt AC 20g is patent. +2 edema to RUE and RLE. Diminished breath sounds. SpO2 at 99% on 5 liter o2/nc. +BS.
Purewick is intact. PAtient ate 50% of her dinner tray. The patient turns and repositions herself. All needs are met at this time.
[2024-02-08] MEDS: SENOKOT PO (22:00)
[2024-02-08] MEDS: NEURONTIN 600 MG PO (22:00)
[2024-02-09] VITALS (15 sets, daily range): BP systolic 93–127; BP diastolic 67–91; BMI 17.9
[2024-02-09] MEDS: MAXIPIME 1000 MG IV ×5 (00:02→23:10)
[2024-02-09] MEDS: STERILE WATER FOR INJECTION 10 ML IV ×5 (00:02→23:10)
--- NOTE | 2024-02-09 00:37 | PTCARENOTE ---
Patient reassessed. VSS. No changes from the previous assessment. SpO2 at 100 % on 5L/o2 nc with RR 18. Pt's with unlabored breathing and even chest rise. Safety measures maintained.
[2024-02-09] MEDS: TIGAN 200 MG IM ×2 (02:21→10:39)
[2024-02-09] MEDS: ProAIR HFA INHALER 2 PUFF INH ×3 (02:23→14:39)
[2024-02-09] MEDS: TUMS CHEWABLE TABLET 400 MG PO ×3 (02:30→21:30)
--- NOTE | 2024-02-09 02:48 | PTCARENOTE ---
Patient vomited small amount of brownish green emesis. HR 120. SpO2 at 90% on 5 L. Rt at the bedside. Tigan and tums administered. Cool wash cloth placed on pt's forehead. O2 increased to 7 L/nc. spO2 increased to 93%.
[2024-02-09] MEDS: BENADRYL 25 MG IV (03:43)
[2024-02-09 04:34] LABS: % Basophils 0.4 % (0-2); % Eosinophils 0.6 % (0-6); % Immature Granulocytes 0.8 % (0-0.5); % Lymphocytes 3.4 % (20.5-51.1); % Neutrophils 87.8 % (42.2-75.2); Absolute Lymphocytes 0.2 10^3/uL (1.2-3.4); Absolute Monocytes 0.4 10^3/uL (0.1-0.6); Absolute Neutrophils 4.6 10^3/uL (1.4-6.5); Hemoglobin 8.7 g/dL (12.0-16.0); Mean Corp Hgb Conc. 33.5 g/dL (33.0-37.0); Mean Corpuscular Hgb 29.6 pg (27.0-31.0); Mean Corpuscular Volume 88.4 fL (81.0-99.0); Mean Platelet Volume 9.2 fL (7.4-10.4); Nucleated Red Blood Cells % 0 %; Platelet Count 302 10^3/uL (130-400); Red Blood Cell Count 2.94 10^6/uL (4.20-5.40); Red Cell Dist. Width 16.4 % (11.5-14.5); White Blood Cell Count 5.3 10^3/uL (4.8-10.8)
[2024-02-09 04:43] LABS: ALT (SGPT) < 10 U/L (0-35); AST (SGOT) 16 U/L (14-36); Albumin 2.4 g/dl (3.5-5.0); Alkaline Phosphatase 76 U/L (38-126); Blood Urea Nitrogen 24 mg/dl (7-17); Calcium 8.5 mg/dl (8.4-10.2); Carbon Dioxide 22 mmol/L (22-30); Chloride 98 mmol/L (98-107); Estimated Creatinine Clearance 62 ml/min; Glucose 98 mg/dl (70-99); Magnesium 1.5 mg/dl (1.6-2.3); Phosphorus 3.5 mg/dl (2.5-4.5); Sodium 131 mmol/L (135-145); Total Bilirubin 0.3 mg/dl (0.2-1.3); eGFR > 60.00
--- NOTE | 2024-02-09 04:43 | PTCARENOTE ---
Patient reassessed.continued vomiting. Benadryl IV administered and pt improved. Patient Sinus tachy with HR 115. Pt's incontinent of urine. Bladder scanned for 241 ml. Denies pain. Patient cleansed with CHG wipes and linens changed. Safety measures
in use. Call cortez is within reach.
[2024-02-09] MEDS: DUONEB 3 ML INH ×3 (07:56→19:38)
[2024-02-09] MEDS: SYMBICORT 160/4.5 MCG INHALER 2 PUFF INH ×2 (07:56→19:38)
[2024-02-09] MEDS: NEURONTIN 300 MG PO (08:33)
[2024-02-09] MEDS: ELIQUIS 5 MG PO ×2 (08:33→19:02)
[2024-02-09] MEDS: MUCINEX 600 MG PO ×2 (08:33→19:02)
[2024-02-09] MEDS: ProAmatine 5 MG TUBE ×2 (08:34→14:51)
--- NOTE | 2024-02-09 08:53 | PTCARENOTE ---
Updated assessment, vital signs ongoing and as documented. Patient requesting to sleep, take meds with breakfast a little later, and feels 'somewhat better.' C/C of nausea thru night, now with some relief post medications and flatus. Turned and
repositioned at this time. Respiratory meds as ordered. Returned to sleep. Will follow up assessment post breakfast. Continue hourly rounds, frequent patient safety checks. Updated labs with hospitalist team will follow up orders.
--- NOTE | 2024-02-09 09:28 | W.PN.ID1 ---
Date of Service
Date of Service: February 09, 2024
Today's Communication
Continue cefepime.
Assessment / Plan
Pseudomonas bacteremia
� Potential sources include port
- Port removed 02/06, tip cx pending
Hypotension - weaned off pressor
Clinical sepsis
Anemia
Fever
Lactic acidosis
Right empyema secondary to MSSA, has PleurX catheter
� On antibiotics through 02/16/2024
h/o R hip PJI with E. coli, on cephalexin suppressive therapy
Stage IV Ovarian Carcinoma (2019, s/p several rounds of chemo) w/ Lung Mets, malignant pleural effusion
DVT, not on OAC
Asthma
Neuropathy
Recommendations:
Continue cefepime (d4)
Follow port tip cx -neg to date
repeat blood cultures neg to date
Will need PICC/midline for IV access when bacteremia resolves.
Will continue to follow for clinical improvement.
Chief Complaint
-: Bacteremia
Subjective / Review of Systems
no new complaints
Vital Signs / Physical Exam
Vital Signs
Vital Signs
Temp Pulse Resp BP Pulse Ox
98.1 F 102 16 108/69 93
02/09/24 07:21 02/09/24 08:34 02/09/24 07:59 02/09/24 08:34 02/09/24 07:59
Physical Exam
Constitutional: No Acute Distress and Cachetic
Cardiovascular: Regular Rate and S1/S2
Pulmonary: Other (Decreased BS bases)
Gastrointestinal: Soft, Non Tender and Non Distended
Extremities: Negative Edema
Neurological: AO x 3
Objective Data
Lab Data
Lab Results
02/09/24 04:03
02/09/24 04:03
PT 22.0 Sec (11.4-14.6) H 02/05/24 19:59
INR 1.91 02/05/24 19:59
APTT 44.9 Sec (23.4-35.0) H 02/05/24 19:59
Estimated Creat Clear 62 ml/min 02/09/24 04:03
Lactic Acid 1.4 mmol/L (0.7-2.0) 02/05/24 19:59
Total Bilirubin 0.3 mg/dl (0.2-1.3) 02/09/24 04:03
AST 16 U/L (14-36) 02/09/24 04:03
ALT < 10 U/L (0-35) 02/09/24 04:03
Alkaline Phosphatase 76 U/L (38-126) 02/09/24 04:03
Most recent labs reviewed.
Micro Results:
02/08/24 04:19 Blood Culture - Preliminary
Blood/Venous No Growth in 24 hours- Final report to follow
02/09/24 04:03 Blood Culture - Pending
Blood/Venous
02/05/24 15:45 Body Fluid Culture - Final
Pleural Fluid No Growth After 72 Hours
Gram Stain - Final
02/07/24 11:05 Catheter Tip Culture - Preliminary
Catheter Tip No Growth After 18-24 Hours
02/05/24 14:46 Blood Culture - Final
Blood/Venous Pseudomonas aeruginosa
Gram Stain - Final
02/05/24 12:54 Blood Culture - Preliminary
Blood/Venous Pseudomonas aeruginosa
Gram Stain - Preliminary
02/05/24 15:45 Acid Fast Bacilli Smear - Preliminary
Pleural Fluid Acid Fast Bacilli Culture - Preliminary
02/05/24 15:45 Fungal Smear - Final
Pleural Fluid No yeast or fungal elements seen.
Fungal Culture - Preliminary
Culture in progress.
Positive cultures are reported as soon as detected.
Final report to follow in four to five weeks.
02/05/24 22:59 Urine Culture - Final
Urine No Significant Growth
02/05/24 12:54 Influenza Types A & B (PILI) - Final
Nasal Swab Negative for Influenza A & B, NAAT
Negative results must be combined with clinical observations
and patient history.
Nucleic Acid Amplification test (NAAT)performed on the
[employer] platform.
[2024-02-09] MEDS: MAGNESIUM SULFATE 100 IV (10:50)
--- NOTE | 2024-02-09 11:09 | PTCARENOTE ---
Pt with episode of emesis. 200ml of green/brown output. PRN Tigan administered. Mg 1.5 on morning labs. New order for Magnesium Sulfate 4 grams x1 now acknowledged and infusing through (R) AC #20. Pt downgraded to telemetry.
[2024-02-09] MEDS: ROXICODONE 5 MG PO ×3 (14:51→21:47)
[2024-02-09] MEDS: TYLENOL 650 MG PO (14:51)
--- NOTE | 2024-02-09 15:50 | W.PN.HOSP.TC ---
Addendum entered and electronically signed by Yuval Riley MD 02/09/24 16:18:
#Hyponatremia
#Chronic hypoxic respiratory failure
#stage 2 of sacrum surrounded by possible DTI
#Severe Malnutrition
Original Note:
Today's Communication/Plan
-
cefepime
f/u cultures
reassess chest imaging tomorrow /as per pulm
folic acid
Assessment / Plan
Assessment / Plan
Physical Exam
General: Comfortable, Conversant and Fever; No Chills
HEENT: NormoCephalic, Anicteric, Moist mucous membranes, PERRLA, [place] Conjunctivae, No Ptosis, Neck Nontender and Oxygen (6 L nasal cannula)
Respiratory: Clear and Chest Tube (Chronic right sided pleural cath); No Wheezes, Rales or Rhonchi
Cardiac: S1/S2 and Regular Rhythm; No Murmur, Rub, Gallop, Peripheral Edema or JVD
Breast: Deferred by me
GI: Soft, Non Tender, Non Distended, Normal Bowel Sounds and No Hepatosplenomegaly
Rectal: Deferred by Provider
Genito-urinary: Deferred by me
Musculoskeletal: No Clubbing, No Cyanosis and No Edema
Skin: Warm, Dry and IV/Catheter Site (Port right upper chest wall); No Rash
Neuro: AO x 3, No Motor Deficits, Nonfocal/grossly intact, Cranial Nerves Intact and No Sensory Deficits; No Slurred Speech, Facial Droop, Tremors or Sedated
Psych: Calm
#Septic shock unclear etiology concern for bacteremia given current MSSA right pleural fluid
#Lactic acidosis
#Bacteremia, Pseudomonas
-Repeat blood cultures - ngtd
-Cefepime (D4)
-Monitor WBC, fever curve
-Port possibly is the cultprit, removal and cultures drawn 02/06 - f/u cultures
-PICC line placement after clearance of bacteremia
-Ensure MAP >65, now resolved
� Midodrine - can wean as appropriate
#Large Right Sided malignant pleural effusion adenocarcinoma 01/02/2024 status post thoracentesis, positive for MSSA
#Right sided pleural tube requiring drainage every other day(typical volume 400 to 600 cc per)
#Empyema-known cavitating lesion left upper lobe
-Thoracentesis on 01/06/2024 positive malignant cells, adenocarcinoma
-MSSA pleural effusion treated with Rocephin transition 6-week course cefazolin through her PICC line to stop on 02/16/2024 then resume her prophylactic Keflex for prior joint infection
-Patient will need right pleural tube drained every other day - drained today, only 2cc out; cultures - f/u cultures; may consider draining on Saturday depending on imaging
# Chronic hypoxic respiratory failure w/ home oxygen dependence (resolved)
-Chronic 5 L nasal cannula now requiring 6 L nasal cannula
- C/w QID DuoNeb treatments, Symbicort inhaler
# Chronic DVT LLE, previously untreated patient stopped her Eliquis in August 2019 for unclear reason
- Patient did not take her Eliquis post discharge for LE DVT, has not been on OAC since her August 2023 admission
- LE Venous Doppler during this admission (+) extensive DVT, increased from prior ultrasound
-Was restarted on Eliquis 10mg BID until 01/16 8AM, then starting 01/16 8PM ,
-continue Eliquis 5mg dose BID indefinitely
#Stage IV Ovarian cancer w/ Mets omentum 06/04/2019 then mets to the Lung August 2022 poss new stable T12 vertebral body bony mets
#Chronic cancer pain with opioid dependence
- Palliative chemotherapy (Taxol) with [facility] q3 weeks
-Was not interested in hospice during December visit
- Cont Oxycodone 7.5mg Q4h prn
-Patient's oncologist Dr. Hensley her chemo was paused due to December hospitalization for MSSA
CXR showing focal sclerosis involving the right side of the T12 vertebral body, stable, and likely a bony metastatic lesion.
#Chronic constipation, multifactorial (resolved)
- Cont bowel regimen of Senokot/Mirala
#History of Prosthetic Joint Infection
-To resume oral Keflex after completing IV Rocephin via PICC line on 02/16/2024 - now on cefepime
#Peripheral Neuropathic Pain
-Continue home dose gabapentin 600mg QHS
# Hyponatremia
� Most likely SIADH
� Monitor
#Chronic Anemia
-multifactorial
-folate low, start supp
#Hypomagnesemia
� Monitor and replete
#Nausea/Vomiting
-suspect combined with anxiety
-trial .25mg ativan po prn
DVT prophylaxis
Continue [employer] Eliquis 5 mg twice daily
Anticipated Discharge: > 48 hours
Subjective/Interval History
-
Date of Service: February 09, 2024
Vomited, claims it is due to tomato soup
Objective Data
-
Labs:
Laboratory Results
02/09/24
04:03
WBC 5.3
Hgb 8.7 L
Hct 26.0 L
Plt Count 302
Sodium 131 L
Potassium 4.0
Chloride 98
Carbon Dioxide 22
BUN 24 H
Creatinine 0.6
Glucose 98
Calcium 8.5
Total Bilirubin 0.3
AST 16
ALT < 10
Alkaline Phosphatase 76
Vital Signs:
Vital Signs
Temp Pulse Resp BP Pulse Ox
98.0 F 114 20 108/69 93
02/09/24 11:59 02/09/24 14:43 02/09/24 14:43 02/09/24 08:34 02/09/24 07:59
I&O
02/08/24 02/09/24 02/10/24
06:59 06:59 06:59
Intake Total 494.0 / 494.0 940 / 940 60 / 60
Output Total 350 / 350 605 / 605
Balance 144.0 / 144.0 335 / 335
Review of Systems
-
History Source: Patient
All other systems: Not reviewed unless documented
Data Reviewed
-
Diagnostic Radiology: Image personally visualized and interpreted and Report Reviewed by me
Labs: Labs Reviewed by me and Discussed with Patient
--- NOTE | 2024-02-09 17:00 | PTCARENOTE ---
Follow up assessments ongoing. Patient appears much more comfortable at this time. Follow up with hospitalist and family conversations. Family discussing gaols of care, discussing palliative cares, hospice and overall patient wishes. Continue follow
up with Hospitalist. Skin cares, oral cares and back rub provided. Follow up supportive cares, emotional support ongoing. Family home at this time for conference to discuss patient wishes and plan of cares.
[2024-02-09] MEDS: ProAmatine TUBE (18:10)
--- NOTE | 2024-02-09 19:27 | PTCARENOTE ---
Rec'd pt resting in bed w/ visitor at bedside, cooperative, follows commands,c/o discomfort buttocks, repos on air pillow w/ relief, SR, bp stable, weak distal pulses, O2 5 liters nc, sat 96, lungs decr, hypo bowel sounds , no bm, intermittent
nausea w/ repos, poor appetite, purewick in place
--- NOTE | 2024-02-09 21:45 | PTCARENOTE ---
tums given for reflux, CHG bath done, linens changed, ativan 0.25mg po given for anx, oxycodone 5mg po given for pain
[2024-02-09] MEDS: SENOKOT PO (21:46)
[2024-02-09] MEDS: ATIVAN 0.25 MG PO (21:46)
[2024-02-09] MEDS: NEURONTIN 600 MG PO (21:47)
--- NOTE | 2024-02-09 23:12 | PTCARENOTE ---
pain improved after med, dozing
[2024-02-10] VITALS (9 sets, daily range): BP systolic 90–120; BP diastolic 65–85; BMI 17.8
[2024-02-10] MEDS: ATIVAN 0.25 MG PO ×2 (04:00→08:56)
[2024-02-10] MEDS: ROXICODONE 5 MG PO ×2 (04:01→08:57)
--- NOTE | 2024-02-10 04:03 | PTCARENOTE ---
ativan 0.25 mg po & oxycodone 5mg po given as requested
[2024-02-10 04:18] LABS: % Basophils 0.5 % (0-2); % Eosinophils 0.3 % (0-6); % Immature Granulocytes 0.9 % (0-0.5); % Lymphocytes 3.5 % (20.5-51.1); % Monocytes 10.6 % (1.7-9.3); % Neutrophils 84.2 % (42.2-75.2); Absolute Immature Granulocytes 0.1 10^3/uL (0-0.05); Absolute Lymphocytes 0.2 10^3/uL (1.2-3.4); Absolute Monocytes 0.6 10^3/uL (0.1-0.6); Absolute Neutrophils 4.9 10^3/uL (1.4-6.5); Hematocrit 23.1 % (37.0-47.0); Mean Corp Hgb Conc. 34.6 g/dL (33.0-37.0); Mean Corpuscular Hgb 29.7 pg (27.0-31.0); Mean Corpuscular Volume 85.9 fL (81.0-99.0); Mean Platelet Volume 8.7 fL (7.4-10.4); Nucleated Red Blood Cells % 0 %; Platelet Count 304 10^3/uL (130-400); Red Blood Cell Count 2.69 10^6/uL (4.20-5.40); Red Cell Dist. Width 16.4 % (11.5-14.5); White Blood Cell Count 5.8 10^3/uL (4.8-10.8)
[2024-02-10 04:39] LABS: ALT (SGPT) < 10 U/L (0-35); AST (SGOT) 16 U/L (14-36); Albumin 2.3 g/dl (3.5-5.0); Alkaline Phosphatase 74 U/L (38-126); Blood Urea Nitrogen 26 mg/dl (7-17); Calcium 8.5 mg/dl (8.4-10.2); Carbon Dioxide 24 mmol/L (22-30); Chloride 98 mmol/L (98-107); Estimated Creatinine Clearance 62 ml/min; Glucose 87 mg/dl (70-99); Potassium 4.3 mmol/L (3.5-5.1); Sodium 131 mmol/L (135-145); Total Bilirubin 0.4 mg/dl (0.2-1.3); Total Protein 4.6 g/dl (6.3-8.2); eGFR > 60.00
[2024-02-10] MEDS: MAXIPIME 1000 MG IV (05:23)
[2024-02-10] MEDS: STERILE WATER FOR INJECTION 10 ML IV (05:24)
[2024-02-10] MEDS: TIGAN 200 MG IM (06:00)
--- NOTE | 2024-02-10 06:03 | PTCARENOTE ---
vomited 100ml, tigan 200 mg im given
--- NOTE | 2024-02-10 07:42 | W.PN.INTV ---
Today's Communication / Plan
Recommendations
Check chest x-ray
Consider Pleurx catheter drainage
Norepinephrine weaned
Comfort a priority
Considering hospice
Now wishes DNR status
Assessment
-
73-year-old woman with history of widely metastatic ovarian cancer, cachexia, recent MSSA empyema, status post intrapleural catheter placement, chronic anemia, chronic hypoxemic respiratory failure, currently not on chemotherapy admitted for fevers
and hypotension. Increased lactic acid. Transferred to the critical care unit for further evaluation.
Septic shock
Multiple sources possible
Chest x-ray 02/05/2024: Reviewed showed bilateral pleural effusion, stable compared to prior. Moderate in size. Bibasilar atelectasis.
Lactic acidosis
Conditions present prior admission:
Recent admission for MSSA empyema 12/2023.
Left upper lobe cavitary lesion-metastatic.
Cardiomyopathy.
Echocardiogram 01/06/2024-shows mildly reduced LVEF of 45% with normal RV size/function, mild�moderate TR with moderate pulmonary hypertension with PASP 44 mmHg assuming an RAP of 3 mmHg
Osteoarthritis involving multiple joints
History of rheumatoid arthritis
Chronic anemia (baseline Hb 7.5�9 g/dL)
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 Follows up at [facility]-chemotherapy on hold since December due to empyema.
Chronic respiratory failure 5 L nasal cannula
Chronic pleural effusion: Malignant, status post Left intrapleural catheter 01/13/2024.
Plan:
Respiratory status relatively stable-remains critically ill on pressors
Supplemental oxygen as needed
Aspiration precautions
Nebulizers as needed
Symbicort
Mucus clearing devices
Chest x-ray 02/10/2024
Pleurx catheter drainage as needed-placed 01/13/2024, cytology positive-adenocarcinoma
Drain every 48-72 hours depending on symptoms
Cultures reviewed
Empiric antibiotics
Norepinephrine as needed
Midodrine continues
Lactic acid cleared
Consider PICC line once bacteremia clears
History of empyema-positive MSSA diagnosed 12/2023. Discharged on IV antibiotics-she states that she has been doing well since discharge.
On Ancef-was supposed to continue antibiotics until 02/16/2024.
Continue antibiotics per infectious disease.
Pleural fluid does not appear infected this admission 02/05/2024.
Significant cachexia and malnourishment
Nutrition as tolerated
DVT prophylaxis-on eliquis
Early mobilization
Patient now considering hospice-Dr. Philip had lengthy talk with patient who is alert and oriented-would not want CPR, shocking, or intubation and mechanical ventilation-we will respect her wishes
Wishes to go home with hospice
Critical care statement: A total of 55 minutes of critical care time was provided for this patient today. This includes management of unstable vital signs, evaluation of the patient at bedside, reviewing the patient's pertinent medical records
including radiographs pressor management, microbiology, laboratory evaluations, and discussion with primary team, consultants, pharmacy, nutrition, physical therapy, case management, charge nurse, critical care nursing, and respiratory therapy.
Subjective Dataa
Subjective Data
Date of Service:
Date of Service: February 10, 2024
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
Subjective:
Patient continues to complain of some nausea, response to Tigan, currently no shortness of breath at rest, chest pain or abdominal pain
Review of Systems
General: Other (Per HPI)
Objective Data
Data Reviewed
Vital Signs / I&O / Oxygen:
Vital Signs
Temp Pulse Resp BP Pulse Ox
98.2 F 102 15 120/80 97
02/10/24 04:03 02/10/24 06:00 02/10/24 06:00 02/10/24 06:00 02/09/24 23:13
Intake and Output
02/09/24 02/10/24 02/11/24
06:59 06:59 06:59
Intake Total 940 / 940 510 / 510
Output Total 605 / 605 750 / 750
Balance 335 / 335 -240 / -240
SaO2 97
Nasal Cannula flow liters per 5
minute
Physical Exam
General: Respiratory Distress, Comfortable and Other (Cachectic)
HEENT: Normocephalic
Cardiovascular: Regular Rhythm
Respiratory: Wheeze (n), Crackles ( basilar), Rhonchi (Expiratory), Non-Labored Respirations, Accessory Resp Muscle Use (n), Stridor (n) and Other (Decreased breath sounds bilaterally)
GI: Soft and Non Distended
Neurology: Awake, Alert and No Motor Deficits
Skin: Warm, Good Color, Cyanosis (n), Jaundice (n) and Rash (n)
Labs/Micro/Reports
Lab Data
02/10/24 03:54
02/10/24 03:54
Microbiology
02/08/24 04:19 Blood/Venous Blood Culture - Preliminary
No Growth in 48 hours- Final report to follow
02/09/24 04:03 Blood/Venous Blood Culture - Preliminary
No Growth in 24 hours- Final report to follow
02/07/24 11:05 Catheter Tip Catheter Tip Culture - Preliminary
No Growth After 48 Hours
02/05/24 15:45 Pleural Fluid Body Fluid Culture - Final
No Growth After 72 Hours
02/05/24 15:45 Pleural Fluid Gram Stain - Final
02/05/24 14:46 Blood/Venous Blood Culture - Final
Pseudomonas aeruginosa
02/05/24 14:46 Blood/Venous Gram Stain - Final
02/05/24 12:54 Blood/Venous Blood Culture - Preliminary
Pseudomonas aeruginosa
02/05/24 12:54 Blood/Venous Gram Stain - Preliminary
02/05/24 15:45 Pleural Fluid Acid Fast Bacilli Smear - Preliminary
02/05/24 15:45 Pleural Fluid Acid Fast Bacilli Culture - Preliminary
02/05/24 15:45 Pleural Fluid Fungal Smear - Final
No yeast or fungal elements seen.
02/05/24 15:45 Pleural Fluid Fungal Culture - Preliminary
Culture in progress.
Positive cultures are reported as soon as detected.
Final report to follow in four to five weeks.
02/05/24 22:59 Urine Urine Culture - Final
No Significant Growth
[2024-02-10] MEDS: DUONEB 3 ML INH ×2 (08:05→13:48)
[2024-02-10] MEDS: SYMBICORT 160/4.5 MCG INHALER 2 PUFF INH (08:05)
[2024-02-10] MEDS: MUCINEX 600 MG PO (08:56)
[2024-02-10] MEDS: PROTONIX 40 MG PO (08:56)
[2024-02-10] MEDS: TUMS CHEWABLE TABLET 400 MG PO (08:56)
[2024-02-10] MEDS: NEURONTIN 300 MG PO (08:56)
--- NOTE | 2024-02-10 09:00 | PTCARENOTE ---
Assumed care of patient at 0700. Patient alert and oriented. Neuropathy in b/l hands and feet. C/o diffuse pain throughout body. Anxious and nauseous. PRN Chinyere and Ativan administered. VSS. Patient refusing Midodrine, as well as Eliquis. NSR on tele
monitor. Pulse ox 95% on 5L nc. Lung sounds diminished throughout with fine crackles about [address] up posteriorly. TRAN. Right pluerx cath in place with dressing c/d/i. +BS. Appetite poor. Refused breakfast. +N/V. Tigan administered by night clerk
RN. C/o heartburn. Tums and Protonix administered. Incontinent of urine. Hilda care performed and purewick replaced. Patient repositioned for comfort. Air cushion placed under buttocks d/t stage 2 sacral wound discomfort. Code status discussed
between patient and Road Consultant. Patient verbalizing she wants to be a DNR and go home on hospice. Hospitalist and case management notified of patient's wishes.
[2024-02-10] MEDS: ELIQUIS PO (09:31)
[2024-02-10] MEDS: ProAmatine TUBE ×2 (09:32→12:28)
--- NOTE | 2024-02-10 10:09 | W.PN.ID1 ---
Date of Service
Date of Service: February 10, 2024
Today's Communication
Continue antibiotics until fully admitted to hospice level services (at patient's request)
Assessment / Plan
Pseudomonas bacteremia
� Potential sources include port
- Port removed 02/06, tip cx no growth.
Hypotension - weaned off pressor
Clinical sepsis
Anemia
Fever
Lactic acidosis
Right empyema secondary to MSSA, has PleurX catheter
� On antibiotics through 02/16/2024
h/o R hip PJI with E. coli, on cephalexin suppressive therapy
Stage IV Ovarian Carcinoma (2019, s/p several rounds of chemo) w/ Lung Mets, malignant pleural effusion
DVT, not on OAC
Asthma
Neuropathy
Recommendations:
Continue cefepime (d#5)
repeat blood cultures neg to date
Spoke with patient and daughter. Both are interested in pursuing hospice level care as they see little point in moving forward with aggressive care.
Hospice consult has been placed. For now, they would prefer to continue with antibiotics until the patient is ready for discharge.
����������������������������������������������������������
Chief Complaint
-: Bacteremia
Subjective / Review of Systems
Patient seen and examined. Reports general body pain (02/05), and feels generally unwell.
Review of Systems: No Fever
Vital Signs / Physical Exam
Vital Signs
Vital Signs
Temp Pulse Resp BP Pulse Ox
98.0 F 90 18 116/85 95
02/10/24 08:02 02/10/24 08:07 02/10/24 08:07 02/10/24 08:00 02/10/24 09:00
Physical Exam
Constitutional: Chronically Ill, Non-toxic and Cachetic
Eyes: Sclera Anicteric
Cardiovascular: S1/S2; Negative S3/S4
Pulmonary: Non Labored
Gastrointestinal: Distended
Extremities: Negative Edema
Neurological: Awake, Alert and AO x 3
Psychological: Calm
Objective Data
Lab Data
Lab Results
02/10/24 03:54
02/10/24 03:54
PT 22.0 Sec (11.4-14.6) H 02/05/24 19:59
INR 1.91 02/05/24 19:59
APTT 44.9 Sec (23.4-35.0) H 02/05/24 19:59
Estimated Creat Clear 62 ml/min 02/10/24 03:54
Lactic Acid 1.4 mmol/L (0.7-2.0) 02/05/24 19:59
Total Bilirubin 0.4 mg/dl (0.2-1.3) 02/10/24 03:54
AST 16 U/L (14-36) 02/10/24 03:54
ALT < 10 U/L (0-35) 02/10/24 03:54
Alkaline Phosphatase 74 U/L (38-126) 02/10/24 03:54
Most recent labs reviewed.
Micro Results:
02/07/24 11:05 Catheter Tip Culture - Final
Catheter Tip No Growth After 72 Hours
02/08/24 04:19 Blood Culture - Preliminary
Blood/Venous No Growth in 48 hours- Final report to follow
02/09/24 04:03 Blood Culture - Preliminary
Blood/Venous No Growth in 24 hours- Final report to follow
02/05/24 15:45 Body Fluid Culture - Final
Pleural Fluid No Growth After 72 Hours
Gram Stain - Final
02/05/24 14:46 Blood Culture - Final
Blood/Venous Pseudomonas aeruginosa
Gram Stain - Final
02/05/24 12:54 Blood Culture - Preliminary
Blood/Venous Pseudomonas aeruginosa
Gram Stain - Preliminary
02/05/24 15:45 Acid Fast Bacilli Smear - Preliminary
Pleural Fluid Acid Fast Bacilli Culture - Preliminary
02/05/24 15:45 Fungal Smear - Final
Pleural Fluid No yeast or fungal elements seen.
Fungal Culture - Preliminary
Culture in progress.
Positive cultures are reported as soon as detected.
Final report to follow in four to five weeks.
02/05/24 22:59 Urine Culture - Final
Urine No Significant Growth
02/05/24 12:54 Influenza Types A & B (PILI) - Final
Nasal Swab Negative for Influenza A & B, NAAT
Negative results must be combined with clinical observations
and patient history.
Nucleic Acid Amplification test (NAAT)performed on the
[employer] platform.
Care Review
Plan reviewed with: Other (digital program manager)
--- NOTE | 2024-02-10 10:46 | CM ---
Addendum entered by Johnathan Valentin 02/10/24 15:50:
shove up time 4:30 p.m.
Both pt, her family and [facility] hospice associate sales representative Chelsey are aware of discharge time.
Addendum entered by Johnathan Valentin 02/10/24 12:45:
CM spoke to [facility] hospice associate sales representative Chelsey and she confirmed that pt is accepted for admission to home hospice and 4:00 p.m or 5:00 p.m. sweet pickled fruit maker time requested.
CM spoke to pt's daughter Bernie, son Joao and they agree with the plan to bring their mother home today with [facility] and they will coordinate with [facility] hospice team regarding pt's DME needs. IMM reviewed, placed on chart, pt has a copy.
According to MD pt will be discharged today with [facility]. Out of hospital DNR form placed on pt's chart for MD to sign.
Please fax discharge instructions to [facility] at [phone].
[facility] to arrange transportation with Acute care ambulance. PMNC completed, left with [facility].
D/C plan: home with [facility] hospice care, [facility] caregiver services and family support.
Addendum entered by Johnathan Valentin 02/10/24 11:15:
CM spoke to [facility] hospice associate sales representative Chelsey [phone] to coordinate hospice care referral and she stated they do not have an access to [facility] and pt's clinical faxed to provided fax: [phone].
Original Note:
CM following re: discharge planning.
Reviewed pt's chart, met with pt and pt's daughter at bedside.
Hospice consult noted. Both pt and her daughter Bernie are aware, expressed their agreement. A list of hospice care agencies provided, [facility] preferred. A referral to [facility] hospice made. pt expressed her desire to return back home today
with hospice care. per daughter, pt has [facility] caregiver services. Emotional support offered and provided.
D/C plan: home with [facility] hospice care, [facility] caregiver services and family support.
CM will follow to assist pt with discharge hoe with [facility] hospice care, [facility] caregiver services and family support.
--- NOTE | 2024-02-10 11:50 | W.PN.HOSP.TC ---
Today's Communication/Plan
-
Continue with antibiotics for now
Planning for hospice
Assessment / Plan
Assessment / Plan
#Septic shock
#Lactic acidosis
#Bacteremia, Pseudomonas
-Possibly from chemotherapy port; currently on day 4 of IV cefepime
-Has been weaned off of vasopressor support
-Currently transitioning to hospice
-Continue antibiotics until on hospice
#Large Right Sided malignant pleural effusion adenocarcinoma 01/02/2024 status post thoracentesis, positive for MSSA
#Right sided pleural tube requiring drainage every other day(typical volume 400 to 600 cc per)
#Empyema-known cavitating lesion left upper lobe
-Thoracentesis on 01/06/2024 positive malignant cells, adenocarcinoma
-transitioning to hospice as above
#Chronic hypoxic respiratory failure w/ home oxygen dependence (resolved)
-Chronic 5 L nasal cannula now requiring 6 L nasal cannula
-C/w QID DuoNeb treatments, Symbicort inhaler
#Chronic DVT LLE
-continue Eliquis 5mg dose BID indefinitely
#Stage IV Ovarian cancer w/ metastasis to omentum, lung, bone
#Chronic cancer pain with opioid dependence
-Palliative chemotherapy (Taxol) with [facility] q3 weeks
-Now transitioning to hospice as above, starting comfort medication
#Chronic constipation, multifactorial (resolved)
- Cont bowel regimen of Senokot/Mirala
#History of Prosthetic Joint Infection
-Chronically on Keflex, currently receiving cefepime instead due to above issues
#Peripheral Neuropathic Pain
-Continue home dose gabapentin 600mg QHS
#Hyponatremia
-Serum sodium stable near 131-132
#Chronic Anemia
-multifactorial
-folate low, start supp
#Hypomagnesemia
� Monitor and replete
#Nausea/Vomiting
-comfort medications as above
DVT prophylaxis: Eliquis
Diet: Regular
CODE STATUS: DNR
Disposition: Hospice, home setting preferred by patient and daughter
Anticipated Discharge: Within 24 hours
Subjective/Interval History
-
Date of Service: February 10, 2024
Seen and examined at the bedside with her daughter. No acute events overnight. AFVSS off of vasopressors, on baseline O2
She complains of significant diffuse pain. Asking for comfort measures and to go home. Daughter at bedside agrees this is appropriate
Transitioning to hospice, consult placed
Objective Data
-
Labs:
Laboratory Results
02/10/24
03:54
WBC 5.8
Hgb 8.0 L
Hct 23.1 L
Plt Count 304
Sodium 131 L
Potassium 4.3
Chloride 98
Carbon Dioxide 24
BUN 26 H
Creatinine 0.6
Glucose 87
Calcium 8.5
Total Bilirubin 0.4
AST 16
ALT < 10
Alkaline Phosphatase 74
Vital Signs:
Vital Signs
Temp Pulse Resp BP Pulse Ox
97.6 F 90 18 116/85 95
02/10/24 11:22 02/10/24 08:07 02/10/24 08:07 02/10/24 08:00 02/10/24 09:00
I&O
02/09/24 02/10/24 02/11/24
06:59 06:59 06:59
Intake Total 940 / 940 510 / 510
Output Total 605 / 605 750 / 750
Balance 335 / 335 -240 / -240
Review of Systems
-
History Source: Patient and Family
All other systems: Reviewed and negative
Physical Exam
-
General: Pain, Appears Chronically Ill and Cachectic
HEENT: Normocephalic, Atraumatic and Moist Mucous Membranes
Respiratory: Non Labored Respirations and Decreased Breath Sounds; Negative Wheezes, Rales or Rhonchi
Cardiac: Regular Rhythm and S1/S2
GI: Soft, Normal Bowel Sounds, Tender and Distended
Musculoskeletal: No Clubbing, No Cyanosis and No Edema
Skin: Warm and Dry; Negative Rash
Neuro: AO x 3, Nonfocal/Grossly Intact and Central Nerve's Intact
Psych: Calm
Data Reviewed
-
Labs: Labs Reviewed by me
[2024-02-10] MEDS: ROXICODONE 10 MG PO ×2 (12:27→16:48)
[2024-02-10] MEDS: STERILE WATER FOR INJECTION IV (12:28)
[2024-02-10] MEDS: MAXIPIME IV (12:28)
--- NOTE | 2024-02-10 12:30 | PTCARENOTE ---
Patient complaining of unrelieved pain throughout body. Hospitalist notified. Increased dose of Roxicodone obtained and administered.
--- NOTE | 2024-02-10 14:49 | CHAP ---
Emotional and spiritual support provided for Ms. Mckeon and family at bedside. She expresses being at peace.
--- NOTE | 2024-02-10 17:10 | PTCARENOTE ---
IV access and tele monitor removed prior to transport home. Patient transported via ambulance. Daughter at bedside, belongings sent with daughter.
== END 2024-02-10 17:19 | disposition hospice, home (50) | DRG 314 ==
LOC: ICU 14:49
PROVIDERS: Clinical Nurse Specialist Family Health; Radiology Vascular & Interventional Radiology; ADMITTING PHYSICIAN Hospitalist; ATTENDING PHYSICIAN Internal Medicine; CONSULT PHYSICIAN Internal Medicine Critical Care Medicine; EMERGENCY PHYSICIAN Emergency Medicine; FAMILY PHYSICIAN Student in an Organized Health Care Education/Training Program; OTHER PHYSICIAN Internal Medicine Infectious Disease
PROC: 0JPT0XZ Removal of Tunneled Vascular Access Device from Trunk Subcutaneous Tissue and Fascia, Open Approach (ICD-10-PCS; 2024-02-07)
PROC: 05PY33Z Removal of Infusion Device from Upper Vein, Percutaneous Approach (ICD-10-PCS; 2024-02-07)
DX: T80.211A Bloodstream infection due to central venous catheter, initial encounter (principal); A41.52 Sepsis due to Pseudomonas; E43 Unspecified severe protein-calorie malnutrition; J86.9 Pyothorax without fistula; R65.21 Severe sepsis with septic shock; J91.0 Malignant pleural effusion; J96.11 Chronic respiratory failure with hypoxia; I82.502 Chronic embolism and thrombosis of unspecified deep veins of left lower extremity; Z66 Do not resuscitate; Z51.5 Encounter for palliative care; F11.20 Opioid dependence, uncomplicated; E87.20 Acidosis, unspecified; I42.9 Cardiomyopathy, unspecified; R64 Cachexia; Z68.1 Body mass index [BMI] 19.9 or less, adult; E87.1 Hypo-osmolality and hyponatremia; C78.00 Secondary malignant neoplasm of unspecified lung; C79.51 Secondary malignant neoplasm of bone; G89.3 Neoplasm related pain (acute) (chronic); G62.9 Polyneuropathy, unspecified; K59.09 Other constipation; M15.9 Polyosteoarthritis, unspecified; D63.0 Anemia in neoplastic disease; J45.909 Unspecified asthma, uncomplicated; B95.61 Methicillin susceptible Staphylococcus aureus infection as the cause of diseases classified elsewhere; I95.89 Other hypotension; L89.152 Pressure ulcer of sacral region, stage 2; Z11.52 Encounter for screening for COVID-19; Z99.81 Dependence on supplemental oxygen; Z96.651 Presence of right artificial knee joint; Z96.641 Presence of right artificial hip joint; Z90.710 Acquired absence of both cervix and uterus; Z87.891 Personal history of nicotine dependence; Z85.43 Personal history of malignant neoplasm of ovary; Z79.01 Long term (current) use of anticoagulants; Z79.51 Long term (current) use of inhaled steroids; Z79.899 Other long term (current) drug therapy; Y83.1 Surgical operation with implant of artificial internal device as the cause of abnormal reaction of the patient, or of later complication, without mention of misadventure at the time of the procedure
CPT/HCPCS: 36590; 71045; 77001; 80053; 80202; 81003; 81015; 82150; 82607; 82728; 82746; 82945; 83540; 83605; 83615; 83735; 84100; 84157; 84478; 84484; 85025; 85610; 85730; 87015; 87040; 87070; 87084; 87086; 87102; 87116; 87149; 87186; 87205; 87206; 87502; 87811; 89051; 93005; 93970; 94640; 96365; 96366; 96375; 97163; 97167; 99285